=== PATIENT | female | born 1935 | race Caucasian/White ===

== ENCOUNTER → 2016-09-08 | Outpatient (CLI) | payer OTHER ==
[~2016-09-08] MED LIST: ATOR-22 PO; CRG40 PO; CYM60 PO; DIVA250T PO; DIVA500T5 PO; FERR325T51 PO; FRRS300 PO; LEVO25TA5 PO; LISI-461 PO; LORA-741 PO; LSN10 PO; LVQ750 PO; MAGN400T6 PO; OXYC-57 PO; PRAM1TAB PO; PRAM1TAB52 PO; QSTP PO; RBTUDL5 PO; SYN25 PO; TYL325X PO; VST25HP PO; ZOLP5TAB PO
== END | disposition home or self-care (01) ==
LOC: C.LABMFLN 07:35
PROVIDERS: ATTEND Family Medicine
DX: R30.0 Dysuria (principal)

== ENCOUNTER → 2016-09-20 | Outpatient (CLI) | payer OTHER ==
[~2016-09-20] MED LIST changes: +GADAVIST IV PRN
--- NOTE | 2016-09-20 11:17 | DIAGNOSTIC IMAGING REPORT ---
MRI OF THE BRAIN WITHOUT AND WITH IV CONTRAST CLINICAL HISTORY: DEMENTIA,GAIT APRAXIA,SANCHEZ mental status change COMPARISON STUDY: 12/01/2015 TECHNIQUE: Utilizing a 1.5 Gavi magnet and dedicated coil, multiplanar, multiecho imaging of the brain was performed pre and postcontrast administration. IV administration of 5.5 mL of Gadavist contrast was uneventful. FINDINGS: Findings of generalized cerebellar as well as cerebellar atrophy. Moderate chronic small vessel change of the periventricular deep white matter regions. Convexity atrophy unaltered from the prior study. No evidence for abnormal postcontrast enhancement. IMPRESSION: 1. Generalized cerebellar as well as cerebral atrophy. 2. Moderate chronic small vessel change. 3. No acute process. 4. No evidence for abnormal postcontrast enhancement. Electronically signed by: Andrew Ugarte M.D. 09/20/2016 11:16 AM Dictated Date/Time: 09/20/2016 11:14 AM
== END | disposition home or self-care (01) ==
PROVIDERS: ATTEND Psychiatry & Neurology Neurology
DX: F03.90 Unspecified dementia, unspecified severity, without behavioral disturbance, psychotic disturbance, mood disturbance, and anxiety (principal); R51 Headache; R48.2 Apraxia

== ENCOUNTER 2016-09-27 14:01 | Inpatient (IN) | payer OTHER ==
[~2016-09-27] VITALS: Ht 165.1 cm; Wt 61.2 kg
[~2016-09-27 14:01] MED LIST changes: -DIVA250T PO; -FRRS300 PO; -GADAVIST IV PRN; -LISI-461 PO; -LSN10 PO; -LVQ750 PO; -MAGN400T6 PO; -PRAM1TAB PO; -QSTP PO; -RBTUDL5 PO; -SYN25 PO; -TYL325X PO
[2016-09-27] MEDS ORDERED: SODIUM CHLORIDE 0.9% 1000ML 1,000 ML IV STA (14:29)
--- NOTE | 2016-09-27 14:32 | EMERGENCY ROOM VISIT NOTE ---
History Report prepared by Mandi: Bryan Concepcion Under the Supervision of: Dr. Clay Bañuelos M.D. First contact with patient: 14:21 Chief Complaint: DIARRHEA Stated Complaint: DIARRHEA Nursing Triage Summary: increased diarrhea. she is known to have c diff. she is supposed to have a decal transplant on tuesday in [facility]. weak over the past couple days. History of Present Illness The patient is an 81 year old female with a history of C. Diff. who presents to the Emergency Room with complaints of recurrent diarrhea for the past several months. The patient has had increased diarrhea recently, as per her . The patient has also been becoming increasingly weak. The patient is scheduled for a fecal transplant on 10/05/16 at [facility]. The patient was last on antibiotics two weeks ago, which her believes was Vancomycin. He also notes that the patient has a history of falling off of beds without rails. Source of History: spouse/significant other Onset: several months Position: other (GI) Quality: other (diarrhea) Timing: other (recurrent) Associated Symptoms: + weakness Review of Systems See HPI for pertinent positives & negatives. A total of 10 systems reviewed and were otherwise negative. Past Medical & Surgical Medical Problems: (1) Clostridium difficile diarrhea (2) Facial droop (3) HCAP (healthcare-associated pneumonia) (4) Hyperlipemia (5) Hypertension (6) Migraine (7) Sinusitis, acute (8) Stenosis of left internal carotid artery Surgical Problems: (1) Post-operative state Family History Hypertension Seizures Social History Smoking Status: Never Smoker Alcohol Use: none Drug Use: none Marital Status: Housing Status: lives with family Occupation Status: retired Current/Historical Medications Scheduled Atorvastatin (Lipitor), 20 MG PO HS Divalproex Sodium (Depakote Delay Rel), 500 MG PO QPM Duloxetine Hcl (Cymbalta *), 60 MG PO QPM Ferrous Sulfate (Ferrous Sulfate), 325 MG PO DAILY Levothyroxine Sodium (Levothyroxine Sodium), 1.5 TAB PO QAM Lisinopril (Lisinopril), 10 MG PO DAILY Magnesium Oxide (Mag-Ox), 400 MG PO BID Nadolol (Nadolol), 40 MG PO QAM Pramipexole Dihydrochloride (Mirapex), 1.25 MG PO HS Scheduled PRN Hydroxyzine HCl (Hydroxyzine Pamoate), 25 MG PO DAILY PRN for Anxiety Lorazepam (Ativan), 0.5 MG PO HS PRN for Sleep Oxycodone/Acetaminophen 5MG/325MG (Percocet 5MG/325MG), 1 TABLETS PO Q6H PRN for Pain Zolpidem Tartrate (Ambien), 5 MG PO HS PRN for Sleep Allergies Coded Allergies: Codeine (Verified Allergy, Mild, ?REACTION, 02/11/16) Aripiprazole (Unverified Allergy, Unknown, unknown, 02/11/16) Aspartame (Verified Adverse Reaction, Unknown, MIGRAINE, 02/11/16) Physical Exam Vital Signs Date Time Temp Pulse Resp B/P Pulse Ox O2 Delivery O2 Flow Rate FiO2 09/27/16 15:40 64 18 129/67 96 Room Air 09/27/16 14:54 64 09/27/16 14:08 75 18 133/78 95 Room Air Physical Exam GENERAL: Patient is pale in appearance. HEAD: Normocephalic atraumatic EYES: Ocular movements intact pupils equal and react to light OROPHARYNX mucous membranes are moist no exudates present no erythema or edema present NECK: Supple no nuchal rigidity CHEST: Good equal expansion LUNGS: Clear and equal to auscultation CARDIAC: Normal S1 and S2 ABDOMEN: Soft nontender no guarding BACK: No CVA tenderness EXTREMITIES: No pain upon palpation normal muscle strength in all groups no clubbing cyanosis or edema NEURO: Patient is following commands is answering questions appropriately. Alert and oriented x3 Cranial Nerves 2-12 grossly intact Medical Decision & Procedures ER Provider Diagnostic Interpretation: X-ray results as stated below per interpretation by me and the radiologist: ABDOMEN 2VIEW W/PA CHEST RTN CLINICAL HISTORY: Diffuse abdominal pain COMPARISON STUDY: Chest x-ray dated 02/09/2016 FINDINGS: Erect chest reveals no free intraperitoneal air. There are chronic calcifications within the right mid to lower lung zone. There is chronic left basilar pleural-parenchymal scarring. There is no lobar consolidation. Supine and decubitus views the abdomen reveal a relatively gasless abdomen. No transition zones are visualized. IMPRESSION: Relatively gasless abdomen. No conventional radiographic evidence of bowel obstruction. No evidence of free air. Electronically signed by: Shamar Arboleda M.D. 09/27/2016 3:57 PM Dictated Date/Time: 09/27/2016 3:56 PM Laboratory Results 09/27/16 14:45 Red Blood Count 4.40, Mean Corpuscular Volume 91.8, Mean Corpuscular Hemoglobin 30.0, Mean Corpuscular Hemoglobin Concent 32.7, Mean Platelet Volume 10.0, Neutrophils (%) (Auto) 72.4, Lymphocytes (%) (Auto) 14.1, Monocytes (%) (Auto) 10.2, Eosinophils (%) (Auto) 2.8, Basophils (%) (Auto) 0.2, Neutrophils # (Auto ) 8.71, Lymphocytes # (Auto) 1.70, Monocytes # (Auto) 1.23, Eosinophils # (Auto ) 0.34, Basophils # (Auto) 0.03 09/27/16 14:45 Test 09/27/16 14:45 White Blood Count 12.05 K/uL (4.8-10.8) Red Blood Count 4.40 M/uL (4.2-5.4) Hemoglobin 13.2 g/dL (12.0-16.0) Hematocrit 40.4 % (37-47) Mean Corpuscular Volume 91.8 fL (80-100) Mean Corpuscular Hemoglobin 30.0 pg (25-34) Mean Corpuscular Hemoglobin Concent 32.7 g/dl (32-36) Platelet Count 241 K/uL (130-400) Mean Platelet Volume 10.0 fL (7.4-10.4) Neutrophils (%) (Auto) 72.4 % Lymphocytes (%) (Auto) 14.1 % Monocytes (%) (Auto) 10.2 % Eosinophils (%) (Auto) 2.8 % Basophils (%) (Auto) 0.2 % Neutrophils # (Auto) 8.71 K/uL (1.4-6.5) Lymphocytes # (Auto) 1.70 K/uL (1.2-3.4) Monocytes # (Auto) 1.23 K/uL (0.11-0.59) Eosinophils # (Auto) 0.34 K/uL (0-0.5) Basophils # (Auto) 0.03 K/uL (0-0.2) RDW Standard Deviation 50.9 fL (36.4-46.3) RDW Coefficient of Variation 15.1 % (11.5-14.5) Immature Granulocyte % (Auto) 0.3 % Immature Granulocyte # (Auto) 0.04 K/uL (0.00-0.02) Prothrombin Time 10.6 SECONDS (9.0-12.0) Prothromb Time International Ratio 1.0 (0.9-1.1) Activated Partial Thromboplast Time 27.1 SECONDS (21.0-31.0) Partial Thromboplastin Ratio 1.0 Anion Gap 10.0 mmol/L (3-11) Est Creatinine Clear Calc Drug Dose 42.1 ml/min Estimated GFR () 67.6 Estimated GFR (Non- 58.3 BUN/Creatinine Ratio 19.1 (10-20) Calcium Level 9.2 mg/dl (8.5-10.1) Total Bilirubin 0.3 mg/dl (0.2-1) Direct Bilirubin < 0.1 mg/dl (0-0.2) Aspartate Amino Transf (AST/SGOT) 13 U/L (15-37) Alanine Aminotransferase (ALT/SGPT) 15 U/L (12-78) Alkaline Phosphatase 94 U/L (45-117) Total Protein 7.0 gm/dl (6.4-8.2) Albumin 2.7 gm/dl (3.4-5.0) Lipase 327 U/L (73-393) Thyroid Stimulating Hormone (TSH) 6.040 uIu/ml (0.300-4.500) Valproic Acid (Depakene) Level 27 mcg/ml (50-100) Labs reviewed by ED physician. Medications Administered Medications (Trade) Dose Ordered Sig/Fernando Route Start Time Stop Time Status Last Admin Dose Admin Sodium Chloride (Nss 1000ml) 1,000 ml @ 999 mls/hr Q1H1M STAT IV 09/27/16 14:29 09/27/16 15:29 DC 09/27/16 14:29 999 MLS/HR ED Course 1424: Past medical records reviewed. The patient was evaluated in room B9. A complete history and physical examination was performed. 1429: NSS 1000 ml @ 999 mls/hr. 1545: Checked on the patient. 1553: Discussed the case with Dr. Becker, [facility] Hospitalist. The patient will be evaluated. Medical Decision Differential diagnosis: Etiologies such as appendicitis, diverticulitis, PUD, biliary pathology, UTI, pancreatitis, obstruction, mesenteric ischemia, aortic pathology, infections, inflammatory bowel disease, renal colic, as well as others were entertained. This is an 81-year-old female who presents emergency department complaining of generalized weakness. The patient has been treated for outpatient for C. difficile however has failed. She is to get a fecal transplant. The patient reports she's been having approximate 5 stools per hour and feels so weak that she can no longer get out of bed. For this reason the patient was given IV given normal saline bolus. I discussed the case with the hospitalist who agreed to admit the patient. Both patient and were in agreement with the treatment plan. Consults Time Called: 1550 Consulting Physician: Dr. Becker, [facility] Returned Call: [phone]: Discussed the case with Dr. Becker, [facility]. The patient will be evaluated. Impression Primary Impression: C. difficile colitis Scribe Attestation The scribe's documentation has been prepared under my direction and personally reviewed by me in its entirety. I confirm that the note above accurately reflects all work, treatment, procedures, and medical decision making performed by me. Departure Information Dispostion Being Evaluated By Hospitalist Referrals Kim Sanabria M.D. (PCP) Patient Instructions My [facility]
[2016-09-27 15:10] LABS: BASO % 0.2 %; BASO ABS # 0.03 K/uL (0-0.2); COMPLETE YES; EOS % 2.8 %; HEMATOCRIT 40.4 % (37-47); IG% 0.3 %; LYMPH % 14.1 %; MEAN CELL VOLUME 91.8 fL (80-100); MEAN CORPUSCULAR HGB CONC 32.7 g/dl (32-36); MONO % 10.2 %; NEUT % 72.4 %; PLATELET COUNT 241 K/uL (130-400); WHITE BLOOD COUNT 12.05 K/uL (4.8-10.8)
[2016-09-27 15:20] LABS: ALT/SGPT 15 U/L (12-78); BLOOD UREA NITROGEN 17 mg/dl (7-18); BUN/CREATININE RATIO 19.1 (10-20); CALCIUM 9.2 mg/dl (8.5-10.1); CARBON DIOXIDE 25 mmol/L (21-32); CHLORIDE 105 mmol/L (98-107); CREATININE 0.91 mg/dl (0.60-1.20); GLUCOSE 96 mg/dl (70-99); POTASSIUM 4.4 mmol/L (3.5-5.1); SODIUM 140 mmol/L (136-145)
[2016-09-27 15:23] LABS: ALKALINE PHOSPHATASE 94 U/L (45-117); AST/SGOT 13 U/L (15-37)
--- NOTE | 2016-09-27 15:58 | DIAGNOSTIC IMAGING REPORT ---
ABDOMEN 2VIEW W/PA CHEST RTN CLINICAL HISTORY: Diffuse abdominal pain COMPARISON STUDY: Chest x-ray dated 02/09/2016 FINDINGS: Erect chest reveals no free intraperitoneal air. There are chronic calcifications within the right mid to lower lung zone. There is chronic left basilar pleural-parenchymal scarring. There is no lobar consolidation. Supine and decubitus views the abdomen reveal a relatively gasless abdomen. No transition zones are visualized. IMPRESSION: Relatively gasless abdomen. No conventional radiographic evidence of bowel obstruction. No evidence of free air. Electronically signed by: Shamar Arboleda M.D. 09/27/2016 3:57 PM Dictated Date/Time: 09/27/2016 3:56 PM
[2016-09-27] MEDS ORDERED: CRG40 PO (16:32)
[2016-09-27] MEDS ORDERED: MAGN400T6 PO (16:32)
[2016-09-27] MEDS ORDERED: LISI-461 PO (16:32)
[2016-09-27] MEDS ORDERED: FRRS300 PO (16:32)
[2016-09-27] MEDS ORDERED: hydrOXYzine HCL 25 MG TAB PO PRN (16:45)
[2016-09-27] MEDS ORDERED: LORAZEPAM 0.5 MG TAB PO PRN (16:45)
[2016-09-27] MEDS ORDERED: FIDAXOMICIN TAB 200 MG TAB PO SCH (16:45)
[2016-09-27] MEDS ORDERED: ZOLPIDEM TARTRATE 5 MG TAB PO PRN (16:45)
[2016-09-27] MEDS ORDERED: OXYCODONE/ACETAMINOPHEN 5-325 TAB PO PRN (16:45)
[2016-09-27] MEDS: SODIUM CHLORIDE 0.9% 1000ML 1,000 ML IV SCH (17:00)
[2016-09-27] MEDS ORDERED: ALUMINUM/MAGNESIUM/SIMETH (MAALOX MAX) 30 ML UDC PO PRN (17:00)
[2016-09-27] MEDS ORDERED: ONDANSETRON INJ 2 MG/ML 2 ML VIAL IV PRN (17:00)
[2016-09-27 17:57] LABS: PROTHROMBIN TIME (PATIENT) 10.6 SECONDS (9.0-12.0)
[2016-09-27 18:25] VITALS: BP 164/82; PULSE 67; TEMP 36.4; O2SAT 96; Ht 165.1 cm; Wt 61.2 kg
[2016-09-27] MEDS: VANCOMYCIN HCL 500 MG/10ML SOLN PO SCH ×2 (19:00→22:07)
[2016-09-27] MEDS: RASPBERRY SYRUP 5 ML UDP PO SCH ×2 (19:00→22:07)
[2016-09-27] MEDS: DULOXETINE HCL 60 MG CAP PO SCH (20:53)
[2016-09-27] MEDS: DIVALPROEX SODIUM 500 MG DELAY RELEASE TAB PO SCH (20:54)
[2016-09-27] MEDS: MAGNESIUM OXIDE 400 MG TAB PO SCH (20:54)
[2016-09-27] MEDS: PRAMIPEXOLE DIHYDROCHLORIDE 0.5 MG TAB PO SCH (20:54)
[2016-09-27] MEDS: ATORVASTATIN 20 MG TAB PO SCH (20:54)
[2016-09-27] MEDS: CHOLESTYRAMINE LIGHT 4 GM PKT PO SCH (20:55)
[2016-09-27] MEDS: HEPARIN SOD 5000 UNIT/0.5 ML CARP SQ SCH (21:06)
--- NOTE | 2016-09-27 21:37 | HISTORY & PHYSICAL EXAMINATION ---
DATE OF ADMISSION: 09/27/2016 CHIEF COMPLAINT: Diarrhea. HISTORY OF PRESENT ILLNESS: This is an 81-year-old female with complex medical history including C. diff, comes to Emergency Room complaining of recurrent diarrhea for the past several months. The patient has had increased diarrhea in the last few days as per . The patient has history of dementia and cannot provide much history, so main history was obtained from her who mentioned that last Tuesday, specifically she had more than 10 episodes of diarrhea and also she has been increasingly weak. She had been seen by Dr. Rashid from gastroenterology about 3 weeks ago and she has another appointment in 2 weeks to be considered for oral fecal transplant since the patient failed Flagyl, vancomycin and Dificid. The patient was last on antibiotics 2 weeks ago which was oral vancomycin. He also notes the patient has a history of falling off the bed without rails. REVIEW OF SYSTEMS: Negative except as above. Ten out of 14 systems were reviewed. PAST MEDICAL HISTORY: Significant for recurrent C. diff, facial droop, healthcare-associated pneumonia, dementia, hyperlipidemia, hypertension, migraine, acute sinusitis, stenosis of the left internal carotid artery, postoperative state, and seizure, last seizure was many years ago. FAMILY HISTORY: Hypertension, seizure. SOCIAL HISTORY: Does not smoke, does not drink. ALLERGIES: SHE HAS ALLERGIES TO ARIPIPRAZOLE, ASPARTAME AND CORDAN. CURRENT MEDICATIONS: Atorvastatin 20 mg p.o. daily, divalproex 500 mg p.o. daily, duloxetine 60 mg p.o. daily, ferrous sulfate 325 mg p.o. daily, levothyroxine 37.5 mcg p.o. daily, lisinopril 10 mg p.o. daily, magnesium oxide 400 mg p.o. b.i.d., nadolol 40 mg p.o. daily, pramipexole 1.25 mg p.o. daily, hydroxyzine 25 mg p.o. daily p.r.n. anxiety, lorazepam 0.5 mg p.o. p.r.n. sleep, Percocet 5/325 mg 1 tablet p.o. q. 6 hours p.r.n. pain and zolpidem 5 mg p.o. p.r.n. sleep. PHYSICAL EXAMINATION: VITAL SIGNS: Temperature not checked, pulse 64, respirations 18, blood pressure 129/67, pulse ox 96% on room air. GENERAL: The patient not in acute distress, pale. HEENT: Normocephalic, atraumatic. PERRLA, EOMI. Mouth moist, no oral lesions. NECK: No JVD. Trachea midline. Thyroid is not enlarged. LUNGS: Clear to auscultation bilateral. No wheezes, no rhonchi. HEART: S1, S2. RRR. ABDOMEN: Soft, nontender, nondistended. Bowel sounds present. BACK: No CVA tenderness. EXTREMITIES: No clubbing, cyanosis, edema. NEUROLOGICAL: The patient is alert and oriented x2. Cranial nerves II-XII are intact, appears to be having problems following commands. DIAGNOSTIC INTERPRETATION: Abdomen two views and PA chest, relatively gasless abdomen, nonconventional radiographical evidence of bowel obstruction, no evidence of free air. LABORATORY DATA: White count of 12.0, hemoglobin of 13.2, platelets 241. BMP is essentially normal. Lipase 227. TSH of 6.0. Valproic acid of 27 mcg which is a little decreased. ASSESSMENT AND PLAN: This is an 81-year-old female who comes with recurrent Clostridium diff colitis. 1. Persistent Clostridium difficile colitis with diarrhea. We will start the patient on oral vancomycin 500 mg q.i.d. and also add cholestyramine 4 grams b.i.d. as needed for diarrhea. We will also consult gastroenterology, Dr. Rashid, and we will hydrate the patient. 2. History of dementia noted with risk of fall. We will utilize fall precautions. The patient was evaluated by Dr. Castellanos, had a workup done including brain MRI on 09/20/2016 that showed generalized cerebellar as well as cerebral atrophy. 3. History of hypertension, hyperlipidemia, left internal carotid artery surgery. Continue on atorvastatin, lisinopril, nadolol. 4. History of hypothyroidism. Continue with levothyroxine 37.5 mcg daily. Check TSH. 5. History of seizures that she did not have for many years. We will continue current Depakote dose of 500 mg p.o. daily, although her Depakote level is low. We will not increase her Depakote dose because she did not have seizures for many years plus she was just evaluated by a neurologist recently. 6. Deep venous thrombosis and gastrointestinal prophylaxis. 7. The patient is a full code. Time spent on during this admission 50 minutes. MTDD
[2016-09-27 23:52] VITALS: BP 133/73; PULSE 65; TEMP 36.7; O2SAT 93
[2016-09-28] MEDS: SODIUM CHLORIDE 0.9% 1000ML 1,000 ML IV SCH ×2 (06:13→21:01)
[2016-09-28] MEDS: LEVOTHYROXINE 25 MCG TAB PO SCH (06:15)
[2016-09-28 07:58] VITALS: BP 149/73; PULSE 64
[2016-09-28] MEDS: RASPBERRY SYRUP 5 ML UDP PO SCH ×4 (08:10→21:02)
[2016-09-28] MEDS: VANCOMYCIN HCL 500 MG/10ML SOLN PO SCH ×4 (08:10→21:02)
[2016-09-28] MEDS: MAGNESIUM OXIDE 400 MG TAB PO SCH ×2 (08:10→21:06)
[2016-09-28] MEDS: LISINOPRIL 10 MG TAB PO SCH (08:11)
[2016-09-28] MEDS: NADOLOL 40 MG TAB PO SCH (08:11)
[2016-09-28] MEDS: FERROUS SULFATE 325 MG TAB PO SCH (08:11)
[2016-09-28 08:18] VITALS: BP 140/79; PULSE 65; TEMP 36.3; O2SAT 97
[2016-09-28 08:55] LABS: BASO % 0.3 %; BASO ABS # 0.03 K/uL (0-0.2); COMPLETE YES; EOS % 1.5 %; HEMATOCRIT 38.5 % (37-47); IG% 0.3 %; LYMPH % 10.3 %; LYMPH ABS # 1.04 K/uL (1.2-3.4); MEAN CELL VOLUME 91.4 fL (80-100); MEAN CORPUSCULAR HEMOGLOBIN 30.2 pg (25-34); MEAN PLATELET VOLUME 9.8 fL (7.4-10.4); MONO % 8.4 %; NEUT % 79.2 %; PLATELET COUNT 215 K/uL (130-400); RED BLOOD COUNT 4.21 M/uL (4.2-5.4); WHITE BLOOD COUNT 10.08 K/uL (4.8-10.8)
[2016-09-28 09:07] LABS: BUN/CREATININE RATIO 16.6 (10-20); CALCIUM 8.6 mg/dl (8.5-10.1); CREATININE 0.82 mg/dl (0.60-1.20); POTASSIUM 3.9 mmol/L (3.5-5.1)
[2016-09-28] MEDS: HEPARIN SOD 5000 UNIT/0.5 ML CARP SQ SCH ×2 (10:15→21:10)
[2016-09-28] MEDS: CHOLESTYRAMINE LIGHT 4 GM PKT PO SCH ×2 (11:04→22:53)
--- NOTE | 2016-09-28 13:47 | Progress Note ---
Subjective Date of Service: Sep 28, 2016. Subjective pt feels weak and tired some abdominal bloating, continued diarrhea. at bedside and updated Problem List Medical Problems: (1) Altered mental status Status: Acute (2) Altered mental status Status: Acute (3) C. difficile colitis Status: Acute (4) Dementia Status: Acute (5) Fracture of femoral neck, left Status: Acute (6) Pneumonia Status: Acute (7) Seizure Status: Acute (8) Sinusitis Status: Acute (9) Weakness Status: Acute Review of Systems Constitutional: No chills, No fever Respiratory: No cough, No shortness of breath Cardiac: No chest pain, No edema Abdomen: + diarrhea, + nausea, + pain, No constipation, No vomiting Musculoskeletal: No joint pain, No muscle pain Psychiatric: No anhedonism, No depression symptoms Objective Vital Signs Date Time Temp Pulse Resp B/P Pulse Ox O2 Delivery O2 Flow Rate FiO2 09/28/16 00:00 Room Air 09/27/16 23:52 36.7 65 16 133/73 93 Room Air 09/27/16 20:00 Room Air 09/27/16 18:25 36.4 67 18 164/82 96 Room Air 09/27/16 17:58 67 18 133/72 97 09/27/16 15:40 64 18 129/67 96 Room Air 09/27/16 14:54 64 09/27/16 14:08 75 18 133/78 95 Room Air Physical Exam General Appearance: + mild distress, + thin Neck: supple, no JVD Respiratory/Chest: chest non-tender, lungs clear, normal breath sounds Cardiovascular: regular rate, rhythm, no murmur Abdomen: soft, + abnormal bowel sounds, + guarding, + tenderness Extremities: no pedal edema, no calf tenderness 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iatric: alert, oriented x 3 Laboratory Results Last 24 Hours Test 09/27/16 14:45 White Blood Count 12.05 K/uL Red Blood Count 4.40 M/uL Hemoglobin 13.2 g/dL Hematocrit 40.4 % Mean Corpuscular Volume 91.8 fL Mean Corpuscular Hemoglobin 30.0 pg Mean Corpuscular Hemoglobin Concent 32.7 g/dl Platelet Count 241 K/uL Mean Platelet Volume 10.0 fL Neutrophils (%) (Auto) 72.4 % Lymphocytes (%) (Auto) 14.1 % Monocytes (%) (Auto) 10.2 % Eosinophils (%) (Auto) 2.8 % Basophils (%) (Auto) 0.2 % Neutrophils # (Auto) 8.71 K/uL Lymphocytes # (Auto) 1.70 K/uL Monocytes # (Auto) 1.23 K/uL Eosinophils # (Auto) 0.34 K/uL Basophils # (Auto) 0.03 K/uL RDW Standard Deviation 50.9 fL RDW Coefficient of Variation 15.1 % Immature Granulocyte % (Auto) 0.3 % Immature Granulocyte # (Auto) 0.04 K/uL Prothrombin Time 10.6 SECONDS Prothromb Time International Ratio 1.0 Activated Partial Thromboplast Time 27.1 SECONDS Partial Thromboplastin Ratio 1.0 Sodium Level 140 mmol/L Potassium Level 4.4 mmol/L Chloride Level 105 mmol/L Carbon Dioxide Level 25 mmol/L Anion Gap 10.0 mmol/L Blood Urea Nitrogen 17 mg/dl Creatinine 0.91 mg/dl Est Creatinine Clear Calc Drug Dose 42.1 ml/min Estimated GFR () 67.6 Estimated GFR (Non- 58.3 BUN/Creatinine Ratio 19.1 Random Glucose 96 mg/dl Calcium Level 9.2 mg/dl Total Bilirubin 0.3 mg/dl Direct Bilirubin < 0.1 mg/dl Aspartate Amino Transf (AST/SGOT) 13 U/L Alanine Aminotransferase (ALT/SGPT) 15 U/L Alkaline Phosphatase 94 U/L Total Protein 7.0 gm/dl Albumin 2.7 gm/dl Lipase 327 U/L Thyroid Stimulating Hormone (TSH) 6.040 uIu/ml Valproic Acid (Depakene) Level 27 mcg/ml Assessment and Plan 81-year-old female with recurrent Clostridium diff colitis. Clostridium difficile colitis with diarrhea. oral vancomycin 500 mg q.i.d. and add cholestyramine 4 grams b.i.d. consult gastroenterology, Dr. Rashid, who has followed pt in clinic and reportedly has discussion of fecal transplant History of dementia with risk of fall. fall precautions. Has seen Neurology, Dr. Castellanos, where work up showed generalized cerebellar and cerebral atrophy. Cardio/Cerebrovascular risk reduction, atorvastatin, lisinopril, nadolol. Hypothyroidism. TSH mildly elevated will check T4 seizure history with low depakote level but no clinical seizures, will continue dose as outpt listed
--- NOTE | 2016-09-28 14:10 | Gastrointestinal Consultation ---
Gastrointestinal Consultation Date of Consultation: Sep 28, 2016 Attending Physician: Dr. Becker Consulting Physician: Dr. Root Reason for Consultation: C-diff History of Present Illness Patient is a 81 year old female patient of Dr. Gonzalez with a hx of dementia, hyperlipidemia, migraines, osteoporosis, GERD, hypothyoidism, RLS and carotic stenosis. She also carries a hx of ? stroke vs. seiqzures after carotid artery surgery and underwent long rehab but is back in her home with her being her main care provider. She presented to the ED with known hx of C-diff. She has been seen in the GI clinic by Juan Rashid on 08/27/2016 and fecal transplant is being arranged for next week. Her tells us that she was initially dx'ed with C-diff in April 2016 and that this recurred after being tx for UTIS, most recently about a months ago. According to her she has had persistent diarrhea and all C-diff tests have been positive since April 2016. This has caused increasing weakness/fatigue and poor appetite. She has had ongoing abdominal discomfort but no severe abdominal pain. No blood in her stools. On arrival WBC was 12, abdominal x-ray normal. C-diff was positive. Pt was hemodynamically stable. Past Medical/Surgical History Medical Problems: (1) Altered mental status Status: Acute (2) Altered mental status Status: Acute (3) C. difficile colitis Status: Acute (4) Dementia Status: Acute (5) Fracture of femoral neck, left Status: Acute (6) Pneumonia Status: Acute (7) Seizure Status: Acute (8) Sinusitis Status: Acute (9) Weakness Status: Acute Past Medical History: 1. C-diff 2. Dementia 3. Stroke vs. Seizures 4. Carotic artery stenosis 5. GERD 6. Hypothyroidism 7. HTN 8. RLS Past Surgical History: 1. Hernia repair 2. Hernia repair 3. hysterectomy 4. Appendectomy 5. Temporal bx 6. Occipital nerve decompression 7. Brachial nerve neuroplasty Family History Hypertension Seizures Social History Smoking Status: Never Smoker Alcohol Use: none Drug Use: none Marital Status: Housing Status: lives with family Occupation Status: retired Allergies Coded Allergies: Codeine (Verified Allergy, Mild, ?REACTION, 02/11/16) Aripiprazole (Unverified Allergy, Unknown, unknown, 6/22/16) Aspartame (Verified Adverse Reaction, Unknown, MIGRAINE, 02/11/16) Current Medications Home Meds and Scripts Medications Dose Route/Sig Max Daily Dose Days Date Category Dose Instructions Mag-Ox (Magnesium Oxide) 400 Mg Tab 400 Mg PO BID 09/27/16 Reported Lisinopril 10 Mg Tab 10 Mg PO DAILY 09/27/16 Reported Ferrous Sulfate 325 Mg Tab 325 Mg PO DAILY 09/27/16 Reported Nadolol 40 Mg Tab 40 Mg PO QAM 09/27/16 Reported Depakote Delay Rel (Divalproex Sodium) 500 Mg Tab 500 Mg PO QPM 02/11/16 Reported Mirapex (Pramipexole Dihydrochloride) 0.25 Mg Tab 1.25 Mg PO HS 02/11/16 Reported Hydroxyzine Pamoate (Hydroxyzine HCl) 25 Mg Tab 25 Mg PO DAILY PRN 01/22/16 Reported Levothyroxine Sodium Unknown Strength Tab 1.5 Tab PO QAM 12/24/15 Reported Percocet 5MG/325MG (Oxycodone/Acetaminophen) Tab 1 Tablets PO Q6H PRN 11/29/15 Reported PAIN Lipitor (Atorvastatin Calcium) 20 Mg Tab 20 Mg PO HS 11/20/15 Reported Cymbalta * (Duloxetine HCl) 60 Mg Cap 60 Mg PO QPM 11/09/11 Reported Ambien (Zolpidem Tartrate) 5 Mg Tab 5 Mg PO HS PRN 11/09/11 Reported Ativan (Lorazepam) 0.5 Mg Tab 0.5 Mg PO HS PRN 11/09/11 Reported Review of Systems Constitutional: + problem reported (dementia), + weakness, No chills, No fever , No sweats, No weight loss Eyes: No eye pain, No redness ENT: No pain on swallowing, No sore throat, No trouble swallowing Respiratory: No cough, No dyspnea on exertion, No shortness of breath, No wheezing Cardiac: No chest pain, No edema, No palpitations Abdomen: + diarrhea, + pain (mild), + see HPI Neuro: No balance problems, No memory loss, No numbness/tingling, No vertigo, No weakness Psych: No anxiety, No depression symptoms, No insomnia Heme: No abnormal bleeding/bruising, No night sweats Endo: No excessive thirst, No excessive urination Skin: No itch, No jaundice, No new/changing skin lesions, No rash Physical Exam Date Time Temp Pulse Resp B/P Pulse Ox O2 Delivery O2 Flow Rate FiO2 09/28/16 08:18 36.3 65 17 140/79 97 Room Air 09/28/16 08:00 Room Air 09/28/16 07:58 64 149/73 09/28/16 00:00 Room Air 09/27/16 23:52 36.7 65 16 133/73 93 Room Air 09/27/16 20:00 Room Air 09/27/16 18:25 36.4 67 18 164/82 96 Room Air 09/27/16 17:58 67 18 133/72 97 09/27/16 15:40 64 18 129/67 96 Room Air 09/27/16 14:54 64 09/27/16 14:08 75 18 133/78 95 Room Air General Appearance: no apparent distress Eyes: normal inspection, EOMI Neck: supple, no adenopathy, thyroid normal Respiratory/Chest: chest non-tender, lungs clear, normal breath sounds, no accessory muscle use Cardiovascular: regular rate, rhythm, no JVD, no murmur Abdomen: normal bowel sounds, non tender, no organomegaly, + tenderness (mild firmness and mild distention on exam but no indication of tenderness) Extremities: normal inspection, no pedal edema, normal capillary refill 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: alert, normal mood/affect, oriented x 3 Skin: normal color, no jaundice, warm/dry, no rash Laboratory Results Last 24 Hours Test 09/27/16 14:45 09/28/16 08:33 White Blood Count 12.05 K/uL 10.08 K/uL Red Blood Count 4.40 M/uL 4.21 M/uL Hemoglobin 13.2 g/dL 12.7 g/dL Hematocrit 40.4 % 38.5 % Mean Corpuscular Volume 91.8 fL 91.4 fL Mean Corpuscular Hemoglobin 30.0 pg 30.2 pg Mean Corpuscular Hemoglobin Concent 32.7 g/dl 33.0 g/dl Platelet Count 241 K/uL 215 K/uL Mean Platelet Volume 10.0 fL 9.8 fL Neutrophils (%) (Auto) 72.4 % 79.2 % Lymphocytes (%) (Auto) 14.1 % 10.3 % Monocytes (%) (Auto) 10.2 % 8.4 % Eosinophils (%) (Auto) 2.8 % 1.5 % Basophils (%) (Auto) 0.2 % 0.3 % Neutrophils # (Auto) 8.71 K/uL 7.98 K/uL Lymphocytes # (Auto) 1.70 K/uL 1.04 K/uL Monocytes # (Auto) 1.23 K/uL 0.85 K/uL Eosinophils # (Auto) 0.34 K/uL 0.15 K/uL Basophils # (Auto) 0.03 K/uL 0.03 K/uL RDW Standard Deviation 50.9 fL 50.6 fL RDW Coefficient of Variation 15.1 % 15.0 % Immature Granulocyte % (Auto) 0.3 % 0.3 % Immature Granulocyte # (Auto) 0.04 K/uL 0.03 K/uL Prothrombin Time 10.6 SECONDS Prothromb Time International Ratio 1.0 Activated Partial Thromboplast Time 27.1 SECONDS Partial Thromboplastin Ratio 1.0 Sodium Level 140 mmol/L 141 mmol/L Potassium Level 4.4 mmol/L 3.9 mmol/L Chloride Level 105 mmol/L 107 mmol/L Carbon Dioxide Level 25 mmol/L 23 mmol/L Anion Gap 10.0 mmol/L 11.0 mmol/L Blood Urea Nitrogen 17 mg/dl 14 mg/dl Creatinine 0.91 mg/dl 0.82 mg/dl Est Creatinine Clear Calc Drug Dose 42.1 ml/min 46.8 ml/min Estimated GFR () 67.6 76.7 Estimated GFR (Non- 58.3 66.2 BUN/Creatinine Ratio 19.1 16.6 Random Glucose 96 mg/dl 102 mg/dl Calcium Level 9.2 mg/dl 8.6 mg/dl Total Bilirubin 0.3 mg/dl Direct Bilirubin < 0.1 mg/dl Aspartate Amino Transf (AST/SGOT) 13 U/L Alanine Aminotransferase (ALT/SGPT) 15 U/L Alkaline Phosphatase 94 U/L Total Protein 7.0 gm/dl Albumin 2.7 gm/dl Lipase 327 U/L Thyroid Stimulating Hormone (TSH) 6.040 uIu/ml Valproic Acid (Depakene) Level 27 mcg/ml Free Thyroxine 1.36 ng/dl Impression Patient is a 81 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 Plan 1. Vancomycin QID 2. Regular diet. 3. Will work with family members to coordinate stool donation and plan for fecal transplant at [facility] during the next week. Her submitted a sample that was C-diff positive. Will contact his PCP and ask to consider tx his C-diff. He is apparently a colonizer as he does not have symptoms. In light of this, her son will provide a sample and will be the donor. Attg addendum: I interviewed and examined pt, reviewed chart and labs. Pt admit with 4th episode of c diff over the past 3 mos. She was recently on Macrobid, and completed Vanco taper without clear improvement in early Aug. She was brought to hospital due to worsening diarrhea. On exam, she appears comfortable, and was eating dinner with good appetite; abd is soft and NT. Labs show WBC 12 and albumin 2.7. Recurrent C diff - Her diarrhea is likely related to C diff, although her apparent lack of improvement with Vanco may suggest other possibilities, suggest as microscopic colitis. She does not need high dose Vanco - please decrease dose to 125 QID. Ok to continue colestid, although there may not be clear benefit from this. Will arrange for fecal transplant, with son as potential donor, next week. If son is unable to serve as stool donor, or if pt is ow unable to qualify for FMT, then will consult ID for dificid approval.
[2016-09-28 16:10] VITALS: BP 150/78; PULSE 62; TEMP 36.3; O2SAT 98
[2016-09-28] MEDS: PRAMIPEXOLE DIHYDROCHLORIDE 0.5 MG TAB PO SCH (21:04)
[2016-09-28] MEDS: DULOXETINE HCL 60 MG CAP PO SCH (21:05)
[2016-09-28] MEDS: DIVALPROEX SODIUM 500 MG DELAY RELEASE TAB PO SCH (21:06)
[2016-09-28] MEDS: ATORVASTATIN 20 MG TAB PO SCH (21:07)
[2016-09-28 23:57] VITALS: BP 159/78; PULSE 57; TEMP 36.6
[2016-09-29] MEDS: LEVOTHYROXINE 25 MCG TAB PO SCH (06:33)
[2016-09-29 07:04] VITALS: BP 138/55; PULSE 65; TEMP 36.4; O2SAT 99
[2016-09-29] MEDS: SODIUM CHLORIDE 0.9% 1000ML 1,000 ML IV SCH ×2 (08:01→21:24)
[2016-09-29] MEDS: NADOLOL 40 MG TAB PO SCH (08:01)
[2016-09-29] MEDS: LISINOPRIL 10 MG TAB PO SCH (08:02)
[2016-09-29] MEDS: MAGNESIUM OXIDE 400 MG TAB PO SCH ×2 (08:02→20:23)
[2016-09-29] MEDS: VANCOMYCIN HCL 500 MG/10ML SOLN PO SCH (08:02)
[2016-09-29] MEDS: RASPBERRY SYRUP 5 ML UDP PO SCH ×4 (08:02→20:21)
[2016-09-29] MEDS: FERROUS SULFATE 325 MG TAB PO SCH (08:02)
[2016-09-29] MEDS: HEPARIN SOD 5000 UNIT/0.5 ML CARP SQ SCH ×2 (08:03→20:27)
[2016-09-29 08:34] LABS: BASO % 0.2 %; BASO ABS # 0.02 K/uL (0-0.2); COMPLETE YES; EOS % 2.2 %; HEMATOCRIT 35.7 % (37-47); IG% 0.4 %; LYMPH % 13.2 %; LYMPH ABS # 1.12 K/uL (1.2-3.4); MEAN CELL VOLUME 90.2 fL (80-100); MEAN CORPUSCULAR HEMOGLOBIN 30.1 pg (25-34); MEAN CORPUSCULAR HGB CONC 33.3 g/dl (32-36); MEAN PLATELET VOLUME 9.6 fL (7.4-10.4); MONO % 10.9 %; NEUT % 73.1 %; PLATELET COUNT 176 K/uL (130-400); RED BLOOD COUNT 3.96 M/uL (4.2-5.4); WHITE BLOOD COUNT 8.51 K/uL (4.8-10.8)
[2016-09-29] MEDS: VANCOMYCIN HCL 125 MG/2.5ML SOLN PO SCH ×4 (09:00→20:21)
[2016-09-29 09:11] LABS: BUN/CREATININE RATIO 9.7 (10-20); CALCIUM 8.4 mg/dl (8.5-10.1); CREATININE 0.77 mg/dl (0.60-1.20); POTASSIUM 3.8 mmol/L (3.5-5.1)
[2016-09-29] MEDS: CHOLESTYRAMINE LIGHT 4 GM PKT PO SCH ×2 (11:27→22:12)
[2016-09-29] MEDS ORDERED: VANCOMYCIN HCL 500 MG/10ML SOLN PO SCH (13:00)
[2016-09-29 15:51] VITALS: BP 136/77; PULSE 65; TEMP 36.4; O2SAT 96
[2016-09-29 15:53] VITALS: BP 97/58; PULSE 60; TEMP 36.4; O2SAT 93
[2016-09-29 16:00] VITALS: O2SAT 93
--- NOTE | 2016-09-29 17:55 | Progress Note ---
Subjective Date of Service: Sep 29, 2016. Subjective pt looks improved and is still having diarrhea, GI is considering stool transplant Problem List Medical Problems: (1) Altered mental status Status: Acute (2) Altered mental status Status: Acute (3) C. difficile colitis Status: Acute (4) Dementia Status: Acute (5) Fracture of femoral neck, left Status: Acute (6) Pneumonia Status: Acute (7) Seizure Status: Acute (8) Sinusitis Status: Acute (9) Weakness Status: Acute Review of Systems Constitutional: + fatigue, + weakness, No chills, No fever Respiratory: No cough, No shortness of breath, No wheezing Cardiac: No PND, No chest pain, No edema, No orthopnea Abdomen: + diarrhea, No nausea, No pain, No vomiting Female : No dysuria, No hematuria, No urinary frequency Psychiatric: No anhedonism, No depression symptoms Objective Vital Signs Date Time Temp Pulse Resp B/P Pulse Ox O2 Delivery O2 Flow Rate FiO2 09/29/16 16:00 93 Room Air 09/29/16 15:53 36.4 60 17 97/58 93 Room Air 09/29/16 15:51 36.4 65 16 136/77 96 Room Air 09/29/16 10:35 Room Air 09/29/16 07:04 36.4 65 16 138/55 99 Room Air 09/28/16 23:57 36.6 57 18 159/78 Room Air Physical Exam General Appearance: WD/WN, + mild distress Respiratory/Chest: chest non-tender, lungs clear, normal breath sounds Cardiovascular: regular rate, rhythm, no murmur Abdomen: normal bowel sounds, soft, + tenderness Extremities: no pedal edema, no calf tenderness 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iatric: alert, oriented x 3 Laboratory Results Last 24 Hours Test 09/29/16 07:52 White Blood Count 8.51 K/uL Red Blood Count 3.96 M/uL Hemoglobin 11.9 g/dL Hematocrit 35.7 % Mean Corpuscular Volume 90.2 fL Mean Corpuscular Hemoglobin 30.1 pg Mean Corpuscular Hemoglobin Concent 33.3 g/dl Platelet Count 176 K/uL Mean Platelet Volume 9.6 fL Neutrophils (%) (Auto) 73.1 % Lymphocytes (%) (Auto) 13.2 % Monocytes (%) (Auto) 10.9 % Eosinophils (%) (Auto) 2.2 % Basophils (%) (Auto) 0.2 % Neutrophils # (Auto) 6.22 K/uL Lymphocytes # (Auto) 1.12 K/uL Monocytes # (Auto) 0.93 K/uL Eosinophils # (Auto) 0.19 K/uL Basophils # (Auto) 0.02 K/uL RDW Standard Deviation 48.9 fL RDW Coefficient of Variation 14.8 % Immature Granulocyte % (Auto) 0.4 % Immature Granulocyte # (Auto) 0.03 K/uL Sodium Level 141 mmol/L Potassium Level 3.8 mmol/L Chloride Level 109 mmol/L Carbon Dioxide Level 22 mmol/L Anion Gap 10.0 mmol/L Blood Urea Nitrogen 8 mg/dl Creatinine 0.77 mg/dl Est Creatinine Clear Calc Drug Dose 49.8 ml/min Estimated GFR () 82.8 Estimated GFR (Non- 71.4 BUN/Creatinine Ratio 9.7 Random Glucose 95 mg/dl Calcium Level 8.4 mg/dl Chemistry Specimen Hemolysis Assessment and Plan 81-year-old female with recurrent Clostridium diff colitis. Clostridium difficile colitis with diarrhea. oral vancomycin 125 mg q.i.d. and add cholestyramine 4 grams b.i.d. consult gastroenterology, Dr. Rashid, who has followed pt in clinic and reportedly has discussion of fecal transplant, attempts to find a local donor and possible transfer to [place] for procedure History of dementia with risk of fall. fall precautions. Has seen Neurology, Dr. Castellanos, where work up showed generalized cerebellar and cerebral atrophy. Cardio/Cerebrovascular risk reduction, atorvastatin, lisinopril, nadolol. Hypothyroidism. TSH mildly elevated will check T4 seizure history with low depakote level but no clinical seizures, will continue dose as outpt listed
--- NOTE | 2016-09-29 17:58 | Gastroenterology Progress Note ---
Progress Note Date of Service: Sep 29, 2016 Subjective Pt evaluation today including: conversation w/ patient, physical exam, chart review, lab review, review of studies, review of inpatient medication list Ms. Gee was admitted with C-diff diarrhea. On Vanco po, improving, one BM today. Pt eating well. hesitant to take her home as he has difficulty caring for her. Review of Systems Constitutional: No fever Respiratory: No cough Cardiac: No chest pain Abdomen: + diarrhea, No nausea, No pain, No vomiting Female : No dysuria Psych: No depression symptoms Heme: No abnormal bleeding/bruising Endo: No fatigue Medications Current Inpatient Medications Medications (Trade) Dose Ordered Sig/Fernando Route Start Time Stop Time Status Last Admin Dose Admin Atorvastatin Calcium (Lipitor Tab) 20 mg HS PO 09/27/16 21:00 10/27/16 20:59 09/28/16 21:07 20 MG Divalproex Sodium (Depakote Delay Rel Tab) 500 mg QPM PO 09/27/16 21:00 10/27/16 20:59 09/28/16 21:06 500 MG Duloxetine HCl (Cymbalta Cap) 60 mg QPM PO 09/27/16 21:00 10/27/16 20:59 09/28/16 21:05 60 MG Ferrous Sulfate (Feosol Tab) 325 mg DAILY PO 09/28/16 09:00 10/28/16 08:59 09/29/16 08:02 325 MG Lisinopril (Zestril Tab) 10 mg DAILY PO 09/28/16 09:00 10/28/16 08:59 09/29/16 08:02 10 MG Lorazepam (Ativan Tab) 0.5 mg HS PRN PO 09/27/16 16:45 10/27/16 16:44 Magnesium Oxide (Mag-Ox Tab) 400 mg BID PO 09/27/16 21:00 10/27/16 20:59 09/29/16 08:02 400 MG Nadolol (Corgard Tab) 40 mg QAM PO 09/28/16 09:00 10/28/16 08:59 09/29/16 08:01 40 MG Oxycodone/ Acetaminophen (Percocet 5-325mg Tab) 1 tab Q6H PRN PO 09/27/16 16:45 10/11/16 16:44 Pramipexole Dihydrochloride (miraPEX TAB) 1.25 mg HS PO 09/27/16 21:00 10/27/16 20:59 09/28/16 21:04 1.25 MG Zolpidem Tartrate (Ambien Tab) 5 mg HS PRN PO 09/27/16 16:45 10/27/16 16:44 Hydroxyzine HCl (Vistaril Tab) 25 mg DAILY PRN PO 09/27/16 16:45 10/27/16 16:44 Levothyroxine Sodium (Synthroid Tab) 37.5 mcg DAILYBB PO 09/28/16 06:30 10/28/16 06:59 09/29/16 06:33 37.5 MCG Acetaminophen (Tylenol Tab) 650 mg Q4H PRN PO 09/27/16 17:00 10/27/16 16:59 Al Hydrox/Mg Hydrox/Simethicone (Maalox Max Susp) 15 ml Q4H PRN PO 09/27/16 17:00 10/27/16 16:59 Ondansetron HCl (Zofran Inj) 4 mg Q6H PRN IV 09/27/16 17:00 10/27/16 16:59 Heparin Sodium (Porcine) (Heparin Sq 5000 Unit/0.5ml) 5,000 unit Q12H SQ 09/27/16 21:00 10/27/16 20:59 09/29/16 08:03 5,000 UNIT Cholestyramine Resin 4 gm 4 gm BID@10,22 PO 09/27/16 22:00 10/27/16 21:59 09/29/16 11:27 4 GM Sodium Chloride (Nss 1000ml) 1,000 ml @ 75 mls/hr [id number] IV 09/27/16 17:00 10/27/16 16:59 09/29/16 08:01 75 MLS/HR Raspberry (Raspberry Syrup 5ml Cup) 5 ml QID PO 09/27/16 19:00 10/07/16 18:59 09/29/16 12:56 5 ML Vancomycin HCl (Vancomycin Oral Soln) 125 mg QID PO 09/29/16 09:00 10/13/16 08:59 09/29/16 12:56 125 MG Objective Vital Signs Date Time Temp Pulse Resp B/P Pulse Ox O2 Delivery O2 Flow Rate FiO2 09/29/16 16:00 93 Room Air 09/29/16 15:53 36.4 60 17 97/58 93 Room Air 09/29/16 15:51 36.4 65 16 136/77 96 Room Air 09/29/16 10:35 Room Air 09/29/16 07:04 36.4 65 16 138/55 99 Room Air 09/28/16 23:57 36.6 57 18 159/78 Room Air Physical Exam General Appearance: no apparent distress ENT: pharynx normal Neck: no JVD Respiratory/Chest: lungs clear Cardiovascular: no JVD, no murmur Abdomen: non tender, soft 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: alert, normal mood/affect Laboratory Results Last 24 Hours Test 09/29/16 07:52 White Blood Count 8.51 K/uL Red Blood Count 3.96 M/uL Hemoglobin 11.9 g/dL Hematocrit 35.7 % Mean Corpuscular Volume 90.2 fL Mean Corpuscular Hemoglobin 30.1 pg Mean Corpuscular Hemoglobin Concent 33.3 g/dl Platelet Count 176 K/uL Mean Platelet Volume 9.6 fL Neutrophils (%) (Auto) 73.1 % Lymphocytes (%) (Auto) 13.2 % Monocytes (%) (Auto) 10.9 % Eosinophils (%) (Auto) 2.2 % Basophils (%) (Auto) 0.2 % Neutrophils # (Auto) 6.22 K/uL Lymphocytes # (Auto) 1.12 K/uL Monocytes # (Auto) 0.93 K/uL Eosinophils # (Auto) 0.19 K/uL Basophils # (Auto) 0.02 K/uL RDW Standard Deviation 48.9 fL RDW Coefficient of Variation 14.8 % Immature Granulocyte % (Auto) 0.4 % Immature Granulocyte # (Auto) 0.03 K/uL Sodium Level 141 mmol/L Potassium Level 3.8 mmol/L Chloride Level 109 mmol/L Carbon Dioxide Level 22 mmol/L Anion Gap 10.0 mmol/L Blood Urea Nitrogen 8 mg/dl Creatinine 0.77 mg/dl Est Creatinine Clear Calc Drug Dose 49.8 ml/min Estimated GFR () 82.8 Estimated GFR (Non- 71.4 BUN/Creatinine Ratio 9.7 Random Glucose 95 mg/dl Calcium Level 8.4 mg/dl Chemistry Specimen Hemolysis Assessment and Plan 81 yr old female with C-diff diarrhea, improved on vanco and cholestyramine. Plan: Long discussion with , son regarding risks/benefits of fecal transplant. Family would like to go forward with fecal transplant and it is scheduled for Oct 05. Procedure discussed in detail. Son will provide stool. GI will watch peripherally. Attg addendum: I interviewed an examined pt, reviewed chart and labs. Pt with marked improvement on Vanco and colestid. SHe is ok for d/c, plan for feca ltransplant on 10/05 as scheduled.
[2016-09-29] MEDS: PRAMIPEXOLE DIHYDROCHLORIDE 0.5 MG TAB PO SCH (20:22)
[2016-09-29] MEDS: DIVALPROEX SODIUM 500 MG DELAY RELEASE TAB PO SCH (20:22)
[2016-09-29] MEDS: ATORVASTATIN 20 MG TAB PO SCH (20:22)
[2016-09-29] MEDS: DULOXETINE HCL 60 MG CAP PO SCH (20:23)
[2016-09-29 23:51] VITALS: BP 155/76; PULSE 73; TEMP 36.9; O2SAT 93
[2016-09-30] MEDS: LEVOTHYROXINE 25 MCG TAB PO SCH (05:32)
[2016-09-30 07:34] VITALS: BP 154/77; PULSE 63; TEMP 36.6; O2SAT 97
[2016-09-30] MEDS: RASPBERRY SYRUP 5 ML UDP PO SCH ×4 (08:01→21:20)
[2016-09-30] MEDS: FERROUS SULFATE 325 MG TAB PO SCH (08:01)
[2016-09-30] MEDS: NADOLOL 40 MG TAB PO SCH (08:01)
[2016-09-30] MEDS: MAGNESIUM OXIDE 400 MG TAB PO SCH ×2 (08:01→21:20)
[2016-09-30] MEDS: LISINOPRIL 10 MG TAB PO SCH (08:02)
[2016-09-30] MEDS: VANCOMYCIN HCL 125 MG/2.5ML SOLN PO SCH ×4 (08:02→21:21)
[2016-09-30] MEDS: HEPARIN SOD 5000 UNIT/0.5 ML CARP SQ SCH ×2 (08:03→21:19)
[2016-09-30 08:26] LABS: BASO % 0.3 %; BASO ABS # 0.02 K/uL (0-0.2); COMPLETE YES; EOS % 2.8 %; HEMATOCRIT 35.7 % (37-47); IG% 0.4 %; LYMPH % 17.4 %; LYMPH ABS # 1.19 K/uL (1.2-3.4); MEAN CELL VOLUME 89.9 fL (80-100); MEAN CORPUSCULAR HGB CONC 33.3 g/dl (32-36); MEAN PLATELET VOLUME 9.6 fL (7.4-10.4); MONO % 11.3 %; NEUT % 67.8 %; PLATELET COUNT 180 K/uL (130-400); RED BLOOD COUNT 3.97 M/uL (4.2-5.4); WHITE BLOOD COUNT 6.83 K/uL (4.8-10.8)
[2016-09-30 08:57] LABS: BUN/CREATININE RATIO 9.6 (10-20); CREATININE 0.7 mg/dl (0.60-1.20); POTASSIUM 3.4 mmol/L (3.5-5.1)
[2016-09-30] MEDS: SODIUM CHLORIDE 0.9% 1000ML 1,000 ML IV SCH (10:55)
[2016-09-30] MEDS: CHOLESTYRAMINE LIGHT 4 GM PKT PO SCH ×2 (10:55→21:21)
[2016-09-30 15:50] VITALS: BP 149/77; PULSE 65; TEMP 36.5; O2SAT 97
[2016-09-30 16:00] VITALS: O2SAT 97
--- NOTE | 2016-09-30 17:02 | Progress Note ---
Subjective Date of Service: Sep 30, 2016. Subjective pt has no complaints awating stool transplant Problem List Medical Problems: (1) Altered mental status Status: Acute (2) Altered mental status Status: Acute (3) C. difficile colitis Status: Acute (4) Dementia Status: Acute (5) Fracture of femoral neck, left Status: Acute (6) Pneumonia Status: Acute (7) Seizure Status: Acute (8) Sinusitis Status: Acute (9) Weakness Status: Acute Review of Systems Constitutional: + fatigue, + weakness, No chills, No fever Respiratory: No cough, No shortness of breath, No sputum, No wheezing Cardiac: No PND, No chest pain, No edema, No orthopnea Abdomen: + diarrhea, No constipation, No nausea, No pain, No vomiting Psychiatric: No anhedonism, No depression symptoms Objective Vital Signs Date Time Temp Pulse Resp B/P Pulse Ox O2 Delivery O2 Flow Rate FiO2 09/30/16 15:50 36.5 65 20 149/77 97 Room Air 09/30/16 12:30 Room Air 09/30/16 07:34 36.6 63 17 154/77 97 Room Air 09/30/16 00:00 Room Air 09/29/16 23:51 36.9 73 18 155/76 93 Room Air Physical Exam General Appearance: WD/WN, + mild distress Neck: supple, no JVD Respiratory/Chest: chest non-tender, lungs clear, normal breath sounds Cardiovascular: regular rate, rhythm, no murmur Abdomen: normal bowel sounds, soft, + guarding, + tenderness Extremities: no pedal edema, no calf tenderness Laboratory Results Last 24 Hours Test 09/30/16 07:49 White Blood Count 6.83 K/uL Red Blood Count 3.97 M/uL Hemoglobin 11.9 g/dL Hematocrit 35.7 % Mean Corpuscular Volume 89.9 fL Mean Corpuscular Hemoglobin 30.0 pg Mean Corpuscular Hemoglobin Concent 33.3 g/dl Platelet Count 180 K/uL Mean Platelet Volume 9.6 fL Neutrophils (%) (Auto) 67.8 % Lymphocytes (%) (Auto) 17.4 % Monocytes (%) (Auto) 11.3 % Eosinophils (%) (Auto) 2.8 % Basophils (%) (Auto) 0.3 % Neutrophils # (Auto) 4.63 K/uL Lymphocytes # (Auto) 1.19 K/uL Monocytes # (Auto) 0.77 K/uL Eosinophils # (Auto) 0.19 K/uL Basophils # (Auto) 0.02 K/uL RDW Standard Deviation 48.7 fL RDW Coefficient of Variation 14.7 % Immature Granulocyte % (Auto) 0.4 % Immature Granulocyte # (Auto) 0.03 K/uL Sodium Level 141 mmol/L Potassium Level 3.4 mmol/L Chloride Level 109 mmol/L Carbon Dioxide Level 22 mmol/L Anion Gap 10.0 mmol/L Blood Urea Nitrogen 7 mg/dl Creatinine 0.70 mg/dl Est Creatinine Clear Calc Drug Dose 54.8 ml/min Estimated GFR () 92.9 Estimated GFR (Non- 80.1 BUN/Creatinine Ratio 9.6 Random Glucose 84 mg/dl Calcium Level 8.0 mg/dl Assessment and Plan 81-year-old female with recurrent Clostridium diff colitis. continuing supportive care and replete electrolytes, until able to move to [place] for stool transplant Clostridium difficile colitis with diarrhea. oral vancomycin 125 mg q.i.d. and add cholestyramine 4 grams b.i.d. consult gastroenterology, Dr. Rashid, who has followed pt in clinic and reportedly has discussion of fecal transplant, [facility] is able to perform procedure tneatively scheduled for 10/05 History of dementia with risk of fall. fall precautions. Has seen Neurology, Dr. Castellanos, where work up showed generalized cerebellar and cerebral atrophy. Cardio/Cerebrovascular risk reduction, atorvastatin, lisinopril, nadolol. Hypothyroidism. TSH mildly elevated will check T4 seizure history with low depakote level but no clinical seizures, will continue dose as outpt listed
[2016-09-30] MEDS: POTASSIUM CHLORIDE INJ 40 MEQ in SODIUM CHLORIDE 0.9% 1000ML 1,000 ML IV SCH (18:50)
[2016-09-30] MEDS: ATORVASTATIN 20 MG TAB PO SCH (21:19)
[2016-09-30] MEDS: DIVALPROEX SODIUM 500 MG DELAY RELEASE TAB PO SCH (21:19)
[2016-09-30] MEDS: DULOXETINE HCL 60 MG CAP PO SCH (21:19)
[2016-09-30] MEDS: PRAMIPEXOLE DIHYDROCHLORIDE 0.5 MG TAB PO SCH (21:20)
[2016-09-30 23:14] VITALS: BP 171/71; PULSE 70; TEMP 36.3; O2SAT 94
[2016-10-01] MEDS: POTASSIUM CHLORIDE INJ 40 MEQ in SODIUM CHLORIDE 0.9% 1000ML 1,000 ML IV SCH ×2 (06:03→20:21)
[2016-10-01] MEDS: LEVOTHYROXINE 25 MCG TAB PO SCH (06:03)
[2016-10-01 07:02] VITALS: BP 179/83; PULSE 58; TEMP 36.4; O2SAT 96
[2016-10-01 08:50] LABS: HEMATOCRIT 37.6 % (37-47); MEAN CELL VOLUME 89.3 fL (80-100); MEAN CORPUSCULAR HEMOGLOBIN 29.5 pg (25-34); MEAN PLATELET VOLUME 9.4 fL (7.4-10.4); PLATELET COUNT 196 K/uL (130-400); RED BLOOD COUNT 4.21 M/uL (4.2-5.4); WHITE BLOOD COUNT 8.23 K/uL (4.8-10.8)
[2016-10-01] MEDS: FERROUS SULFATE 325 MG TAB PO SCH (08:51)
[2016-10-01] MEDS: LISINOPRIL 10 MG TAB PO SCH (08:51)
[2016-10-01] MEDS: MAGNESIUM OXIDE 400 MG TAB PO SCH ×2 (08:51→20:22)
[2016-10-01] MEDS: NADOLOL 40 MG TAB PO SCH (08:51)
[2016-10-01] MEDS: RASPBERRY SYRUP 5 ML UDP PO SCH ×4 (08:51→20:21)
[2016-10-01] MEDS: HEPARIN SOD 5000 UNIT/0.5 ML CARP SQ SCH ×2 (08:51→20:25)
[2016-10-01] MEDS: VANCOMYCIN HCL 125 MG/2.5ML SOLN PO SCH ×4 (08:52→20:22)
[2016-10-01 09:14] LABS: CALCIUM 8.3 mg/dl (8.5-10.1); CREATININE 0.76 mg/dl (0.60-1.20); POTASSIUM 3.9 mmol/L (3.5-5.1)
[2016-10-01 09:35] LABS: COMPLETE YES; EOSINOPHIL % 5.4 %; LYMPH ABS # 1.76 K/uL (1.2-3.4); LYMPHOCYTE % 21.4 %; NEUTROPHILS % 70.5 %
[2016-10-01] MEDS: CHOLESTYRAMINE LIGHT 4 GM PKT PO SCH ×2 (11:31→20:23)
[2016-10-01] MEDS: ACETAMINOPHEN 325 MG TAB PO PRN (11:32)
--- NOTE | 2016-10-01 12:43 | Progress Note ---
Subjective Date of Service: Oct 01, 2016. Subjective no new changes overnight, pt appears more alert and stronger every day Problem List Medical Problems: (1) Altered mental status Status: Acute (2) Altered mental status Status: Acute (3) C. difficile colitis Status: Acute (4) Dementia Status: Acute (5) Fracture of femoral neck, left Status: Acute (6) Pneumonia Status: Acute (7) Seizure Status: Acute (8) Sinusitis Status: Acute (9) Weakness Status: Acute Review of Systems Constitutional: No chills, No fever Respiratory: No cough, No shortness of breath Cardiac: No chest pain, No edema Abdomen: + diarrhea, + pain, No nausea, No vomiting Psychiatric: No anhedonism, No depression symptoms Objective Vital Signs Date Time Temp Pulse Resp B/P Pulse Ox O2 Delivery O2 Flow Rate FiO2 10/01/16 10:18 Room Air 10/01/16 07:02 36.4 58 16 179/83 96 Room Air 10/01/16 00:00 Room Air 09/30/16 23:14 36.3 70 20 171/71 94 Room Air 09/30/16 16:00 97 Room Air 09/30/16 15:50 36.5 65 20 149/77 97 Room Air Physical Exam General Appearance: WD/WN, no apparent distress Neck: supple, no JVD Respiratory/Chest: chest non-tender, lungs clear, normal breath sounds Cardiovascular: regular rate, rhythm, no murmur Abdomen: normal bowel sounds, non tender, + distended Extremities: no pedal edema, no calf tenderness Laboratory Results Last 24 Hours Test 10/01/16 08:20 White Blood Count 8.23 K/uL Red Blood Count 4.21 M/uL Hemoglobin 12.4 g/dL Hematocrit 37.6 % Mean Corpuscular Volume 89.3 fL Mean Corpuscular Hemoglobin 29.5 pg Mean Corpuscular Hemoglobin Concent 33.0 g/dl Platelet Count 196 K/uL Mean Platelet Volume 9.4 fL RDW Standard Deviation 47.5 fL RDW Coefficient of Variation 14.7 % Neutrophils % (Manual) 70.5 % Lymphocytes % (Manual) 21.4 % Monocytes % (Manual) 2.7 % Eosinophils % (Manual) 5.4 % Neutrophils # (Manual) 5.80 K/uL Total Absolute Neutrophils 5.80 K/uL Lymphocytes # (Manual) 1.76 K/uL Total Absolute Lymphocytes 1.76 K/uL Monocytes # (Manual) 0.22 K/uL Eosinophils # (Manual) 0.44 K/uL Sodium Level 141 mmol/L Potassium Level 3.9 mmol/L Chloride Level 110 mmol/L Carbon Dioxide Level 22 mmol/L Anion Gap 9.0 mmol/L Blood Urea Nitrogen 10 mg/dl Creatinine 0.76 mg/dl Est Creatinine Clear Calc Drug Dose 50.5 ml/min Estimated GFR () 84.1 Estimated GFR (Non- 72.5 BUN/Creatinine Ratio 13.0 Random Glucose 95 mg/dl Calcium Level 8.3 mg/dl Assessment and Plan 81-year-old female with recurrent Clostridium diff colitis. continuing supportive care and replete electrolytes, until able to move to [place] for stool transplant, currently housing pt, treating C Diff and following electrolytes, very little except to keep up with stool output with IVF Clostridium difficile colitis with diarrhea. oral vancomycin 125 mg q.i.d. and add cholestyramine 4 grams b.i.d. consult gastroenterology, Dr. Rashid, who has followed pt in clinic and reportedly has discussion of fecal transplant, [facility] is able to perform procedure tneatively scheduled for 10/05 History of dementia with risk of fall. fall precautions. Has seen Neurology, Dr. Castellanos, where work up showed generalized cerebellar and cerebral atrophy. Cardio/Cerebrovascular risk reduction, atorvastatin, lisinopril, nadolol. Hypothyroidism. TSH mildly elevated will check T4 seizure history with low depakote level but no clinical seizures, will continue dose as outpt listed
[2016-10-01 15:39] VITALS: BP 171/85; PULSE 63; TEMP 36.6; O2SAT 97
[2016-10-01] MEDS: ATORVASTATIN 20 MG TAB PO SCH (20:22)
[2016-10-01] MEDS: DULOXETINE HCL 60 MG CAP PO SCH (20:22)
[2016-10-01] MEDS: DIVALPROEX SODIUM 500 MG DELAY RELEASE TAB PO SCH (20:23)
[2016-10-01] MEDS: PRAMIPEXOLE DIHYDROCHLORIDE 0.5 MG TAB PO SCH (20:23)
[2016-10-01 23:31] VITALS: BP 159/86; PULSE 58; TEMP 36.6; O2SAT 97
[2016-10-02] MEDS: LEVOTHYROXINE 25 MCG TAB PO SCH (06:25)
[2016-10-02 07:16] VITALS: BP 181/79; PULSE 69; TEMP 36.8; O2SAT 94
[2016-10-02] MEDS: NADOLOL 40 MG TAB PO SCH (08:26)
[2016-10-02] MEDS: FERROUS SULFATE 325 MG TAB PO SCH (08:26)
[2016-10-02] MEDS: RASPBERRY SYRUP 5 ML UDP PO SCH ×4 (08:27→20:52)
[2016-10-02] MEDS: MAGNESIUM OXIDE 400 MG TAB PO SCH ×2 (08:27→20:53)
[2016-10-02] MEDS: VANCOMYCIN HCL 125 MG/2.5ML SOLN PO SCH ×4 (08:27→20:52)
[2016-10-02] MEDS: LISINOPRIL 10 MG TAB PO SCH (08:28)
[2016-10-02 09:00] VITALS: O2SAT 94
[2016-10-02] MEDS: POTASSIUM CHLORIDE INJ 40 MEQ in SODIUM CHLORIDE 0.9% 1000ML 1,000 ML IV SCH ×2 (09:10→22:40)
[2016-10-02] MEDS: CHOLESTYRAMINE LIGHT 4 GM PKT PO SCH ×2 (09:11→20:52)
[2016-10-02] MEDS: HEPARIN SOD 5000 UNIT/0.5 ML CARP SQ SCH ×2 (09:11→21:02)
[2016-10-02 09:26] LABS: CALCIUM 8.4 mg/dl (8.5-10.1); CREATININE 0.73 mg/dl (0.60-1.20); POTASSIUM 4.2 mmol/L (3.5-5.1)
--- NOTE | 2016-10-02 17:29 | Progress Note ---
Subjective Date of Service: Oct 02, 2016. Subjective things are about the same, pt feels much more improved and is looking forward to stool transplant Problem List Medical Problems: (1) Altered mental status Status: Acute (2) Altered mental status Status: Acute (3) C. difficile colitis Status: Acute (4) Dementia Status: Acute (5) Fracture of femoral neck, left Status: Acute (6) Pneumonia Status: Acute (7) Seizure Status: Acute (8) Sinusitis Status: Acute (9) Weakness Status: Acute Review of Systems Constitutional: + fatigue, + weakness, No chills, No fever Respiratory: No cough, No shortness of breath, No wheezing Abdomen: + diarrhea, No nausea, No pain, No vomiting Female : No dysuria, No hematuria, No incontinence Psychiatric: No anhedonism, No depression symptoms Objective Vital Signs Date Time Temp Pulse Resp B/P Pulse Ox O2 Delivery O2 Flow Rate FiO2 10/02/16 15:30 Room Air 10/02/16 09:00 94 Room Air 10/02/16 07:16 36.8 69 16 181/79 94 Room Air 10/02/16 00:00 Room Air 10/01/16 23:31 36.6 58 16 159/86 97 Room Air Physical Exam General Appearance: WD/WN, + mild distress Neck: supple, no JVD Respiratory/Chest: chest non-tender, lungs clear, normal breath sounds Cardiovascular: regular rate, rhythm, no murmur Abdomen: normal bowel sounds, non tender, soft Extremities: no pedal edema, no calf tenderness 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iatric: alert, oriented x 3 Skin: normal color, warm/dry Laboratory Results Last 24 Hours Test 10/02/16 08:40 Sodium Level 140 mmol/L Potassium Level 4.2 mmol/L Chloride Level 106 mmol/L Carbon Dioxide Level 27 mmol/L Anion Gap 7.0 mmol/L Blood Urea Nitrogen 8 mg/dl Creatinine 0.73 mg/dl Est Creatinine Clear Calc Drug Dose 52.5 ml/min Estimated GFR () 88.3 Estimated GFR (Non- 76.2 BUN/Creatinine Ratio 11.0 Random Glucose 88 mg/dl Calcium Level 8.4 mg/dl Assessment and Plan 81-year-old female with recurrent Clostridium diff colitis. continuing supportive care and replete electrolytes, until able to move to [place] for stool transplant, currently housing pt, treating C Diff and following electrolytes, very little except to keep up with stool output with IVF Clostridium difficile colitis with diarrhea. oral vancomycin 125 mg q.i.d. and add cholestyramine 4 grams b.i.d. consult gastroenterology, Dr. Rashid, who has followed pt in clinic and reportedly has discussion of fecal transplant, [facility] is able to perform procedure tneatively scheduled for 10/05 History of dementia with risk of fall. fall precautions. Has seen Neurology, Dr. Castellanos, where work up showed generalized cerebellar and cerebral atrophy. Cardio/Cerebrovascular risk reduction, atorvastatin, lisinopril, nadolol. Hypothyroidism. TSH mildly elevated will check T4 seizure history with low depakote level but no clinical seizures, will continue dose as outpt listed
[2016-10-02] MEDS: ATORVASTATIN 20 MG TAB PO SCH (20:50)
[2016-10-02] MEDS: DULOXETINE HCL 60 MG CAP PO SCH (20:51)
[2016-10-02] MEDS: PRAMIPEXOLE DIHYDROCHLORIDE 0.5 MG TAB PO SCH (20:51)
[2016-10-02] MEDS: DIVALPROEX SODIUM 500 MG DELAY RELEASE TAB PO SCH (20:53)
[2016-10-02] MEDS: ACETAMINOPHEN 325 MG TAB PO PRN (22:58)
[2016-10-02 23:01] VITALS: BP 144/74; PULSE 67; TEMP 36.6; O2SAT 93
[2016-10-03] MEDS: LEVOTHYROXINE 25 MCG TAB PO SCH (05:57)
[2016-10-03] MEDS: NADOLOL 40 MG TAB PO SCH (07:59)
[2016-10-03 08:00] VITALS: O2SAT 94
[2016-10-03] MEDS: FERROUS SULFATE 325 MG TAB PO SCH (08:00)
[2016-10-03] MEDS: RASPBERRY SYRUP 5 ML UDP PO SCH ×4 (08:00→20:08)
[2016-10-03] MEDS: MAGNESIUM OXIDE 400 MG TAB PO SCH ×2 (08:00→20:10)
[2016-10-03] MEDS: VANCOMYCIN HCL 125 MG/2.5ML SOLN PO SCH ×4 (08:01→20:08)
[2016-10-03] MEDS: LISINOPRIL 10 MG TAB PO SCH (08:01)
[2016-10-03 08:24] VITALS: BP 182/85; PULSE 69; TEMP 36.3; O2SAT 98
[2016-10-03 08:47] LABS: BUN/CREATININE RATIO 13.1 (10-20); CREATININE 0.75 mg/dl (0.60-1.20); POTASSIUM 4.6 mmol/L (3.5-5.1)
[2016-10-03] MEDS: HEPARIN SOD 5000 UNIT/0.5 ML CARP SQ SCH ×2 (10:21→20:09)
[2016-10-03] MEDS: CHOLESTYRAMINE LIGHT 4 GM PKT PO SCH ×2 (10:22→22:08)
[2016-10-03] MEDS: POTASSIUM CHLORIDE INJ 40 MEQ in SODIUM CHLORIDE 0.9% 1000ML 1,000 ML IV SCH (12:06)
[2016-10-03 15:26] VITALS: BP 172/77; PULSE 63; TEMP 36.3; O2SAT 95
[2016-10-03] MEDS: PRAMIPEXOLE DIHYDROCHLORIDE 0.5 MG TAB PO SCH (20:08)
[2016-10-03] MEDS: ATORVASTATIN 20 MG TAB PO SCH (20:09)
[2016-10-03] MEDS: DULOXETINE HCL 60 MG CAP PO SCH (20:10)
[2016-10-03] MEDS: DIVALPROEX SODIUM 500 MG DELAY RELEASE TAB PO SCH (20:10)
[2016-10-03 22:46] VITALS: BP 180/81; PULSE 66; TEMP 36.5; O2SAT 95
[2016-10-04] MEDS: POTASSIUM CHLORIDE INJ 40 MEQ in SODIUM CHLORIDE 0.9% 1000ML 1,000 ML IV SCH ×2 (02:40→15:41)
[2016-10-04] MEDS: LEVOTHYROXINE 25 MCG TAB PO SCH (05:42)
[2016-10-04] MEDS: FERROUS SULFATE 325 MG TAB PO SCH (07:48)
[2016-10-04] MEDS: MAGNESIUM OXIDE 400 MG TAB PO SCH ×2 (07:49→20:42)
[2016-10-04] MEDS: NADOLOL 40 MG TAB PO SCH (07:51)
[2016-10-04] MEDS: VANCOMYCIN HCL 125 MG/2.5ML SOLN PO SCH (07:52)
[2016-10-04] MEDS: RASPBERRY SYRUP 5 ML UDP PO SCH (07:52)
[2016-10-04] MEDS: LISINOPRIL 10 MG TAB PO SCH ×2 (07:53→21:57)
[2016-10-04 07:54] VITALS: BP 178/74; PULSE 66; TEMP 36.6; O2SAT 96
[2016-10-04] MEDS: HEPARIN SOD 5000 UNIT/0.5 ML CARP SQ SCH ×2 (08:02→20:41)
[2016-10-04 11:39] VITALS: O2SAT 96
[2016-10-04] MEDS ORDERED: LAVAGE SOLUTION 4000ML PO SCH (15:30)
[2016-10-04] MEDS: PRAMIPEXOLE DIHYDROCHLORIDE 0.5 MG TAB PO SCH (20:42)
[2016-10-04] MEDS: DIVALPROEX SODIUM 500 MG DELAY RELEASE TAB PO SCH (20:42)
[2016-10-04] MEDS: ATORVASTATIN 20 MG TAB PO SCH (20:42)
[2016-10-04] MEDS: DULOXETINE HCL 60 MG CAP PO SCH (20:42)
--- NOTE | 2016-10-04 21:07 | Hospitalist Progress Note ---
Hospitalist Progress Note Date of Service Oct 04, 2016. Subjective Pt evaluation today including: conversation w/ patient, physical exam, chart review, lab review, review of inpatient medication list Pt has no complaints but has dementia. DOing bowel prep for fecal transplant tomorrow Additional Comments: unobtainable due to dementia Objective Vital Signs Date Time Temp Pulse Resp B/P Pulse Ox O2 Delivery O2 Flow Rate FiO2 10/04/16 16:00 Room Air 10/04/16 11:39 96 Room Air 10/04/16 08:00 Room Air 10/04/16 07:54 36.6 66 20 178/74 96 Room Air 10/04/16 00:00 Room Air 10/03/16 22:46 36.5 66 18 180/81 95 Room Air Physical Exam General Appearance: WD/WN, no apparent distress Eyes: normal inspection, sclerae normal Respiratory/Chest: lungs clear, normal breath sounds, no respiratory distress, no accessory muscle use Cardiovascular: regular rate, rhythm, no edema, no gallop, no murmur Abdomen: normal bowel sounds, non tender, soft, no organomegaly Extremities: normal inspection, no pedal edema, no calf tenderness 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iatric: alert Skin: normal color, warm/dry Assessment and Plan 81-year-old female with recurrent refractory Clostridium diff colitis. continuing supportive care and replete electrolytes, until able to move to [place] for stool transplant on 10/05, currently housing pt, treating C Diff Pt is in holding pattern, no beds at snf to transfer until this week and stool transplant arranged at [facility], plan to discharge on 10/05 go to [place] for stool transplant and then directly to [facility] Clostridium difficile colitis with diarrhea. oral vancomycin 125 mg q.i.d. and now discontinued by GI presumably, add cholestyramine 4 grams b.i.d. consult gastroenterology, Dr. Rashid, who has followed pt in clinic and reportedly has discussion of fecal transplant History of dementia with risk of fall. fall precautions. Has seen Neurology, Dr. Castellanos, where work up showed generalized cerebellar and cerebral atrophy. Cardio/Cerebrovascular risk reduction, atorvastatin, lisinopril, nadolol. Hypothyroidism. TSH mildly elevated at 6 with FT4 normal at 1.36, no changes needed in med seizure history with low depakote level but no clinical seizures, will continue dose as outpt listed Proph- heparin SQ Dispo- FULL CODE To [facility] tomorrow for fecal tx and then SNF at [place]
[2016-10-05 00:18] VITALS: BP 178/84; PULSE 63; TEMP 36.4; O2SAT 95
[2016-10-05 04:00] VITALS: BP 166/81
[2016-10-05] MEDS: POTASSIUM CHLORIDE INJ 40 MEQ in SODIUM CHLORIDE 0.9% 1000ML 1,000 ML IV SCH (04:23)
[2016-10-05] MEDS: LEVOTHYROXINE 25 MCG TAB PO SCH (05:53)
[2016-10-05] MEDS ORDERED: LAVAGE SOLUTION 4000ML PO SCH (06:00)
[2016-10-05 06:43] LABS: BASO % 0.4 %; BASO ABS # 0.04 K/uL (0-0.2); COMPLETE YES; EOS % 3.8 %; HEMATOCRIT 40.5 % (37-47); LYMPH % 17.1 %; LYMPH ABS # 1.79 K/uL (1.2-3.4); MEAN CELL VOLUME 91.2 fL (80-100); MEAN CORPUSCULAR HEMOGLOBIN 30.9 pg (25-34); MEAN CORPUSCULAR HGB CONC 33.8 g/dl (32-36); MONO % 9.9 %; NEUT % 63.8 %; PLATELET COUNT 241 K/uL (130-400); RED BLOOD COUNT 4.44 M/uL (4.2-5.4); WHITE BLOOD COUNT 10.49 K/uL (4.8-10.8)
[2016-10-05 07:18] LABS: BUN/CREATININE RATIO 8.5 (10-20); CALCIUM 9.3 mg/dl (8.5-10.1); CREATININE 0.66 mg/dl (0.60-1.20); MAGNESIUM 2.3 mg/dl (1.8-2.4); POTASSIUM 4.6 mmol/L (3.5-5.1)
[2016-10-05 07:37] VITALS: BP 179/82; PULSE 60; TEMP 36.5; O2SAT 95
[2016-10-05] MEDS: NADOLOL 40 MG TAB PO SCH (08:01)
[2016-10-05] MEDS: FERROUS SULFATE 325 MG TAB PO SCH (08:01)
[2016-10-05] MEDS: MAGNESIUM OXIDE 400 MG TAB PO SCH (08:01)
[2016-10-05] MEDS: LISINOPRIL 10 MG TAB PO SCH (08:02)
[2016-10-05] MEDS: HEPARIN SOD 5000 UNIT/0.5 ML CARP SQ SCH (08:03)
[2016-10-05] MEDS ORDERED: QSTP PO (10:30)
[2016-10-05] MEDS ORDERED: SYN25 PO (10:30)
[2016-10-05] MEDS ORDERED: TYL325X PO (10:30)
[2016-10-05] MEDS ORDERED: LSN10 PO (10:30)
[2016-10-05 10:37] VITALS: BP 144/82; PULSE 62
--- NOTE | 2016-10-05 10:58 | Discharge Instructions ---
Discharge Instructions Admission Reason for Admission: Clostridium Difficile Diarrhea Discharge Discharge Diagnosis / Problem: Clostridium difficile diarrhea Discharge Goals Goal(s): Improve disease control, Therapeutic intervention Activity Recommendations Activity Level: Assistance Required Therapies: Physical Therapy, Occupational Therapy Shower/Bathe: no limitations . Additional Information Patient informed of condition: Yes Advance Directives: Yes DNR: No Level of Care: Skilled Communicable Disease: Yes (C. diff) Prognosis: Stable Oxygen at (LPM): N/A Hall[place] Catheter: No Instructions / Follow-Up Instructions / Follow-Up This is an 81-year-old female with complex medical history including C. diff, comes to Emergency Room complaining of recurrent diarrhea for the past several months. The patient has had increased diarrhea in the last few days as per . The patient has history of dementia and cannot provide much history, so main history was obtained from her who mentioned that last Tuesday, specifically she had more than 10 episodes of diarrhea and also she has been increasingly weak. She had been seen by Dr. Rashid from gastroenterology about 3 weeks ago and she has another appointment in 2 weeks to be considered for oral fecal transplant since the patient failed Flagyl, vancomycin and Dificid. The patient was last on antibiotics 2 weeks ago which was oral vancomycin. He also notes the patient has a history of falling off the bed without rails. She was admitted for recurrent refractory Clostridium diff colitis and initially placed back on po Vanco but then decision was made to perform stool transplant on 10/05/16 at [facility]. She was kept as an inpatient watching her fluid status and given IV hydration during bowel prep and then transferred to [place] for the transplant. She will go to SNF after that. Stool culture was negative for infection other than C. diff. History of dementia with risk of fall. Fall precautions. Has seen Neurology routinely for her dementia and seizure disorder, Dr. Castellanos, where work up showed generalized cerebellar and cerebral atrophy. Seizure history with low depakote level here at 27 but no clinical seizures, will continue dose as outpt listed. Cardio/Cerebrovascular risk reduction, atorvastatin, lisinopril, nadolol. I increased her lisinopril dose to 10mg bid while here for elevated BPs. Hypothyroidism. TSH mildly elevated at 6 with FT4 normal at 1.36, no changes needed in med Proph- heparin SQ Dispo- FULL CODE To [facility] today for fecal tx and then SNF at [place] [facility] Diet Patient's current hospital diet: Clear Liquid Diet Discharge Diet Recommended Diet: Regular Diet Procedures Procedures Performed: Chest/Abdomen xray Pending Studies Studies pending at discharge: no Physician Orders On Transfer Special Precautions: Fall precautions Seizure precautions Dressing Changes: None IV Therapy: None Vital Signs: Routine Weigh: Routine Additional Orders: F/U with GI as per their direction after fecal transplant. F/U with PCP within 2 weeks of discharge from SNF. POLST Discussion: Not Applicable Medical Emergencies . Who to Call and When: Medical Emergencies: If at any time you feel your situation is an emergency, please call 911 immediately. . Non-Emergent Contact Non-Emergency issues call your: Primary Care Provider Call Non-Emergent contact if: you have a fever, your pain is not controlled, your pain is worsening, your pain is unusual for you, your pain is concerning you, you have any medication questions . . "Provider Documentation" section prepared by Ashley Oates. Core Measure Problem Core Measures: None
[2016-10-05 11:09] VITALS: BP 144/82; PULSE 62; TEMP 36.5; O2SAT 95
--- NOTE | 2016-10-05 23:04 | Discharge Summary ---
Discharge Summary Admission Date: Sep 27, 2016 at 16:51 Discharge Date: Oct 05, 2016 Discharge Disposition: [facility] facility Principal Diagnosis: Clostridium difficile diarrhea Problems/Secondary Diagnoses: Dementia Refractory Clostridium difficile colitis Seizure disorder HTN Dyslipidemia Hypothyroidism Immunizations: Have You Had Influenza Vaccine: Yes Influenza Vaccine Date: May 22, 2012 History of Tetanus Vaccine?: Yes Tetanus Immunization Date: Aug 31, 2004 History of Pneumococcal: Yes Pneumococcal Date: May 22, 2012 History of Hepatitis B Vaccine: No Procedures: ABDOMEN 2VIEW W/PA CHEST RTN CLINICAL HISTORY: Diffuse abdominal pain COMPARISON STUDY: Chest x-ray dated 02/09/2016 FINDINGS: Erect chest reveals no free intraperitoneal air. There are chronic calcifications within the right mid to lower lung zone. There is chronic left basilar pleural-parenchymal scarring. There is no lobar consolidation. Supine and decubitus views the abdomen reveal a relatively gasless abdomen. No transition zones are visualized. IMPRESSION: Relatively gasless abdomen. No conventional radiographic evidence of bowel obstruction. No evidence of free air. Consultations: Gastroenterology Medication Reconciliation New Medications: Acetaminophen (Tylenol) 325 Mg Tab 650 MG PO Q4H PRN for Pain or Fever for 30 Days, #240 TAB Cholestyramine (Cholestyramine Light) 4 Gm Pack 4 GM PO BID@10,22 for 30 Days Levothyroxine Sodium (Synthroid) 25 Mcg Tab 37.5 MCG PO DAILYBB for 30 Days, TAB Lisinopril (Zestril) 10 Mg Tab 10 MG PO BID for 30 Days, #60 TAB Continued Medications: Atorvastatin (Lipitor) 20 Mg Tab 20 MG PO HS, TAB Divalproex Sodium (Depakote Delay Rel) 500 Mg Tab 500 MG PO QPM, TAB Duloxetine Hcl (Cymbalta *) 60 Mg Cap 60 MG PO QPM, 0 Refills Ferrous Sulfate (Ferrous Sulfate) 325 Mg Tab 325 MG PO DAILY Hydroxyzine HCl (Hydroxyzine Pamoate) 25 Mg Tab 25 MG PO DAILY PRN for Anxiety Lorazepam (Ativan) 0.5 Mg Tab 0.5 MG PO HS PRN for Sleep, 0 Refills Magnesium Oxide (Mag-Ox) 400 Mg Tab 400 MG PO BID, TAB Nadolol (Nadolol) 40 Mg Tab 40 MG PO QAM Pramipexole Dihydrochloride (Mirapex) 0.25 Mg Tab 1.25 MG PO HS, #30 TAB 5 Refills Zolpidem Tartrate (Ambien) 5 Mg Tab 5 MG PO HS PRN for Sleep Discontinued Medications: Levothyroxine Sodium (Levothyroxine Sodium) Unknown Strength Tab 1.5 TAB PO QAM, TAB 3 Refills Lisinopril (Lisinopril) 10 Mg Tab 10 MG PO DAILY Oxycodone/Acetaminophen 5MG/325MG (Percocet 5MG/325MG) Tab 1 TABLETS PO Q6H PRN for Pain, TAB PAIN Referrals At Discharge Follow up Referrals: [employer] Referral - Within 2 Weeks with Maddie Rashid, Physician Referral - Within 2 Weeks with Kim Sanabria M.D. Discharge Exam Physical Exam: General Appearance: WD/WN, no apparent distress Eyes: normal inspection, sclerae normal Respiratory/Chest: lungs clear, normal breath sounds, no respiratory distress, no accessory muscle use Cardiovascular: regular rate, rhythm, no edema, no gallop, no murmur Abdomen: normal bowel sounds, non tender, soft, no organomegaly Extremities: normal inspection, no pedal edema, no calf tenderness 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iatric: alert Skin: normal color, warm/dry Review of Systems: Constitutional: No fever Respiratory: No shortness of breath Cardiovascular: No chest pain Abdomen: No pain Hospital Course This is an 81-year-old female with complex medical history including C. diff, comes to Emergency Room complaining of recurrent diarrhea for the past several months. The patient has had increased diarrhea in the last few days as per . The patient has history of dementia and cannot provide much history, so main history was obtained from her who mentioned that last Tuesday, specifically she had more than 10 episodes of diarrhea and also she has been increasingly weak. She had been seen by Dr. Rashid from gastroenterology about 3 weeks ago and she has another appointment in 2 weeks to be considered for oral fecal transplant since the patient failed Flagyl, vancomycin and Dificid. The patient was last on antibiotics 2 weeks ago which was oral vancomycin. He also notes the patient has a history of falling off the bed without rails. She was admitted for recurrent refractory Clostridium diff colitis and initially placed back on po Vanco but then decision was made to perform stool transplant on 10/05/16 at [facility]. She was kept as an inpatient watching her fluid status and given IV hydration during bowel prep and then transferred to [place] for the transplant. She will go to SNF after that. Stool culture was negative for infection other than C. diff. History of dementia with risk of fall. Fall precautions. Has seen Neurology routinely for her dementia and seizure disorder, Dr. Castellanos, where work up showed generalized cerebellar and cerebral atrophy. Seizure history with low depakote level here at 27 but no clinical seizures, will continue dose as outpt listed. Cardio/Cerebrovascular risk reduction, atorvastatin, lisinopril, nadolol. I increased her lisinopril dose to 10mg bid while here for elevated BPs. Hypothyroidism. TSH mildly elevated at 6 with FT4 normal at 1.36, no changes needed in med Proph- heparin SQ Dispo- FULL CODE To [facility] today for fecal tx and then SNF at [place] Total Time Spent: Greater than 30 minutes This includes examination of the patient, discharge planning, medication reconciliation, and communication with other providers. Discharge Instructions Please refer to the electronic Patient Visit Report (Discharge Instructions) for additional information. Follow-Up PCP within 1 week GI today Additional Copies To Kim Sanabria M.D.
[2017-03-03] MEDS ORDERED: LVQ750 PO (08:39)
== END 2016-10-05 12:02 | DRG 373 ==
LOC: ENRESERVTM → ENRESERVDT → C.EDB 14:06 → UNDOADMIN 16:51 → C.MS2W 16:51
PROVIDERS: ADMIT Hospitalist; ATTEND Family Medicine
DX: A04.7 Enterocolitis due to Clostridium difficile (principal); I10 Essential (primary) hypertension; E78.5 Hyperlipidemia, unspecified; F03.90 Unspecified dementia, unspecified severity, without behavioral disturbance, psychotic disturbance, mood disturbance, and anxiety; E03.9 Hypothyroidism, unspecified; G40.909 Epilepsy, unspecified, not intractable, without status epilepticus; M81.0 Age-related osteoporosis without current pathological fracture; Z86.73 Personal history of transient ischemic attack (TIA), and cerebral infarction without residual deficits; K21.9 Gastro-esophageal reflux disease without esophagitis; Z86.79 Personal history of other diseases of the circulatory system; G25.81 Restless legs syndrome; R29.810 Facial weakness; G43.909 Migraine, unspecified, not intractable, without status migrainosus; Z79.899 Other long term (current) drug therapy; Z79.891 Long term (current) use of opiate analgesic

== ENCOUNTER → 2017-02-18 | Outpatient (CLI) | payer OTHER ==
[~2017-02-18] MED LIST changes: +DIVA250T PO; -FERR325T51 PO; +FRRS300 PO; -LEVO25TA5 PO; +LSN10 PO; +LVQ750 PO; +MAGN400T6 PO; -OXYC-57 PO; +PRAM1TAB PO; +QSTP PO; +RBTUDL5 PO; +SYN25 PO; +TYL325X PO
[2017-02-18 18:18] LABS: BASO % 0.4 %; BASO ABS # 0.03 K/uL (0-0.2); COMPLETE YES; EOS % 2.3 %; HEMATOCRIT 38.3 % (37-47); IG% 0.4 %; LYMPH % 20.9 %; LYMPH ABS # 1.47 K/uL (1.2-3.4); MEAN CORPUSCULAR HGB CONC 31.6 g/dl (32-36); MEAN PLATELET VOLUME 9.8 fL (7.4-10.4); MONO % 13.8 %; NEUT % 62.2 %; PLATELET COUNT 248 K/uL (130-400); RED BLOOD COUNT 4.03 M/uL (4.2-5.4); WHITE BLOOD COUNT 7.04 K/uL (4.8-10.8)
[2017-02-18 18:28] LABS: ALT/SGPT 18 U/L (12-78); BLOOD UREA NITROGEN 17 mg/dl (7-18); BUN/CREATININE RATIO 20.4 (10-20); CALCIUM 9.5 mg/dl (8.5-10.1); CARBON DIOXIDE 28 mmol/L (21-32); CHLORIDE 105 mmol/L (98-107); CREATININE 0.84 mg/dl (0.60-1.20); GLUCOSE 78 mg/dl (70-99); POTASSIUM 4.8 mmol/L (3.5-5.1); SODIUM 139 mmol/L (136-145)
[2017-02-18 18:31] LABS: ALB/GLOB RATIO 0.8 (0.9-2); ALKALINE PHOSPHATASE 120 U/L (45-117); AST/SGOT 14 U/L (15-37)
== END | disposition home or self-care (01) ==
LOC: C.LABMFLN 16:06
PROVIDERS: ATTEND Family Medicine
DX: I10 Essential (primary) hypertension (principal); G40.909 Epilepsy, unspecified, not intractable, without status epilepticus

== ENCOUNTER 2017-02-22 16:37 | Inpatient (IN) | payer OTHER ==
[~2017-02-22] VITALS: Ht 165.1 cm; Wt 69.0 kg
[~2017-02-22 16:37] MED LIST changes: -DIVA250T PO; -LVQ750 PO; -PRAM1TAB PO; -RBTUDL5 PO
[2017-02-22] MEDS ORDERED: SODIUM CHLORIDE 0.9% 1000ML 1,000 ML IV STA (16:43)
[2017-02-22] MEDS ORDERED: QSTP PO (16:54)
[2017-02-22] MEDS ORDERED: RBTUDL5 PO (16:54)
[2017-02-22] MEDS ORDERED: DIVA250T PO (16:54)
[2017-02-22] MEDS ORDERED: PRAM1TAB PO (16:54)
[2017-02-22 17:21] LABS: BASO % 0.3 %; BASO ABS # 0.04 K/uL (0-0.2); COMPLETE YES; EOS % 1.6 %; HEMATOCRIT 38.1 % (37-47); IG% 0.3 %; LYMPH % 10.4 %; LYMPH ABS # 1.49 K/uL (1.2-3.4); MEAN CORPUSCULAR HEMOGLOBIN 30.9 pg (25-34); MEAN CORPUSCULAR HGB CONC 33.6 g/dl (32-36); MEAN PLATELET VOLUME 9.2 fL (7.4-10.4); MONO % 8.1 %; NEUT % 79.3 %; PLATELET COUNT 284 K/uL (130-400); RED BLOOD COUNT 4.14 M/uL (4.2-5.4); WHITE BLOOD COUNT 14.33 K/uL (4.8-10.8)
[2017-02-22 17:30] LABS: PROTHROMBIN TIME (PATIENT) 10.8 SECONDS (9.0-12.0)
--- NOTE | 2017-02-22 17:40 | DIAGNOSTIC IMAGING REPORT ---
SINGLE VIEW CHEST CLINICAL HISTORY: Change in mental status. Generalized weakness. FINDINGS: An AP, portable, upright chest radiograph is compared to study dated 09/27/2016 and correlated with chest CT dated 01/22/2016. The examination is degraded by portable technique and patient rotation. The heart is enlarged and there is atherosclerotic calcification of the thoracic aorta. There is pulmonary vascular congestion. Chronic interstitial thickening is unchanged. Small pleural effusions are suspected, left larger than right. There are left basilar airspace opacities. Calcific granulomas are again seen in the right lung. Apical scarring is observed. No pneumothorax is seen. The skeletal structures are osteopenic. The bony thorax is grossly intact. IMPRESSION: 1. Cardiomegaly with evidence of congestive failure. 2. Trace pleural effusions. 3. Airspace opacities are noted at the left lung base. This could represent atelectasis, developing pneumonia, and/or aspiration pneumonitis. Clinical correlation will be required. Electronically signed by: Yonathan Clancy M.D. 02/22/2017 5:39 PM Dictated Date/Time: 02/22/2017 5:37 PM
[2017-02-22 17:44] LABS: ALT/SGPT 78 U/L (12-78); AST/SGOT 99 U/L (15-37); BLOOD UREA NITROGEN 17 mg/dl (7-18); CALCIUM 9.1 mg/dl (8.5-10.1); CARBON DIOXIDE 27 mmol/L (21-32); CHLORIDE 106 mmol/L (98-107); GLUCOSE 121 mg/dl (70-99); MAGNESIUM 2.2 mg/dl (1.8-2.4); POTASSIUM 4.3 mmol/L (3.5-5.1); SODIUM 139 mmol/L (136-145)
[2017-02-22 17:49] LABS: URINE APPEARANCE CLEAR (CLEAR); URINE BILIRUBIN NEG (NEG); URINE COLOR YELLOW; URINE EPITHELIAL CELL AUTO 0-5 /lpf (0-5); URINE NITRITE NEG (NEG); URINE PH 5.5 (4.5-7.5); URINE SPECIFIC GRAVITY 1.022 (1.000-1.030); UROBILINOGEN NEG (NEG); ZZURINE CULT IF INDIC CATH YES
[2017-02-22 17:50] LABS: MANUAL MICROSCOPIC REQUIRED? NO; REVIEW REQ? NO
[2017-02-22 17:53] LABS: ALKALINE PHOSPHATASE 147 U/L (45-117)
--- NOTE | 2017-02-22 17:58 | DIAGNOSTIC IMAGING REPORT ---
CT SCAN OF THE BRAIN WITHOUT IV CONTRAST CLINICAL HISTORY: Headache. COMPARISON STUDY: CT of the brain dated 02/11/2016. MRI of the brain dated 09/20/2016. TECHNIQUE: Unenhanced axial CT scan of the brain is performed from the vertex to the skull base. CT DOSE: 614.27 mGy.cm FINDINGS: Brain parenchyma: There are age-related involutional changes noting moderate patchy subcortical and periventricular microangiopathic change. There is no hemorrhage, mass effect, or evidence of acute territorial ischemia by CT criteria. Allen-white matter is preserved. No extra-axial fluid collection is seen. Ventricles, sulci, cisterns: Prominent secondary to involutional change. Intracranial vasculature: There is atherosclerotic calcification of the cavernous carotid arteries. Calvarium: Unremarkable. Sinuses and mastoids: There is near complete opacification of the left maxillary antrum, similar to previous. Thickening and sclerosis of the sinus wall indicates chronicity. The remaining visualized paranasal sinuses are clear. The mastoid air cells are well pneumatized. Orbits: The bony orbits are grossly intact. There are bilateral ocular lens implants. IMPRESSION: 1. There is no hemorrhage, mass effect, or evidence of acute territorial ischemia by CT criteria. 2. Chronic left maxillary sinus disease is similar to previous. Electronically signed by: Yonathan Clancy M.D. 02/22/2017 5:56 PM Dictated Date/Time: 02/22/2017 5:53 PM
[2017-02-22] MEDS ORDERED: LEVAQUIN 750MG / 150ML D5W IV STA (19:44)
--- NOTE | 2017-02-22 19:55 | EMERGENCY ROOM VISIT NOTE ---
History Report prepared by Mandi: Maxim Rojo Under the Supervision of: Dr. Clay Moreno D.O. First contact with patient: 16:39 Chief Complaint: ILLNESS Stated Complaint: GENERAL ILLNESS History of Present Illness The patient is a 81 year old female who presents to the Emergency Room with complaints of a constant left sided headache starting yesterday. She rates her discomfort as a 5/10 in severity. Per EMS, the patient had a migraine yesterday and has not been feeling well.The patient is accompanied by her who states that she had a surgery a year ago for her heart and when she was discharged home, she was not herself. He states that shortly after the surgery, she experienced a seizure, which resulted in weakness in the right side of her body. Her states that she went to rehab following her carotid artery surgery and recovered from her surgery and rehabilitation. He states that she just returned from rehabilitation 10 days ago. He states that she started to experience a migraine last night, but states that she typically has been experiencing intermittent headaches for 40 years. Her reports that she was given Percocet and 2 Tylenol to relieve her symptoms. The patient's reports that this morning, she was not able to eat breakfast until noon, but was able to take her medication. He reports that her medication she takes is Depakote, which she takes 500 mg of. The states that she used to take 500 mg, but was cut back to 250 mg in the past. He reports that she started to experience headaches more frequently after they reduced her dose, so they upped her dose back to 500 mg. The patient's states that she was not talking this morning and was experiencing diaphoresis. He reports that she went to go to the bathroom around 1330 today, but felt too weak and wanted to go back to bed. He states that the patient was given 2 Ambien around noon today. He reports that he checked her blood pressure today and states that it was low. The admits that the patient has a history of a bladder infection and had a catheter placed 2 weeks ago with her Urologist at [facility] in [place]. He states that she is going to get the catheter removed in four days. Per EMS, they state the patient has a history of a CVA, left sided facial droop , and a stroke. They also report that she has been on 2 L of oxygen and was given Zofran and Morphine on her way to the ED. The patient denies any fever, chest pain, abdominal pain, right sided headache. Her denies that she normally has weakness in her arms or legs. Source of History: patient, spouse/significant other, EMS Onset: yesterday Position: head Symptom Intensity: 5/10 Quality: ache Timing: constant Modifying Factors (Relieving): tylenol, other (ambien) Associated Symptoms: + diaphoresis, + fatigue, + weakness, No fevers, No chest pain, No abdominal pain Review of Systems See HPI for pertinent positives & negatives. A total of 10 systems reviewed and were otherwise negative. Past Medical & Surgical Medical Problems: (1) Clostridium difficile diarrhea (2) Facial droop (3) HCAP (healthcare-associated pneumonia) (4) Headache (5) Hyperlipemia (6) Hypertension (7) Migraine (8) Sinusitis, acute (9) Stenosis of left internal carotid artery Surgical Problems: (1) Post-operative state Family History Hypertension Seizures Social History Smoking Status: Never Smoker Alcohol Use: none Drug Use: none Marital Status: Housing Status: lives with family Occupation Status: retired Current/Historical Medications Scheduled Atorvastatin (Lipitor), 20 MG PO HS Cholestyramine (Cholestyramine Light), 4 GM PO BID Divalproex Sodium (Depakote Delay Rel), 500 MG PO QPM Divalproex Sodium (Depakote Er), 1 TAB PO QAM Ferrous Sulfate (Ferrous Sulfate), 325 MG PO DAILY Levothyroxine Sodium (Synthroid), 37.5 MCG PO DAILYBB Lisinopril (Zestril), 10 MG PO BID Magnesium Oxide (Mag-Ox), 400 MG PO BID Nadolol (Nadolol), 40 MG PO QAM Pramipexole Dihydrochloride (Mirapex), 0.25 MG PO HS Pramipexole Dihydrochloride (Mirapex), 1 MG PO HS Scheduled PRN Guaifenesin (Robitussin), 10 ML PO QID PRN for Cough Allergies Coded Allergies: Codeine (Verified Allergy, Mild, ?REACTION, 02/11/16) Aripiprazole (Unverified Allergy, Unknown, unknown, 02/11/16) Aspartame (Verified Adverse Reaction, Unknown, MIGRAINE, 02/11/16) Physical Exam Vital Signs Date Time Temp Pulse Resp B/P (MAP) Pulse Ox O2 Delivery O2 Flow Rate FiO2 02/22/17 20:00 59 20 155/74 98 Nasal Cannula 4.0 02/22/17 19:00 58 20 144/72 Nasal Cannula 4.0 02/22/17 18:03 35.4 64 16 161/87 96 Nasal Cannula 4.0 02/22/17 17:30 57 16 160/76 96 Nasal Cannula 4.0 02/22/17 16:58 36.0 61 16 171/88 98 Nasal Cannula 4.0 02/22/17 16:50 61 Physical Exam CONSTITUTIONAL/VITAL SIGNS: Reviewed / noted above. GENERAL: Non-toxic in appearance. INTEGUMENTARY: Warm, dry, and [place]. HEAD: Normocephalic. EYES: without scleral icterus or trauma. ENT/OROPHARYNX: clear and moist. LYMPHADENOPATHY/NECK: Is supple without lymphadenopathy or meningismus. RESPIRATORY: Lungs clear and equal. CARDIOVASCULAR: Regular rate and rhythm. GI/ABDOMEN: Soft and nontender. No organomegaly or pulsatile mass. No rebound or guarding. Normal bowel sounds. EXTREMITIES: Warm and well perfused. BACK: No CVA tenderness. NEUROLOGICAL: Drowsy (received morphine via EMS). Has generalized weakness. Difficulty responding to questions due to drowsiness. Positive Babinski in her right foot. PSYCHIATRIC: normal affect. MUSCULOSKELETAL: Normally developed with good muscle tone. Medical Decision & Procedures ER Provider Diagnostic Interpretation: Radiology results as stated below per my review and radiologist interpretation: SINGLE VIEW CHEST CLINICAL HISTORY: Change in mental status. Generalized weakness. FINDINGS: An AP, portable, upright chest radiograph is compared to study dated 09/27/2016 and correlated with chest CT dated 01/22/2016. The examination is degraded by portable technique and patient rotation. The heart is enlarged and there is atherosclerotic calcification of the thoracic aorta. There is pulmonary vascular congestion. Chronic interstitial thickening is unchanged. Small pleural effusions are suspected, left larger than right. There are left basilar airspace opacities. Calcific granulomas are again seen in the right lung. Apical scarring is observed. No pneumothorax is seen. The skeletal structures are osteopenic. The bony thorax is grossly intact. IMPRESSION: 1. Cardiomegaly with evidence of congestive failure. 2. Trace pleural effusions. 3. Airspace opacities are noted at the left lung base. This could represent atelectasis, developing pneumonia, and/or aspiration pneumonitis. Clinical correlation will be required. Electronically signed by: Yonathan Clancy M.D. 02/22/2017 5:39 PM Dictated Date/Time: 02/22/2017 5:[address] SCAN OF THE BRAIN WITHOUT IV CONTRAST CLINICAL HISTORY: Headache. COMPARISON STUDY: CT of the brain dated 02/11/2016. MRI of the brain dated 09/20/2016. TECHNIQUE: Unenhanced axial CT scan of the brain is performed from the vertex to the skull base. CT DOSE: 614.27 mGy.cm FINDINGS: Brain parenchyma: There are age-related involutional changes noting moderate patchy subcortical and periventricular microangiopathic change. There is no hemorrhage, mass effect, or evidence of acute territorial ischemia by CT criteria. Allen-white matter is preserved. No extra-axial fluid collection is seen. Ventricles, sulci, cisterns: Prominent secondary to involutional change. Intracranial vasculature: There is atherosclerotic calcification of the cavernous carotid arteries. Calvarium: Unremarkable. Sinuses and mastoids: There is near complete opacification of the left maxillary antrum, similar to previous. Thickening and sclerosis of the sinus wall indicates chronicity. The remaining visualized paranasal sinuses are clear. The mastoid air cells are well pneumatized. Orbits: The bony orbits are grossly intact. There are bilateral ocular lens implants. IMPRESSION: 1. There is no hemorrhage, mass effect, or evidence of acute territorial ischemia by CT criteria. 2. Chronic left maxillary sinus disease is similar to previous. Electronically signed by: Yonathan Clancy M.D. 02/22/2017 5:56 PM Dictated Date/Time: 02/22/2017 5:53 PM Laboratory Results 02/22/17 17:10 Red Blood Count 4.14, Mean Corpuscular Volume 92.0, Mean Corpuscular Hemoglobin 30.9, Mean Corpuscular Hemoglobin Concent 33.6, Mean Platelet Volume 9.2, Neutrophils (%) (Auto) 79.3, Lymphocytes (%) (Auto) 10.4, Monocytes (%) (Auto) 8.1, Eosinophils (%) (Auto) 1.6, Basophils (%) (Auto) 0.3, Neutrophils # (Auto) 11.37, Lymphocytes # (Auto) 1.49, Monocytes # (Auto) 1.16, Eosinophils # (Auto) 0.23, Basophils # (Auto) 0.04 02/22/17 17:10 Test 02/22/17 17:10 02/22/17 17:15 White Blood Count 14.33 K/uL (4.8-10.8) Red Blood Count 4.14 M/uL (4.2-5.4) Hemoglobin 12.8 g/dL (12.0-16.0) Hematocrit 38.1 % (37-47) Mean Corpuscular Volume 92.0 fL (80-100) Mean Corpuscular Hemoglobin 30.9 pg (25-34) Mean Corpuscular Hemoglobin Concent 33.6 g/dl (32-36) Platelet Count 284 K/uL (130-400) Mean Platelet Volume 9.2 fL (7.4-10.4) Neutrophils (%) (Auto) 79.3 % Lymphocytes (%) (Auto) 10.4 % Monocytes (%) (Auto) 8.1 % Eosinophils (%) (Auto) 1.6 % Basophils (%) (Auto) 0.3 % Neutrophils # (Auto) 11.37 K/uL (1.4-6.5) Lymphocytes # (Auto) 1.49 K/uL (1.2-3.4) Monocytes # (Auto) 1.16 K/uL (0.11-0.59) Eosinophils # (Auto) 0.23 K/uL (0-0.5) Basophils # (Auto) 0.04 K/uL (0-0.2) RDW Standard Deviation 49.8 fL (36.4-46.3) RDW Coefficient of Variation 14.8 % (11.5-14.5) Immature Granulocyte % (Auto) 0.3 % Immature Granulocyte # (Auto) 0.04 K/uL (0.00-0.02) Prothrombin Time 10.8 SECONDS (9.0-12.0) Prothromb Time International Ratio 1.0 (0.9-1.1) Activated Partial Thromboplast Time 27.1 SECONDS (21.0-31.0) Partial Thromboplastin Ratio 1.0 Anion Gap 6.0 mmol/L (3-11) Est Creatinine Clear Calc Drug Dose 54.8 ml/min Estimated GFR () 92.9 Estimated GFR (Non- 80.1 BUN/Creatinine Ratio 24.0 (10-20) Calcium Level 9.1 mg/dl (8.5-10.1) Magnesium Level 2.2 mg/dl (1.8-2.4) Total Bilirubin 0.5 mg/dl (0.2-1) Direct Bilirubin 0.2 mg/dl (0-0.2) Aspartate Amino Transf (AST/SGOT) 99 U/L (15-37) Alanine Aminotransferase (ALT/SGPT) 78 U/L (12-78) Alkaline Phosphatase 147 U/L (45-117) Total Creatine Kinase 37 U/L (26-192) Creatine Kinase MB < 0.5 ng/ml (0.5-3.6) Creatine Kinase MB Ratio (0-3.0) Troponin I < 0.015 ng/ml (0-0.045) Total Protein 7.4 gm/dl (6.4-8.2) Albumin 3.2 gm/dl (3.4-5.0) Lipase 198 U/L (73-393) Thyroid Stimulating Hormone (TSH) 3.140 uIu/ml (0.300-4.500) Valproic Acid (Depakene) Level 46 mcg/ml (50-100) Urine Color YELLOW Urine Appearance CLEAR (CLEAR) Urine pH 5.5 (4.5-7.5) Urine Specific [place] 1.022 (1.000-1.030) Urine Protein TRACE (NEG) Urine Glucose (UA) NEG (NEG) Urine Ketones TRACE (NEG) Urine Occult Blood TRACE (NEG) Urine Nitrite NEG (NEG) Urine Bilirubin NEG (NEG) Urine Urobilinogen NEG (NEG) Urine Leukocyte Esterase MODERATE (NEG) Urine WBC (Auto) >30 /hpf (0-5) Urine RBC (Auto) 0-4 /hpf (0-4) Urine Hyaline Casts (Auto) 1-5 /lpf (0-5) Urine Epithelial Cells (Auto) 0-5 /lpf (0-5) Urine Bacteria (Auto) NEG (NEG) Laboratory results as stated above per my review. Medications Administered Medications (Trade) Dose Ordered Sig/Fernando Route Start Time Stop Time Status Last Admin Dose Admin Sodium Chloride 1,000 ml @ 250 mls/hr Q4H STAT IV 02/22/17 16:43 02/22/17 20:42 02/22/17 16:43 250 MLS/HR Levofloxacin (Levaquin / D5W) 750 mg NOW STAT IV 02/22/17 19:44 02/22/17 19:45 DC 02/22/17 19:44 750 MG ECG Indication: weakness Rate (beats per minute): 60 Rhythm: normal sinus Findings: no acute ischemic change, no ectopy ED Course 1642: Sodium Chloride 1000 ml @ 250 mls/hr IV. 1652: Previous medical records were reviewed. The patient was evaluated in room B07. A complete history and physical examination was performed. 1939: I reevaluated the patient and she is resting comfortably. I updated the patient and the patient's family on the results. The patient's family states that they want to have her admitted. I will speak with , [facility] Hospitalist for admission. 1943: Levofloxacin 750 mg IV. 1948: I discussed the patient's case with Dr. Ibarra, [facility] Hospitalist. He understands the patient's conditions and agrees to accept the patient. The patient will be further evaluated. Medical Decision Differential includes acute coronary syndrome, myocardial infarction, CVA, TIA, anemia, infection, pneumonia, UTI, pyelonephritis, poor nutrition, dehydration, electrolyte disturbance,hypoglycemia. Medication Reconciliation: I attest that I have personally reviewed the patient' s current medication list. Blood pressure Screening: Patient was found to have an elevated blood pressure and was referred to their primary doctor for recheck and further treatment. The patient presents with generalized weakness and generalized not feeling well. She, according to family, was complaining of a left-sided migraine last night. She does have a history of the same. She took a couple of Ambien and a couple of Percocet yesterday and just Tylenol today. Today the noticed the patient was diaphoretic around 2 PM. He states that a neighbor checked her blood pressure was low. When EMS arrived, her blood pressure seemed to be better. The patient does have an indwelling Hallman catheter. The patient is unable to provide any history. She received morphine by EMS in route. She is very drowsy at this time. Her arms are weak. 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 She does have an upgoing toe on the right foot. Her exam is otherwise unremarkable. The patient's white blood cell count was 14.3. EKG shows a normal sinus rhythm. A CT scan of the brain did not show any acute process. A chest x-ray reveals findings suggestive of a left lower lobe pneumonia. The family reports that she has been coughing a lot over the past week. Complete metabolic panel was unremarkable. Urine reveals leukocyte esterase but no bacteria. She does have an indwelling Hallman catheter. Valproate level was slightly low. The patient was given IV Levaquin. She was given IV fluids. She'll be seen by the hospitalist for further inpatient evaluation. Consults Time Called: 1948 Consulting Physician: Dr. Ibarra Returned Call: 1948 I discussed the patient's case with Dr. Ibarra, [facility] Hospitalist. He understands the patient's conditions and agrees to accept the patient. The patient will be further evaluated. Impression Primary Impression: Pneumonia involving left lung Additional Impressions: Weakness Alteration consciousness Scribe Attestation The scribe's documentation has been prepared under my direction and personally reviewed by me in its entirety. I confirm that the note above accurately reflects all work, treatment, procedures, and medical decision making performed by me. Departure Information Dispostion Being Evaluated By Hospitalist Referrals Kim Sanabria M.D. (PCP) Patient Instructions My [facility] Problem Qualifiers
[2017-02-22] MEDS ORDERED: POLYETHYLENE (MIRALAX) 17 GM PACK PO PRN (20:15)
[2017-02-22] MEDS ORDERED: ALUMINUM/MAGNESIUM/SIMETH (MAALOX MAX) 30 ML UDC PO PRN (20:15)
[2017-02-22] MEDS ORDERED: MAGNESIUM HYDROXIDE SUSP 30 ML UDC PO PRN (20:15)
[2017-02-22] MEDS ORDERED: HEPARIN SOD 5000 UNIT/0.5 ML CARP SQ SCH (20:15)
[2017-02-22] MEDS ORDERED: LEVOFLOXACIN / D5W 500 MG in PREMIXED IN D5W 100 ML IV SCH (20:15)
[2017-02-22] MEDS ORDERED: LEVOFLOXACIN / D5W 750 MG in PREMIXED IN D5W 150 ML IV SCH (20:30)
[2017-02-22] MEDS ORDERED: IV FLUIDS COMPLETED PRN (20:30)
[2017-02-22] MEDS ORDERED: LEVOFLOXACIN CONSULT ACTIVE PRN (20:45)
[2017-02-22 20:52] VITALS: BP 155/74; PULSE 59; TEMP 35.4; O2SAT 97; Ht 165.1 cm; Wt 69.0 kg
--- NOTE | 2017-02-22 21:04 | History and Physical ---
History & Physical Date & Time of Service: Feb 22, 2017 at 20:33 Chief Complaint: General Illness Primary Care Physician: Kim Sanabria M.D. History of Present Illness Source: spouse 81 y/o F Hx dementia, seizure disorder, CVA w/R weakness, progressive ambulatory dysfunction. Pt resides with her and has been in and out of rehab for almost a year. She has had several recent complaints including a headache for 5 days, weakness and a cough. This AM she became diaphoretic and confused above baselline. Her spoke with her MD and was instructed to attend the hospital. Due to her dementia she is unable to contribute to the HPI /ROS. She is however, awake, alert and cooperative with the exam. Recently she had a Hallman catheter placed for urinary retention and recurrent UTIs. 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 6) HCAP 2016 7) Advanced dementia 8) Hypothyroidism 9) Seizure disorder Family History Hypertension Seizures Could not obtain Social History Smoking Status: Never Smoker Drug Use: none Marital Status: Housing status: lives with family Occupational Status: retired Immunizations History of Influenza Vaccine: Yes Influenza Vaccine Date: May 22, 2012 History of Tetanus Vaccine?: Yes Tetanus Immunization Date: Aug 31, 2004 History of Pneumococcal: Yes Pneumococcal Date: May 22, 2012 History of Hepatitis B Vaccine: No Multi-Drug Resistant Organisms History of MDRO: No Allergies Coded Allergies: Codeine (Verified Allergy, Mild, ?REACTION, 02/11/16) Aripiprazole (Unverified Allergy, Unknown, unknown, 02/11/16) Aspartame (Verified Adverse Reaction, Unknown, MIGRAINE, 02/11/16) Home Medications Scheduled Atorvastatin (Lipitor), 20 MG PO HS Cholestyramine (Cholestyramine Light), 4 GM PO BID Divalproex Sodium (Depakote Delay Rel), 500 MG PO QPM Divalproex Sodium (Depakote Er), 1 TAB PO QAM Ferrous Sulfate (Ferrous Sulfate), 325 MG PO DAILY Levothyroxine Sodium (Synthroid), 37.5 MCG PO DAILYBB Lisinopril (Zestril), 10 MG PO BID Magnesium Oxide (Mag-Ox), 400 MG PO BID Nadolol (Nadolol), 40 MG PO QAM Pramipexole Dihydrochloride (Mirapex), 0.25 MG PO HS Pramipexole Dihydrochloride (Mirapex), 1 MG PO HS Scheduled PRN Guaifenesin (Robitussin), 10 ML PO QID PRN for Cough Review of Systems Cannot obtain from pt - had c/o SANCHEZ, cough, diaphoresis Physical Exam Vital Signs Date Time Temp Pulse Resp B/P (MAP) Pulse Ox O2 Delivery O2 Flow Rate FiO2 02/22/17 20:00 59 20 155/74 98 Nasal Cannula 4.0 02/22/17 19:00 58 20 144/72 Nasal Cannula 4.0 02/22/17 18:03 35.4 64 16 161/87 96 Nasal Cannula 4.0 02/22/17 17:30 57 16 160/76 96 Nasal Cannula 4.0 02/22/17 16:58 36.0 61 16 171/88 98 Nasal Cannula 4.0 02/22/17 16:50 61 General Appearance: + pertinent finding (Elderly female - awake - disoriented at baseline - no ditress) Head: normocephalic, atraumatic, + pertinent finding (Chronic R facial droop) Eyes: normal inspection, EOMI ENT: normal ENT inspection, pharynx normal Neck: supple, no JVD Respiratory/Chest: chest non-tender, lungs clear, normal breath sounds Cardiovascular: regular rate, rhythm, no edema, no gallop Abdomen/GI: normal bowel sounds, non tender, soft Back: normal inspection, no CVA tenderness, no muscle spasm, normal range of motion Extremities/Musculoskelatal: normal inspection, no calf tenderness, normal capillary refill 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: 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3 % Lymphocytes (%) (Auto) 10.4 % Monocytes (%) (Auto) 8.1 % Eosinophils (%) (Auto) 1.6 % Basophils (%) (Auto) 0.3 % Neutrophils # (Auto) 11.37 1.4-6.5 K/uL Lymphocytes # (Auto) 1.49 1.2-3.4 K/uL Monocytes # (Auto) 1.16 0.11-0.59 K/uL Eosinophils # (Auto) 0.23 0-0.5 K/uL Basophils # (Auto) 0.04 0-0.2 K/uL RDW Standard Deviation 49.8 36.4-46.3 fL RDW Coefficient of Variation 14.8 11.5-14.5 % Immature Granulocyte % (Auto) 0.3 % Immature Granulocyte # (Auto) 0.04 0.00-0.02 K/uL Prothrombin Time 10.8 9.0-12.0 SECONDS Prothromb Time International Ratio 1.0 0.9-1.1 Activated Partial Thromboplast Time 27.1 21.0-31.0 SECONDS Partial Thromboplastin Ratio 1.0 Sodium Level 139 136-145 mmol/L Potassium Level 4.3 3.5-5.1 mmol/L Chloride Level 106 98-107 mmol/L Carbon Dioxide Level 27 21-32 mmol/L Anion Gap 6.0 3-11 mmol/L Blood Urea Nitrogen 17 7-18 mg/dl Creatinine 0.70 0.60-1.20 mg/dl Est Creatinine Clear Calc Drug Dose 54.8 ml/min Estimated GFR () 92.9 Estimated GFR (Non- 80.1 BUN/Creatinine Ratio 24.0 10-20 Random Glucose 121 70-99 mg/dl Calcium Level 9.1 8.5-10.1 mg/dl Magnesium Level 2.2 1.8-2.4 mg/dl Total Bilirubin 0.5 0.2-1 mg/dl Direct Bilirubin 0.2 0-0.2 mg/dl Aspartate Amino Transf (AST/SGOT) 99 15-37 U/L Alanine Aminotransferase (ALT/SGPT) 78 12-78 U/L Alkaline Phosphatase 147 45-117 U/L Total Creatine Kinase 37 26-192 U/L Creatine Kinase MB < 0.5 0.5-3.6 ng/ml Creatine Kinase MB Ratio 0-3.0 Troponin I < 0.015 0-0.045 ng/ml Total Protein 7.4 6.4-8.2 gm/dl Albumin 3.2 3.4-5.0 gm/dl Lipase 198 73-393 U/L Thyroid Stimulating Hormone (TSH) 3.140 0.300-4.500 uIu/ml Valproic Acid (Depakene) Level 46 50-100 mcg/ml Urine Color YELLOW Urine Appearance CLEAR CLEAR Urine pH 5.5 4.5-7.5 Urine Specific [place] 1.022 1.000-1.030 Urine Protein TRACE NEG Urine Glucose (UA) NEG NEG Urine Ketones TRACE NEG Urine Occult Blood TRACE NEG Urine Nitrite NEG NEG Urine Bilirubin NEG NEG Urine Urobilinogen NEG NEG Urine Leukocyte Esterase MODERATE NEG Urine WBC (Auto) >30 0-5 /hpf Urine RBC (Auto) 0-4 0-4 /hpf Urine Hyaline Casts (Auto) 1-5 0-5 /lpf Urine Epithelial Cells (Auto) 0-5 0-5 /lpf Urine Bacteria (Auto) NEG NEG Microbiology Results 02/22/17 Urine Culture, Received Pending Diagnostic Radiology CXR: questionable LLL infiltrate Impression Assessment and Plan 81 y/o F Hx dementia, seizure disorder, CVA w/R weakness, progressive ambulatory dysfunction. Pt resides with her and has been in and out of rehab for almost a year. She has had several recent complaints including a headache for 5 days, weakness and a cough. This AM she became diaphoretic and confused above baselline. Her spoke with her MD and was instructed to attend the hospital. Due to her dementia she is unable to contribute to the HPI /ROS. She is however, awake, alert and cooperative with the exam. Recently she had a Hallman catheter placed for urinary retention and recurrent UTIs. Initial labs reveal Leukocytosis, her UA is borderline and a CXR may represent a LLL pnm vs atelectasis. 1) Confusion, diaphoresis, leukocytosis - had also had a cough and recent recurrent UTIs. She is afebrile on arrival and mentation meay be at baseline. The pt will be placed on Levaquin and hydrated overnight. As she has been in and out of rehab for the better part of one year, it may be prudent to explore long-term placement. Per her she no longer ambulates and mat then be difficult to care for at home. 2) Seizure disorder - Cont Depakote 3) Migraine headache - chronic - had taken tylenol and one Percocet - was also given Morphine by EMS which may have initially worsened her confusion. We will give her a dose of Toradol and PRN Tramadol. 4) HTN, HPL - cont Nadolol, Lisinopril, Statin 5) Hypothyroidism - cont Synthroid 6) Urinary retention - borderline UA - receiving Levaquin - cultures sent - Hallman placed in outpt setting - can f/u with her urologist. Full code - Heparin prophylaxis Total time for this admit including review of labs, meds, imaging, extensive records - discussion with pts and ER attending - 38 min Level of Care Med/Surg Resuscitation Status FULL RESUSCITATION VTE Prophylaxis VTE Risk Assessment Done? Y/N: Yes Risk Level: Moderate Given or contraindicated: Unfractionated heparin SQ
[2017-02-22 21:15] VITALS: BP 154/76; PULSE 60; TEMP 35.7; O2SAT 97
[2017-02-22] MEDS ORDERED: SODIUM CHLORIDE 0.9% 1000ML 1,000 ML IV SCH (22:00)
[2017-02-22] MEDS: HEPARIN SOD 5000 UNIT/0.5 ML CARP SQ SCH (22:38)
[2017-02-22] MEDS: ACETAMINOPHEN 325 MG TAB PO PRN (22:39)
[2017-02-22 23:58] VITALS: BP 148/73; PULSE 62; TEMP 36.5; O2SAT 97
[2017-02-23] VITALS: O2SAT 97
[2017-02-23] MEDS ORDERED: PROMETHAZINE HCL INJ 12.5 MG in SODIUM CHLORIDE 0.9% 50ML 50 ML IV STA (02:57)
[2017-02-23] MEDS: HEPARIN SOD 5000 UNIT/0.5 ML CARP SQ SCH ×4 (05:04→21:59)
[2017-02-23 07:18] VITALS: BP 118/68; PULSE 64; TEMP 36.5; O2SAT 94
[2017-02-23] MEDS ORDERED: NURSING VERBAL MED ORDER ONE ×2 (07:45→10:15)
[2017-02-23] MEDS: LEVOTHYROXINE 75 MCG TAB PO SCH (07:59)
[2017-02-23 08:00] VITALS: O2SAT 94
[2017-02-23] MEDS ORDERED: LEVOFLOXACIN 750MG / D5W IV SCH (08:00)
[2017-02-23] MEDS: ACETAMINOPHEN 325 MG TAB PO PRN (09:49)
--- NOTE | 2017-02-23 10:02 | Hospitalist Progress Note ---
Hospitalist Progress Note Date of Service Feb 23, 2017. (Salma Bose PA-C) Subjective Pt evaluation today including: conversation w/ patient, conversation w/ family , physical exam, chart review, lab review, review of studies Pain: none PO Intake: poor Voiding: kline catheter in place The patient was seen and examined this morning. Pt does not speak at all during my exam, but nods yes and no to my questions. Her is present at bedside and provides the entire history as she is unable to tell me, she normally does speak. He is concerned that she is nauseous, and she got pain medication for a headache/migraine. This is the first headache she's had in approximately 1 month. Pertinent hx: Pt has a hx of migraines and seizure hx in Mar 2016 for which she was placed on depakote, her dosage has been adjusted to trial lower dosages but pt had recurrent migraines with Depakote 250 mg PO QPM, so it was increased back up to 500 mg QPM. Pt was seen by urology at [facility], and had an indwelling kline cath placed ~ 2 weeks ago. reports its supposed to be removed on 03/08/18, but is unsure is it was being interchanged or removed for good. She was given the option for intermittent straight cath but opted for kline. Constitutional: No fever, No chills, No sweats Eyes: No diplopia ENT: No nasal symptoms, No trouble swallowing Respiratory: + cough, No sputum, No shortness of breath, No dyspnea on exertion Cardiovascular: No chest pain, No palpitations Abdomen: + pain (RUQ), + nausea, + constipation (last BM was 2 days ago), No vomiting, No diarrhea Musculoskeletal: No joint pain, No muscle pain, No swelling Neurologic: + weakness, + problem reported (inability to speak) Endo: + fatigue Skin: No rash, No itch (Salma Bose, DIANA) Objective Vital Signs Date Time Temp Pulse Resp B/P (MAP) Pulse Ox O2 Delivery O2 Flow Rate FiO2 02/23/17 07:18 36.5 64 16 118/68 (85) 94 Nasal Cannula 2.0 02/23/17 00:00 97 Nasal Cannula 2.0 02/22/17 23:58 36.5 62 16 148/73 (98) 97 2.0 02/22/17 21:15 35.7 60 16 154/76 (102) 97 Nasal Cannula 2.0 02/22/17 20:56 59 20 149/69 97 Nasal Cannula 4.0 02/22/17 20:52 35.4 59 20 155/74 97 Nasal Cannula 4.0 02/22/17 20:00 59 20 155/74 98 Nasal Cannula 4.0 02/22/17 19:00 58 20 144/72 Nasal Cannula 4.0 02/22/17 18:03 35.4 64 16 161/87 96 Nasal Cannula 4.0 02/22/17 17:30 57 16 160/76 96 Nasal Cannula 4.0 02/22/17 16:58 36.0 61 16 171/88 98 Nasal Cannula 4.0 02/22/17 16:50 61 (Salma Bose PA-C) Physical Exam General Appearance: WD/WN, no apparent distress, + pertinent finding (appears ill, fatigued) Eyes: PERRL, EOMI ENT: hearing grossly normal, pharynx normal Respiratory/Chest: chest non-tender, no respiratory distress, no accessory muscle use, + pertinent finding (On 2 L via NC, + diminished breath sounds at bilateral bases, + faint crackles in the LLL, + cough, nonproductive, no wheezing or rales.) Cardiovascular: no JVD, no murmur, + tachycardia Abdomen: soft, + pertinent finding (+ hypoactive bowel sounds, + typany on percussion in the RUQ, + tenderness in the RUQ, no tenderness otherwise, no organomegaly.) Extremities: non-tender, no pedal edema, no calf tenderness 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iatric: alert, + pertinent finding (Orientation not assess due to inability to speak. Unable to say her 's name when asked, but seems to answer my questions appropriately with shaking her head yes and no, follows commands,points to stomach to identify painful region) Skin: normal color, warm/dry (Salma Bose PA-C) Laboratory Results Last 24 Hours Test 02/22/17 17:10 02/22/17 17:15 02/23/17 04:44 White Blood Count 14.33 K/uL Red Blood Count 4.14 M/uL Hemoglobin 12.8 g/dL Hematocrit 38.1 % Mean Corpuscular Volume 92.0 fL Mean Corpuscular Hemoglobin 30.9 pg Mean Corpuscular Hemoglobin Concent 33.6 g/dl Platelet Count 284 K/uL Mean Platelet Volume 9.2 fL Neutrophils (%) (Auto) 79.3 % Lymphocytes (%) (Auto) 10.4 % Monocytes (%) (Auto) 8.1 % Eosinophils (%) (Auto) 1.6 % Basophils (%) (Auto) 0.3 % Neutrophils # (Auto) 11.37 K/uL Lymphocytes # (Auto) 1.49 K/uL Monocytes # (Auto) 1.16 K/uL Eosinophils # (Auto) 0.23 K/uL Basophils # (Auto) 0.04 K/uL RDW Standard Deviation 49.8 fL RDW Coefficient of Variation 14.8 % Immature Granulocyte % (Auto) 0.3 % Immature Granulocyte # (Auto) 0.04 K/uL Prothrombin Time 10.8 SECONDS Prothromb Time International Ratio 1.0 Activated Partial Thromboplast Time 27.1 SECONDS Partial Thromboplastin Ratio 1.0 Sodium Level 139 mmol/L Potassium Level 4.3 mmol/L Chloride Level 106 mmol/L Carbon Dioxide Level 27 mmol/L Anion Gap 6.0 mmol/L Blood Urea Nitrogen 17 mg/dl Creatinine 0.70 mg/dl Est Creatinine Clear Calc Drug Dose 54.8 ml/min Estimated GFR () 92.9 Estimated GFR (Non- 80.1 BUN/Creatinine Ratio 24.0 Random Glucose 121 mg/dl Calcium Level 9.1 mg/dl Magnesium Level 2.2 mg/dl Total Bilirubin 0.5 mg/dl Direct Bilirubin 0.2 mg/dl Aspartate Amino Transf (AST/SGOT) 99 U/L Alanine Aminotransferase (ALT/SGPT) 78 U/L Alkaline Phosphatase 147 U/L Total Creatine Kinase 37 U/L Creatine Kinase MB < 0.5 ng/ml Creatine Kinase MB Ratio Troponin I < 0.015 ng/ml Total Protein 7.4 gm/dl Albumin 3.2 gm/dl Lipase 198 U/L Thyroid Stimulating Hormone (TSH) 3.140 uIu/ml Valproic Acid (Depakene) Level 46 mcg/ml Urine Color YELLOW Urine Appearance CLEAR Urine pH 5.5 Urine Specific Spencer 1.022 Urine Protein TRACE Urine Glucose (UA) NEG Urine Ketones TRACE Urine Occult Blood TRACE Urine Nitrite NEG Urine Bilirubin NEG Urine Urobilinogen NEG Urine Leukocyte Esterase MODERATE Urine WBC (Auto) >30 /hpf Urine RBC (Auto) 0-4 /hpf Urine Hyaline Casts (Auto) 1-5 /lpf Urine Epithelial Cells (Auto) 0-5 /lpf Urine Bacteria (Auto) NEG (Salma Bose, DIANA) Assessment and Plan This is a 81 yo F with PMHx of HTN, HLD, hx CVA with residual R sided weakness, left Carotid stenosis, CEA 2015, 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 Confusion, diaphoresis, leukocytosis - had also had a cough and recent recurrent UTIs. - Suspected UTI - pt had indwelling kline cath placed 2 weeks ago by Darnell Moreira, and was planned to have it removed on 03/08/17 - planned temporary catheter per allscripts. - Pt has seen outpatient GI for gallstones recently, [facility] - she was followed by Dr. Hamilton for gallbladder wall thickening, gallstones and possible cholecystitis seen on U/S on 12/16 but was treated conservatively at that time as she seemed to be tolerating the pain well. - Will order a repeat RUQ u/s to assess gallbladder. - Gen surgery consult placed for possible acute cholecystitis with bump in LFTs. - Started on levaquin and switch to zosyn: and WBC dropped from 14 to 6K. - IVFs were turned off last night, will restart maintenance fluids. - On repeat examination the pt had eaten 75% of lunch-- had made NPO due to nausea and elevated lfts. Seizure disorder - Cont Depakote 500 mg QPM Migraine headache - chronic - had taken tylenol and one Percocet - was also given Morphine by EMS which may have initially worsened her confusion. Cecy reports depakote helps to control migrains. - We will give her a dose of Toradol and PRN Tramadol. HTN - cont Nadolol, lisinopril HTN - Statin Hypothyroidism - cont Synthroid DVT ppx: teds, scds, heparin CODE STATUS: FULL CODE Disposition: From home, Gen surg to eval, pt will likely need rehab vs ad terminal makeup operator placement. (Salma Bose PA-C) Reviewed: Pt Seen/Exam by Me (Ashley Oates MD) History Physician Silo Man Supervision Note: I interviewed and examined the patient. Discussed with SONA Bose and agree with findings and plan as documented in the note. Any exceptions or clarifications are listed here: Pt here with acute metabolic encephalopathy, initially thought to be from UTI or possible PNA, now with RUQ abd pain and elevated LFTs--> with probable acute calculous cholecystitis. Pt and deny any heart problems ever, no CP with exertion or rest. ECG normal. Had ECHO in 2007 which showed MR and diastolic CHF -Gen SUrgery to see in AM and possible sandip tomorrow -changed to Zosyn for cholecystitis which will also treat for PNA, add Vanc given recent NH exposure -continue IVFs, NPO after midnight, clears for dinner if tolerated -with pleural effusion and possible left lower lobe PNA?---> check ECHO to assess LV function -follow LFTs in AM -SCDs for proph Documented By: Ashley Oates (Ashley Oates MD)
[2017-02-23 10:08] LABS: MEAN CELL VOLUME 93.7 fL (80-100); MEAN CORPUSCULAR HEMOGLOBIN 29.5 pg (25-34); MEAN CORPUSCULAR HGB CONC 31.5 g/dl (32-36); MEAN PLATELET VOLUME 8.8 fL (7.4-10.4); PLATELET COUNT 185 K/uL (130-400); RED BLOOD COUNT 3.63 M/uL (4.2-5.4); WHITE BLOOD COUNT 6.22 K/uL (4.8-10.8)
[2017-02-23] MEDS ORDERED: ONDANSETRON INJ 2 MG/ML 2 ML VIAL ONE (10:08)
[2017-02-23 10:44] LABS: BUN/CREATININE RATIO 19.3 (10-20); CALCIUM 8.5 mg/dl (8.5-10.1); CREATININE 0.83 mg/dl (0.60-1.20); MAGNESIUM 1.9 mg/dl (1.8-2.4); POTASSIUM 4.2 mmol/L (3.5-5.1)
[2017-02-23 10:49] LABS: ALB/GLOB RATIO 0.7 (0.9-2)
[2017-02-23] MEDS ORDERED: PIPERACILL/TAZOBAC CONSULT ACTIVE PRN (12:45)
[2017-02-23] MEDS: PIPERACILL/TAZOBAC IV 3.375 GM in DEXTROSE 5% 100ML 100 ML IV SCH ×2 (13:44→22:00)
[2017-02-23] MEDS ORDERED: GUAIFENESIN SUGAR FREE 200 MG/10 ML UDC PO PRN (13:45)
--- NOTE | 2017-02-23 14:19 | Progress Note ---
Progress Note Date of Service Feb 23, 2017. Progress Note Dr. Munoz and I saw patient, obtained history and did physical examination. Patient saw Dr. Hamilton as an outpatient at the end of November for work-up of intermittent abdominal pain. US at that time showed gallstones and gallbladder wall thickening, possible cholecystitis. Patient was in rehab and did not want surgery at the time. Now patient and would prefer Dr. Hamilton to evaluate patient if need surgery. I called Dr. Hamilton and let him know about patient. He will see her tomorrow morning Keep patient NPO NPO completely after midnight Continue IV Zosyn Repeat am labs including cbc, cmp, and direct bilirubin await US results
[2017-02-23 14:46] VITALS: BP 126/61; PULSE 72; TEMP 36.5; O2SAT 95
[2017-02-23 16:00] VITALS: O2SAT 95
--- NOTE | 2017-02-23 16:49 | DIAGNOSTIC IMAGING REPORT ---
ULTRASOUND RIGHT UPPER QUADRANT ABDOMEN CLINICAL HISTORY: Right upper quadrant abdominal pain. COMPARISON STUDY: Abdominal CT dated 05/28/2013. TECHNIQUE: Real-time, grayscale, and color flow sonography of the right upper quadrant of the abdomen was performed. Images are reviewed in the transverse and longitudinal planes. FINDINGS: Liver: The liver is normal in size and echotexture. There is no intrahepatic biliary ductal dilatation. The main portal vein is patent. Gallbladder: The gallbladder is filled with shadowing calcified gallstones. The gallbladder wall appears mildly thickened measuring up to 4 mm. No pericholecystic fluid is seen. A sonographic Wagoner's sign is reportedly present. The common bile duct measures up to 0.5 cm in diameter. Pancreas: Visualized portions of the pancreatic head and body are normal in appearance. The splenic vein is patent. Right kidney: Survey images of the right kidney demonstrate cortical atrophy. There is no hydronephrosis. Ascites: None. IMPRESSION: Cholelithiasis. The gallbladder wall appears mildly thickened and a sonographic Wagoner's sign is reportedly present. Acute cholecystitis is not excluded. Surgical consultation is advised. If the clinical picture is equivocal a nuclear hepatobiliary scan could be considered for further assessment. Electronically signed by: Yonathan Clancy M.D. 02/23/2017 4:48 PM Dictated Date/Time: 02/23/2017 4:35 PM
[2017-02-23] MEDS ORDERED: VANCOMYCIN CONSULT ACTIVE PRN (18:00)
[2017-02-23] MEDS ORDERED: VANCOMYCIN INJ 1,650 MG in SODIUM CHLORIDE 0.9% 500ML 500 ML IV SCH (18:30)
--- NOTE | 2017-02-23 20:40 | Pharmacy Progress Note ---
Pharmacy Abx Initial Consult Date of Service Feb 23, 2017. Pharmacy Dosing Scope Date of Consult: 02/23/17 Consultation requested by: Dr. Oates and Dr. Alexis Pharmacy is consulted to initiate Vancomycin and Zosyn IV dosing therapies for acute cholecystitis and pneumonia, order appropriate labs and adjust drug dose/ frequency. Subjective The patient is a 81 year old female admitted on Feb 23, 2017 at 17:08. Objective Height (Feet): 5 Height (Inches): 5.00 Weight (Kilograms): 65.900 Vital Signs (Past 12Hrs) Vital Signs Past 12 Hours Date Time Temp Pulse Resp B/P (MAP) Pulse Ox O2 Delivery O2 Flow Rate FiO2 02/23/17 14:46 36.5 72 16 126/61 (82) 95 Room Air Lab Results (24Hrs) Laboratory Tests (24 Hours) Test 02/23/17 09:55 White Blood Count 6.22 K/uL (4.8-10.8) Micro Results Date/Time Source Procedure Growth Status 02/22/17 17:15 Urine,Catheterized Urine Culture - Preliminary Streptococcus Species Resulted Risk Factors for Resistance * recurrent UTIs * chronic indwelling catheter Assessment & Plan Assessment 81 year old female with chronic indwelling catheters and recurrent UTIs. Plan Pharmacy has been consulted for treatment of acute cholecystitis and pneumonia Vancomycin IV * Loading dose: 1650 mg (25 mg/kg) * Maintenance dose: 1250 mg IV (19 mg/kg) every 24 hours * Estimated P'kinetic levels: ke= 0.0427/hr, t1/2= 16 hrs * Goal trough level for pneumonia : 15 to 20 mcg/mL * Trough level ordered for 02/26/17 ~30 minutes before the 1800 dose when steady state levels will be achieved. Piperacillin/tazobactam * 3.375 g IV extended infusion every 8 hours for CrCl greater than 20 mL/min. Pharmacy will continue to follow and will adjust dose/frequency as necessary. Thank you.
[2017-02-23] MEDS: ATORVASTATIN 20 MG TAB PO SCH (21:08)
[2017-02-23] MEDS: DIVALPROEX SODIUM 500 MG DELAY RELEASE TAB PO SCH (21:08)
[2017-02-23] MEDS: MAGNESIUM OXIDE 400 MG TAB PO SCH (21:08)
[2017-02-23] MEDS: PRAMIPEXOLE DIHYDROCHLORIDE 0.5 MG TAB PO SCH (21:08)
[2017-02-23] MEDS: CHOLESTYRAMINE LIGHT 4 GM PKT PO SCH (21:59)
[2017-02-23 23:43] VITALS: BP 158/75; PULSE 119; TEMP 36.8; O2SAT 92
[2017-02-23] MEDS ORDERED: SODIUM CHLORIDE 0.45% 1000ML 1,000 ML IV SCH (23:55)
[2017-02-24] VITALS (7 sets, daily range): BP systolic 124–158; BP diastolic 70–81; PULSE 61–74; TEMP 36.3–37; O2SAT 92–97
[2017-02-24] MEDS: HEPARIN SOD 5000 UNIT/0.5 ML CARP SQ SCH ×3 (05:09→22:00)
[2017-02-24] MEDS: LEVOTHYROXINE 75 MCG TAB PO SCH (05:10)
[2017-02-24] MEDS: PIPERACILL/TAZOBAC IV 3.375 GM in DEXTROSE 5% 100ML 100 ML IV SCH ×3 (05:58→22:54)
[2017-02-24] MEDS ORDERED: LEVOTHYROXINE 25 MCG TAB PO SCH (06:30)
[2017-02-24 06:52] LABS: MEAN CELL VOLUME 92.7 fL (80-100); MEAN CORPUSCULAR HEMOGLOBIN 29.3 pg (25-34); MEAN CORPUSCULAR HGB CONC 31.6 g/dl (32-36); MEAN PLATELET VOLUME 9.2 fL (7.4-10.4); PLATELET COUNT 193 K/uL (130-400); RED BLOOD COUNT 3.99 M/uL (4.2-5.4); WHITE BLOOD COUNT 8.75 K/uL (4.8-10.8)
[2017-02-24] MEDS: ONDANSETRON INJ 2 MG/ML 2 ML VIAL IV PRN (07:05)
[2017-02-24 07:23] LABS: BUN/CREATININE RATIO 15.5 (10-20); CALCIUM 8.9 mg/dl (8.5-10.1); CREATININE 0.84 mg/dl (0.60-1.20); POTASSIUM 3.7 mmol/L (3.5-5.1)
--- NOTE | 2017-02-24 08:02 | Hospitalist Progress Note ---
Hospitalist Progress Note Date of Service Feb 24, 2017. (Salma Bose PA-C) Subjective Pt evaluation today including: conversation w/ patient, conversation w/ family , physical exam, chart review, lab review, review of studies, conversation w/ benefits consultant Pain: RUQ pain PO Intake: NPO Voiding: no voiding problems The patient was seen and examined this morning. Pt is present at bedside. Pt is sleeping upon entry but easily awakened. She reports RUQ pain which is aching, it is the same as yesterday. She was nauseous this morning and vomited clear liquid. She denies fever, chills, sweats. She is NPO for possible surgical procedure for gallstones found on imaging yesterday. Pt is anticipating HIDA scan today. Additional Comments: ROS: 6 point ROS reviewed and otherwise negative as listed in HPI. (Salma Bose PA-C) Objective Vital Signs Date Time Temp Pulse Resp B/P (MAP) Pulse Ox O2 Delivery O2 Flow Rate FiO2 02/23/17 23:59 Nasal Cannula 2.0 02/23/17 23:43 36.8 119 18 158/75 (102) 92 Nasal Cannula 2.0 02/23/17 16:00 95 Nasal Cannula 2.0 02/23/17 14:46 36.5 72 16 126/61 (82) 95 Room Air 02/23/17 08:00 94 Nasal Cannula 2.0 (Salma Bose PA-C) Physical Exam Notes: General Appearance: WD/WN, no apparent distress, + pertinent finding (appears ill, sleeping on entry) Eyes: PERRL, EOMI ENT: hearing grossly normal, pharynx normal Respiratory/Chest: chest non-tender, no respiratory distress, no accessory muscle use, + pertinent finding (On 2 L via NC, + diminished breath sounds at bilateral bases, + faint crackles in the LLL, + cough, nonproductive, no wheezing or rales.) Cardiovascular: no JVD, no murmur, + tachycardia Abdomen: soft, + pertinent finding (+ hypoactive bowel sounds, + tympany on percussion in the RUQ, + tenderness in the RUQ + Murpheys sign, no tenderness otherwise, no organomegaly.) Extremities: non-tender, no pedal edema, no calf tenderness 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iatric: speech is clear today, AAO x 3 Skin: normal color, warm/dry, no jaundice (Salma Bose PA-C) Laboratory Results Last 24 Hours Test 02/23/17 09:55 02/24/17 06:23 White Blood Count 6.22 K/uL 8.75 K/uL Red Blood Count 3.63 M/uL 3.99 M/uL Hemoglobin 10.7 g/dL 11.7 g/dL Hematocrit 34.0 % 37.0 % Mean Corpuscular Volume 93.7 fL 92.7 fL Mean Corpuscular Hemoglobin 29.5 pg 29.3 pg Mean Corpuscular Hemoglobin Concent 31.5 g/dl 31.6 g/dl RDW Standard Deviation 51.2 fL 51.0 fL RDW Coefficient of Variation 15.0 % 15.1 % Platelet Count 185 K/uL 193 K/uL Mean Platelet Volume 8.8 fL 9.2 fL Sodium Level 140 mmol/L 140 mmol/L Potassium Level 4.2 mmol/L 3.7 mmol/L Chloride Level 107 mmol/L 106 mmol/L Carbon Dioxide Level 27 mmol/L 26 mmol/L Anion Gap 6.0 mmol/L 8.0 mmol/L Blood Urea Nitrogen 16 mg/dl 13 mg/dl Creatinine 0.83 mg/dl 0.84 mg/dl Est Creatinine Clear Calc Drug Dose 46.2 ml/min 45.7 ml/min Estimated GFR () 75.6 74.5 Estimated GFR (Non- 65.2 64.3 BUN/Creatinine Ratio 19.3 15.5 Random Glucose 77 mg/dl 114 mg/dl Calcium Level 8.5 mg/dl 8.9 mg/dl Magnesium Level 1.9 mg/dl Total Bilirubin 0.3 mg/dl 0.5 mg/dl Aspartate Amino Transf (AST/SGOT) 224 U/L 215 U/L Alanine Aminotransferase (ALT/SGPT) 302 U/L 338 U/L Alkaline Phosphatase 175 U/L 221 U/L Total Protein 6.1 gm/dl 6.5 gm/dl Albumin 2.6 gm/dl 2.7 gm/dl Globulin 3.5 gm/dl Albumin/Globulin Ratio 0.7 Direct Bilirubin 0.2 mg/dl (Salma Bose PA-C) Assessment and Plan This is a 81 yo F with PMHx of HTN, HLD, hx CVA with residual R sided weakness, left Carotid stenosis, CEA 2015, 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 Confusion, diaphoresis, leukocytosis - had also had a cough and recent recurrent UTIs. - Suspected UTI - pt had indwelling kline cath placed 2 weeks ago by Darnell Moreira, and was planned to have it removed on 03/08/17 - planned temporary catheter per allscripts. + cholelithiasis, possible acute gallstone cholecystitis - Dr. Hamilton on board- appreciate recs, planned HIDA scan today. - As outpt followed by Dr. Hamilton for gallbladder wall thickening, gallstones and possible cholecystitis seen on U/S on 12/16 but was treated conservatively at that time as she seemed to be tolerating the pain well. - Repeat RUQ IMPRESSION: Cholelithiasis. The gallbladder wall appears mildly thickened and a sonographic Wagoner's sign is reportedly present. Acute cholecystitis is not excluded. -LTS still trending upward - Started on levaquin and switch to zosyn and vanc, wbc are stable - continue maintenance fluids while NPO Seizure disorder - Cont Depakote 500 mg QPM Migraine headache - chronic - had taken tylenol and one Percocet - was also given Morphine by EMS which may have initially worsened her confusion. reports depakote helps to control migraines. - Toradol and PRN Tramadol. HTN - cont Nadolol 40 mg Qam - with pleural effusion and possible left lower lobe PNA?---> check ECHO to assess LV function HTN - Cont atorvastatin 20 mg daily Hypothyroidism - cont Synthroid 37.5 mcg daily DVT ppx: teds, scds, heparin CODE STATUS: FULL CODE Disposition: From home, pt will likely need rehab vs custodial placement. (Salma Bose PA-C) Reviewed: Pt Seen/Exam by Me (Ashley Oates MD) History Physician Mastic Floor Layer Supervision Note: I interviewed and examined the patient. Discussed with SONA Bose and agree with findings and plan as documented in the note. Any exceptions or clarifications are listed here: Pt here with acute metabolic encephalopathy, initially thought to be from UTI or possible PNA, now with RUQ abd pain and elevated LFTs--> with confirmed acute calculous cholecystitis on HIDA scan today. Pt and deny any heart problems ever, no CP with exertion or rest. ECG normal. Had ECHO in 2007 which showed MR and diastolic CHF. Still awaiting ECHO to get done. Today continues with RUQ pain and not feeling well, afebrile. -Gen SUrgery planning for sandip tomorrow -NPO after midnight except should take her nadolol in the AM -continue Zosyn for cholecystitis which will also treat for suspected PNA, add Vanc given recent NH exposure -continue IVFs, NPO after midnight -with pleural effusion and possible left lower lobe PNA?---> check ECHO to assess LV function -follow LFTs -SCDs for proph Documented By: Ashley Oates (Ashley Oates MD)
[2017-02-24] MEDS: CHOLESTYRAMINE LIGHT 4 GM PKT PO SCH ×2 (09:58→22:00)
[2017-02-24] MEDS: NADOLOL 40 MG TAB PO SCH (09:58)
[2017-02-24] MEDS: FERROUS SULFATE 325 MG TAB PO SCH (09:58)
[2017-02-24] MEDS: MAGNESIUM OXIDE 400 MG TAB PO SCH ×2 (09:58→20:44)
--- NOTE | 2017-02-24 10:36 | Clinical Documentation Query ---
JORDANA Navas : CLINICAL DOCUMENTATION QUERY As appropriate, consider clarification as suggested below as the presence of a catheter associated UTI represents a complication of care and, if POA, must be assigned as principal diagnosis and therefore DRG assignment. In your clinical opinion is this patient being managed for: ( x ) Probable acute calculous cholecystitis; catheter associated UTI ruled out ( ) Other explanation of clinical findings (Please Explain) ( ) Unable to determine (Please Define) ( ) Need to Discuss ( ) Not Agree The medical record reflects the following clinical findings, treatment, and risk factors. Clinical Indicators: As above Treatment: General surgical consultation Risk Factors: Known gallstones and gallbladder wall thickening. Please clarify and document your clinical opinion in the progress notes and discharge summary. Terms such as "probable", "suspected", "likely", "questionable", "possible", or "still to be ruled out" are acceptable. IF IN AGREEMENT, YOU MUST DOCUMENT ABOVE DIAGNOSTIC STATEMENT IN DAILY PROGRESS NOTES AND DISCHARGE SUMMARY. This document is not part of the patient's record. Thank You, Christo Dykes, RN [phone]
--- NOTE | 2017-02-24 12:10 | Surgery Consultation ---
Consultation Date of Consultation: Feb 24, 2017. Attending Physician: Ashley Oates MD History of Present Illness 81 y/o pt that I had seen previously as an out-pt for gallstones and occ symptoms. she was brought to ER by her for generalized malaise and confusion. he states that periodically she does still get some upper abdominal pain/nausea. he also states that she has had a cough for about 1 week. she has some moderate dementia making history/symptom expression difficult at times. she currently is denying abdominal pain but does have some nausea. Past Medical/Surgical History Medical Problems: (1) Alteration consciousness Status: Acute (2) Altered mental status Status: Acute (3) Altered mental status Status: Acute (4) C. difficile colitis Status: Acute (5) Dementia Status: Acute (6) Fracture of femoral neck, left Status: Acute (7) Pneumonia Status: Acute (8) Pneumonia involving left lung Status: Acute (9) Seizure Status: Acute (10) Sinusitis Status: Acute (11) Weakness Status: Acute (12) Weakness Status: Acute Family History Hypertension Seizures Social History Smoking Status: Never Smoker Drug Use: none Marital Status: Housing Status: lives with family Occupation Status: retired Allergies Coded Allergies: Codeine (Verified Allergy, Mild, ?REACTION, 02/11/16) Aripiprazole (Unverified Allergy, Unknown, unknown, 02/11/16) Aspartame (Verified Adverse Reaction, Unknown, MIGRAINE, 02/11/16) Home Medications Scheduled Atorvastatin (Lipitor), 20 MG PO HS Cholestyramine (Cholestyramine Light), 4 GM PO BID Divalproex Sodium (Depakote Delay Rel), 500 MG PO QPM Ferrous Sulfate (Ferrous Sulfate), 325 MG PO DAILY Levothyroxine Sodium (Synthroid), 37.5 MCG PO DAILYBB Lisinopril (Zestril), 10 MG PO BID Magnesium Oxide (Mag-Ox), 400 MG PO BID Nadolol (Nadolol), 40 MG PO QAM Pramipexole Dihydrochloride (Mirapex), 0.25 MG PO HS Pramipexole Dihydrochloride (Mirapex), 1 MG PO HS Scheduled PRN Guaifenesin (Robitussin), 10 ML PO QID PRN for Cough Current Inpatient Medications Current Inpatient Medications Medications (Trade) Dose Ordered Sig/Fernando Route Start Time Stop Time Status Last Admin Dose Admin Acetaminophen (Tylenol Tab) 650 mg Q4H PRN PO 02/22/17 20:15 03/24/17 20:14 02/23/17 09:49 650 MG Al Hydrox/Mg Hydrox/Simethicone (Maalox Max Susp) 15 ml Q4H PRN PO 02/22/17 20:15 03/24/17 20:14 Magnesium Hydroxide (Milk Of Magnesia Susp) 30 ml Q6H PRN PO 02/22/17 20:15 03/24/17 20:14 Polyethylene (Miralax Powder Packet) 17 gm DAILY PRN PO 02/22/17 20:15 03/24/17 20:14 Miscellaneous (Iv Fluids Completed) 1 ea PRN PRN N/A 02/22/17 20:30 02/22/18 20:29 Heparin Sodium (Porcine) (Heparin Sq 5000 Unit/0.5ml) 5,000 unit Q8 SQ 02/22/17 22:00 03/24/17 21:59 02/23/17 21:59 5,000 UNIT Levothyroxine Sodium (Synthroid Tab) 37.5 mcg DAILYBB PO 02/23/17 08:00 03/25/17 07:59 02/23/17 07:59 37.5 MCG Ondansetron HCl (Zofran Inj) 4 mg Q6H PRN IV 02/23/17 10:15 03/25/17 10:14 02/24/17 07:05 4 MG Piperacillin Sod/ Tazobactam Sod 3.375 gm/Dextrose 115 ml @ 28.75 mls/ hr Q8H IV 02/23/17 14:00 03/05/17 13:59 02/24/17 05:58 28.75 MLS/HR Piperacillin Sod/ Tazobactam Sod (Consult) 1 ea UD PRN N/A 02/23/17 12:45 03/25/17 12:44 Atorvastatin Calcium (Lipitor Tab) 20 mg HS PO 02/23/17 21:00 03/25/17 20:59 02/23/17 21:08 20 MG Cholestyramine Resin (Questran Powder Light) 4 gm BID@1000,2200 PO 02/23/17 22:00 03/25/17 21:59 Divalproex Sodium (Depakote Delay Rel Tab) 500 mg QPM PO 02/23/17 21:00 03/25/17 20:59 02/23/17 21:08 500 MG Ferrous Sulfate (Feosol Tab) 325 mg DAILY PO 02/24/17 09:00 03/26/17 08:59 Guaifenesin (Robitussin Sugar Free Syrup) 200 mg QID PRN PO 02/23/17 13:45 03/25/17 13:44 Magnesium Oxide (Mag-Ox Tab) 400 mg BID PO 02/23/17 21:00 03/25/17 20:59 02/23/17 21:08 400 MG Nadolol (Corgard Tab) 40 mg QAM PO 02/24/17 09:00 03/26/17 08:59 02/24/17 09:58 40 MG Pramipexole Dihydrochloride (miraPEX TAB) 1 mg HS PO 02/23/17 21:00 03/25/17 20:59 02/23/17 21:08 1 MG Sodium Chloride 1,000 ml @ 80 mls/hr [id number] IV 02/23/17 23:55 02/24/17 12:24 02/23/17 23:38 80 MLS/HR Vancomycin HCl (Consult) 1 ea UD PRN N/A 02/23/17 18:00 03/25/17 17:59 Vancomycin HCl 1250 mg/Sodium Chloride 275 ml @ 125 mls/hr Q24H IV 02/24/17 18:00 03/02/17 17:59 Review of Systems Constitutional: + chills, + sweats, + fatigue Abdomen: + pain, + nausea Neurologic: + memory loss, + weakness Psychiatric: + problem reported (dementia) Physical Exam Date Time Temp Pulse Resp B/P (MAP) Pulse Ox O2 Delivery O2 Flow Rate FiO2 02/24/17 10:00 73 143/76 (98) Free Flow/Blowby 02/24/17 07:58 36.3 74 16 153/80 (104) 92 2.0 02/23/17 23:59 Nasal Cannula 2.0 02/23/17 23:43 36.8 119 18 158/75 (102) 92 Nasal Cannula 2.0 02/23/17 16:00 95 Nasal Cannula 2.0 02/23/17 14:46 36.5 72 16 126/61 (82) 95 Room Air General Appearance: + mild distress Head: normocephalic, atraumatic Eyes: EOMI Neck: supple, no JVD Respiratory/Chest: no respiratory distress, no accessory muscle use Abdomen/GI: soft, + pertinent finding (mild upper abdominal ttp. no peritoneal signs. ) Extremities/Musculoskelatal: no pedal edema, non-tender 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: + depressed affect Skin: warm/dry, no rash Laboratory Results Last 24 Hours Test 02/24/17 06:23 White Blood Count 8.75 K/uL Red Blood Count 3.99 M/uL Hemoglobin 11.7 g/dL Hematocrit 37.0 % Mean Corpuscular Volume 92.7 fL Mean Corpuscular Hemoglobin 29.3 pg Mean Corpuscular Hemoglobin Concent 31.6 g/dl RDW Standard Deviation 51.0 fL RDW Coefficient of Variation 15.1 % Platelet Count 193 K/uL Mean Platelet Volume 9.2 fL Sodium Level 140 mmol/L Potassium Level 3.7 mmol/L Chloride Level 106 mmol/L Carbon Dioxide Level 26 mmol/L Anion Gap 8.0 mmol/L Blood Urea Nitrogen 13 mg/dl Creatinine 0.84 mg/dl Est Creatinine Clear Calc Drug Dose 45.7 ml/min Estimated GFR () 74.5 Estimated GFR (Non- 64.3 BUN/Creatinine Ratio 15.5 Random Glucose 114 mg/dl Calcium Level 8.9 mg/dl Total Bilirubin 0.5 mg/dl Direct Bilirubin 0.2 mg/dl Aspartate Amino Transf (AST/SGOT) 215 U/L Alanine Aminotransferase (ALT/SGPT) 338 U/L Alkaline Phosphatase 221 U/L Total Protein 6.5 gm/dl Albumin 2.7 gm/dl Assessment & Plan us shows gallstones and some wall thickening but this is the same as it was in November.. I am not convinced all of this is stemming from her gallbladder wbc was 16,000 at admission but she is also currently being tx for pneumonia and does have a new cough. wbc has improved on antibiotics pt is a very poor surgical candidate LFT's slightly elevated but bilirubin normal will obtain a HIDA scan to further eval for acute cholecystitis. I really think surgery for her should be last resort. if HIDA + the options would be lap sandip vs perc sandip tube will continue to follow. d/w ADELINE Franco.
[2017-02-24] MEDS ORDERED: MoRPHine SULFATE 2 MG/ML CARP ONE (15:28)
--- NOTE | 2017-02-24 16:46 | DIAGNOSTIC IMAGING REPORT ---
NUCLEAR MEDICINE HEPATOBILIARY SCAN CLINICAL HISTORY: Abnormal ultrasound. COMPARISON: Right upper quadrant ultrasound February and CT of the abdomen and pelvis May 28, 2013. TECHNIQUE: 5.5 mCi of technetium 99m Choletec IV was injected at 2:20 PM on February 24, 2017. Immediately following injection, imaging of the abdomen was carried out for 60 minutes in the anterior projection. Gallbladder activity was not identified at 60 minutes and therefore 2 mg of morphine was administered IV. FINDINGS: Hepatic uptake of radiotracer is prompt and homogeneous. Activity is first identified within the small bowel and the common bile duct at 10 minutes. There is increased activity within the right hepatic lobe, within the gallbladder fossa. No gallbladder activity was identified following morphine administration. IMPRESSION: 1. No gallbladder activity identified despite morphine administration. The findings suggest acute cholecystitis. 2. Mild increased radiotracer uptake within the gallbladder fossa of the liver which can be seen in the setting of acute cholecystitis. Electronically signed by: Casper Hammer M.D. 02/24/2017 4:44 PM Dictated Date/Time: 02/24/2017 4:32 PM
[2017-02-24] MEDS: VANCOMYCIN INJ 1,250 MG in SODIUM CHLORIDE 0.9% 250ML 250 ML IV SCH (17:38)
[2017-02-24] MEDS: DIVALPROEX SODIUM 500 MG DELAY RELEASE TAB PO SCH (20:44)
[2017-02-24] MEDS: ATORVASTATIN 20 MG TAB PO SCH (20:44)
[2017-02-24] MEDS: PRAMIPEXOLE DIHYDROCHLORIDE 0.5 MG TAB PO SCH (20:45)
[2017-02-25] VITALS (7 sets, daily range): BP systolic 129–179; BP diastolic 50–81; PULSE 53–70; TEMP 36.4–36.8; O2SAT 94–96
[2017-02-25] MEDS: HEPARIN SOD 5000 UNIT/0.5 ML CARP SQ SCH ×3 (06:00→22:25)
[2017-02-25] MEDS: PIPERACILL/TAZOBAC IV 3.375 GM in DEXTROSE 5% 100ML 100 ML IV SCH ×3 (06:11→22:23)
[2017-02-25] MEDS: LEVOTHYROXINE 75 MCG TAB PO SCH (06:12)
[2017-02-25] MEDS: NADOLOL 40 MG TAB PO SCH (07:20)
[2017-02-25 08:15] LABS: CREATININE 0.79 mg/dl (0.60-1.20)
[2017-02-25] MEDS: MAGNESIUM OXIDE 400 MG TAB PO SCH ×2 (08:46→21:00)
[2017-02-25] MEDS: FERROUS SULFATE 325 MG TAB PO SCH (08:47)
[2017-02-25] MEDS: CHOLESTYRAMINE LIGHT 4 GM PKT PO SCH ×2 (09:25→22:00)
[2017-02-25] MEDS ORDERED: BUPIVACAINE/EPINEPHRINE 0.5% MPF 1:200,000 10 ML VIAL ONE ×2 (10:00→10:01)
--- NOTE | 2017-02-25 10:54 | Hospitalist Progress Note ---
Hospitalist Progress Note Date of Service Feb 25, 2017. (Salma Bose PA-C) Subjective Pt evaluation today including: conversation w/ patient, physical exam, chart review, lab review, review of studies Pain: RUQ abd pain PO Intake: NPO Voiding: kline catheter in place The patient was seen and examined this morning. Pt reports not feeling well, she didn't sleep overnight due pain. She reports still feeling slightly nauseous , and hasn't eaten anything in anticipation of cholecystectomy today. I spoke with her outside the room, he is sitting with their vp genetic. All their questions and concerns were addressed. Constitutional: + fatigue, No fever, No chills, No sweats Eyes: No diplopia ENT: No nasal symptoms, No trouble swallowing Respiratory: + cough, No sputum, No wheezing, No shortness of breath Cardiovascular: No chest pain, No palpitations Abdomen: + see HPI Female : + problem reported (kline catheter in place, draining clear yellow urine) Endo: + fatigue Skin: No rash, No itch (Salma Bose PA-C) Objective Vital Signs Date Time Temp Pulse Resp B/P (MAP) Pulse Ox O2 Delivery O2 Flow Rate FiO2 02/25/17 07:02 36.8 70 16 171/50 (90) 94 Nasal Cannula 2.0 02/25/17 00:00 Nasal Cannula 2.0 02/24/17 23:04 37.0 73 16 148/74 (98) 92 Room Air 02/24/17 20:00 Nasal Cannula 2.0 02/24/17 19:29 36.3 64 18 124/70 (88) 97 Nasal Cannula 2.0 02/24/17 16:31 36.4 61 18 158/81 (106) 92 Nasal Cannula 2.0 02/24/17 16:00 95 Nasal Cannula 2.0 (Salma Bose PA-C) Physical Exam Notes: General Appearance: WD/WN, no apparent distress, + pertinent finding + appears ill, weak Eyes: PERRL, EOMI ENT: hearing grossly normal, pharynx normal Respiratory/Chest: chest non-tender, no respiratory distress, no accessory muscle use, + pertinent finding (On 2 L via NC, + diminished breath sounds at bilateral bases, + faint crackles bibasilarly,+ cough, nonproductive, no wheezing or rales.) Cardiovascular: no JVD, no murmur, regular rate and rhythm Abdomen: soft, + pertinent finding (+ hypoactive bowel sounds, + tympany on percussion in the RUQ, + tenderness in the RUQ + Anton sign, no tenderness otherwise, no organomegaly.) Extremities: non-tender, no pedal edema, no calf tenderness 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iatric: speech is clear, AAO x 3, follows commands Skin: normal color, warm/dry, no jaundice (Salma Bose, DIANA) Laboratory Results Last 24 Hours Test 02/25/17 07:29 Creatinine 0.79 mg/dl Est Creatinine Clear Calc Drug Dose 48.6 ml/min Estimated GFR () 80.2 Estimated GFR (Non- 69.2 Total Bilirubin 0.8 mg/dl Direct Bilirubin 0.2 mg/dl Aspartate Amino Transf (AST/SGOT) 104 U/L Alanine Aminotransferase (ALT/SGPT) 247 U/L Alkaline Phosphatase 194 U/L Total Protein 6.3 gm/dl Albumin 2.4 gm/dl (Salma Bose, DIANA) Assessment and Plan This is a 81 yo F with PMHx of HTN, HLD, hx CVA with residual R sided weakness, left Carotid stenosis, CEA 2015, 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 Confusion, diaphoresis, leukocytosis - had also had a cough and recent recurrent UTIs. - Suspected UTI - pt had indwelling kline cath placed 2 weeks ago by Darnell Moreira, and was planned to have it removed on 03/08/17 - planned temporary catheter per allscripts. + cholelithiasis, possible acute gallstone cholecystitis - Dr. Hamilton on board- appreciate recs, LONI completed on 02/24 which was + acute cholecystis. - Planned OR today - As outpt followed by Dr. Hamilton for gallbladder wall thickening, gallstones and possible cholecystitis seen on U/S on 12/16 but was treated conservatively at that time as she seemed to be tolerating the pain well. - Repeat RUQ IMPRESSION: Cholelithiasis. The gallbladder wall appears mildly thickened and a sonographic Wagoner's sign is reportedly present. Acute cholecystitis is not excluded. - LTS elevated, trending - Started on levaquin and switch to zosyn and vanc, wbc are stable - continue maintenance fluids while NPO - PT/OT evals - planned discharge for [place] Seizure disorder - Cont Depakote 500 mg QPM Migraine headache - chronic - Avoid narcotics if able due to age and added lethargy- Toradol and PRN Tramadol. - reports depakote helps to control migraines. HTN - cont Nadolol 40 mg Qam - with pleural effusion and possible left lower lobe PNA?---> check ECHO to assess LV function - completed this morning, will await final read HTN - Cont atorvastatin 20 mg daily Hypothyroidism - cont Synthroid 37.5 mcg daily DVT ppx: teds, scds, held heparin for surgical procedure this morning. CODE STATUS: FULL CODE Disposition: From home, planned cholecystectomy today, pt will likely need rehab vs assistant terminal manager placement. [place] - discussed with case sealer that they'd be able to transport over the weekend if pt is ready (Salma Bose PA-C) Reviewed: Pt Seen/Exam by Me (Ashley Oates MD) History Physician Probe Operator Supervision Note: I interviewed and examined the patient. Discussed with SONA Bose and agree with findings and plan as documented in the note. Any exceptions or clarifications are listed here: Pt drowsy this AM, awaiting cholecystectomy. Had ECHO and awaiting read. No new concerns. Slept well overnight. LFTs trending downward today. Afebrile. Pt here with acute metabolic encephalopathy, initially thought to be from UTI or possible PNA, now with RUQ abd pain and elevated LFTs--> with confirmed acute calculous cholecystitis on HIDA scan. Pt and deny any heart problems ever, no CP with exertion or rest. ECG normal. Had ECHO in 2007 which showed MR and diastolic CHF. -Gen Surgery planning for sandip today, then post-op management as per Surgery -continue Zosyn for cholecystitis which will also treat for suspected PNA, add Vanc given recent NH exposure -continue IVFs -with pleural effusion and possible left lower lobe PNA?---> check ECHO to assess LV function--> awaiting official read this AM prior to surgery but clinically seems stable for surgery -follow LFTs -SCDs for proph, eventually add on heparin SQ when ok with Surgery Documented By: Ashley Oates (Ashley Oates MD)
[2017-02-25] MEDS ORDERED: FENTANYL CITRATE INJ 50 MCG/1 ML 2 ML VIAL ONE ×2 (11:31→13:27)
--- NOTE | 2017-02-25 12:15 | History & Physical Bridge Note ---
H&P Re-Evaluation Bridge Note: I have examined the patient, reviewed the History & Physical and in the interval since the performance of the History & Physical I have noted the following changes of clinical significance: No changes noted I have discussed results of her HIDA scan with them. we have discussed options including perc sandip tube, simple IV antibiotics, and lap sandip. we discussed the increased risk for her b/c of her medical issues. we discussed bleeding/infection/blood clots, heart attacks, injury to bowel or bile ducts, stroke, etc...they clearly wanted to proceed with lap sandip. we are currently having trouble finding him to sign consent. I feel the condition is relatively urgent. having discussed this with him 3 times previously, I am comfortable proceeding with lap sandip.
[2017-02-25] MEDS ORDERED: FENTANYL CITRATE INJ 50 MCG/1 ML 2 ML VIAL IV PRN (13:15)
[2017-02-25] MEDS ORDERED: EpHEDrine SULFATE INJ 50 MG/ML AMP IV PRN (13:15)
[2017-02-25] MEDS ORDERED: ONDANSETRON INJ 2 MG/ML 2 ML VIAL IV PRN (13:15)
[2017-02-25] MEDS ORDERED: ATROPINE SULFATE 0.1 MG/ML 5ML SYR IV PRN (13:15)
[2017-02-25] MEDS ORDERED: DEXAMETHASONE SOD INJ 4 MG/ML VIAL ONE (13:26)
[2017-02-25] MEDS ORDERED: PROPOFOL IV EMULSION 10 MG/ML 20 ML VIAL IV ONE (13:26)
[2017-02-25] MEDS ORDERED: ROCURONIUM BROMIDE 10 MG/ML 5 ML VIAL ONE (13:26)
[2017-02-25] MEDS ORDERED: ONDANSETRON INJ 2 MG/ML 2 ML VIAL ONE (13:26)
[2017-02-25] MEDS ORDERED: LIDOCAINE HCL 2% 2 ML VIAL (20MG/ML) ONE (13:26)
[2017-02-25] MEDS ORDERED: GLYCOPYRROLATE INJ 0.2 MG/ML VIAL ONE ×2 (13:26→13:35)
[2017-02-25] MEDS ORDERED: NEOSTIGMINE METHYLSULFATE 5 MG/5 ML SYR ONE (13:26)
--- NOTE | 2017-02-25 13:47 | ECHOCARDIOGRAM REPORT ---
*NOTICE TO RECEIVING DEMOCRAT AGENCY This information is strictly Confidential and protected under [place] law. [place] law prohibits you from making any further disclosure of this information unless further disclosure is expressly permitted by the written consent of the person to whom it pertains or is authorized by law. A general authorization for the release of medical or other information is not sufficient for this purpose. Hospital accepts no responsibility if the information is made available to any other person, INCLUDING THE PATIENT. Interpretation Summary * Name: PAOLO ORTIZ Study Date: 02/25/2017 10:16 AM BP: 171/50 mmHg * Patient Location: [facility]\S\N276\S\1 HR: 57 * : 1935 (M/d/yyyy) Gender: Female Height: 65 in * Age: 81 yrs Ethnicity: [place] Weight: 145 lb * Ordering Physician: Ashley Oates * Referring Physician: Self, Referred * Performed By: Ayana Bowman RCS * * Reason For Study: PRE-OP / CHF * BSA: 1.7 m2 * Normal biventricular systolic function. * Mild concentric left ventricular hypertrophy. * Left ventricular diastolic dysfunction. * Moderate left atrial dilatation. * Mild mitral and moderate tricuspid regurgitation. * Mild - moderate pulmonic regurgitation. * Moderate pulmonary hypertension. Procedure Details * A complete two-dimensional transthoracic echocardiogram was performed (2D, M-mode, Doppler and color flow Doppler). Left Ventricle * The left ventricle is normal in size. * There is mild concentric left ventricular hypertrophy. * Left ventricular systolic function is normal. * Ejection Fraction = 65-70%. * Diastolic dysfunction, Grade II (pseudonormalization pattern). * The left ventricular wall motion is normal. Right Ventricle * The right ventricle is normal in size and function. Atria * The left atrium is moderately dilated. * Right atrial size is normal. * No ASD detected; PFO is not assessed. Mitral Valve * There is mild mitral annular calcification. * There is no mitral valve stenosis. * There is mild mitral regurgitation. Tricuspid Valve * The tricuspid valve is not well visualized, but is grossly normal. * There is no tricuspid stenosis. * There is moderate tricuspid regurgitation. * Right ventricular systolic pressure is elevated at 50-60mmHg. Aortic Valve * The aortic valve is trileaflet. * The aortic valve opens well. * Aortic stenosis is absent. * No aortic regurgitation is present. Pulmonic Valve * The pulmonary valve is inadequately visualized, but the Doppler data is adequate for interpretation. * There is no pulmonic valvular stenosis. * Mild to moderate pulmonic valvular regurgitation. Great Vessels * The aortic root is normal size. Pericardium/Pleural * There is no pericardial effusion. Great Vessels * Normal inferior vena cava diameter and respiratory variation suggests normal central venous pressure. MMode 2D Measurements and Calculations IVSd 1.2 cm IVSs 1.7 cm LVIDd 4.2 cm LVIDs 2.2 cm LVPWd 1.2 cm LVPWs 1.4 cm IVS/LVPW 0.99 FS 46.8 % EDV(Teich) 76.7 ml ESV(Teich) 16.5 ml EF(Teich) 78.5 % EDV(cubed) 71.9 ml ESV(cubed) 10.9 ml EF(cubed) 84.9 % % IVS thick 48.2 % % LVPW thick 18.2 % LV mass(C)d 171.1 grams LV mass(C)dI 99.1 grams/m\S\2 LV mass(C)s 119.2 grams LV mass(C)sI 69.1 grams/m\S\2 SV(Teich) 60.3 ml SI(Teich) 34.9 ml/m\S\2 SV(cubed) 61.0 ml SI(cubed) 35.4 ml/m\S\2 Ao root diam 3.0 cm Ao root area 6.9 cm\S\2 ACS 1.8 cm LA dimension 4.7 cm LA/Ao 1.6 LVOT diam 2.0 cm LVOT area 3.0 cm\S\2 LVAd ap4 24.4 cm\S\2 LVLd ap4 7.3 cm EDV(MOD-sp4) 67.9 ml EDV(sp4-el) 69.6 ml LVAs ap4 16.6 cm\S\2 LVLs ap4 7.0 cm ESV(MOD-sp4) 34.7 ml ESV(sp4-el) 33.6 ml EF(MOD-sp4) 48.8 % EF(sp4-el) 51.7 % LVAd ap2 21.8 cm\S\2 LVLd ap2 6.9 cm EDV(MOD-sp2) 56.3 ml EDV(sp2-el) 58.4 ml LVAs ap2 14.6 cm\S\2 LVLs ap2 6.4 cm ESV(MOD-sp2) 28.9 ml ESV(sp2-el) 28.3 ml EF(MOD-sp2) 48.7 % EF(sp2-el) 51.5 % LVLd %diff -5.36 % EDV(MOD-bp) 63.8 ml LVLs %diff -8.54 % ESV(MOD-bp) 33.0 ml EF(MOD-bp) 48.3 % SV(MOD-sp4) 33.2 ml SI(MOD-sp4) 19.2 ml/m\S\2 SV(MOD-sp2) 27.4 ml SI(MOD-sp2) 15.9 ml/m\S\2 SV(MOD-bp) 30.8 ml SI(MOD-bp) 17.9 ml/m\S\2 SV(sp4-el) 36.0 ml SI(sp4-el) 20.9 ml/m\S\2 SV(sp2-el) 30.1 ml SI(sp2-el) 17.4 ml/m\S\2 Doppler Measurements and Calculations MV E max tashia 104.1 cm/sec MV A max tashia 29.7 cm/sec MV E/A 3.5 MV P1/2t max tashia 130.7 cm/sec MV P1/2t 55.6 msec MVA(P1/2t) 4.0 cm\S\2 MV dec slope 688.3 cm/sec\S\2 MV dec time 0.21 sec Ao V2 max 115.1 cm/sec Ao max PG 5.3 mmHg Ao max PG (full) 2.6 mmHg SHEILA(V,A) 2.2 cm\S\2 SHEILA(V,D) 2.2 cm\S\2 LV V1 max PG 2.7 mmHg LV V1 max 82.5 cm/sec MR max tashia 523.9 cm/sec MR max PG 109.8 mmHg PA V2 max 83.6 cm/sec PA max PG 2.8 mmHg PI max tashia 244.8 cm/sec PI max PG 24.0 mmHg PI dec slope 191.1 cm/sec\S\2 PI P1/2t 375.2 msec TR max tashia 344.5 cm/sec
--- NOTE | 2017-02-25 14:00 | [facility] Operative Report ---
Operative Report Operative Date Feb 25, 2017. Pre-Operative Diagnosis Acute Cholelithiasis, Cholecystitis Post-Operative Diagnosis Same as preoperative Procedure(s) Performed Laparoscopic Cholecystectomy Surgeon Order Picker Surgeon(s) Madhuri Fraser PA-C Estimated Blood Loss 15ML Findings acutely inflammed gallbladder. Specimens A. Gallbladder Anesthesia get Complication(s) None Disposition Recovery Room / PACU Description of Procedure After informed consent was obtained the patient was taken to the operating suite and placed into a supine position. After successful intubation the abdomen was sterilely prepped and draped in usual fashion. A periumbilical incision was made with an 11 blade scalpel. The soft tissues was taken down using electrocautery. Anterior rectus fascia was opened using electrocautery and 2 #0 Vicryl stay sutures were placed. Peritoneum was elevated with hemostats and incised under direct vision using Metzenbaum scissors. A finger sweep was performed. A 12 mm Werner trocar was placed in the abdomen was insufflated to 18 mmHg. The laparoscope was inserted in the abdomen was examined in 360. There were a few lower abdominal adhesions. The gallbladder was also obviously acutely inflamed. No other gross abnormalities were identified. We placed a subxiphoid 5 mm port and 2 right abdominal 5 mm ports under direct vision. The patient was placed in a reverse Trendelenburg position and slightly airplaned to the left. The gallbladder was actually attached to the duodenum from inflammation. We were able to grasp the gallbladder and elevated superiorly. I used gentle traction to tease the duodenum off of the gallbladder itself. Once we did this I was then able to elevate the gallbladder more superiorly and more laterally. I then used a [place] dissector to take down adhesions around the neck of the gallbladder. I was able skeletonize the cystic duct. It was relatively short and because of the thickness a clip steam setter was not going to be long enough. I could clearly see the common bile duct junction with it and felt to be safe to staple it off. I exchanged the 5 mm trocar for a 12 mm trocar and then used a 45 mm Guzman MINH to staple off the cystic duct. I was unable to skeletonized the cystic artery. I clipped it twice proximally once distally and transected. I then removed the gallbladder from the gallbladder fossa with electrocautery. It was removed intact and placed into an Endo Catch bag. I thoroughly irrigated the right upper quadrant control any small bleeders on the gallbladder fossa with electrocautery. Because of the ooziness I did place some Surgicel in the gallbladder fossa to help with some post operative hemostasis. By the end of the procedure there was adequate hemostasis and no evidence of any bile leaks. We did look around the abdomen and saw no other abnormality. The trochars were all removed and the gallbladder was removed from the camera port site. The abdomen was desufflated. We closed the fascia of the umbilical port with 0 Vicryl in a [id number] fashion. All wounds were irrigated and closed with 4-0 Monocryl. Marcaine was injected around for postoperative analgesia and skin glue used as a dressing. The patient was awaken extubated and transferred recovery in stable condition I attest to the content of the Intraoperative Record and any orders documented therein. Any exceptions are noted below.
--- NOTE | 2017-02-25 14:03 | Discharge Instructions ---
Discharge Instructions Date of Service Feb 25, 2017. Admission Reason for Admission: Headache,Weakness Discharge Discharge Diagnosis / Problem: acute cholecystitis Discharge Goals Goal(s): Decrease discomfort, Prevent Disease Progression Activity Recommendations Activity Limitations: resume your previous activity Shower/Bathe: no limitations . Instructions / Follow-Up Instructions / Follow-Up please call [phone] for a follow up appointment with Dr. Hamilton within 1- 2 weeks. call same number if you have any problems or questions. Current Hospital Diet Patient's current hospital diet: Clear Liquid Diet Discharge Diet Recommended Diet: Regular Diet Procedures Procedures Performed: Laparoscopic Cholecystectomy Pending Studies Studies pending at discharge: yes List of pending studies: pathology report Medical Emergencies . Who to Call and When: Medical Emergencies: If at any time you feel your situation is an emergency, please call 911 immediately. . Non-Emergent Contact Non-Emergency issues call your: Primary Care Provider, Surgeon Call Non-Emergent contact if: temperature is above 101, your pain is not controlled, wound has increased drainage, wound has increased pain . "Provider Documentation" section prepared by Liborio Hamilton. . VTE Core Measure Inpt VTE Proph given/why not?: Unfractionated heparin SQ, SCD's
[2017-02-25] MEDS ORDERED: HydrALAZINE HCL 20 MG/ML VIAL IV. ONE (14:21)
[2017-02-25] MEDS ORDERED: HydrALAZINE HCL 20 MG/ML VIAL IV. PRN ×2 (14:30→18:15)
[2017-02-25] MEDS ORDERED: HydrALAZINE HCL 20 MG/ML VIAL ONE (14:30)
[2017-02-25] MEDS ORDERED: MoRPHine SULFATE 2 MG/ML CARP IV PRN (14:30)
[2017-02-25] MEDS ORDERED: LABETALOL HCL IV 5 MG/ML 20ML IV PRN (15:00)
[2017-02-25] MEDS ORDERED: ACETAMINOPHEN 1000 MG/100 ML IV IV ONE (15:17)
[2017-02-25] MEDS: ACETAMINOPHEN IV 650 MG in EMPTY BAG 0 ML IV PRN (15:21)
[2017-02-25] MEDS: LACTATED RINGER'S 1000ML 1,000 ML IV SCH (15:27)
--- NOTE | 2017-02-25 15:44 | Anesthesiology Progress Note ---
Anesthesia Post Op Note Date & Time Feb 25, 2017 at 15:44 Vital Signs Pain Intensity: 4.0 Vital Signs Past 12 Hours Date Time Temp Pulse Resp B/P (MAP) Pulse Ox O2 Delivery O2 Flow Rate FiO2 02/25/17 15:10 49 24 162/65 95 Nasal Cannula 4 02/25/17 15:00 50 26 170/62 93 Nasal Cannula 4 02/25/17 14:50 36.3 48 18 171/72 95 Nasal Cannula 4 02/25/17 14:40 48 16 177/77 95 Nasal Cannula 4 02/25/17 14:30 50 16 199/76 97 Nasal Cannula 4 02/25/17 14:20 54 18 178/92 95 Mask 10 02/25/17 14:10 61 16 200/86 96 Mask 10 02/25/17 14:02 36.4 67 18 202/92 98 Mask 10 02/25/17 11:35 Room Air 02/25/17 10:49 59 129/77 (94) 02/25/17 08:00 Nasal Cannula 2.0 02/25/17 07:02 36.8 70 16 171/50 (90) 94 Nasal Cannula 2.0 Notes Mental Status: alert / awake / arousable, participated in evaluation Pt Amnestic to Procedure: Yes Nausea / Vomiting: adequately controlled Pain: adequately controlled Airway Patency, RR, SpO2: stable & adequate BP & HR: stable & adequate Hydration State: stable & adequate Anesthetic Complications: no major complications apparent
[2017-02-25] MEDS ORDERED: HydrALAZINE HCL 20 MG/ML VIAL IV. STA (17:59)
[2017-02-25] MEDS ORDERED: NURSING VERBAL MED ORDER ONE (18:00)
[2017-02-25] MEDS: VANCOMYCIN INJ 1,250 MG in SODIUM CHLORIDE 0.9% 250ML 250 ML IV SCH (19:59)
[2017-02-25] MEDS: PRAMIPEXOLE DIHYDROCHLORIDE 0.5 MG TAB PO SCH (21:00)
[2017-02-25] MEDS: LISINOPRIL 10 MG TAB PO SCH (21:00)
[2017-02-25] MEDS: ATORVASTATIN 20 MG TAB PO SCH (21:00)
[2017-02-25] MEDS: PRAMIPEXOLE DIHYDROCHLORIDE 0.25MG TAB PO SCH (21:00)
[2017-02-25] MEDS: DIVALPROEX SODIUM 500 MG DELAY RELEASE TAB PO SCH (21:00)
[2017-02-26] VITALS (8 sets, daily range): BP systolic 123–151; BP diastolic 63–77; PULSE 59–78; TEMP 35.8–36.8; O2SAT 84–95
[2017-02-26] MEDS: ACETAMINOPHEN 325 MG TAB PO PRN ×3 (01:17→18:31)
[2017-02-26] MEDS: DIVALPROEX SODIUM 500 MG DELAY RELEASE TAB PO SCH ×2 (01:37→20:37)
[2017-02-26] MEDS: LACTATED RINGER'S 1000ML 1,000 ML IV SCH ×2 (02:58→15:21)
[2017-02-26] MEDS: LEVOTHYROXINE 75 MCG TAB PO SCH (05:44)
[2017-02-26] MEDS: HEPARIN SOD 5000 UNIT/0.5 ML CARP SQ SCH ×3 (05:45→21:37)
[2017-02-26] MEDS: PIPERACILL/TAZOBAC IV 3.375 GM in DEXTROSE 5% 100ML 100 ML IV SCH ×3 (05:46→21:30)
[2017-02-26 07:22] LABS: CREATININE 0.72 mg/dl (0.60-1.20)
[2017-02-26] MEDS: FERROUS SULFATE 325 MG TAB PO SCH (08:47)
[2017-02-26] MEDS: NADOLOL 40 MG TAB PO SCH (08:48)
[2017-02-26] MEDS: LISINOPRIL 10 MG TAB PO SCH ×2 (08:49→20:37)
[2017-02-26] MEDS: MAGNESIUM OXIDE 400 MG TAB PO SCH ×2 (08:50→20:37)
[2017-02-26] MEDS: CHOLESTYRAMINE LIGHT 4 GM PKT PO SCH ×2 (10:31→21:24)
--- NOTE | 2017-02-26 17:13 | Surgery Progress Note ---
Surgery Progress Note Date of Service Feb 26, 2017. Subjective Post OP Day: 1 s/p lap sandip Hamilton Objective Vital Signs: Date Time Temp Pulse Resp B/P (MAP) Pulse Ox O2 Delivery O2 Flow Rate FiO2 02/26/17 15:20 Nasal Cannula 2.0 02/26/17 14:50 35.8 65 16 123/65 (84) 91 Nasal Cannula 2.0 02/26/17 13:38 36.4 68 16 143/77 (99) 94 Nasal Cannula 2.0 02/26/17 10:01 69 151/77 (101) 94 Nasal Cannula 2.0 02/26/17 07:46 Room Air 02/26/17 07:08 36.6 64 18 151/63 (92) 93 Nasal Cannula 2.0 02/26/17 03:04 36.7 59 18 147/69 (95) 95 Nasal Cannula 2.0 02/26/17 01:00 Nasal Cannula 2.0 02/25/17 22:51 36.5 60 18 171/74 (106) 96 Nasal Cannula 2.0 02/25/17 19:41 36.4 58 18 156/79 (104) 96 Nasal Cannula 4.0 02/25/17 18:17 36.4 57 16 179/81 (113) 96 Nasal Cannula 4.0 02/25/17 17:22 53 18 179/78 (111) 96 Nasal Cannula 4.0 General Appearance: WD/WN, no apparent distress Abdomen: soft Incision(s): clean, dry Laboratory Results: Results Past 24 Hours Test 02/26/17 06:11 Range/Units Creatinine 0.72 0.60-1.20 mg/dl Est Creatinine Clear Calc Drug Dose 53.3 ml/min Estimated GFR () 89.8 Estimated GFR (Non- 77.4 Assessment & Plan doing well no complaints awaiting transfer will recheck lft advance diet and activity as tolerated
[2017-02-26] MEDS ORDERED: VANCOMYCIN TROUGH SCH (17:30)
[2017-02-26] MEDS: VANCOMYCIN INJ 1,250 MG in SODIUM CHLORIDE 0.9% 250ML 250 ML IV SCH (18:57)
[2017-02-26] MEDS: PRAMIPEXOLE DIHYDROCHLORIDE 0.25MG TAB PO SCH (20:36)
[2017-02-26] MEDS: ATORVASTATIN 20 MG TAB PO SCH (20:37)
[2017-02-26] MEDS: PRAMIPEXOLE DIHYDROCHLORIDE 0.5 MG TAB PO SCH (20:37)
[2017-02-27] VITALS (21 sets, daily range): BP systolic 108–169; BP diastolic 58–80; PULSE 64–77; TEMP 36.2–36.8; O2SAT 3–98
--- NOTE | 2017-02-27 | Progress Note ---
Subjective Date of Service: Feb 26, 2017. Subjective Pt evaluation today including: conversation w/ patient, physical exam, chart review, lab review, review of studies, review of inpatient medication list Pain: no pain reported by patient Voiding: kline catheter in place The patient was seen and examined by me this morning. Pt reports feeling little better than yesterday, she didn't sleep overnight due to having pain. Problem List Medical Problems: (1) Alteration consciousness Status: Acute (2) Altered mental status Status: Acute (3) Altered mental status Status: Acute (4) C. difficile colitis Status: Acute (5) Dementia Status: Acute (6) Fracture of femoral neck, left Status: Acute (7) Pneumonia Status: Acute (8) Pneumonia involving left lung Status: Acute (9) Seizure Status: Acute (10) Sinusitis Status: Acute (11) Weakness Status: Acute (12) Weakness Status: Acute Review of Systems Constitutional: + fatigue, No fever, No chills, No sweats Eyes: No diplopia ENT: No nasal symptoms, No trouble swallowing Respiratory: + cough, No sputum, No wheezing, No shortness of breath Cardiovascular: No chest pain, No palpitations Abdomen: + see HPI Female : + problem reported (kline catheter in place, draining clear yellow urine) Endo: + fatigue Skin: No rash, No itch Objective Vital Signs Date Time Temp Pulse Resp B/P (MAP) Pulse Ox O2 Delivery O2 Flow Rate FiO2 02/26/17 15:20 Nasal Cannula 2.0 02/26/17 14:50 35.8 65 16 123/65 (84) 91 Nasal Cannula 2.0 02/26/17 13:38 36.4 68 16 143/77 (99) 94 Nasal Cannula 2.0 02/26/17 10:01 69 151/77 (101) 94 Nasal Cannula 2.0 02/26/17 07:46 Room Air 02/26/17 07:08 36.6 64 18 151/63 (92) 93 Nasal Cannula 2.0 02/26/17 03:04 36.7 59 18 147/69 (95) 95 Nasal Cannula 2.0 02/26/17 01:00 Nasal Cannula 2.0 Physical Exam Comments: General Appearance: WD/WN, no apparent distress, + pertinent finding + appears ill, weak Eyes: PERRL, EOMI ENT: hearing grossly normal, pharynx normal Respiratory/Chest: chest non-tender, no respiratory distress, no accessory muscle use, + pertinent finding + diminished breath sounds at bilateral bases, + faint crackles bibasilarly,+ cough, nonproductive, no wheezing or rales.) Cardiovascular: no JVD, no murmur, regular rate and rhythm Abdomen: soft, + pertinent finding (+ hypoactive bowel sounds, + tympany on percussion in the RUQ, + tenderness in the RUQ + [place] sign, no tenderness otherwise, no organomegaly.) Extremities: non-tender, no pedal edema, no calf tenderness 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iatric: speech is clear, AAO x 3, follows commands Skin: normal color, warm/dry, no jaundice Laboratory Results Last 24 Hours Test 02/26/17 06:11 02/26/17 17:45 Creatinine 0.72 mg/dl Est Creatinine Clear Calc Drug Dose 53.3 ml/min Estimated GFR () 89.8 Estimated GFR (Non- 77.4 Total Bilirubin 0.6 mg/dl Direct Bilirubin 0.2 mg/dl Aspartate Amino Transf (AST/SGOT) 43 U/L Alanine Aminotransferase (ALT/SGPT) 145 U/L Alkaline Phosphatase 159 U/L Total Protein 6.4 gm/dl Albumin 2.3 gm/dl Vancomycin Level Trough 10.7 mcg/ml Assessment and Plan This is a 81 yo F with PMHx of HTN, HLD, hx CVA with residual R sided weakness, left Carotid stenosis, CEA 2015, 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 Confusion, diaphoresis, leukocytosis - had also had a cough and recent recurrent UTIs. - Suspected UTI - pt had indwelling kline cath placed 2 weeks ago by Darnell Boyce, and was planned to have it removed on 03/08/17 - planned temporary catheter per allscripts. + cholelithiasis, possible acute gallstone cholecystitis - Dr. Hamilton on board- appreciate recLONI mobley completed on 02/24 which was + acute cholecystis. - S/p Day 1 cholecystectomy - Started on levaquin and switch to zosyn and vanc, wbc are stable - continue maintenance fluids while NPO - PT/OT evals - planned discharge for [place] Seizure disorder - Cont Depakote 500 mg QPM Migraine headache - chronic - Avoid narcotics if able due to age and added lethargy- Toradol and PRN Tramadol. - reports Depakote helps to control migraines. HTN - cont Nadolol 40 mg Qam - with pleural effusion and possible left lower lobe PNA?---> check ECHO to assess LV function - completed this morning, will await final read HTN - Cont atorvastatin 20 mg daily Hypothyroidism - cont Synthroid 37.5 mcg daily DVT ppx: teds, scds, held heparin for surgical procedure this morning. CODE STATUS: FULL CODE Continued [facility] stay due to: home environment unsafe for pt Discharge planning: alf facility
[2017-02-27] MEDS: LACTATED RINGER'S 1000ML 1,000 ML IV SCH (03:21)
[2017-02-27] MEDS: PIPERACILL/TAZOBAC IV 3.375 GM in DEXTROSE 5% 100ML 100 ML IV SCH ×3 (05:32→22:30)
[2017-02-27] MEDS: HEPARIN SOD 5000 UNIT/0.5 ML CARP SQ SCH ×3 (05:33→21:03)
[2017-02-27] MEDS: LEVOTHYROXINE 75 MCG TAB PO SCH (05:34)
--- NOTE | 2017-02-27 06:04 | Progress Note ---
Progress Note Date of Service Feb 27, 2017. Progress Note NIGHT FLOAT [employer] NOTE Called to see pt due to shortness of breath Reviewed chart, pt is day 2 s/p lap sandip, Full code Hx of dementia and high risk of aspiration O/E VS PER EMR Pt alert, makes eye contact, speaks few words Gen: Awake, alert, follows commands CVS: Tachycardic Resp: On Oxymask 4L, Hoarse rhonchi diffusely with expiratory wheeze in lower half of lung loza Abd: Mild tenderness to palpation Ext: No edema A - Post op shortness of breath - differential includes: Aspiration, Pulmonary edema, PE, Pneumonitis, Atelectasis P- Transfer pt to telemetry CXR stat Duoneb tx stat Will start pt on BiPAP and see how she responds Resident Tracking Resident Involvement: Admittance Attendant Coverage Note Care Provided: Adult Hospital Medicine
[2017-02-27] MEDS: ALBUT/IPRATROP 3MG/0.5MG NEB 3 ML VIAL INH SCH ×6 (06:14→23:32)
[2017-02-27] MEDS ORDERED: NURSING VERBAL MED ORDER ONE ×2 (06:15→16:15)
--- NOTE | 2017-02-27 07:37 | DIAGNOSTIC IMAGING REPORT ---
SINGLE VIEW CHEST CLINICAL HISTORY: Dyspnea. FINDINGS: An AP, portable, upright chest radiograph is compared to study dated 02/22/2017 and correlated with chest CT dated 01/22/2016. The examination is significantly degraded by portable technique and patient rotation. The heart is enlarged and there is atherosclerotic calcification of the thoracic aorta. There is pulmonary vascular congestion with interstitial edema. Layering pleural effusions are identified with bibasilar consolidation. Calcific granulomas are again noted in the right lung. Apical scarring is observed. No pneumothorax is seen. The skeletal structures are osteopenic. The bony thorax is grossly intact. Cholecystectomy clips are seen in the right upper quadrant. IMPRESSION: 1. Cardiomegaly with evidence of congestive failure and interstitial edema. This has worsened from 02/22/2017. 2. Layering pleural effusions with bibasilar consolidation. This likely represents atelectasis. Correlate clinically for evidence of superimposed pneumonia. Electronically signed by: Yonathan Clancy M.D. 02/27/2017 7:36 AM Dictated Date/Time: 02/27/2017 7:34 AM
[2017-02-27] MEDS ORDERED: FUROSEMIDE 40 MG/4 ML VIAL ONE (07:43)
--- NOTE | 2017-02-27 07:52 | Surgery Progress Note ---
Surgery Progress Note Date of Service Feb 27, 2017. Subjective Post OP Day: 2 s/p lap sandip SOB with inc respiratory rate being transferred to monitor bed by med service Objective Vital Signs: Date Time Temp Pulse Resp B/P (MAP) Pulse Ox O2 Delivery O2 Flow Rate FiO2 02/27/17 07:39 36.3 73 33 169/80 (109) 95 BiPAP 02/27/17 07:13 30 02/27/17 07:01 76 30 166/79 (108) 96 02/27/17 06:23 36.8 77 30 93 4.0 02/27/17 06:15 77 93 30 02/27/17 06:14 77 30 93 BiPAP/CPAP 30 02/27/17 05:40 Oxymask 02/27/17 05:40 30 91 Oxymask 4.0 02/27/17 03:54 91 Venturi Mask 4.0 02/27/17 03:40 81 Nasal Cannula 4.0 02/26/17 23:35 91 Nasal Cannula 4.0 02/26/17 23:30 Nasal Cannula 4.0 02/26/17 23:29 88 Nasal Cannula 3.0 02/26/17 23:25 36.8 78 18 151/71 (97) 84 Nasal Cannula 2.0 02/26/17 15:20 Nasal Cannula 2.0 02/26/17 14:50 35.8 65 16 123/65 (84) 91 Nasal Cannula 2.0 02/26/17 13:38 36.4 68 16 143/77 (99) 94 Nasal Cannula 2.0 02/26/17 10:01 69 151/77 (101) 94 Nasal Cannula 2.0 Abdomen: soft Incision(s): clean, dry Laboratory Results: Results Past 24 Hours Test 02/26/17 17:45 Range/Units Total Bilirubin 0.6 0.2-1 mg/dl Direct Bilirubin 0.2 0-0.2 mg/dl Aspartate Amino Transf (AST/SGOT) 43 15-37 U/L Alanine Aminotransferase (ALT/SGPT) 145 12-78 U/L Alkaline Phosphatase 159 45-117 U/L Total Protein 6.4 6.4-8.2 gm/dl Albumin 2.3 3.4-5.0 gm/dl Vancomycin Level Trough 10.7 SEE COMMENT mcg/ml Assessment & Plan 02/27/17 no surgical issues lft noted may need to repeat future 02/26/17 advance diet and activity as tolerated advance diet and activity as tolerated
[2017-02-27] MEDS ORDERED: FUROSEMIDE INJ 40 MG in SYRINGE 0 ML IV SCH (08:00)
[2017-02-27] MEDS: FERROUS SULFATE 325 MG TAB PO SCH (08:04)
[2017-02-27] MEDS: NADOLOL 40 MG TAB PO SCH (08:04)
[2017-02-27] MEDS: MAGNESIUM OXIDE 400 MG TAB PO SCH ×2 (08:05→20:59)
[2017-02-27] MEDS: LISINOPRIL 10 MG TAB PO SCH ×2 (08:05→21:00)
[2017-02-27 08:18] LABS: BASO % 0.2 %; BASO ABS # 0.02 K/uL (0-0.2); EOS % 0.5 %; HEMATOCRIT 35.5 % (37-47); IG% 0.3 %; LYMPH % 9.3 %; LYMPH ABS # 1.23 K/uL (1.2-3.4); MEAN CELL VOLUME 92.4 fL (80-100); MEAN CORPUSCULAR HEMOGLOBIN 31.3 pg (25-34); MEAN PLATELET VOLUME 9.3 fL (7.4-10.4); MONO % 10.4 %; NEUT % 79.3 %; PLATELET COUNT 244 K/uL (130-400); RED BLOOD COUNT 3.84 M/uL (4.2-5.4); WHITE BLOOD COUNT 13.18 K/uL (4.8-10.8)
[2017-02-27 08:19] LABS: COMPLETE YES; MEAN CORPUSCULAR HGB CONC 33.8 g/dl (32-36)
[2017-02-27 08:22] LABS: ARTERIAL BLD GAS O2 SATURATION 94.5 % (90-95); ARTERIAL BLOOD GAS BASE EXCESS 3.6 mEq/L (-9-1.8); ARTERIAL BLOOD GAS HCO3 27 mmol/L (19-24); ARTERIAL BLOOD GAS PO2 69 mm/Hg (80-95)
[2017-02-27 08:24] LABS: ALLEN TEST POS (POS)
[2017-02-27 08:25] LABS: O2 ADMINISTRATION 30%
[2017-02-27 09:08] LABS: ALB/GLOB RATIO 0.5 (0.9-2); CALCIUM 8.9 mg/dl (8.5-10.1); CREATININE 0.74 mg/dl (0.60-1.20); POTASSIUM 3.1 mmol/L (3.5-5.1)
--- NOTE | 2017-02-27 09:16 | Progress Note ---
Subjective Date of Service: Feb 27, 2017. Subjective Pt evaluation today including: conversation w/ patient, conversation w/ family , physical exam, chart review, lab review, review of studies Pain: no pain repotred because pt received morphine 5min before my encounter PO Intake: fair, currently none by mouth because of BIPAP Voiding: kline catheter in place Called to see pt due to shortness of breath. Reviewed chart, pt is day 2 s/p lap sandip, Pt is Full code. Hx of dementia and high risk of aspiration. Pt is awake and alert, open and closes her eyes on command, however she was able to speak couple of word. Pt was tachypneic, elevated systolic bp, but denies Cp, palpitation. Pt was wearing bipap on settings 12/5 fio2 30%.Pt next to kin was called, in presence of nursing staff and left message, however resident did talk to her overnight and he showed up 3o min later. Problem List Medical Problems: (1) Alteration consciousness Status: Acute (2) Altered mental status Status: Acute (3) Altered mental status Status: Acute (4) C. difficile colitis Status: Acute (5) Dementia Status: Acute (6) Fracture of femoral neck, left Status: Acute (7) Pneumonia Status: Acute (8) Pneumonia involving left lung Status: Acute (9) Seizure Status: Acute (10) Sinusitis Status: Acute (11) Weakness Status: Acute (12) Weakness Status: Acute Review of Systems Constitutional: No fever (36.3) Respiratory: + shortness of breath, + dyspnea at rest, No cough, No sputum, No hemoptysis Cardiac: + edema, No chest pain, No palpitations Abdomen: No pain, No nausea, No vomiting, No diarrhea Female : No urinary frequency Medications Medications (Trade) Dose Ordered Sig/Fernando Route Start Time Stop Time Status Last Admin Dose Admin Albuterol/ Ipratropium (Duoneb) 3 ml Q4R INH 02/27/17 06:00 03/29/17 05:59 02/27/17 07:50 3 ML Furosemide (Lasix Inj) 40 mg STK-MED ONCE .ROUTE 02/27/17 07:43 02/27/17 07:44 DC 02/27/17 08:04 40 MG Objective Vital Signs Date Time Temp Pulse Resp B/P (MAP) Pulse Ox O2 Delivery O2 Flow Rate FiO2 02/27/17 07:50 74 28 94 BiPAP/CPAP 30 02/27/17 07:39 36.3 73 33 169/80 (109) 95 BiPAP 02/27/17 07:13 30 02/27/17 07:01 76 30 166/79 (108) 96 02/27/17 06:23 36.8 77 30 93 4.0 02/27/17 06:15 77 93 30 02/27/17 06:14 77 30 93 BiPAP/CPAP 30 02/27/17 05:40 Oxymask 02/27/17 05:40 30 91 Oxymask 4.0 02/27/17 03:54 91 Venturi Mask 4.0 02/27/17 03:40 81 Nasal Cannula 4.0 02/26/17 23:35 91 Nasal Cannula 4.0 02/26/17 23:30 Nasal Cannula 4.0 02/26/17 23:29 88 Nasal Cannula 3.0 02/26/17 23:25 36.8 78 18 151/71 (97) 84 Nasal Cannula 2.0 02/26/17 15:20 Nasal Cannula 2.0 02/26/17 14:50 35.8 65 16 123/65 (84) 91 Nasal Cannula 2.0 02/26/17 13:38 36.4 68 16 143/77 (99) 94 Nasal Cannula 2.0 02/26/17 10:01 69 151/77 (101) 94 Nasal Cannula 2.0 Physical Exam General Appearance: + moderate distress Eyes: EOMI, sclerae normal ENT: + pertinent finding (impaired hearing uses aid) Respiratory/Chest: + respiratory distress, + decreased breath sounds, + pertinent finding (coarse breathsounds bilateral) Cardiovascular: regular rate, rhythm, no murmur, + pertinent finding (1 edema of bilateral LE) Abdomen: normal bowel sounds, soft Extremities: normal range of motion, no calf tenderness, + pedal edema 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iatric: [employer] II-XII nml as tested, no motor/sensory deficits, alert Skin: normal color, no rash Lymphatic: no adenopathy Laboratory Results Last 24 Hours Test 02/26/17 17:45 02/27/17 08:07 Total Bilirubin 0.6 mg/dl Direct Bilirubin 0.2 mg/dl Aspartate Amino Transf (AST/SGOT) 43 U/L Alanine Aminotransferase (ALT/SGPT) 145 U/L Alkaline Phosphatase 159 U/L Total Protein 6.4 gm/dl Albumin 2.3 gm/dl Vancomycin Level Trough 10.7 mcg/ml White Blood Count 13.18 K/uL Red Blood Count 3.84 M/uL Hemoglobin 12.0 g/dL Hematocrit 35.5 % Mean Corpuscular Volume 92.4 fL Mean Corpuscular Hemoglobin 31.3 pg Mean Corpuscular Hemoglobin Concent 33.8 g/dl Platelet Count 244 K/uL Mean Platelet Volume 9.3 fL Neutrophils (%) (Auto) 79.3 % Lymphocytes (%) (Auto) 9.3 % Monocytes (%) (Auto) 10.4 % Eosinophils (%) (Auto) 0.5 % Basophils (%) (Auto) 0.2 % Neutrophils # (Auto) 10.46 K/uL Lymphocytes # (Auto) 1.23 K/uL Monocytes # (Auto) 1.37 K/uL Eosinophils # (Auto) 0.06 K/uL Basophils # (Auto) 0.02 K/uL RDW Standard Deviation 52.6 fL RDW Coefficient of Variation 15.5 % Immature Granulocyte % (Auto) 0.3 % Immature Granulocyte # (Auto) 0.04 K/uL Arterial Blood pH 7.50 Arterial Blood Partial Pressure CO2 35 mmHg Arterial Blood Partial Pressure O2 69 mm/Hg Arterial Blood HCO3 27 mmol/L Arterial Blood Oxygen Saturation 94.5 % Arterial Blood Base Excess 3.6 mEq/L Arterial Blood Gas Delivery 30% Thomas Test POS Assessment and Plan Post op shortness of breath with elevated BP in a 81 yo female with PMHx as described below day 2 pot lap cholecystitis could be secondary to Aspiration, Pulmonary edema, PE, Pneumonitis, Atelectasis -- Pt was transferred to [facility]. -- Pt chest x-ray findings as below. 1. Cardiomegaly with evidence of congestive failure and interstitial edema. This has worsened from 02/22/2017. 2. Layering pleural effusions with bibasilar consolidation. This likely represents atelectasis. Correlate clinically for evidence of superimposed pneumonia. -- Most likely fluid overload vs interstitial edema. -- We give stat lasiz 40mg Iv one time, along with hydralazine 10mg. CBC with Diff, CMP, lactic acid , and ABG. -- Cont Bipap 12/5 fio2 30% -- With in 5-10 min pt put out 200ml. -- Pt breathing improved to RR 18-22, and BP 140/82 with heart rate of 85. -- Gentle diuresis for now. -- If RR worsen again we will do Ct scan to rule out PE. 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 Confusion, diaphoresis, leukocytosis - had also had a cough and recent recurrent UTIs. - Suspected UTI - pt had indwelling kline cath placed 2 weeks ago by Darnell Boyce, and was planned to have it removed on 03/08/17 - planned temporary catheter per allscripts. + cholelithiasis, possible acute gallstone cholecystitis - Dr. Hamilton on board- appreciate recs, HIDA completed on 02/24 which was + acute cholecystis. - S/p Day 1 cholecystectomy - Started on levaquin and switch to zosyn and vanc, wbc are stable - continue maintenance fluids while NPO - PT/OT evals - planned discharge for [place] Seizure disorder - Cont Depakote 500 mg QPM Migraine headache - chronic - Avoid narcotics if able due to age and added lethargy- Toradol and PRN Tramadol. - reports Depakote helps to control migraines. HTN - cont Nadolol 40 mg Qam - with pleural effusion and possible left lower lobe PNA?---> check ECHO to assess LV function - completed this morning, will await final read HTN - Cont atorvastatin 20 mg daily Hypothyroidism - cont Synthroid 37.5 mcg daily DVT ppx: teds, scds, held heparin for surgical procedure this morning. CODE STATUS: FULL CODE Continued [facility] stay due to: multiple IV medications needed, home environment unsafe for pt Discharge planning: senior care facility
[2017-02-27] MEDS: CHOLESTYRAMINE LIGHT 4 GM PKT PO SCH ×2 (10:00→22:30)
[2017-02-27] MEDS: VANCOMYCIN INJ 1,250 MG in SODIUM CHLORIDE 0.9% 250ML 250 ML IV SCH (10:47)
--- NOTE | 2017-02-27 13:03 | Pharmacy Progress Note ---
Pharmacy Abx Dose Progress Nt Date of Service Feb 27, 2017. Pharmacy Dosing Scope The patient is currently receiving the following antimicrobial agents per Pharmacy consult: Vancomycin 1250 mg IV every 24 hours Zosyn 3.375gm (ext-infusion) IV Q 8 hours Objective Height (Feet): 5 Height (Inches): 5.00 Weight (Kilograms): 65.900 Vital Signs (Past 12Hrs) Vital Signs Past 12 Hours Date Time Temp Pulse Resp B/P (MAP) Pulse Ox O2 Delivery O2 Flow Rate FiO2 02/27/17 11:30 36.6 74 24 108/58 (75) 3 97.0 02/27/17 11:11 72 24 98 Mask 3.0 02/27/17 08:00 95 BiPAP 30 02/27/17 07:50 74 28 94 BiPAP/CPAP 30 02/27/17 07:39 36.3 73 33 169/80 (109) 95 BiPAP 02/27/17 07:13 30 02/27/17 07:01 76 30 166/79 (108) 96 02/27/17 06:23 36.8 77 30 93 4.0 02/27/17 06:15 77 93 30 02/27/17 06:14 77 30 93 BiPAP/CPAP 30 02/27/17 05:40 Oxymask 02/27/17 05:40 30 91 Oxymask 4.0 02/27/17 03:54 91 Venturi Mask 4.0 02/27/17 03:40 81 Nasal Cannula 4.0 Lab Results (24Hrs) Laboratory Tests (24 Hours) Test 02/27/17 08:07 Lactic Acid Level 0.8 mmol/L (0.4-2.0) White Blood Count 13.18 K/uL (4.8-10.8) H Red Blood Count 3.84 M/uL (4.2-5.4) L Hemoglobin 12.0 g/dL (12.0-16.0) Hematocrit 35.5 % (37-47) L Mean Corpuscular Volume 92.4 fL (80-100) Mean Corpuscular Hemoglobin 31.3 pg (25-34) Mean Corpuscular Hemoglobin Concent 33.8 g/dl (32-36) Platelet Count 244 K/uL (130-400) Mean Platelet Volume 9.3 fL (7.4-10.4) Neutrophils (%) (Auto) 79.3 % Lymphocytes (%) (Auto) 9.3 % Monocytes (%) (Auto) 10.4 % Eosinophils (%) (Auto) 0.5 % Basophils (%) (Auto) 0.2 % Neutrophils # (Auto) 10.46 K/uL (1.4-6.5) H Lymphocytes # (Auto) 1.23 K/uL (1.2-3.4) Monocytes # (Auto) 1.37 K/uL (0.11-0.59) H Eosinophils # (Auto) 0.06 K/uL (0-0.5) Basophils # (Auto) 0.02 K/uL (0-0.2) Micro Results Date/Time Source Procedure Growth Status 02/22/17 17:15 Urine,Catheterized Urine Culture - Final Enterococcus Faecalis Complete Risk Factors for Resistance * Current hospitalization > 5 days Assessment & Plan Assessment * 81 year old female receiving VANCOMCYIN IV and ZOSYN IV for treatment of acute cholecystitis (s/p lap sandip on 02/25), enterococcus faecalis UTI and possible aspiration pneumonia * Today is day # 5 of broad-spectrum antimicrobial therapy * Patient did develop increased SOB overnight requiring BiPAP and x-angelo to tele. Her CXR showed worsened interstitial edema and pleural effusions. She was given Lasix IV with improvement. * Patient's WBC did increase on latest CBC. Patient remains hypothermic. Discussed opportunities to deescalate abx therapy with provider today, such as change Zosyn to Unasyn to cover aspiration pnx as well as UTI. We had not obtained a MRSA nasal swab in this patient to help guide d/c of vancomycin. Plan is to continue with current therapy. Plan Vancomycin IV * Trough level of 10.7 mcg/mL is subtherapeutic * Change to 1250 mg IV every 16 hours * Goal trough level for pulmonary infxn : 15 to 20 mcg/mL * Trough level ordered for: 03/01/17 Piperacillin/tazobactam * Continue 3.375 g IV extended infusion every 8 hours for CrCl greater than 20 mL/min Pharmacy will continue to follow and will adjust dose/frequency as necessary. Thank you.
[2017-02-27 15:04] LABS: BUN/CREATININE RATIO 16.6 (10-20); CALCIUM 8.7 mg/dl (8.5-10.1); CREATININE 0.91 mg/dl (0.60-1.20); POTASSIUM 3.1 mmol/L (3.5-5.1)
[2017-02-27] MEDS ORDERED: POTASSIUM CHLORIDE 20 MEQ TABCR PO ONE (17:30)
[2017-02-27] MEDS: ACETAMINOPHEN 325 MG TAB PO PRN (20:58)
[2017-02-27] MEDS: DIVALPROEX SODIUM 500 MG DELAY RELEASE TAB PO SCH (20:58)
[2017-02-27] MEDS: PRAMIPEXOLE DIHYDROCHLORIDE 0.25MG TAB PO SCH (20:59)
[2017-02-27] MEDS: PRAMIPEXOLE DIHYDROCHLORIDE 0.5 MG TAB PO SCH (20:59)
[2017-02-27] MEDS: ATORVASTATIN 20 MG TAB PO SCH (21:26)
[2017-02-28] VITALS (12 sets, daily range): BP systolic 129–173; BP diastolic 73–83; PULSE 64–77; TEMP 36.5–37; O2SAT 93–98
[2017-02-28] MEDS: VANCOMYCIN INJ 1,250 MG in SODIUM CHLORIDE 0.9% 250ML 250 ML IV SCH (02:35)
[2017-02-28] MEDS: ALBUT/IPRATROP 3MG/0.5MG NEB 3 ML VIAL INH SCH ×6 (04:04→23:13)
[2017-02-28] MEDS: PIPERACILL/TAZOBAC IV 3.375 GM in DEXTROSE 5% 100ML 100 ML IV SCH ×2 (05:34→15:16)
[2017-02-28] MEDS: LEVOTHYROXINE 75 MCG TAB PO SCH (05:34)
[2017-02-28] MEDS: HEPARIN SOD 5000 UNIT/0.5 ML CARP SQ SCH ×3 (05:36→21:57)
[2017-02-28 06:41] LABS: CALCIUM 8.9 mg/dl (8.5-10.1); CREATININE 1.1 mg/dl (0.60-1.20); POTASSIUM 3.1 mmol/L (3.5-5.1)
--- NOTE | 2017-02-28 07:35 | DIAGNOSTIC IMAGING REPORT ---
CHEST ONE VIEW PORTABLE CLINICAL HISTORY: Fluid overload. COMPARISON STUDY: Chest radiograph February 27, 2017. FINDINGS: There is no pneumothorax. Bilateral pleural effusions persist. There are persistent perihilar and bibasilar opacities with interstitial thickening. IMPRESSION: No significant change in moderate pulmonary edema, bilateral pleural effusions and associated bibasilar opacities. Electronically signed by: Casper Hammer M.D. 02/28/2017 7:34 AM Dictated Date/Time: 02/28/2017 7:33 AM
[2017-02-28] MEDS: FERROUS SULFATE 325 MG TAB PO SCH (08:03)
[2017-02-28] MEDS: LISINOPRIL 10 MG TAB PO SCH ×2 (08:04→20:55)
[2017-02-28] MEDS: MAGNESIUM OXIDE 400 MG TAB PO SCH ×2 (08:04→20:58)
[2017-02-28] MEDS: NADOLOL 40 MG TAB PO SCH (08:04)
[2017-02-28] MEDS: ACETAMINOPHEN 325 MG TAB PO PRN ×2 (08:05→19:01)
--- NOTE | 2017-02-28 08:14 | Anesthesiology Progress Note ---
Anesthesia Post Op Note Date & Time Feb 28, 2017 at 08:13 Vital Signs Vital Signs Past 12 Hours Date Time Temp Pulse Resp B/P (MAP) Pulse Ox O2 Delivery O2 Flow Rate FiO2 02/28/17 07:24 36.7 68 17 173/83 (113) 98 Nasal Cannula 2.0 02/28/17 07:11 64 16 98 Nasal Cannula 2.0 02/28/17 04:04 65 16 98 Nasal Cannula 3.0 02/28/17 04:00 Nasal Cannula 3.0 02/28/17 03:48 36.7 74 17 151/82 (105) 95 Nasal Cannula 2.0 02/27/17 23:59 98 Nasal Cannula 3.0 02/27/17 23:32 71 18 98 Nasal Cannula 3.0 02/27/17 23:10 36.7 75 22 152/72 (98) 91 Nasal Cannula 2.0 Notes Mental Status: alert / awake / arousable, participated in evaluation Pt Amnestic to Procedure: Yes Nausea / Vomiting: adequately controlled Pain: adequately controlled Airway Patency, RR, SpO2: stable & adequate BP & HR: stable & adequate Hydration State: stable & adequate Anesthetic Complications: no major complications apparent
[2017-02-28] MEDS ORDERED: FUROSEMIDE 20 MG TAB PO SCH (09:00)
[2017-02-28] MEDS ORDERED: POTASSIUM CHLORIDE 20 MEQ TABCR PO SCH (09:00)
--- NOTE | 2017-02-28 09:04 | Surgery Progress Note ---
Surgery Progress Note Date of Service Feb 28, 2017. Subjective pt looks good today. tolerating diet. denies abdominal pain. Objective Vital Signs: Date Time Temp Pulse Resp B/P (MAP) Pulse Ox O2 Delivery O2 Flow Rate FiO2 02/28/17 08:00 Nasal Cannula 2.0 02/28/17 07:24 36.7 68 17 173/83 (113) 98 Nasal Cannula 2.0 02/28/17 07:11 64 16 98 Nasal Cannula 2.0 02/28/17 04:04 65 16 98 Nasal Cannula 3.0 02/28/17 04:00 Nasal Cannula 3.0 02/28/17 03:48 36.7 74 17 151/82 (105) 95 Nasal Cannula 2.0 02/27/17 23:59 98 Nasal Cannula 3.0 02/27/17 23:32 71 18 98 Nasal Cannula 3.0 02/27/17 23:10 36.7 75 22 152/72 (98) 91 Nasal Cannula 2.0 02/27/17 20:00 Nasal Cannula 3.0 02/27/17 19:44 36.5 71 18 147/77 (100) 96 Nasal Cannula 2.0 02/27/17 19:30 64 14 98 Nasal Cannula 3.0 02/27/17 16:00 95 Nasal Cannula 3.0 02/27/17 15:10 72 18 136/70 (92) 96 Nasal Cannula 3.0 02/27/17 15:08 36.2 70 16 136/70 (92) 97 Nasal Cannula 3.0 02/27/17 12:00 96 Nasal Cannula 3.0 02/27/17 11:30 36.6 74 24 108/58 (75) 3 97.0 02/27/17 11:11 72 24 98 Mask 3.0 General Appearance: no apparent distress Abdomen: non tender, non distended, soft Incision(s): clean, dry, intact, no erythema Laboratory Results: Results Past 24 Hours Test 02/27/17 14:03 02/28/17 05:43 Range/Units Sodium Level 138 139 136-145 mmol/L Potassium Level 3.1 3.1 3.5-5.1 mmol/L Chloride Level 99 102 98-107 mmol/L Carbon Dioxide Level 30 30 21-32 mmol/L Anion Gap 9.0 7.0 3-11 mmol/L Blood Urea Nitrogen 15 19 7-18 mg/dl Creatinine 0.91 1.10 0.60-1.20 mg/dl Est Creatinine Clear Calc Drug Dose 42.1 37.8 ml/min Estimated GFR () 67.6 53.8 Estimated GFR (Non- 58.3 46.4 BUN/Creatinine Ratio 16.6 17.0 10-20 Random Glucose 119 93 70-99 mg/dl Calcium Level 8.7 8.9 8.5-10.1 mg/dl Assessment & Plan 02/28/17 doing ok from surgery standpoint. ok for d/c from hospital when ok with primary service.
[2017-02-28] MEDS: CHOLESTYRAMINE LIGHT 4 GM PKT PO SCH ×2 (10:58→21:58)
[2017-02-28] MEDS: POTASSIUM CHLORIDE 20 MEQ TABCR PO SCH ×2 (14:10→20:57)
--- NOTE | 2017-02-28 15:40 | Progress Note ---
Subjective Date of Service: Feb 28, 2017. Subjective Pt evaluation today including: conversation w/ patient, physical exam, lab review, conversation w/ engineering consultant, review of inpatient medication list Pain: mild abdominal pain PO Intake: tolerating diet Voiding: kline catheter in place patient breathing a lot better today after diuresis with Lasix yesterday reviewed I/O's, diuresed 2500 yesterday and 1500 today abdominal pain controlled, eating well, + flatus and BM no need to tele, no arrhythmias cleared for d/c from surgery standpoint Problem List Medical Problems: (1) Alteration consciousness Status: Acute (2) Altered mental status Status: Acute (3) Altered mental status Status: Acute (4) C. difficile colitis Status: Acute (5) Dementia Status: Acute (6) Fracture of femoral neck, left Status: Acute (7) Pneumonia Status: Acute (8) Pneumonia involving left lung Status: Acute (9) Seizure Status: Acute (10) Sinusitis Status: Acute (11) Weakness Status: Acute (12) Weakness Status: Acute Review of Systems Constitutional: + weakness, + fatigue Respiratory: + dyspnea on exertion Abdomen: + pain (mild) All Other Systems: Reviewed and Negative Medications Current Inpatient Medications Medications (Trade) Dose Ordered Sig/Fernando Route Start Time Stop Time Status Last Admin Dose Admin Acetaminophen (Tylenol Tab) 650 mg Q4H PRN PO 02/22/17 20:15 03/24/17 20:14 02/28/17 08:05 650 MG Al Hydrox/Mg Hydrox/Simethicone (Maalox Max Susp) 15 ml Q4H PRN PO 02/22/17 20:15 03/24/17 20:14 Magnesium Hydroxide (Milk Of Magnesia Susp) 30 ml Q6H PRN PO 02/22/17 20:15 03/24/17 20:14 02/26/17 14:41 30 ML Polyethylene (Miralax Powder Packet) 17 gm DAILY PRN PO 02/22/17 20:15 03/24/17 20:14 Miscellaneous (Iv Fluids Completed) 1 ea PRN PRN N/A 02/22/17 20:30 02/22/18 20:29 Heparin Sodium (Porcine) (Heparin Sq 5000 Unit/0.5ml) 5,000 unit Q8 SQ 02/22/17 22:00 03/24/17 21:59 02/28/17 05:36 5,000 UNIT Levothyroxine Sodium (Synthroid Tab) 37.5 mcg DAILYBB PO 02/23/17 08:00 03/25/17 07:59 02/28/17 05:34 37.5 MCG Ondansetron HCl (Zofran Inj) 4 mg Q6H PRN IV 02/23/17 10:15 03/25/17 10:14 02/24/17 07:05 4 MG Piperacillin Sod/ Tazobactam Sod 3.375 gm/Dextrose 115 ml @ 28.75 mls/ hr Q8H IV 02/23/17 14:00 03/05/17 13:59 02/28/17 05:34 28.75 MLS/HR Piperacillin Sod/ Tazobactam Sod (Consult) 1 ea UD PRN N/A 02/23/17 12:45 03/25/17 12:44 Atorvastatin Calcium (Lipitor Tab) 20 mg HS PO 02/23/17 21:00 03/25/17 20:59 02/27/17 21:26 20 MG Cholestyramine Resin (Questran Powder Light) 4 gm BID@1000,2200 PO 02/23/17 22:00 03/25/17 21:59 02/28/17 10:58 4 GM Divalproex Sodium (Depakote Delay Rel Tab) 500 mg QPM PO 02/23/17 21:00 03/25/17 20:59 02/27/17 20:58 500 MG Ferrous Sulfate (Feosol Tab) 325 mg DAILY PO 02/24/17 09:00 03/26/17 08:59 02/28/17 08:03 325 MG Guaifenesin (Robitussin Sugar Free Syrup) 200 mg QID PRN PO 02/23/17 13:45 03/25/17 13:44 Magnesium Oxide (Mag-Ox Tab) 400 mg BID PO 02/23/17 21:00 03/25/17 20:59 02/28/17 08:04 400 MG Nadolol (Corgard Tab) 40 mg QAM PO 02/24/17 09:00 03/26/17 08:59 02/28/17 08:04 40 MG Pramipexole Dihydrochloride (miraPEX TAB) 1 mg HS PO 02/23/17 21:00 03/25/17 20:59 02/27/17 20:59 1 MG Vancomycin HCl (Consult) 1 ea UD PRN N/A 02/23/17 18:00 03/25/17 17:59 Lisinopril (Zestril Tab) 10 mg BID PO 02/25/17 21:00 03/27/17 20:59 02/28/17 08:04 10 MG Pramipexole Dihydrochloride (miraPEX TAB) 0.25 mg HS PO 02/25/17 21:00 03/27/17 20:59 02/27/17 20:59 0.25 MG Acetaminophen 650 mg/Empty Bag 65 ml @ 260 mls/hr Q6H PRN IV 02/25/17 14:15 03/27/17 14:14 02/25/17 15:21 260 MLS/HR Morphine Sulfate (MoRPHine SULFATE INJ) 2 mg Q2H PRN IV 02/25/17 14:30 03/11/17 14:29 02/27/17 07:10 2 MG Hydralazine HCl (HydrALAZINE INJ) 10 mg Q6H PRN IV. 02/25/17 18:15 03/27/17 18:14 02/27/17 08:04 10 MG Albuterol/ Ipratropium (Duoneb) 3 ml Q4R INH 02/27/17 06:00 03/29/17 05:59 02/28/17 11:09 3 ML Vancomycin HCl 1250 mg/Sodium Chloride 275 ml @ 125 mls/hr Q16H IV 02/27/17 10:00 03/02/17 17:59 Future Hold 02/28/17 02:35 125 MLS/HR Furosemide (Lasix Tab) 20 mg QAM PO 02/28/17 09:00 03/01/17 08:59 02/28/17 08:05 20 MG Potassium Chloride (Klor-Con Tab) 20 meq TID PO 02/28/17 14:00 03/30/17 08:59 02/28/17 14:10 20 MEQ Objective Vital Signs Date Time Temp Pulse Resp B/P (MAP) Pulse Ox O2 Delivery O2 Flow Rate FiO2 02/28/17 12:30 Room Air 02/28/17 12:30 37.0 70 14 129/80 (96) 96 Nasal Cannula 2.0 02/28/17 12:17 36.5 66 16 93 2.0 02/28/17 12:00 Nasal Cannula 2.0 02/28/17 11:38 36.5 66 16 146/80 (102) 93 Nasal Cannula 1.0 02/28/17 11:10 64 16 94 Nasal Cannula 1.0 02/28/17 08:00 Nasal Cannula 2.0 02/28/17 07:24 36.7 68 17 173/83 (113) 98 Nasal Cannula 2.0 02/28/17 07:11 64 16 98 Nasal Cannula 2.0 02/28/17 04:04 65 16 98 Nasal Cannula 3.0 02/28/17 04:00 Nasal Cannula 3.0 02/28/17 03:48 36.7 74 17 151/82 (105) 95 Nasal Cannula 2.0 02/27/17 23:59 98 Nasal Cannula 3.0 02/27/17 23:32 71 18 98 Nasal Cannula 3.0 02/27/17 23:10 36.7 75 22 152/72 (98) 91 Nasal Cannula 2.0 02/27/17 20:00 Nasal Cannula 3.0 02/27/17 19:44 36.5 71 18 147/77 (100) 96 Nasal Cannula 2.0 02/27/17 19:30 64 14 98 Nasal Cannula 3.0 02/27/17 16:00 95 Nasal Cannula 3.0 Physical Exam General Appearance: WD/WN, no apparent distress Neck: supple, no adenopathy, no JVD, trachea midline Respiratory/Chest: chest non-tender, lungs clear, normal breath sounds, no respiratory distress, no accessory muscle use Cardiovascular: regular rate, rhythm, no edema, no gallop Abdomen: normal bowel sounds, soft, no organomegaly, + tenderness (mild, incisional sites) Extremities: normal range of motion, non-tender, normal inspection, no pedal edema, no calf tenderness, pelvis stable 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iatric: senior 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-XII nml as tested, alert, normal mood/affect, oriented x 3, + motor weakness Skin: normal color, warm/dry, no rash Laboratory Results Last 24 Hours Test 02/28/17 05:43 Sodium Level 139 mmol/L Potassium Level 3.1 mmol/L Chloride Level 102 mmol/L Carbon Dioxide Level 30 mmol/L Anion Gap 7.0 mmol/L Blood Urea Nitrogen 19 mg/dl Creatinine 1.10 mg/dl Est Creatinine Clear Calc Drug Dose 37.8 ml/min Estimated GFR () 53.8 Estimated GFR (Non- 46.4 BUN/Creatinine Ratio 17.0 Random Glucose 93 mg/dl Calcium Level 8.9 mg/dl Assessment and Plan Acute hypoxic respiratory failure: resolving well with diuresis, 4000cc out thus far, negative for the admission now down to 2-3L at rest, no accessory muscle use, no distress will continue to use Lasix hypoxia due to acute diastolic heart failure, volume overload can transfer to medical today Acute on chronic diastolic HF: resolving quickly with Lasix IV net negative I/O for admission, negative 4000cc in the past 24 hours continue Lasix 20mg daily Acute cholecystitis: s/p lap cholecystectomy, tolerated well, diet advanced, + flatus and moving bowels cleared for d/c by surgery UTI with indwelling kline catheter: culture grew Enterococcus sensitive to Levaquin, will d/c Vanco and Zosyn, start Levaquin 750mg PO q2d starting tomorrow plan to d/c on Levaquin for 14 day total course of antibiotics kline catheter to be removed 03/08 in [place], that's where it was placed Seizure disorder - Cont Depakote 500 mg QPM Migraine headache - chronic - Avoid narcotics if able due to age and added lethargy- Toradol and PRN Tramadol. - reports Depakote helps to control migraines. HTN - cont Nadolol 40 mg Qam - with pleural effusion and possible left lower lobe PNA?---> check ECHO: normal EF, diastolic dysfunction Dyslipidemia - Cont atorvastatin 20 mg daily Hypothyroidism - cont Synthroid 37.5 mcg daily DVT ppx: teds, scds CODE STATUS: FULL CODE Continued [facility] stay due to: multiple IV medications needed, home environment unsafe for pt Discharge planning: retirement facility
[2017-02-28] MEDS: LEVOFLOXACIN 750 MG TAB PO SCH (16:40)
[2017-02-28] MEDS: PRAMIPEXOLE DIHYDROCHLORIDE 0.5 MG TAB PO SCH (20:52)
[2017-02-28] MEDS: PRAMIPEXOLE DIHYDROCHLORIDE 0.25MG TAB PO SCH (20:52)
[2017-02-28] MEDS: ATORVASTATIN 20 MG TAB PO SCH (20:53)
[2017-02-28] MEDS: DIVALPROEX SODIUM 500 MG DELAY RELEASE TAB PO SCH (20:58)
[2017-02-28] MEDS: ONDANSETRON INJ 2 MG/ML 2 ML VIAL IV PRN (21:02)
[2017-03-01] VITALS (12 sets, daily range): BP systolic 138–178; BP diastolic 73–98; PULSE 63–72; TEMP 36.7–36.8; O2SAT 92–98
[2017-03-01] MEDS: ALBUT/IPRATROP 3MG/0.5MG NEB 3 ML VIAL INH SCH ×6 (01:48→23:04)
[2017-03-01] MEDS: HEPARIN SOD 5000 UNIT/0.5 ML CARP SQ SCH ×3 (06:09→21:51)
[2017-03-01] MEDS: LEVOTHYROXINE 75 MCG TAB PO SCH (06:10)
--- NOTE | 2017-03-01 08:13 | DIAGNOSTIC IMAGING REPORT ---
CHEST ONE VIEW PORTABLE CLINICAL HISTORY: Hypoxia dyspnea COMPARISON STUDY: 02/28/2017 FINDINGS: Components of congestive heart failure similar compared to the prior study. Bilateral pleural effusions are unchanged. Heart remains moderately enlarged. IMPRESSION: 1. No change compared to the prior study. 2. Findings of congestive failure/pulmonary edema and bilateral pleural effusions. Electronically signed by: Andrew Ugarte M.D. 03/01/2017 8:12 AM Dictated Date/Time: 03/01/2017 8:11 AM
--- NOTE | 2017-03-01 08:37 | Surgery Progress Note ---
Surgery Progress Note Date of Service Mar 01, 2017. Subjective pt seen with Dr. Ed Dial at bedside. eating well per nursing. main issue is respiratory. Objective Vital Signs: Date Time Temp Pulse Resp B/P (MAP) Pulse Ox O2 Delivery O2 Flow Rate FiO2 03/01/17 08:06 36.8 70 32 160/84 (109) 96 Nasal Cannula 2.0 03/01/17 07:44 92 Nasal Cannula 3.0 03/01/17 07:39 36.8 72 16 178/98 (124) 96 Nasal Cannula 2.0 165/77 (106) 02/28/17 23:30 Nasal Cannula 2.0 02/28/17 23:14 36.9 71 16 153/73 (99) 95 Room Air 02/28/17 20:55 77 162/82 (108) 02/28/17 16:12 36.9 73 16 153/75 (101) 95 Nasal Cannula 1.0 02/28/17 15:40 69 16 94 Nasal Cannula 1.0 02/28/17 15:15 Room Air 02/28/17 12:30 Room Air 02/28/17 12:30 37.0 70 14 129/80 (96) 96 Nasal Cannula 2.0 02/28/17 12:17 36.5 66 16 93 2.0 02/28/17 12:00 Nasal Cannula 2.0 02/28/17 11:38 36.5 66 16 146/80 (102) 93 Nasal Cannula 1.0 02/28/17 11:10 64 16 94 Nasal Cannula 1.0 Abdomen: non distended, soft Incision(s): clean, dry, intact Assessment & Plan 03/01/17 no surgical/abdominal issues agree with obtaining swallow study. will follow along from periphery. 02/28/17 doing ok from surgery standpoint. ok for d/c from hospital when ok with primary service. 02/28/17 doing ok from surgery standpoint. ok for d/c from hospital when ok with primary service.
[2017-03-01] MEDS: FERROUS SULFATE 325 MG TAB PO SCH (09:23)
[2017-03-01] MEDS: MAGNESIUM OXIDE 400 MG TAB PO SCH ×2 (09:23→21:44)
[2017-03-01] MEDS: LISINOPRIL 10 MG TAB PO SCH ×2 (09:24→21:44)
[2017-03-01] MEDS: POTASSIUM CHLORIDE 20 MEQ TABCR PO SCH ×3 (09:25→21:43)
[2017-03-01] MEDS: NADOLOL 40 MG TAB PO SCH (09:25)
[2017-03-01] MEDS ORDERED: VANCOMYCIN TROUGH ONE (09:30)
[2017-03-01] MEDS: CHOLESTYRAMINE LIGHT 4 GM PKT PO SCH ×3 (10:00→21:42)
[2017-03-01] MEDS ORDERED: FUROSEMIDE INJ 20 MG in SYRINGE 0 ML IV ONE (11:00)
--- NOTE | 2017-03-01 13:06 | DIAGNOSTIC IMAGING REPORT ---
VIDEO SWALLOW HISTORY: Aspiration r/o aspiration TECHNIQUE: Video fluoroscopic evaluation of swallowing was performed in the AP and lateral projections by the speech pathology staff. The patient is fed nectar-thick and thin liquid barium, a barium coated wafer, and barium pudding. FLUOROSCOPY TIME: 3 minutes 20 seconds. COMPARISON STUDY: None. FINDINGS: Trace amount of penetration with thin liquids. No evidence for guanako aspiration. IMPRESSION: 1. Trace penetration. No evidence for aspiration 2. Please see the speech pathologist report for detailed findings and recommendations. Electronically signed by: Andrew Ugarte M.D. 03/01/2017 1:04 PM Dictated Date/Time: 03/01/2017 1:03 PM
[2017-03-01] MEDS ORDERED: NURSING VERBAL MED ORDER ONE (14:30)
--- NOTE | 2017-03-01 14:38 | Progress Note ---
Subjective Date of Service: Mar 01, 2017. Subjective Pt evaluation today including: conversation w/ patient, conversation w/ family ( at the bedside), physical exam, lab review, review of studies, conversation w/ devops consultant, review of inpatient medication list Pain: mild epigastric pain PO Intake: adequate Voiding: kline catheter in place called to the bedside this AM around 745, patient desaturated, required 6L, coughed while drinking some water was more tachypnic for approximately 30 minutes, eventually saturations returned to 90's on 2L CXR showed persistent pulmonary edema, on exam her breath sounds were diminished asked for swallow evaluation, no aspiration seen on barium swallow, await final speech pathology recommendations patient lethargic today d/w at the bedside, he confirmed that typically she is more conversive planning on going to [place] once medically stable Problem List Medical Problems: (1) Alteration consciousness Status: Acute (2) Altered mental status Status: Acute (3) Altered mental status Status: Acute (4) C. difficile colitis Status: Acute (5) Dementia Status: Acute (6) Fracture of femoral neck, left Status: Acute (7) Pneumonia Status: Acute (8) Pneumonia involving left lung Status: Acute (9) Seizure Status: Acute (10) Sinusitis Status: Acute (11) Weakness Status: Acute (12) Weakness Status: Acute Review of Systems Constitutional: + weakness, + fatigue Respiratory: + shortness of breath Abdomen: + pain Neurologic: + memory loss, + weakness Psychiatric: + depression symptoms All Other Systems: Reviewed and Negative Medications Current Inpatient Medications Medications (Trade) Dose Ordered Sig/Fernando Route Start Time Stop Time Status Last Admin Dose Admin Acetaminophen (Tylenol Tab) 650 mg Q4H PRN PO 02/22/17 20:15 03/24/17 20:14 02/28/17 19:01 650 MG Al Hydrox/Mg Hydrox/Simethicone (Maalox Max Susp) 15 ml Q4H PRN PO 02/22/17 20:15 03/24/17 20:14 Magnesium Hydroxide (Milk Of Magnesia Susp) 30 ml Q6H PRN PO 02/22/17 20:15 03/24/17 20:14 02/26/17 14:41 30 ML Polyethylene (Miralax Powder Packet) 17 gm DAILY PRN PO 02/22/17 20:15 03/24/17 20:14 Miscellaneous (Iv Fluids Completed) 1 ea PRN PRN N/A 02/22/17 20:30 02/22/18 20:29 Heparin Sodium (Porcine) (Heparin Sq 5000 Unit/0.5ml) 5,000 unit Q8 SQ 02/22/17 22:00 03/24/17 21:59 03/01/17 06:09 5,000 UNIT Levothyroxine Sodium (Synthroid Tab) 37.5 mcg DAILYBB PO 02/23/17 08:00 03/25/17 07:59 03/01/17 06:10 37.5 MCG Ondansetron HCl (Zofran Inj) 4 mg Q6H PRN IV 02/23/17 10:15 03/25/17 10:14 02/28/17 21:02 4 MG Atorvastatin Calcium (Lipitor Tab) 20 mg HS PO 02/23/17 21:00 03/25/17 20:59 02/28/17 20:53 20 MG Cholestyramine Resin (Questran Powder Light) 4 gm BID@1000,2200 PO 02/23/17 22:00 03/25/17 21:59 02/28/17 21:58 4 GM Divalproex Sodium (Depakote Delay Rel Tab) 500 mg QPM PO 02/23/17 21:00 03/25/17 20:59 02/28/17 20:58 500 MG Ferrous Sulfate (Feosol Tab) 325 mg DAILY PO 02/24/17 09:00 03/26/17 08:59 03/01/17 09:23 325 MG Guaifenesin (Robitussin Sugar Free Syrup) 200 mg QID PRN PO 02/23/17 13:45 03/25/17 13:44 Magnesium Oxide (Mag-Ox Tab) 400 mg BID PO 02/23/17 21:00 03/25/17 20:59 03/01/17 09:23 400 MG Nadolol (Corgard Tab) 40 mg QAM PO 02/24/17 09:00 03/26/17 08:59 03/01/17 09:25 40 MG Pramipexole Dihydrochloride (miraPEX TAB) 1 mg HS PO 02/23/17 21:00 03/25/17 20:59 02/28/17 20:52 1 MG Lisinopril (Zestril Tab) 10 mg BID PO 02/25/17 21:00 03/27/17 20:59 03/01/17 09:24 10 MG Pramipexole Dihydrochloride (miraPEX TAB) 0.25 mg HS PO 02/25/17 21:00 03/27/17 20:59 02/28/17 20:52 0.25 MG Acetaminophen 650 mg/Empty Bag 65 ml @ 260 mls/hr Q6H PRN IV 02/25/17 14:15 03/27/17 14:14 02/25/17 15:21 260 MLS/HR Morphine Sulfate (MoRPHine SULFATE INJ) 2 mg Q2H PRN IV 02/25/17 14:30 03/11/17 14:29 02/27/17 07:10 2 MG Hydralazine HCl (HydrALAZINE INJ) 10 mg Q6H PRN IV. 02/25/17 18:15 03/27/17 18:14 02/27/17 08:04 10 MG Albuterol/ Ipratropium (Duoneb) 3 ml Q4R INH 02/27/17 06:00 03/29/17 05:59 03/01/17 08:00 3 ML Potassium Chloride (Klor-Con Tab) 20 meq TID PO 02/28/17 14:00 03/30/17 08:59 03/01/17 09:25 20 MEQ Levofloxacin (Levaquin Tab) 750 mg Q2D@11 PO 02/28/17 16:00 03/10/17 15:59 02/28/17 16:40 750 MG Objective Vital Signs Date Time Temp Pulse Resp B/P (MAP) Pulse Ox O2 Delivery O2 Flow Rate FiO2 03/01/17 11:36 69 16 98 Nasal Cannula 2.0 03/01/17 11:26 22 03/01/17 11:12 68 168/83 (111) 03/01/17 09:24 71 172/73 (106) 03/01/17 08:41 96 Nasal Cannula 2.0 03/01/17 08:06 36.8 70 32 160/84 (109) 96 Nasal Cannula 2.0 03/01/17 07:44 92 Nasal Cannula 3.0 03/01/17 07:39 36.8 72 16 178/98 (124) 96 Nasal Cannula 2.0 165/77 (106) 03/01/17 07:15 96 Nasal Cannula 2.0 02/28/17 23:30 Nasal Cannula 2.0 02/28/17 23:14 36.9 71 16 153/73 (99) 95 Room Air 02/28/17 20:55 77 162/82 (108) 02/28/17 16:12 36.9 73 16 153/75 (101) 95 Nasal Cannula 1.0 02/28/17 15:40 69 16 94 Nasal Cannula 1.0 02/28/17 15:15 Room Air Physical Exam General Appearance: WD/WN, no apparent distress Neck: supple, no adenopathy, no JVD, trachea midline Respiratory/Chest: chest non-tender, no respiratory distress, no accessory muscle use, + decreased breath sounds, + crackles (bases) Cardiovascular: regular rate, rhythm, no edema, no gallop, no JVD, no murmur Abdomen: normal bowel sounds, soft, no organomegaly, + tenderness (RUQ, minimal ) Extremities: normal range of motion, non-tender, normal inspection, no calf tenderness, + pedal edema (trace) 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iatric: assistant professor sculpture II-XII nml as tested, oriented x 3, + motor weakness, + depressed affect Skin: normal color, warm/dry, no rash Laboratory Results CHEST ONE VIEW PORTABLE CLINICAL HISTORY: Hypoxia dyspnea COMPARISON STUDY: 02/28/2017 FINDINGS: Components of congestive heart failure similar compared to the prior study. Bilateral pleural effusions are unchanged. Heart remains moderately enlarged. IMPRESSION: 1. No change compared to the prior study. 2. Findings of congestive failure/pulmonary edema and bilateral pleural effusions. VIDEO SWALLOW HISTORY: Aspiration r/o aspiration TECHNIQUE: Video fluoroscopic evaluation of swallowing was performed in the AP and lateral projections by the speech pathology staff. The patient is fed nectar-thick and thin liquid barium, a barium coated wafer, and barium pudding. FLUOROSCOPY TIME: 3 minutes 20 seconds. COMPARISON STUDY: None. FINDINGS: Trace amount of penetration with thin liquids. No evidence for guanako aspiration. IMPRESSION: 1. Trace penetration. No evidence for aspiration 2. Please see the speech pathologist report for detailed findings and recommendations. Assessment and Plan Acute hypoxic respiratory failure: resolving well with diuresis, 5000cc out over past two days, continues to respond will give 20mg IV Lasix again today down to 2-3L at rest, no accessory muscle use, no distress brief desaturation today, resolved quickly, occurred after choking Acute on chronic diastolic HF: continues to resolve but needs further Lasix net negative I/O for admission, negative 5000cc in the past 48 hours continue Lasix 20mg IV daily Acute cholecystitis: s/p lap cholecystectomy, tolerated well, diet advanced, + flatus and moving bowels cleared for d/c by surgery Delirium with lethargy: multifactorial with infection, kline, recovering from surgery, pain, baseline dementia supportive care, avoid sedation UTI with indwelling kline catheter: culture grew Enterococcus sensitive to Levaquin, will d/c Vanco and Zosyn, start Levaquin 750mg PO q2d starting tomorrow plan to d/c on Levaquin for 14 day total course of antibiotics kline catheter to be removed 03/08 in [place], that's where it was placed Seizure disorder - Cont Depakote 500 mg QPM Migraine headache - chronic - Avoid narcotics if able due to age and added lethargy- Toradol and PRN Tramadol. - reports Depakote helps to control migraines. HTN - cont Nadolol 40 mg Qam - with pleural effusion and possible left lower lobe PNA?---> check ECHO: normal EF, diastolic dysfunction Dyslipidemia - Cont atorvastatin 20 mg daily Hypothyroidism - cont Synthroid 37.5 mcg daily DVT ppx: teds, scds CODE STATUS: FULL CODE Continued [facility] stay due to: multiple IV medications needed, home environment unsafe for pt Discharge planning: jail facility
[2017-03-01] MEDS ORDERED: FUROSEMIDE INJ 20 MG in SYRINGE 0 ML IV SCH (15:00)
[2017-03-01] MEDS: ATORVASTATIN 20 MG TAB PO SCH (21:43)
[2017-03-01] MEDS: DIVALPROEX SODIUM 500 MG DELAY RELEASE TAB PO SCH (21:43)
[2017-03-01] MEDS: PRAMIPEXOLE DIHYDROCHLORIDE 0.25MG TAB PO SCH (21:44)
[2017-03-01] MEDS: PRAMIPEXOLE DIHYDROCHLORIDE 0.5 MG TAB PO SCH (21:45)
[2017-03-02] VITALS (10 sets, daily range): BP systolic 118–163; BP diastolic 67–79; PULSE 65–69; TEMP 36.3–36.7; O2SAT 91–99
[2017-03-02] MEDS: ALBUT/IPRATROP 3MG/0.5MG NEB 3 ML VIAL INH SCH ×6 (03:12→23:02)
[2017-03-02] MEDS: HEPARIN SOD 5000 UNIT/0.5 ML CARP SQ SCH ×3 (05:31→21:44)
[2017-03-02] MEDS: LEVOTHYROXINE 75 MCG TAB PO SCH (05:32)
[2017-03-02 06:45] LABS: BASO % 0.2 %; BASO ABS # 0.02 K/uL (0-0.2); COMPLETE YES; EOS % 2.7 %; HEMATOCRIT 34.8 % (37-47); IG% 0.6 %; LYMPH % 15.4 %; LYMPH ABS # 1.52 K/uL (1.2-3.4); MEAN CELL VOLUME 93.5 fL (80-100); MEAN CORPUSCULAR HEMOGLOBIN 29.6 pg (25-34); MEAN CORPUSCULAR HGB CONC 31.6 g/dl (32-36); MONO % 12.2 %; NEUT % 68.9 %; PLATELET COUNT 233 K/uL (130-400); RED BLOOD COUNT 3.72 M/uL (4.2-5.4); WHITE BLOOD COUNT 9.86 K/uL (4.8-10.8)
[2017-03-02 07:26] LABS: BUN/CREATININE RATIO 18.3 (10-20); CALCIUM 9.4 mg/dl (8.5-10.1); CREATININE 1.1 mg/dl (0.60-1.20); MAGNESIUM 2.2 mg/dl (1.8-2.4)
[2017-03-02] MEDS: FERROUS SULFATE 325 MG TAB PO SCH (09:05)
[2017-03-02] MEDS: NADOLOL 40 MG TAB PO SCH (09:07)
[2017-03-02] MEDS: POTASSIUM CHLORIDE 20 MEQ TABCR PO SCH (09:07)
[2017-03-02] MEDS: LISINOPRIL 10 MG TAB PO SCH ×2 (09:07→21:43)
[2017-03-02] MEDS: MAGNESIUM OXIDE 400 MG TAB PO SCH ×2 (09:07→21:42)
[2017-03-02] MEDS: CHOLESTYRAMINE LIGHT 4 GM PKT PO SCH ×2 (09:11→21:42)
[2017-03-02] MEDS: LEVOFLOXACIN 750 MG TAB PO SCH ×2 (11:00→11:04)
--- NOTE | 2017-03-02 13:56 | Progress Note ---
Subjective Date of Service: Mar 02, 2017. Subjective Pt evaluation today including: conversation w/ patient, conversation w/ family ( and daughter), physical exam, lab review, review of inpatient medication list Pain: mild abdominal pain PO Intake: adequate Voiding: kline catheter in place patient did very well with breakfast, ate everything, took her medications later in the morning she could not take her antibiotic less lethargic overall able to titrate of oxygen this AM labs reviewed, K at 4.0, will stop supplementation negative net output for admission, no further Lasix needed at this point d/w family and CM, plan for [facility] tomorrow Problem List Medical Problems: (1) Alteration consciousness Status: Acute (2) Altered mental status Status: Acute (3) Altered mental status Status: Acute (4) C. difficile colitis Status: Acute (5) Dementia Status: Acute (6) Fracture of femoral neck, left Status: Acute (7) Pneumonia Status: Acute (8) Pneumonia involving left lung Status: Acute (9) Seizure Status: Acute (10) Sinusitis Status: Acute (11) Weakness Status: Acute (12) Weakness Status: Acute Review of Systems Constitutional: + weakness, + fatigue Abdomen: + pain (RUQ, mild) Neurologic: + memory loss, + weakness, + balance problems Psychiatric: + depression symptoms All Other Systems: Reviewed and Negative Medications Current Inpatient Medications Medications (Trade) Dose Ordered Sig/Fernando Route Start Time Stop Time Status Last Admin Dose Admin Acetaminophen (Tylenol Tab) 650 mg Q4H PRN PO 02/22/17 20:15 03/24/17 20:14 02/28/17 19:01 650 MG Al Hydrox/Mg Hydrox/Simethicone (Maalox Max Susp) 15 ml Q4H PRN PO 02/22/17 20:15 03/24/17 20:14 Magnesium Hydroxide (Milk Of Magnesia Susp) 30 ml Q6H PRN PO 02/22/17 20:15 03/24/17 20:14 02/26/17 14:41 30 ML Polyethylene (Miralax Powder Packet) 17 gm DAILY PRN PO 02/22/17 20:15 03/24/17 20:14 Miscellaneous (Iv Fluids Completed) 1 ea PRN PRN N/A 02/22/17 20:30 02/22/18 20:29 Heparin Sodium (Porcine) (Heparin Sq 5000 Unit/0.5ml) 5,000 unit Q8 SQ 02/22/17 22:00 03/24/17 21:59 03/02/17 05:31 5,000 UNIT Levothyroxine Sodium (Synthroid Tab) 37.5 mcg DAILYBB PO 02/23/17 08:00 03/25/17 07:59 03/02/17 05:32 37.5 MCG Ondansetron HCl (Zofran Inj) 4 mg Q6H PRN IV 02/23/17 10:15 03/25/17 10:14 02/28/17 21:02 4 MG Atorvastatin Calcium (Lipitor Tab) 20 mg HS PO 02/23/17 21:00 03/25/17 20:59 03/01/17 21:43 20 MG Cholestyramine Resin (Questran Powder Light) 4 gm BID@1000,2200 PO 02/23/17 22:00 03/25/17 21:59 03/02/17 09:11 4 GM Divalproex Sodium (Depakote Delay Rel Tab) 500 mg QPM PO 02/23/17 21:00 03/25/17 20:59 03/01/17 21:43 500 MG Ferrous Sulfate (Feosol Tab) 325 mg DAILY PO 02/24/17 09:00 03/26/17 08:59 03/02/17 09:05 325 MG Guaifenesin (Robitussin Sugar Free Syrup) 200 mg QID PRN PO 02/23/17 13:45 03/25/17 13:44 Magnesium Oxide (Mag-Ox Tab) 400 mg BID PO 02/23/17 21:00 03/25/17 20:59 03/02/17 09:07 400 MG Nadolol (Corgard Tab) 40 mg QAM PO 02/24/17 09:00 03/26/17 08:59 03/02/17 09:07 40 MG Pramipexole Dihydrochloride (miraPEX TAB) 1 mg HS PO 02/23/17 21:00 03/25/17 20:59 03/01/17 21:45 1 MG Lisinopril (Zestril Tab) 10 mg BID PO 02/25/17 21:00 03/27/17 20:59 03/02/17 09:07 10 MG Pramipexole Dihydrochloride (miraPEX TAB) 0.25 mg HS PO 02/25/17 21:00 03/27/17 20:59 03/01/17 21:44 0.25 MG Acetaminophen 650 mg/Empty Bag 65 ml @ 260 mls/hr Q6H PRN IV 02/25/17 14:15 03/27/17 14:14 02/25/17 15:21 260 MLS/HR Morphine Sulfate (MoRPHine SULFATE INJ) 2 mg Q2H PRN IV 02/25/17 14:30 03/11/17 14:29 02/27/17 07:10 2 MG Hydralazine HCl (HydrALAZINE INJ) 10 mg Q6H PRN IV. 02/25/17 18:15 03/27/17 18:14 02/27/17 08:04 10 MG Albuterol/ Ipratropium (Duoneb) 3 ml Q4R INH 02/27/17 06:00 03/29/17 05:59 03/02/17 07:04 3 ML Potassium Chloride (Klor-Con Tab) 20 meq TID PO 02/28/17 14:00 03/30/17 08:59 03/02/17 09:07 20 MEQ Levofloxacin (Levaquin Tab) 750 mg Q2D@11 PO 02/28/17 16:00 03/10/17 15:59 02/28/17 16:40 750 MG Objective Vital Signs Date Time Temp Pulse Resp B/P (MAP) Pulse Ox O2 Delivery O2 Flow Rate FiO2 03/02/17 08:48 99 Nasal Cannula 2.0 03/02/17 07:54 36.3 68 24 118/74 (89) 99 Nasal Cannula 2.0 03/02/17 07:10 Room Air 03/02/17 07:04 69 16 97 Nasal Cannula 2.0 03/02/17 06:45 36.7 69 17 163/76 (105) 96 Nasal Cannula 2.0 03/02/17 03:13 67 16 93 Nasal Cannula 2.0 03/01/17 23:05 66 16 97 Nasal Cannula 2.0 03/01/17 22:47 36.8 64 18 138/78 (98) 96 Nasal Cannula 2.0 03/01/17 19:40 Nasal Cannula 2.0 03/01/17 19:17 63 16 95 Nasal Cannula 2.0 03/01/17 15:30 Nasal Cannula 2.0 03/01/17 14:48 36.7 63 20 173/86 (098) 94 Nasal Cannula 2.0 Physical Exam General Appearance: WD/WN, no apparent distress ENT: normal ENT inspection, hearing grossly normal, pharynx normal Neck: supple, no adenopathy, no JVD, trachea midline Respiratory/Chest: chest non-tender, lungs clear, normal breath sounds, no respiratory distress, no accessory muscle use Cardiovascular: regular rate, rhythm, no edema, no gallop, no JVD, no murmur Abdomen: normal bowel sounds, non tender, soft, no organomegaly Extremities: normal range of motion, non-tender, normal inspection, no pedal edema, no calf tenderness, pelvis stable 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iatric: flower buncher or picker II-XII nml as tested, + motor weakness, + depressed affect, + disoriented Skin: normal color, warm/dry, no rash Laboratory Results Last 24 Hours Test 03/02/17 06:11 White Blood Count 9.86 K/uL Red Blood Count 3.72 M/uL Hemoglobin 11.0 g/dL Hematocrit 34.8 % Mean Corpuscular Volume 93.5 fL Mean Corpuscular Hemoglobin 29.6 pg Mean Corpuscular Hemoglobin Concent 31.6 g/dl Platelet Count 233 K/uL Mean Platelet Volume 9.0 fL Neutrophils (%) (Auto) 68.9 % Lymphocytes (%) (Auto) 15.4 % Monocytes (%) (Auto) 12.2 % Eosinophils (%) (Auto) 2.7 % Basophils (%) (Auto) 0.2 % Neutrophils # (Auto) 6.79 K/uL Lymphocytes # (Auto) 1.52 K/uL Monocytes # (Auto) 1.20 K/uL Eosinophils # (Auto) 0.27 K/uL Basophils # (Auto) 0.02 K/uL RDW Standard Deviation 52.0 fL RDW Coefficient of Variation 15.1 % Immature Granulocyte % (Auto) 0.6 % Immature Granulocyte # (Auto) 0.06 K/uL Sodium Level 139 mmol/L Potassium Level 4.0 mmol/L Chloride Level 101 mmol/L Carbon Dioxide Level 30 mmol/L Anion Gap 8.0 mmol/L Blood Urea Nitrogen 20 mg/dl Creatinine 1.10 mg/dl Est Creatinine Clear Calc Drug Dose 37.8 ml/min Estimated GFR () 53.8 Estimated GFR (Non- 46.4 BUN/Creatinine Ratio 18.3 Random Glucose 94 mg/dl Calcium Level 9.4 mg/dl Magnesium Level 2.2 mg/dl Assessment and Plan Acute hypoxic respiratory failure: resolved today, breathing room air, over 6000cc out over past three days no further lasix needed Acute on chronic diastolic HF: resolved today, no further lasix needed echo - normal EF, diastolic dysfunction Acute cholecystitis: s/p lap cholecystectomy, tolerated well, diet advanced, + flatus and moving bowels cleared for d/c by surgery Delirium with lethargy: multifactorial with infection, kline, recovering from surgery, pain, baseline dementia supportive care, avoid sedation, she waxes and wanes and will do fine at rehab UTI with indwelling kline catheter: culture grew Enterococcus sensitive to Levaquin, will d/c Vanco and Zosyn, start Levaquin 750mg PO q2d starting today plan to d/c on Levaquin for 14 day total course of antibiotics kline catheter to be removed 03/08 in [place], that's where it was placed Seizure disorder - Cont Depakote 500 mg QPM Migraine headache - chronic - Avoid narcotics if able due to age and added lethargy- Toradol and PRN Tramadol. - reports Depakote helps to control migraines. HTN - cont Nadolol 40 mg Qam Dyslipidemia - Cont atorvastatin 20 mg daily Hypothyroidism - cont Synthroid 37.5 mcg daily DVT ppx: teds, scds CODE STATUS: FULL CODE plan to d/c to [facility] for rehab tomorrow Continued [facility] stay due to: multiple IV medications needed, home environment unsafe for pt Discharge planning: intermediate facility
[2017-03-02] MEDS: ACETAMINOPHEN IV 650 MG in EMPTY BAG 0 ML IV PRN (14:30)
[2017-03-02] MEDS: PRAMIPEXOLE DIHYDROCHLORIDE 0.5 MG TAB PO SCH (21:42)
[2017-03-02] MEDS: ATORVASTATIN 20 MG TAB PO SCH (21:42)
[2017-03-02] MEDS: PRAMIPEXOLE DIHYDROCHLORIDE 0.25MG TAB PO SCH (21:42)
[2017-03-02] MEDS: DIVALPROEX SODIUM 500 MG DELAY RELEASE TAB PO SCH (21:43)
[2017-03-03] MEDS: LEVOTHYROXINE 75 MCG TAB PO SCH (05:56)
[2017-03-03] MEDS: HEPARIN SOD 5000 UNIT/0.5 ML CARP SQ SCH (05:58)
[2017-03-03 07:31] VITALS: PULSE 64; O2SAT 95
[2017-03-03] MEDS: ALBUT/IPRATROP 3MG/0.5MG NEB 3 ML VIAL INH SCH (07:31)
[2017-03-03 07:57] VITALS: BP 120/78; PULSE 62; TEMP 36.5; O2SAT 97
[2017-03-03 08:27] VITALS: BP 165/76; PULSE 69
[2017-03-03] MEDS: LISINOPRIL 10 MG TAB PO SCH (08:31)
[2017-03-03] MEDS: MAGNESIUM OXIDE 400 MG TAB PO SCH (08:31)
[2017-03-03] MEDS: NADOLOL 40 MG TAB PO SCH (08:32)
[2017-03-03] MEDS: FERROUS SULFATE 325 MG TAB PO SCH (08:32)
[2017-03-03] MEDS ORDERED: LVQ750 PO (08:39)
--- NOTE | 2017-03-03 08:55 | Discharge Instructions ---
Discharge Instructions Date of Service Mar 03, 2017. Admission Reason for Admission: Acute cholecystitis Discharge Discharge Diagnosis / Problem: Acute cholecystitis, s/p lap sandip, UTI, acute diastolic HF Discharge Goals Goal(s): Decrease discomfort, Improve function, Improve disease control Activity Recommendations Activity Level: Assistance Required Therapies: Physical Therapy, Occupational Therapy Lifting Limitations: none Exercise/Sports Limitations: as tolerated Shower/Bathe: no limitations . Additional Information Patient informed of condition: Yes Advance Directives: Yes DNR: No Level of Care: Acute Rehab Communicable Disease: No Prognosis: Stable Oxygen at (LPM): none Kline Catheter: Yes Instructions / Follow-Up Instructions / Follow-Up Medications: - LEVAQUIN: every other day for 4 more doses for treatment of UTI Acute cholecystitis: lap sandip, tolerated well, eating well, moving bowels follow up with Dr. Hamilton, office number on his instructions, to see in 1- 2 weeks UTI with catheter: kline placed at [facility], to follow up with [facility] urology on 03/08 for possible kline removal urine culture grew out Enterococcus, gao sensitive, treating with Levaquin, 4 more doses, takes every other day Acute respiratory failure secondary to volume overload, acute diastolic HF: clinically resolved, titrated off oxygen for over 24 hours, breathing comfortably volume overload occurred due to large amount of IV fluids given initially in plans for surgery Dementia: baseline moderate disease, minimal activity at home FOLLOW UP - physician at [place] this week - Dr. Hamilton in 1-2 weeks - [facility]rology in [place] on 03/08 for possible kline catheter removal Current Hospital Diet Patient's current hospital diet: Regular Diet Discharge Diet Recommended Diet: Regular Diet Procedures Procedures Performed: Laparoscopic Cholecystectomy Pending Studies Studies pending at discharge: no Physician Orders On Transfer POLST Discussion: Not Applicable Medical Emergencies . Who to Call and When: Medical Emergencies: If at any time you feel your situation is an emergency, please call 911 immediately. . Non-Emergent Contact Non-Emergency issues call your: Primary Care Provider, Surgeon (Dr. Hamilton) Call Non-Emergent contact if: you have a fever, your pain is worsening, wound has increased drainage, wound has increased redness, wound has increased pain, you have any medication questions . . "Provider Documentation" section prepared by Ed Dial. . Core Measure Problem Core Measures: None [place] Drug Monitoring Program Search Results: no issues identified
[2017-03-03] MEDS: CHOLESTYRAMINE LIGHT 4 GM PKT PO SCH (09:59)
--- NOTE | 2017-03-03 10:14 | Discharge Summary ---
Discharge Summary Date of Service Mar 03, 2017. Discharge Summary Admission Date: Feb 23, 2017 at 17:08 Discharge Date: Mar 03, 2017 Discharge Disposition: shelter facility Principal Diagnosis: Acute cholecystitis Problems/Secondary Diagnoses: UTI Kline catheter Acute hypoxic respiratory failure Acute diastolic heart failure Dementia Immunizations: Have You Had Influenza Vaccine: Yes Influenza Vaccine Date: May 22, 2012 History of Tetanus Vaccine?: Yes Tetanus Immunization Date: Aug 31, 2004 History of Pneumococcal: Yes Pneumococcal Date: May 22, 2012 History of Hepatitis B Vaccine: No Procedures: Lap cholecystectomy Consultations: General surgery Urology Medication Reconciliation New Medications: Levofloxacin (Levofloxacin) 750 Mg Tab 750 MG PO Q2D@11, #4 TAB 0 Refills Continued Medications: Atorvastatin (Lipitor) 20 Mg Tab 20 MG PO HS, TAB Cholestyramine (Cholestyramine Light) 4 Gm Pack 4 GM PO BID Divalproex Sodium (Depakote Delay Rel) 500 Mg Tab 500 MG PO QPM, TAB Ferrous Sulfate (Ferrous Sulfate) 325 Mg Tab 325 MG PO DAILY Guaifenesin (Robitussin) 100 Mg/5 Ml Kristin 10 ML PO QID PRN for Cough Levothyroxine Sodium (Synthroid) 25 Mcg Tab 37.5 MCG PO DAILYBB for 30 Days, TAB Lisinopril (Zestril) 10 Mg Tab 10 MG PO BID for 30 Days, #60 TAB Magnesium Oxide (Mag-Ox) 400 Mg Tab 400 MG PO BID, TAB Nadolol (Nadolol) 40 Mg Tab 40 MG PO QAM Pramipexole Dihydrochloride (Mirapex) 0.25 Mg Tab 0.25 MG PO HS, #30 TAB 5 Refills give along with 1mg tAb to equal 1.25mg bedtime dose Pramipexole Dihydrochloride (Mirapex) 1 Mg Tab 1 MG PO HS Discharge Exam Patient much more alert today, eating well, taking medications. RN noted a rash on inner thighs and left buttocks this AM, when I evaluated it it was significantly better, perhaps a reaction to barrier cream because that was held this AM. Review of Systems: Constitutional: + weakness, + fatigue, No fever, No chills, No sweats, No weight loss, No problem reported Eyes: No worsening of vision, No eye pain, No redness, No discharge, No diplopia, No problem reported ENT: No hearing loss, No unusual epistaxis, No nasal symptoms, No sore throat, No tinnitus, No dental problems, No trouble swallowing, No problem reported Respiratory: No cough, No sputum, No wheezing, No shortness of breath, No dyspnea on exertion, No dyspnea at rest, No hemoptysis, No problem reported Cardiovascular: No chest pain, No orthopnea, No PND, No edema, No claudication, No palpitations, No problem reported Abdomen: No pain, No nausea, No vomiting, No diarrhea, No constipation, No GI bleeding, No problem reported Musculoskeletal: No joint pain, No muscle pain, No swelling, No calf pain, No problem reported Genitourinary - Female: + problem reported (kline) Neurologic: + memory loss, + weakness, + balance problems, No paralysis, No numbness/tingling, No vertigo Psychiatric: No depression symptoms, No anhedonism, No anxiety, No insomnia , No substance abuse, No problem reported Endocrine: No fatigue, No excessive thirst, No excessive urination, No problem reported Hematologic / Lymphatic: No abnormal bleeding/bruising, No clotting problems , No swollen lymph nodes, No night sweats, No problem reported Integumentary: + rash (inner thighs), No itch, No new/changing skin lesions , No color change, No bleeding, No problem reported Physical Exam: General Appearance: WD/WN, no apparent distress Eyes: normal inspection, EOMI, sclerae normal ENT: normal ENT inspection, hearing grossly normal, pharynx normal Neck: supple, no adenopathy, no JVD, trachea midline Respiratory/Chest: chest non-tender, lungs clear, normal breath sounds, no respiratory distress, no accessory muscle use Cardiovascular: regular rate, rhythm, no edema, no gallop, no JVD, no murmur , normal peripheral pulses Abdomen / GI: normal bowel sounds, non tender, soft, no organomegaly Extremities: normal inspection, no calf tenderness, normal capillary refill , no pedal edema, normal range of motion, pelvis stable 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iatric: motion picture narrator II-XII nml as tested, alert, normal reflexes, + motor weakness, + depressed affect, + disoriented Skin: normal color, warm/dry, + rash (inner thigh and left buttocks, likely a reaction to cream) Hospital Course Acute hypoxic respiratory failure: resolved for 48 hours, breathing room air, over 6000cc out over past four days no further lasix needed Acute on chronic diastolic HF: resolved, no further lasix needed echo - normal EF, diastolic dysfunction Acute cholecystitis: s/p lap cholecystectomy, tolerated well, diet advanced, + flatus and moving bowels cleared for d/c by surgery will follow up with Dr. Hamilton in 1-2 weeks Delirium with lethargy: multifactorial with infection, kline, recovering from surgery, pain, baseline dementia supportive care, avoid sedation, she waxes and wanes and will do fine at rehab UTI with indwelling kline catheter: culture grew Enterococcus sensitive to Levaquin, will d/c Vanco and Zosyn, start Levaquin 750mg PO q2d , needs 4 more doses plan to d/c on Levaquin for 14 day total course of antibiotics, complete on kline catheter to be removed 03/08 in [place], that's where it was placed Seizure disorder - Cont Depakote 500 mg QPM Migraine headache - chronic - Avoid narcotics if able due to age and added lethargy- Toradol and PRN Tramadol. - reports Depakote helps to control migraines. HTN - cont Nadolol 40 mg Qam Dyslipidemia - Cont atorvastatin 20 mg daily Hypothyroidism - cont Synthroid 37.5 mcg daily DVT ppx: teds, scds CODE STATUS: FULL CODE plan to d/c to [facility] for rehab Total Time Spent: Greater than 30 minutes This includes examination of the patient, discharge planning, medication reconciliation, and communication with other providers. Discharge Instructions Please refer to the electronic Patient Visit Report (Discharge Instructions) for additional information. Follow-Up Dr. Hamilton in 1-2 weeks [facility] urology in [place] on 03/08 physician at [facility] within one week Additional Copies To Liborio Hamilton D.O.; Kim Sanabria M.D.
[2017-03-03 10:44] VITALS: BP 165/76; PULSE 69; TEMP 36.5; O2SAT 97
[2017-03-03 11:06] VITALS: O2SAT 97
--- NOTE | 2017-03-09 07:45 | EDITING REQUIRED CODING QUERY ---
CODING QUERY To promote full compliance with coding requirements relating to patient care, provider participation is requested in all cases of personal lines sales rep uncertainty. Please assist us with the question(s) below: Coding Question(s): Dr. Dial, Please clarify if the patient's UTI was: ( x ) a complication of the Hallman catheter ( ) not a complication of the Hallman catheter Also, was the UTI ( x ) POA ( ) Not POA Physician's Response(s): Thank you for your time, ARNAV Kraus, SECTION LEADER
== END 2017-03-03 10:45 | DRG 417 ==
LOC: EDBD 16:37 → C.EDB 16:38 → C.MED 20:11 → ENRESERV 20:39 → OBSVTOIN 02-23 17:08 → ENRESERV 02-25 15:44 → C.MSN 02-25 16:27 → ENRESERV 02-27 06:12 → C.2T 02-27 06:56 → ENRESERV 02-28 10:51 → C.MSN 02-28 12:55
PROVIDERS: ADMIT Internal Medicine; ATTEND Internal Medicine
PROC: 0FT44ZZ Resection of Gallbladder, Percutaneous Endoscopic Approach (ICD-10-PCS; principal; 2017-02-25 12:00)
DX: K80.00 Calculus of gallbladder with acute cholecystitis without obstruction (principal); J96.01 Acute respiratory failure with hypoxia; I50.33 Acute on chronic diastolic (congestive) heart failure; G93.41 Metabolic encephalopathy; F05 Delirium due to known physiological condition; I69.353 Hemiplegia and hemiparesis following cerebral infarction affecting right non-dominant side; T83.518A Infection and inflammatory reaction due to other urinary catheter, initial encounter; N39.0 Urinary tract infection, site not specified; Y73.2 Prosthetic and other implants, materials and accessory gastroenterology and urology devices associated with adverse incidents; B95.2 Enterococcus as the cause of diseases classified elsewhere; K82.8 Other specified diseases of gallbladder; F03.90 Unspecified dementia, unspecified severity, without behavioral disturbance, psychotic disturbance, mood disturbance, and anxiety; R53.83 Other fatigue; R26.2 Difficulty in walking, not elsewhere classified; R33.9 Retention of urine, unspecified; I11.0 Hypertensive heart disease with heart failure; E78.5 Hyperlipidemia, unspecified; E03.9 Hypothyroidism, unspecified; G40.909 Epilepsy, unspecified, not intractable, without status epilepticus; G43.909 Migraine, unspecified, not intractable, without status migrainosus; I69.392 Facial weakness following cerebral infarction; Z99.81 Dependence on supplemental oxygen; Z79.899 Other long term (current) drug therapy

== ENCOUNTER 2017-07-27 15:12 | Emergency (ER) | payer OTHER ==
[~2017-07-27] VITALS: Ht 167.6 cm; Wt 57.0 kg
[~2017-07-27 15:12] MED LIST changes: -CYM60 PO; -LORA-741 PO; +LVQ750 PO; +PRAM1TAB PO; +RBTUDL5 PO; -TYL325X PO; -VST25HP PO; -ZOLP5TAB PO
[2017-07-27 15:18] VITALS: TEMP 36.5; Ht 167.6 cm; Wt 57.0 kg
[2017-07-27] MEDS ORDERED: MoRPHine SULFATE 2 MG/ML CARP IV STA (15:41)
[2017-07-27] MEDS ORDERED: ONDANSETRON INJ 2 MG/ML 2 ML VIAL IV STA (15:41)
--- NOTE | 2017-07-27 15:43 | EMERGENCY ROOM VISIT NOTE ---
History Report prepared by Mandi: Arabella Javier Under the Supervision of: Dr. Christo Dennis M.D. First contact with patient: 15:19 Chief Complaint: HEADACHE Stated Complaint: MIGRAINE History of Present Illness The patient is an 82 year old female who presents to the Emergency Room with complaints of constant headaches for the last 30 years [employer]. She notes having chronic migraines her whole life. She rates her pain a 10/10 in severity. Per , she has also been complaining of right ear pain. Per , the patient has been taking 50 mg of Topamax BID, though has been on Percocet prior to the Topamax. He admitted to giving her two Percocet: one last night and again seven hours ago. He notes that the Percocet has provided some relief. The patient regularly sees her neurologist, Dr. Castellanos. Per , the patient has been in and out of rehab for recovery for a stroke s/p left carotid artery surgery. Per , she has a history of hysterectomy, a hip fracture and has been hospitalized for seizures in the past. Per , the patient has a history of recent bladder infection. She denies any recent falls, chest pain, fevers, chills, seizures, numbness, weakness, diarrhea, shortness of breath, or weight loss. She needs assistance walking. Source of History: patient, spouse/significant other Onset: 30 years GLU[employer] Position: head Symptom Intensity: 10/10 Quality: other (headache) Modifying Factors (Relieving): other (Percocet) Associated Symptoms: + headache, No fevers, No chills, No chest pain, No SOB , No diarrhea, No weakness, No numbness Note: She notes right ear pain. She denies any recent falls, seizures, or weight loss. Review of Systems See HPI for pertinent positives & negatives. A total of 10 systems reviewed and were otherwise negative. Past Medical & Surgical Medical Problems: (1) Acute cholecystitis due to biliary calculus (2) Clostridium difficile diarrhea (3) Facial droop (4) HCAP (healthcare-associated pneumonia) (5) Headache (6) Hyperlipemia (7) Hypertension (8) Migraine (9) Sinusitis, acute (10) Stenosis of left internal carotid artery Surgical Problems: (1) Post-operative state Old medical records were reviewed. Nurse's notes were reviewed and I agree with. Family History Hypertension Seizures Social History Smoking Status: Never Smoker Alcohol Use: none Drug Use: none Marital Status: Housing Status: lives with family Occupation Status: retired Current/Historical Medications Scheduled Atorvastatin (Lipitor), 20 MG PO DAILY Donepezil Hydrochloride (Aricept), 5 MG PO DAILY Ferrous Sulfate (Ferrous Sulfate), 325 MG PO DAILY Fluticasone Propionate (Nasal) (Flonase Allergy Relief), 2 SPRAYS MERCEDES DAILY Levothyroxine Sodium (Synthroid), 37.5 MCG PO DAILYBB Lisinopril (Zestril), 10 MG PO BID Loratadine (Claritin), 10 MG PO DAILY Magnesium Oxide (Mag-Ox), 400 MG PO BIDM Nadolol (Nadolol), 40 MG PO QAM Pramipexole Dihydrochloride (Mirapex), 0.75 MG PO HS Topiramate (Topamax), 50 MG PO BID Zolpidem Tartrate (Ambien), 5 MG PO HS Scheduled PRN Acetaminophen (Tylenol), 325 MG PO Q4 PRN for Pain or Fever Bisacodyl (Dulcolax), 1 SUPP [place] UD PRN for Constipation Magnesium Hydroxide (Milk of Magnesia), 30 ML PO DAILY PRN for Constipation Ondansetron Hcl (Zofran), 4 MG PO Q6 PRN for Nausea or Vomiting Oxycodone Immediate Rel Tab (Roxicodone Ir), 1-2 TAB PO Q4H PRN for Severe Pain Sodium Phosphates (Fleet Enema Six Pack), 1 DOSE [place] UD PRN for Constipation Allergies Coded Allergies: Codeine (Verified Allergy, Mild, ?REACTION, 07/27/17) Aripiprazole (Unverified Allergy, Unknown, unknown, 07/27/17) Aspartame (Verified Adverse Reaction, Unknown, MIGRAINE, 07/27/17) Physical Exam Vital Signs Date Time Temp Pulse Resp B/P (MAP) Pulse Ox O2 Delivery O2 Flow Rate FiO2 07/27/17 19:40 72 14 141/68 97 07/27/17 18:00 73 18 131/63 95 Room Air 07/27/17 16:49 64 07/27/17 16:37 63 18 150/83 95 Room Air 07/27/17 15:18 36.5 61 18 152/90 100 Room Air Physical Exam General: Chronically-ill appearing older female in no acute distress. Answers questions appropriately: baseline dementia. HEENT: Normal cephalic atraumatic. Pupils are equal round and reactive to light. Extraocular movements are intact. Oropharynx is pink with moist mucous membranes. No swelling of the mouth lips or tongue. Right TM is normal- appearing with a small amount of cerumen in the canal. Neck: Supple with a midline trachea. No meningeal signs or stiffness, no JVD or bruits. No Stridor. Chest: Clear to auscultation bilaterally. No wheezes or rhonchi. No increased work of breathing. Heart: regular rate and rhythm. Abdomen: Soft nontender, nondistended without rebound guarding or rigidity. Extremities: No cyanosis clubbing or edema. No calf tenderness or assymetry Spine/Back. Non tender to palpation. No CVA tenderness Skin: Good turgor without rashes. Neurologic exam: Cranial nerves two through 12 are intact. Motor and sensation are intact and symmetrical throughout. Medical Decision & Procedures ER Provider Diagnostic Interpretation: Radiology results as stated below per my review and radiologist interpretation: HEAD WITHOUT CONTRAST (CT) CT DOSE: 691.05 mGy.cm HISTORY: Mental status change headache TECHNIQUE: Multiaxial CT images of the head were performed without the use of intravenous contrast. A dose lowering technique was utilized adhering to the principles of ALARA. Comparison: 02/22/2017 Findings: Moderate mucosal thickening of the left frontal and ethmoid sinuses. Near-complete opacification of the left maxillary and right central sphenoid air cells. Mastoid air cells are clear. Density characteristics of the cerebellar as well as cerebral hemispheres indicate a component of age-related atrophy. No acute intracranial abnormality is present. The calvarium and skull base are intact. The ventricles and sulci are within normal limits. There is no mass, hematoma, midline shift, or acute infarct. Impression: 1. No acute intracranial abnormality. 2. Chronic sinus change as described at least mildly progressive from the prior study. The above report was generated using voice recognition software. It may contain grammatical, syntax or spelling errors. Electronically signed by: Andrew Ugarte M.D. 07/27/2017 4:35 PM Dictated Date/Time: 07/27/2017 4:34 PM Laboratory Results 07/27/17 15:55 Red Blood Count 3.90, Mean Corpuscular Volume 94.6, Mean Corpuscular Hemoglobin 30.5, Mean Corpuscular Hemoglobin Concent 32.2, Mean Platelet Volume 10.3, Neutrophils (%) (Auto) 62.7, Lymphocytes (%) (Auto) 22.4, Monocytes (%) (Auto) 8.3, Eosinophils (%) (Auto) 5.7, Basophils (%) (Auto) 0.6, Neutrophils # (Auto) 3.99, Lymphocytes # (Auto) 1.43, Monocytes # (Auto) 0.53, Eosinophils # (Auto) 0.36, Basophils # (Auto) 0.04 07/27/17 15:55 Test 07/27/17 15:55 White Blood Count 6.37 K/uL (4.8-10.8) Red Blood Count 3.90 M/uL (4.2-5.4) Hemoglobin 11.9 g/dL (12.0-16.0) Hematocrit 36.9 % (37-47) Mean Corpuscular Volume 94.6 fL (80-100) Mean Corpuscular Hemoglobin 30.5 pg (25-34) Mean Corpuscular Hemoglobin Concent 32.2 g/dl (32-36) Platelet Count 206 K/uL (130-400) Mean Platelet Volume 10.3 fL (7.4-10.4) Neutrophils (%) (Auto) 62.7 % Lymphocytes (%) (Auto) 22.4 % Monocytes (%) (Auto) 8.3 % Eosinophils (%) (Auto) 5.7 % Basophils (%) (Auto) 0.6 % Neutrophils # (Auto) 3.99 K/uL (1.4-6.5) Lymphocytes # (Auto) 1.43 K/uL (1.2-3.4) Monocytes # (Auto) 0.53 K/uL (0.11-0.59) Eosinophils # (Auto) 0.36 K/uL (0-0.5) Basophils # (Auto) 0.04 K/uL (0-0.2) RDW Standard Deviation 53.5 fL (36.4-46.3) RDW Coefficient of Variation 15.5 % (11.5-14.5) Immature Granulocyte % (Auto) 0.3 % Immature Granulocyte # (Auto) 0.02 K/uL (0.00-0.02) Anion Gap 7.0 mmol/L (3-11) Est Creatinine Clear Calc Drug Dose 43.3 ml/min Estimated GFR () 70.9 Estimated GFR (Non- 61.2 BUN/Creatinine Ratio 25.8 (10-20) Calcium Level 9.6 mg/dl (8.5-10.1) Total Bilirubin 0.5 mg/dl (0.2-1) Direct Bilirubin mg/dl (0-0.2) Aspartate Amino Transf (AST/SGOT) 599 U/L (15-37) Alanine Aminotransferase (ALT/SGPT) 676 U/L (12-78) Alkaline Phosphatase 300 U/L (45-117) Total Protein 7.8 gm/dl (6.4-8.2) Albumin 3.2 gm/dl (3.4-5.0) Lipase 238 U/L (73-393) Chemistry Specimen Hemolysis Valproic Acid (Depakene) Level 10 mcg/ml (50-100) Laboratory studies as stated above per my review. Medications Administered Medications (Trade) Dose Ordered Sig/Fernando Route Start Time Stop Time Status Last Admin Dose Admin Ondansetron HCl (Zofran Inj) 4 mg NOW STAT IV 07/27/17 15:41 07/27/17 15:42 DC 07/27/17 15:58 4 MG Morphine Sulfate (MoRPHine SULFATE INJ) 2 mg NOW STAT IV 07/27/17 15:41 07/27/17 15:42 DC 07/27/17 15:58 2 MG Morphine Sulfate (MoRPHine SULFATE INJ) 4 mg NOW STAT IV 07/27/17 17:37 07/27/17 17:38 DC 07/27/17 17:52 4 MG Oxycodone HCl (Roxicodone Immediate Rel 5MG Home Pack) 1 homepack UD ONCE PO 07/27/17 18:30 07/27/17 18:31 DC 07/27/17 18:30 1 HOMEPACK Morphine Sulfate (MoRPHine SULFATE INJ) 4 mg NOW STAT IV 07/27/17 19:25 07/27/17 19:32 DC 07/27/17 19:25 4 MG ECG Indication: other (headache) Rate (beats per minute): 61 Rhythm: normal sinus Findings: no acute ischemic change, no ectopy Change: no significant change (02/22/2017) ED Course 1519: Past medical records reviewed. The patient was evaluated in room C1B, and a complete history and physical examination were performed. 1541: Ordered Morphine Sulfate 2 mg IV; Zofran 4 mg IV 1624: I spoke with Dr. Castellanos, neurologist. We discussed the patients case. He agrees with the workup and increasing her Topamax to 75 mg daily. 173: I reassessed the patient at this time. She is still in pain, though is and resting comfortably. 173: Ordered Morphine Sulfate 4 mg IV 182 I reassessed the patient at this time. She is feeling better and resting comfortably. I discussed the results and treatment plan with the patient. I answered all pertaining questions that she had. She expressed understanding and verbalized agreement. The patient will be discharged home. 183: Ordered Oxycodone HCl 1 homepack PO Medical Decision Differentials include, but are not limited to: migraine, intracranial process, infection, trauma, electrolyte metabolic abnormality, and toxicological process. This patient comes in as described above. She's been having chronic headaches for over 30 years. They've tried to change her medications recently Topamax and she's had very bad headaches. She's had no known falls. She is in rehabilitation right now and she does have ambulatory and motor issues since having a stroke about a year ago. She has no new neurologic deficits. She's had no fever or chills or other recent illness. She's had no chest pain. IV access was established and she was given morphine 2 mg IV and Zofran 4 mg IV. I did order a CAT scan of her head and blood work. I called and talked to Dr. Castellanos, her neurologist. The has been giving her Percocet off and on the last couple days and says that that actually helps. That has been what she' s been on the past as well. CAT scan of her head was unremarkable. She has no acute electrode or metabolic abdomen was of tees are moderately elevated looking back through the chart they tend to run a little high but they're little higher she's no pain on my exam. She's not exceeded the over-the- counter acetaminophen dosing regimen. While she was here, she did receive IV morphine several times. She appears in no distress however says she continues have pain . I did discuss case Dr. Castellanos and he recommends we increase her Topamax 75 mg twice a day. They may also started her back on the Depakote as an outpatient. In the short-term, I will have her use OxyIR. She' s had Percocet and this is helped her in the past this is not a good long-term solution however I gave her a home pack as well as a small prescription. I told her to be careful getting up and down and to get out of bed with assistance only. Additionally, I wouldn't not use Tylenol for the short-term as her LFTs are mildly elevated. She should return to the ER if: increasing pain, numbness or weakness, worsening of symptoms, any new problems or concerns. Medication Reconcilliation Current Medication List: was personally reviewed by me Blood Pressure Screening Patient's blood pressure: Elevated blood pressure Blood pressure disposition: Elevated BP felt to be situational Consults Time Called: 1620 Consulting Physician: Dr. Castellanos, neurologist Returned Call: [address] Castellanos, neurologist. We discussed the patients case. He agrees with the workup and increasing her Topamax to 75 mg daily. Impression Primary Impression: Headache Scribe Attestation The scribe's documentation has been prepared under my direction and personally reviewed by me in its entirety. I confirm that the note above accurately reflects all work, treatment, procedures, and medical decision making performed by me. Departure Information Dispostion Home / Self-Care Prescriptions Oxycodone Immediate Rel Tab (ROXICODONE IR) 5 Mg Tab 1-2 TAB PO Q4H Y for Severe Pain, #24 TAB Prov: Christo Dennis M.D. 07/27/17 Referrals Kim Sanabria M.D. (PCP) Forms HOME CARE DOCUMENTATION FORM, IMPORTANT VISIT INFORMATION Patient Instructions My [facility] Additional Instructions Increase your topamax to 75 mg twice a day Return if: worsening of symptoms, increasing pain, fever or chills, any new problems or concerns Stop the Tylenol For pain may use OxyIR 5 mg, one or 2 pills every 4-6 hours as needed OxyIR may make you drowsy and do not take before drinking, driving, working OxyIR is Percocet without the Tylenol
[2017-07-27 16:07] LABS: BASO % 0.6 %; BASO ABS # 0.04 K/uL (0-0.2); COMPLETE YES; EOS % 5.7 %; HEMATOCRIT 36.9 % (37-47); IG% 0.3 %; LYMPH % 22.4 %; LYMPH ABS # 1.43 K/uL (1.2-3.4); MEAN CELL VOLUME 94.6 fL (80-100); MEAN CORPUSCULAR HEMOGLOBIN 30.5 pg (25-34); MEAN CORPUSCULAR HGB CONC 32.2 g/dl (32-36); MEAN PLATELET VOLUME 10.3 fL (7.4-10.4); MONO % 8.3 %; NEUT % 62.7 %; PLATELET COUNT 206 K/uL (130-400); WHITE BLOOD COUNT 6.37 K/uL (4.8-10.8)
[2017-07-27 16:35] LABS: BLOOD UREA NITROGEN 22 mg/dl (7-18); CREATININE 0.87 mg/dl (0.60-1.20); GLUCOSE 89 mg/dl (70-99)
[2017-07-27 16:36] LABS: ALKALINE PHOSPHATASE 300 U/L (45-117); ALT/SGPT 676 U/L (12-78); AST/SGOT 599 U/L (15-37); BUN/CREATININE RATIO 25.8 (10-20); CALCIUM 9.6 mg/dl (8.5-10.1); CARBON DIOXIDE 25 mmol/L (21-32); CHLORIDE 105 mmol/L (98-107); POTASSIUM 4.6 mmol/L (3.5-5.1); SODIUM 136 mmol/L (136-145)
--- NOTE | 2017-07-27 16:36 | DIAGNOSTIC IMAGING REPORT ---
HEAD WITHOUT CONTRAST (CT) CT DOSE: 691.05 mGy.cm HISTORY: Mental status change headache TECHNIQUE: Multiaxial CT images of the head were performed without the use of intravenous contrast. A dose lowering technique was utilized adhering to the principles of ALARA. Comparison: 02/22/2017 Findings: Moderate mucosal thickening of the left frontal and ethmoid sinuses. Near-complete opacification of the left maxillary and right central sphenoid air cells. Mastoid air cells are clear. Density characteristics of the cerebellar as well as cerebral hemispheres indicate a component of age-related atrophy. No acute intracranial abnormality is present. The calvarium and skull base are intact. The ventricles and sulci are within normal limits. There is no mass, hematoma, midline shift, or acute infarct. Impression: 1. No acute intracranial abnormality. 2. Chronic sinus change as described at least mildly progressive from the prior study. The above report was generated using voice recognition software. It may contain grammatical, syntax or spelling errors. Electronically signed by: Andrew Ugarte M.D. 07/27/2017 4:35 PM Dictated Date/Time: 07/27/2017 4:34 PM
[2017-07-27] MEDS ORDERED: MoRPHine SULFATE 4 MG/ML 1 ML CARP\\VIAL IV STA ×2 (17:37→19:25)
[2017-07-27] MEDS ORDERED: PRAM0.75 PO (18:04)
[2017-07-27] MEDS ORDERED: MOMLX PO (18:04)
[2017-07-27] MEDS ORDERED: BISA10SU3 PR (18:04)
[2017-07-27] MEDS ORDERED: FLUT0.15 NAE (18:04)
[2017-07-27] MEDS ORDERED: TOPI50TA16 PO (18:04)
[2017-07-27] MEDS ORDERED: CLR10 PO (18:04)
[2017-07-27] MEDS ORDERED: DONE5TAB14 PO (18:04)
[2017-07-27] MEDS ORDERED: SODI1ENE PR (18:04)
[2017-07-27] MEDS ORDERED: ZOLP5TAB PO (18:04)
[2017-07-27] MEDS ORDERED: ACET-1311 PO (18:04)
[2017-07-27] MEDS ORDERED: ONDA4TAB46 PO (18:04)
[2017-07-27] MEDS ORDERED: OXYC1TAB3 PO (18:27)
[2017-07-27] MEDS ORDERED: OXYCODONE IR HOME PACK PO ONE (18:30)
[2017-07-27 19:40] VITALS: BP 141/68; PULSE 72; O2SAT 97
== END 2017-07-27 19:41 | disposition home or self-care (01) ==
LOC: EDBD 15:12 → C.EDC 15:13
DX: R51 Headache (principal); E78.5 Hyperlipidemia, unspecified; I10 Essential (primary) hypertension; Z86.19 Personal history of other infectious and parasitic diseases; Z79.899 Other long term (current) drug therapy; Z88.5 Allergy status to narcotic agent; Z88.8 Allergy status to other drugs, medicaments and biological substances; Z82.49 Family history of ischemic heart disease and other diseases of the circulatory system; Z82.0 Family history of epilepsy and other diseases of the nervous system

== ENCOUNTER 2018-03-23 12:37 | Observation (INO) | payer OTHER ==
[~2018-03-23] VITALS: Ht 152.4 cm; Wt 65.0 kg
[~2018-03-23 12:37] MED LIST changes: +ACET-1311 PO; +BISA10SU3 PR; +CLR10 PO; -DIVA500T5 PO; +DONE5TAB14 PO; +FLUT0.15 NAE; -LVQ750 PO; +MOMLX PO; +ONDA4TAB46 PO; +PRAM0.75 PO; -PRAM1TAB PO; -PRAM1TAB52 PO; -QSTP PO; -RBTUDL5 PO; +SODI1ENE PR; +TOPI50TA16 PO; +ZOLP5TAB PO
[2018-03-23 13:28] LABS: BASO % 0.4 %; BASO ABS # 0.03 K/uL (0-0.2); EOS % 3.8 %; EOS ABS # 0.28 K/uL (0-0.5); HEMATOCRIT 36.9 % (37-47); HEMOGLOBIN 11.8 g/dL (12.0-16.0); IG# 0.03 K/uL (0.00-0.02); LYMPH % 24.5 %; LYMPH ABS # 1.82 K/uL (1.2-3.4); MEAN CELL VOLUME 95.3 fL (80-100); MEAN CORPUSCULAR HEMOGLOBIN 30.5 pg (25-34); MEAN PLATELET VOLUME 9.7 fL (7.4-10.4); MONO % 9.3 %; MONO ABS # 0.69 K/uL (0.11-0.59); NEUT % 61.6 %; NEUT ABS # 4.59 K/uL (1.4-6.5); PLATELET COUNT 257 K/uL (130-400); RED CELL DISTRIBUTION WIDTH CV 14.7 % (11.5-14.5); RED CELL DISTRIBUTION WIDTH SD 50.9 fL (36.4-46.3); WHITE BLOOD COUNT 7.44 K/uL (4.8-10.8)
[2018-03-23 13:38] LABS: PTT PATIENT 27.9 SECONDS (21.0-31.0)
[2018-03-23 13:48] LABS: ALBUMIN 3.3 gm/dl (3.4-5.0); CALCIUM 8.3 mg/dl (8.5-10.1); CREATININE 1.69 mg/dl (0.60-1.20); POTASSIUM 5.3 mmol/L (3.5-5.1); TOTAL PROTEIN 7.9 gm/dl (6.4-8.2)
[2018-03-23] MEDS ORDERED: SODIUM CHLORIDE 0.9% 1000ML 1,000 ML IV STA (13:50)
--- NOTE | 2018-03-23 13:59 | EMERGENCY ROOM VISIT NOTE ---
History Report prepared by Mandi: Maki Bhatti Under the Supervision of: Dr. Jim Stone D.O. First contact with patient: 13:46 Chief Complaint: ILLNESS Stated Complaint: ABD.PAIN History of Present Illness The patient is a 82 year old female who presents to the Emergency Room with complaints of right upper quadrant abdominal pain beginning 2 days ago. The patient had an episode of emesis while she was at rehab 2 days ago. She started having trouble breathing today. Reportedly she had hypoxia at the personal alf however no hypoxia was documented in our facility. The patient denies having any chest pain or trouble breathing at this time. She does complain of right upper quadrant abdominal pain. She denies having any current nausea or vomiting. She denies having any lower extremity swelling or pain. Her accompanies her. He states that she was very weak this morning and appeared to be listless. She does complain of generalized weakness but yet does not complain of unilateral weakness. She was not seen by her primary care physician for these complaints. Source of History: patient Onset: 2 days ago Position: abdomen (RUQ) Associated Symptoms: + SOB (has resolved), + vomiting (once, 2 days ago), + weakness, No chest pain, No nausea Note: Denies: lower extremity swelling or pain Review of Systems See HPI for pertinent positives & negatives. A total of 10 systems reviewed and were otherwise negative. Past Medical & Surgical Medical Problems: (1) Abdominal pain (2) Acute cholecystitis due to biliary calculus (3) Clostridium difficile diarrhea (4) Facial droop (5) HCAP (healthcare-associated pneumonia) (6) Headache (7) Hyperlipemia (8) Hypertension (9) Migraine (10) Sinusitis, acute (11) Stenosis of left internal carotid artery (12) Vomiting Surgical Problems: (1) Post-operative state Family History Hypertension Seizures Social History Smoking Status: Never Smoker Alcohol Use: none Drug Use: none Marital Status: Housing Status: lives with family Occupation Status: retired Current/Historical Medications Scheduled Atorvastatin (Lipitor), 20 MG PO DAILY Citalopram Hydrobromide (Celexa), 1 TAB PO DAILY Levothyroxine Sodium (Synthroid), 37.5 MCG PO DAILYBB Lisinopril (Zestril), 10 MG PO BID Loratadine (Claritin), 10 MG PO DAILY Magnesium Oxide (Mag-Ox), 400 MG PO BIDM Mirtazapine (Remeron), 1 TAB PO HS Nadolol (Nadolol), 40 MG PO QAM Oxycodone HCl (Oxycodone HCl), 5 MG PO DAILY@0500 Oxycodone HCl (Oxycodone HCl), 5 MG PO DAILY@0500 Pramipexole Dihydrochloride (Mirapex), 1 MG PO HS Riboflavin (Riboflavin), 400 MG PEG DAILY Topiramate (Topamax), 1 TAB PO BID Zolpidem Tartrate (Ambien), 5 MG PO HS Scheduled PRN Acetaminophen (Tylenol), 325 MG PO Q4 PRN for Pain or Fever Bisacodyl (Dulcolax), 1 SUPP AR UD PRN for Constipation Fluticasone Propionate (Nasal) (Flonase Allergy Relief), 2 SPRAYS MERCEDES DAILY PRN for allergies Magnesium Hydroxide (Milk of Magnesia), 30 ML PO DAILY PRN for Constipation Ondansetron Hcl (Zofran), 4 MG PO Q6 PRN for Nausea or Vomiting Oxycodone HCl (Oxycodone HCl), 5 MG PO Q4H PRN for Pain Oxycodone Hcl (Oxycodone Hcl), 1 CAP PO Q4H PRN for Pain Pramipexole Dihydrochloride (Mirapex), 0.25 MG PO DAILY PRN for RLS and/or insomnia Sennosides-Docusate Sodium (Senexon-S), 1 TAB PO DAILY PRN for Constipation Sodium Phosphates (Fleet Enema Six Pack), 1 DOSE AR UD PRN for Constipation Allergies Coded Allergies: Codeine (Verified Allergy, Mild, ?REACTION, 03/23/18) Aripiprazole (Unverified Allergy, Unknown, unknown, 03/23/18) Aspartame (Verified Adverse Reaction, Unknown, MIGRAINE, 03/23/18) Physical Exam Vital Signs Date Time Temp Pulse Resp B/P (MAP) Pulse Ox O2 Delivery O2 Flow Rate FiO2 03/23/18 16:54 65 20 135/94 99 Room Air 03/23/18 15:13 62 20 138/65 97 Room Air 03/23/18 13:20 62 17 131/60 97 Room Air 03/23/18 12:51 66 03/23/18 12:46 36.6 74 16 147/79 97 Room Air Physical Exam GENERAL: Patient is awake alert in no acute distress patient is resting comfortably and showing no signs of anxiety EYES: The conjunctivae are clear. The pupils are round and reactive. EARS, NOSE, MOUTH AND THROAT: The nose is without any evidence of any deformity. Mucous membranes are moist tongue is midline NECK: The neck is nontender and supple. RESPIRATORY: There is no tachypnea or conversational dyspnea. Lung sounds were diminished in the right lung field. There were no rales rhonchi or wheezing. CARDIOVASCULAR: Regular rate and rhythm noted there no murmurs rubs or gallops normal S1 normal S2 GASTROINTESTINAL: The abdomen is soft and nondistended. There is right upper quadrant tenderness to palpation but no guarding or rigidity. MUSCULOSKELETAL/EXTREMITIES: There is no evidence of gross deformity full range of motion is noted in the hips and shoulders SKIN: There is no obvious evidence of any rash. There are no petechiae, pallor or cyanosis noted. NEUROLOGIC: Patient is awake alert and oriented x3 strength is symmetric but diminished. There is no facial droop. There is no drift in the upper extremities. Medical Decision & Procedures ER Provider Diagnostic Interpretation: Radiology results as stated below per my review and radiologist interpretation: ABDOMINAL ULTRASOUND, RIGHT UPPER QUADRANT HISTORY: Status post cholecystectomy. Right upper quadrant pain.. COMPARISON: Abdominal ultrasound 02/23/2017. FINDINGS: Pancreas: The pancreatic tail is obscured by overlying bowel gas. The remaining portions of the pancreas are within normal limits. Liver: Mild to moderate intra hepatic bile duct dilatation. Gallbladder: The gallbladder is surgically absent. CBD: The common bile duct measures up to 1 cm. Right kidney: No hydronephrosis. Moderate cortical renal thinning. IMPRESSION: 1. Cholecystectomy. 2. Mild to moderate intra and extra hepatic bile duct dilatation. This is nonspecific but could be due to the postcholecystectomy state. Recommend correlation with LFTs to exclude an obstructive process. Electronically signed by: Jose Bennett M.D. 03/23/2018 3:06 PM Dictated Date/Time: 03/23/2018 3:03 PM CHEST ONE VIEW PORTABLE, KUB HISTORY: 82 years-old Female RUQ pain, s/p choloe acute right upper quadrant abdominal pain with recent cholecystectomy COMPARISON: Right upper quadrant abdominal ultrasound of same day, chest radiograph 03/01/2017 TECHNIQUE: Portable AP view of the chest with KUB radiograph FINDINGS: CHEST: Cardiac silhouette is enlarged. Calcification of the aorta. Chronic appearing interstitial coarsening. Calcified granulomata about the right midlung. Subsegmental bibasilar opacities. Medial right lung apex is secured by the patient's chin. No pneumothorax, pleural effusion or overt pulmonary edema. Degenerative changes of the shoulders and spine. KUB: Moderate formed stool throughout the colon. Surgical clips of the abdominal right upper quadrant suggest prior cholecystectomy. No gross pneumoperitoneum or pneumatosis. Bowel gas pattern is nonobstructive. No definite urolith. Demineralized appearance of the bones. Degenerative changes of the lumbar spine and right hip. Left hip total joint arthroplasty. Calcified granulomata about the gluteal tissues bilaterally. IMPRESSION: 1. Nonobstructive bowel gas pattern. 2. Suggested constipation. 3. Subsegmental bibasilar opacities suggest atelectasis with pneumonitis thought to be less likely. 4. Cardiomegaly. The above report was generated using voice recognition software. It may contain grammatical, syntax or spelling errors. Electronically signed by: Jonathan Randle M.D. 03/23/2018 3:21 PM Dictated Date/Time: 03/23/2018 3:17 PM Laboratory Results Test 03/23/18 12:50 Immature Granulocyte % (Auto) 0.4 % White Blood Count 7.44 K/uL (4.8-10.8) Red Blood Count 3.87 M/uL (4.2-5.4) Hemoglobin 11.8 g/dL (12.0-16.0) Hematocrit 36.9 % (37-47) Mean Corpuscular Volume 95.3 fL (80-100) Mean Corpuscular Hemoglobin 30.5 pg (25-34) Mean Corpuscular Hemoglobin Concent 32.0 g/dl (32-36) Platelet Count 257 K/uL (130-400) Mean Platelet Volume 9.7 fL (7.4-10.4) Neutrophils (%) (Auto) 61.6 % Lymphocytes (%) (Auto) 24.5 % Monocytes (%) (Auto) 9.3 % Eosinophils (%) (Auto) 3.8 % Basophils (%) (Auto) 0.4 % Neutrophils # (Auto) 4.59 K/uL (1.4-6.5) Lymphocytes # (Auto) 1.82 K/uL (1.2-3.4) Monocytes # (Auto) 0.69 K/uL (0.11-0.59) Eosinophils # (Auto) 0.28 K/uL (0-0.5) Basophils # (Auto) 0.03 K/uL (0-0.2) Immature Granulocyte # (Auto) 0.03 K/uL (0.00-0.02) Prothrombin Time 10.0 SECONDS (9.0-12.0) Prothromb Time International Ratio 1.0 (0.9-1.1) Activated Partial Thromboplast Time 27.9 SECONDS (21.0-31.0) Partial Thromboplastin Ratio 1.1 Troponin I < 0.015 ng/ml (0-0.045) Globulin 4.6 gm/dl (2.5-4.0) Albumin/Globulin Ratio 0.7 (0.9-2) Laboratory results per my review. Medications Administered Medications (Trade) Dose Ordered Sig/Fernando Route Start Time Stop Time Status Last Admin Dose Admin Sodium Chloride 1,000 ml @ 200 mls/hr Q5H STAT IV 03/23/18 13:50 03/23/18 18:49 DC 03/23/18 15:17 200 MLS/HR Acetaminophen (Tylenol Tab) 650 mg Q4H PRN PO 03/23/18 17:00 03/24/18 16:38 DC 03/24/18 06:17 650 MG ECG Per My Interpretation Indication: abdominal pain Rate (beats per minute): 63 Rhythm: normal sinus Findings: no acute ischemic change, no ectopy Comparison ECG Date: 07/27/17 Change: no significant change ED Course 1349: The patient was evaluated in room A11B. A complete history and physical examination were performed. 1350: Ordered NSS 1,000 ml @ 200 mls/hr IV 1550: I discussed the patient's case with JOCELYN Vasquez, GI. She recommends admittance and ordering MRCP. 1554: I discussed the patient's case with Dr. Oates, [facility] hospitalist. The patient will be evaluated for further management. Medical Decision Prior records/ancillary studies reviewed and summarized above. Nursing notes reviewed. Additional history obtained from the patient's significant other. Differential diagnosis: Etiologies such as metabolic, infection, hypo/hyperglycemia, electrolyte abnormalities, cardiac sources, intracerebral event, toxicologic, neurologic, as well as others were entertained. The patient is an 82-year-old female who presented to the emergency department for evaluation of nausea vomiting. She was found to have elevated liver function studies. I am unsure the cause of this elevation. The patient was treated with IV fluids in the emergency department. I discussed her case with the GI group that it seen her in the past when she had C. difficile. They did recommend further inpatient studies and an MRCP. I discussed this case with the on-call [facility] hospitalist group. They have agreed to evaluate patient in the emergency department for further management and disposition. Medication Reconcilliation Current Medication List: was personally reviewed by me Blood Pressure Screening Patient's blood pressure: Normal blood pressure Blood pressure disposition: Did not require urgent referral Consults Time Called: 1532 Consulting Physician: JOCELYN Vasquez GI Returned Call: 1550 I discussed the patient's case with JOCELYN Vasquez GI. She recommends admittance and ordering MRCP. Additional Consults: Time Called: 1550 Consulted Physician: Dr. Oates, [facility] hospitalist Returned Call: 1554 Additional Comments: I discussed the patient's case with Dr. Oates, [facility] hospitalist. The patient will be evaluated for further management. Impression Primary Impression: RUQ pain Additional Impressions: Abnormal LFTs Nausea & vomiting Scribe Attestation The scribe's documentation has been prepared under my direction and personally reviewed by me in its entirety. I confirm that the note above accurately reflects all work, treatment, procedures, and medical decision making performed by me. Departure Information Dispostion Being Evaluated By Hospitalist Prescriptions Oxycodone HCl (Oxycodone HCl) 5 Mg Tab 5 MG PO DAILY@0500 for 30 Days, #30 TABS Prov: Ariadna Belcher PA-C 03/24/18 Oxycodone Hcl (OXYCODONE HCL) 5 Mg Cap 1 CAP PO Q4H Y for Pain for 30 Days, #120 CAP Prov: Ariadna Belcher PA-C 03/24/18 Referrals Kim Sanabria M.D. (PCP) Patient Instructions My [facility] Problem Qualifiers Additional Impressions: Nausea & vomiting Vomiting type: unspecified Vomiting Intractability: non-intractable Qualified Codes: R11.2 - Nausea with vomiting, unspecified
--- NOTE | 2018-03-23 15:07 | DIAGNOSTIC IMAGING REPORT ---
ABDOMINAL ULTRASOUND, RIGHT UPPER QUADRANT HISTORY: Status post cholecystectomy. Right upper quadrant pain.. COMPARISON: Abdominal ultrasound 02/23/2017. FINDINGS: Pancreas: The pancreatic tail is obscured by overlying bowel gas. The remaining portions of the pancreas are within normal limits. Liver: Mild to moderate intra hepatic bile duct dilatation. Gallbladder: The gallbladder is surgically absent. CBD: The common bile duct measures up to 1 cm. Right kidney: No hydronephrosis. Moderate cortical renal thinning. IMPRESSION: 1. Cholecystectomy. 2. Mild to moderate intra and extra hepatic bile duct dilatation. This is nonspecific but could be due to the postcholecystectomy state. Recommend correlation with LFTs to exclude an obstructive process. Electronically signed by: Jose Bennett M.D. 03/23/2018 3:06 PM Dictated Date/Time: 03/23/2018 3:03 PM
--- NOTE | 2018-03-23 15:22 | DIAGNOSTIC IMAGING REPORT ---
CHEST ONE VIEW PORTABLE, KUB HISTORY: 82 years-old Female RUQ pain, s/p choloe acute right upper quadrant abdominal pain with recent cholecystectomy COMPARISON: Right upper quadrant abdominal ultrasound of same day, chest radiograph 03/01/2017 TECHNIQUE: Portable AP view of the chest with KUB radiograph FINDINGS: CHEST: Cardiac silhouette is enlarged. Calcification of the aorta. Chronic appearing interstitial coarsening. Calcified granulomata about the right midlung. Subsegmental bibasilar opacities. Medial right lung apex is secured by the patient's chin. No pneumothorax, pleural effusion or overt pulmonary edema. Degenerative changes of the shoulders and spine. KUB: Moderate formed stool throughout the colon. Surgical clips of the abdominal right upper quadrant suggest prior cholecystectomy. No gross pneumoperitoneum or pneumatosis. Bowel gas pattern is nonobstructive. No definite urolith. Demineralized appearance of the bones. Degenerative changes of the lumbar spine and right hip. Left hip total joint arthroplasty. Calcified granulomata about the gluteal tissues bilaterally. IMPRESSION: 1. Nonobstructive bowel gas pattern. 2. Suggested constipation. 3. Subsegmental bibasilar opacities suggest atelectasis with pneumonitis thought to be less likely. 4. Cardiomegaly. The above report was generated using voice recognition software. It may contain grammatical, syntax or spelling errors. Electronically signed by: Jonathan Randle M.D. 03/23/2018 3:21 PM Dictated Date/Time: 03/23/2018 3:17 PM
[2018-03-23] MEDS ORDERED: ALUMINUM/MAGNESIUM/SIMETH (MAALOX MAX) 30 ML UDC PO PRN (17:00)
[2018-03-23] MEDS ORDERED: MAGNESIUM HYDROXIDE SUSP 30 ML UDC PO PRN (17:00)
[2018-03-23] MEDS ORDERED: POLYETHYLENE (MIRALAX) 17 GM PACK PO PRN (17:00)
[2018-03-23] MEDS ORDERED: ONDANSETRON INJ 2 MG/ML 2 ML VIAL IV PRN (17:00)
[2018-03-23] MEDS ORDERED: ACETAMINOPHEN 325 MG TAB PO PRN (17:00)
--- NOTE | 2018-03-23 17:29 | History and Physical ---
History & Physical Date & Time of Service: Mar 23, 2018 at 17:09 Chief Complaint: Abd.pain Primary Care Physician: Kim Sanabria M.D. History of Present Illness Source: patient, spouse, clinic records, hospital records, [facility] ( [facility] jail records) This is an 82 y/o female with a history of HTN, HLD, hypothyroidism, dementia, migraines, RLS, and anxiety who presented to the ED on 03/23 with right upper quadrant pain. The patient states she developed right upper quadrant pain, nausea and vomiting two nights ago. She vomited several times that night and has not vomited since, but has remained intermittently nauseous. She states the pain is aching and waxes and wanes in intensity, from a 5 to a 10 out of 10. She currently complains of a 5/10 pain. Per her , the patient today developed hypoxia and hypotension, prompting her to be brought to the ED with concern of possible aspiration pneumonia. The patient complains of generalized weakness and fatigue. The patient denies fevers, chills, sweats, chest pain, palpitations, claudication, cough, wheezing, shortness of breath, dysuria, hematuria, urinary retention, paralysis, focal motor weakness, numbness and tingling. Past Medical/Surgical History Medical Problems: (1) Abdominal pain (2) Acute cholecystitis due to biliary calculus (3) Alteration consciousness (4) Altered mental status (5) Altered mental status (6) Bronchitis (7) C. difficile colitis (8) Clostridium difficile diarrhea (9) Dementia (10) Facial droop (11) Fracture of femoral neck, left (12) HCAP (healthcare-associated pneumonia) (13) Headache (14) Hyperlipemia (15) Hypertension (16) Migraine (17) Pneumonia (18) Pneumonia involving left lung (19) Seizure (20) Sinusitis (21) Sinusitis, acute (22) Stenosis of left internal carotid artery (23) Vomiting (24) Weakness (25) Weakness Surgical Problems: (1) Post-operative state Family History Heart disease Hypertension Seizures Social History Smoking Status: Never Smoker Smokeless Tobacco Use: No Alcohol Use: none Drug Use: none Marital Status: Housing status: other (personal jail) Occupational Status: retired Immunizations History of Influenza Vaccine: Yes Influenza Vaccine Date: May 22, 2012 History of Tetanus Vaccine?: Yes Tetanus Immunization Date: Aug 31, 2004 History of Pneumococcal: Yes Pneumococcal Date: May 22, 2012 History of Hepatitis B Vaccine: No Allergies Coded Allergies: Codeine (Verified Allergy, Mild, ?REACTION, 03/23/18) Aripiprazole (Unverified Allergy, Unknown, unknown, 03/23/18) Aspartame (Verified Adverse Reaction, Unknown, MIGRAINE, 03/23/18) Home Medications Scheduled Atorvastatin (Lipitor), 20 MG PO DAILY Citalopram Hydrobromide (Celexa), 1 TAB PO DAILY Levothyroxine Sodium (Synthroid), 37.5 MCG PO DAILYBB Lisinopril (Zestril), 10 MG PO BID Loratadine (Claritin), 10 MG PO DAILY Magnesium Oxide (Mag-Ox), 400 MG PO BIDM Mirtazapine (Remeron), 1 TAB PO HS Nadolol (Nadolol), 40 MG PO QAM Oxycodone HCl (Oxycodone HCl), 5 MG PO DAILY@0500 Oxycodone HCl (Oxycodone HCl), 5 MG PO DAILY@0500 Pramipexole Dihydrochloride (Mirapex), 1 MG PO HS Riboflavin (Riboflavin), 400 MG PEG DAILY Topiramate (Topamax), 1 TAB PO BID Zolpidem Tartrate (Ambien), 5 MG PO HS Scheduled PRN Acetaminophen (Tylenol), 325 MG PO Q4 PRN for Pain or Fever Bisacodyl (Dulcolax), 1 SUPP IL UD PRN for Constipation Fluticasone Propionate (Nasal) (Flonase Allergy Relief), 2 SPRAYS MERCEDES DAILY PRN for allergies Magnesium Hydroxide (Milk of Magnesia), 30 ML PO DAILY PRN for Constipation Ondansetron Hcl (Zofran), 4 MG PO Q6 PRN for Nausea or Vomiting Oxycodone HCl (Oxycodone HCl), 5 MG PO Q4H PRN for Pain Oxycodone Hcl (Oxycodone Hcl), 1 CAP PO Q4H PRN for Pain Pramipexole Dihydrochloride (Mirapex), 0.25 MG PO DAILY PRN for RLS and/or insomnia Sennosides-Docusate Sodium (Senexon-S), 1 TAB PO DAILY PRN for Constipation Sodium Phosphates (Fleet Enema Six Pack), 1 DOSE IL UD PRN for Constipation Review of Systems Constitutional: +Weakness, fatigue. No fever, No chills, No sweats Eyes: No worsening of vision, No eye pain, No diplopia ENT: No hearing loss, No nasal symptoms, No trouble swallowing Respiratory: No cough, No wheezing, No shortness of breath Cardiovascular: No chest pain, No claudication, No palpitations Abdomen: +RUQ pain, nausea, vomiting. Musculoskeletal: No joint pain, No muscle pain, No swelling Genitourinary - Female: +urinary incontinence, chronic. No dysuria, No urinary retention, No hematuria Neurologic: No paralysis, No weakness, No numbness/tingling Integumentary: No rash, No itch, No color change Physical Exam Vital Signs Date Time Temp Pulse Resp B/P (MAP) Pulse Ox O2 Delivery O2 Flow Rate FiO2 03/23/18 16:54 65 20 135/94 99 Room Air 03/23/18 15:13 62 20 138/65 97 Room Air 03/23/18 13:20 62 17 131/60 97 Room Air 03/23/18 12:51 66 03/23/18 12:46 36.6 74 16 147/79 97 Room Air General appearance: Well-developed, well-nourished, no apparent distress Head: Normocephalic, atraumatic Eyes: Normal inspection, PERRL, EOMI ENT: Normal ENT inspection, hearing grossly normal, pharynx normal Neck: Supple, no JVD, trachea midline Respiratory/Chest: +Crackles in bases. Normal breath sounds, no respiratory distress Cardiovascular: +Systolic murmur. Regular rate & rhythm, no gallop Abdomen/GI: +RUQ TTP. Normal bowel sounds, soft Extremities/Musculoskeletal: Normal inspection, no calf tenderness, no pedal edema Neurological/Psych: +Disoriented to time. Alert, normal mood/affect, oriented x 2 Skin: Normal color, warm/dry, no rash Diagnostics Laboratory Results Results Past 24 Hours Test 03/23/18 12:50 Range/Units White Blood Count 7.44 4.8-10.8 K/uL Red Blood Count 3.87 4.2-5.4 M/uL Hemoglobin 11.8 12.0-16.0 g/dL Hematocrit 36.9 37-47 % Mean Corpuscular Volume 95.3 80-100 fL Mean Corpuscular Hemoglobin 30.5 25-34 pg Mean Corpuscular Hemoglobin Concent 32.0 32-36 g/dl Platelet Count 257 130-400 K/uL Mean Platelet Volume 9.7 7.4-10.4 fL Neutrophils (%) (Auto) 61.6 % Lymphocytes (%) (Auto) 24.5 % Monocytes (%) (Auto) 9.3 % Eosinophils (%) (Auto) 3.8 % Basophils (%) (Auto) 0.4 % Neutrophils # (Auto) 4.59 1.4-6.5 K/uL Lymphocytes # (Auto) 1.82 1.2-3.4 K/uL Monocytes # (Auto) 0.69 0.11-0.59 K/uL Eosinophils # (Auto) 0.28 0-0.5 K/uL Basophils # (Auto) 0.03 0-0.2 K/uL RDW Standard Deviation 50.9 36.4-46.3 fL RDW Coefficient of Variation 14.7 11.5-14.5 % Immature Granulocyte % (Auto) 0.4 % Immature Granulocyte # (Auto) 0.03 0.00-0.02 K/uL Prothrombin Time 10.0 9.0-12.0 SECONDS Prothromb Time International Ratio 1.0 0.9-1.1 Activated Partial Thromboplast Time 27.9 21.0-31.0 SECONDS Partial Thromboplastin Ratio 1.1 Sodium Level 134 136-145 mmol/L Potassium Level 5.3 3.5-5.1 mmol/L Chloride Level 104 98-107 mmol/L Carbon Dioxide Level 25 21-32 mmol/L Anion Gap 5.0 3-11 mmol/L Blood Urea Nitrogen 40 7-18 mg/dl Creatinine 1.69 0.60-1.20 mg/dl Est Creatinine Clear Calc Drug Dose 20.8 ml/min Estimated GFR () 31.8 Estimated GFR (Non- 27.4 BUN/Creatinine Ratio 23.4 10-20 Random Glucose 89 70-99 mg/dl Calcium Level 8.3 8.5-10.1 mg/dl Total Bilirubin 0.3 0.2-1 mg/dl Aspartate Amino Transf (AST/SGOT) 572 15-37 U/L Alanine Aminotransferase (ALT/SGPT) 399 12-78 U/L Alkaline Phosphatase 307 45-117 U/L Troponin I < 0.015 0-0.045 ng/ml Total Protein 7.9 6.4-8.2 gm/dl Albumin 3.3 3.4-5.0 gm/dl Globulin 4.6 2.5-4.0 gm/dl Albumin/Globulin Ratio 0.7 0.9-2 Diagnostic Radiology Reviewed the following studies and agree with interpretation as follows: ABDOMINAL ULTRASOUND, RIGHT UPPER QUADRANT HISTORY: Status post cholecystectomy. Right upper quadrant pain.. COMPARISON: Abdominal ultrasound 02/23/2017. FINDINGS: Pancreas: The pancreatic tail is obscured by overlying bowel gas. The remaining portions of the pancreas are within normal limits. Liver: Mild to moderate intra hepatic bile duct dilatation. Gallbladder: The gallbladder is surgically absent. CBD: The common bile duct measures up to 1 cm. Right kidney: No hydronephrosis. Moderate cortical renal thinning. IMPRESSION: 1. Cholecystectomy. 2. Mild to moderate intra and extra hepatic bile duct dilatation. This is nonspecific but could be due to the postcholecystectomy state. Recommend correlation with LFTs to exclude an obstructive process. CHEST ONE VIEW PORTABLE, KUB HISTORY: 82 years-old Female RUQ pain, s/p choloe acute right upper quadrant abdominal pain with recent cholecystectomy COMPARISON: Right upper quadrant abdominal ultrasound of same day, chest radiograph 03/01/2017 TECHNIQUE: Portable AP view of the chest with KUB radiograph FINDINGS: CHEST: Cardiac silhouette is enlarged. Calcification of the aorta. Chronic appearing interstitial coarsening. Calcified granulomata about the right midlung. Subsegmental bibasilar opacities. Medial right lung apex is secured by the patient's chin. No pneumothorax, pleural effusion or overt pulmonary edema. Degenerative changes of the shoulders and spine. KUB: Moderate formed stool throughout the colon. Surgical clips of the abdominal right upper quadrant suggest prior cholecystectomy. No gross pneumoperitoneum or pneumatosis. Bowel gas pattern is nonobstructive. No definite urolith. Demineralized appearance of the bones. Degenerative changes of the lumbar spine and right hip. Left hip total joint arthroplasty. Calcified granulomata about the gluteal tissues bilaterally. IMPRESSION: 1. Nonobstructive bowel gas pattern. 2. Suggested constipation. 3. Subsegmental bibasilar opacities suggest atelectasis with pneumonitis thought to be less likely. 4. Cardiomegaly. Impression Assessment and Plan 82 y/o female with a history of HTN, HLD, hypothyroidism, dementia, migraines, RLS, and anxiety who presented to the ED on 03/23 with right upper quadrant pain. Pt febrile, VSS on arrival. RUQ ultrasound shows prior cholecystectomy and mild to moderate hepatic bile duct dilation. CXR and KUB negative for obstruction but constipation suggested, and subsegmental bibasilar opacities suggestive of atelectasis seen. Creatinine elevated above baseline at 1.69. LFTs elevated, but this is chronic. 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 Discussed with mid level PA and agree with findings and plan as documented in the note. Any exceptions or clarifications are listed here: None, agreed current management, for details please referral to PA's note . discussed pt and about conditions and care plan, answered questions Resuscitation Status VTE Prophylaxis Will order VTE Prophylaxis: Yes
[2018-03-23] MEDS ORDERED: TOPI100T34 PO (18:22)
[2018-03-23] MEDS ORDERED: CITA20TA9 PO (18:22)
[2018-03-23] MEDS ORDERED: MIRT30TA PO (18:22)
[2018-03-23] MEDS ORDERED: IV FLUIDS COMPLETED PRN (18:45)
[2018-03-23 19:15] VITALS: Ht 152.4 cm; Wt 65.0 kg
[2018-03-23 19:49] VITALS: BP 90/68; PULSE 63; TEMP 36.9; O2SAT 95
[2018-03-23] MEDS: SODIUM CHLORIDE 0.9% 1000ML 1,000 ML IV SCH (20:01)
[2018-03-23 20:07] VITALS: BP 145/79; PULSE 63
[2018-03-23] MEDS ORDERED: MIRTAZAPINE TAB 15 MG TAB PO SCH (21:00)
[2018-03-23] MEDS ORDERED: PRAMIPEXOLE DIHYDROCHLORIDE 0.25MG TAB PO SCH (21:00)
--- NOTE | 2018-03-23 21:31 | DIAGNOSTIC IMAGING REPORT ---
MRCP CLINICAL HISTORY: Right upper quadrant abdominal pain. Abnormal liver function studies. COMPARISON STUDY: Abdominal CT dated 05/28/2013. Abdominal ultrasound and KUB dated 03/23/2018. Abdominal ultrasound dated 02/23/2017. TECHNIQUE: Abdominal MRCP is performed utilizing various T2-weighted sequences in the axial and coronal planes. IV contrast was not administered for this examination. The examination is compromised by motion artifact. FINDINGS: The gallbladder is surgically absent. There is mild intrahepatic biliary ductal dilatation. The common bile duct measures up to 10 mm diameter. There are no filling defects identified to indicate choledocholithiasis. The pancreatic duct is normal in appearance. The hepatic parenchyma is normal as visualized. The spleen, adrenal glands, and pancreas are grossly unremarkable. The kidneys demonstrate cortical atrophy and are without hydronephrosis. There is no abdominal ascites. No lymphadenopathy is seen in the upper abdomen. There is no evidence of bowel obstruction. Atherosclerotic plaque is noted in the abdominal aorta. The heart is enlarged. There is no large pleural effusion. The imaged bony structures appear intact. IMPRESSION: 1. Motion compromised examination. 2. The gallbladder is surgically absent. 3. There is no evidence of choledocholithiasis. 4. Intra and extrahepatic biliary ductal dilatation is nonspecific and likely related to previous cholecystectomy. Dictated: 03/23/2018 9:11 PM Transcribed: 03/23/2018 9:31 PM Anne Electronically signed by: Yonathan Clancy M.D. 03/23/2018 9:37 PM Dictated Date/Time: 03/23/2018 9:11 PM
[2018-03-23] MEDS: TOPIRAMATE 100 MG TAB PO SCH (21:39)
[2018-03-23] MEDS: LISINOPRIL 10 MG TAB PO SCH (21:39)
[2018-03-23] MEDS: HEPARIN SOD 5000 UNIT/0.5 ML CARP SQ SCH (21:43)
[2018-03-23 22:45] VITALS: BP 113/58; PULSE 63; TEMP 36.6; O2SAT 95
[2018-03-24] MEDS: SODIUM CHLORIDE 0.9% 1000ML 1,000 ML IV SCH ×2 (05:58→14:05)
[2018-03-24] MEDS ORDERED: LEVOTHYROXINE 25 MCG TAB PO SCH (06:00)
[2018-03-24] MEDS ORDERED: MAGNESIUM OXIDE 400 MG TAB PO SCH (08:00)
[2018-03-24 08:50] VITALS: BP 155/78; PULSE 64; TEMP 36.5; O2SAT 97
[2018-03-24] MEDS ORDERED: DONEPEZIL HCL 5 MG TAB PO SCH (09:00)
[2018-03-24] MEDS ORDERED: POLYETHYLENE (MIRALAX) 17 GM PACK PO SCH (09:00)
[2018-03-24] MEDS ORDERED: FLUTICASONE PROPIONATE NA SPR 16 GM BTL NAE SCH (09:00)
[2018-03-24] MEDS ORDERED: CITALOPRAM 20 MG TAB PO SCH (09:00)
[2018-03-24] MEDS ORDERED: LORATADINE 10 MG TAB PO SCH (09:00)
[2018-03-24] MEDS ORDERED: ATORVASTATIN 20 MG TAB PO SCH (09:00)
[2018-03-24] MEDS ORDERED: FERROUS SULFATE 325 MG TAB PO SCH (09:00)
[2018-03-24] MEDS ORDERED: NADOLOL 40 MG TAB PO SCH (09:00)
[2018-03-24] MEDS: LISINOPRIL 10 MG TAB PO SCH (09:22)
[2018-03-24] MEDS: TOPIRAMATE 100 MG TAB PO SCH (09:22)
[2018-03-24] MEDS: HEPARIN SOD 5000 UNIT/0.5 ML CARP SQ SCH (09:28)
[2018-03-24 09:56] LABS: HEMATOCRIT 36.7 % (37-47); HEMOGLOBIN 11.8 g/dL (12.0-16.0); MEAN CELL VOLUME 94.3 fL (80-100); MEAN CORPUSCULAR HEMOGLOBIN 30.3 pg (25-34); MEAN CORPUSCULAR HGB CONC 32.2 g/dl (32-36); MEAN PLATELET VOLUME 9.6 fL (7.4-10.4); PLATELET COUNT 221 K/uL (130-400); RED CELL DISTRIBUTION WIDTH CV 14.1 % (11.5-14.5); RED CELL DISTRIBUTION WIDTH SD 48.7 fL (36.4-46.3); WHITE BLOOD COUNT 5.82 K/uL (4.8-10.8)
[2018-03-24 10:17] VITALS: O2SAT 97
[2018-03-24 10:18] LABS: CALCIUM 8.4 mg/dl (8.5-10.1); CREATININE 1.16 mg/dl (0.60-1.20); POTASSIUM 4.6 mmol/L (3.5-5.1); TOTAL PROTEIN 7.4 gm/dl (6.4-8.2)
--- NOTE | 2018-03-24 12:24 | Gastrointestinal Consultation ---
Gastrointestinal Consultation Date of Consultation: Mar 24, 2018 Attending Physician: Dr. Farah Consulting Physician: Dr. Silva Reason for Consultation: RUQ Abdominal pain History of Present Illness Patient is a 82 year old female pt of Dr. Sanabria with a hx of dementia, hyperlipidemia, migraines, osteoporosis, GERD, hypothyroidism, RLS and carotic stenosis. 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 I spoke with the pt and her . They tell me that, today, she feels constipated and that she continues with RUQ to right mid abdomen pain. She has not had fever or jaundice. At the time of my interview, she was seated on a chair at the bedside. Her main concern was constipation. On arrival, transaminases were elevated: AST: 599 on arrival -> 223 today; ALT 194->120; Alk Phos 206-> 105. Bilirubin has remained normal. Interestingly, her LFTs were similarly elevated in 2017. On RUQ US on arrival with a 1cm CBD post cholecystectomy. MRCP was normal. Choledocholithiasis is not seen on either study. Imaging was suggestive of constipation. Past Medical/Surgical History Medical Problems: (1) Abnormal LFTs Status: Acute (2) Alteration consciousness Status: Acute (3) Altered mental status Status: Acute (4) Altered mental status Status: Acute (5) C. difficile colitis Status: Acute (6) Dementia Status: Acute (7) Fracture of femoral neck, left Status: Acute (8) Nausea & vomiting Status: Acute (9) Pneumonia Status: Acute (10) Pneumonia involving left lung Status: Acute (11) RUQ pain Status: Acute (12) Seizure Status: Acute (13) Sinusitis Status: Acute (14) Weakness Status: Acute Past Medical History: 1. C-diff 2. Dementia 3. Stroke vs. Seizures 4. Carotic artery stenosis 5. GERD 6. Hypothyroidism 7. HTN 8. RLS Past Surgical History: 1. Hernia repair 2. Hernia repair 3. Hysterectomy 4. Appendectomy 5. Temporal bx 6. Occipital nerve decompression 7. Brachial nerve neuroplasty Family History Heart disease Hypertension Seizures Social History Smoking Status: Never Smoker Alcohol Use: none Drug Use: none Marital Status: Housing Status: lives with family Occupation Status: retired Allergies Coded Allergies: Codeine (Verified Allergy, Mild, ?REACTION, 03/23/18) Aripiprazole (Unverified Allergy, Unknown, unknown, 03/23/18) Aspartame (Verified Adverse Reaction, Unknown, MIGRAINE, 03/23/18) Current Medications Home Meds and Scripts Medications Dose Route/Sig Max Daily Dose Days Date Category Dose Instructions Remeron (Mirtazapine) 30 Mg Tab 1 Tab PO HS 30 03/23/18 Reported Celexa (Citalopram Hydrobromide) 20 Mg Tab 1 Tab PO DAILY 30 03/23/18 Reported Topamax (Topiramate) 100 Mg Tab 1 Tab PO BID 30 03/23/18 Reported Tylenol (Acetaminophen) 325 Mg Tab 325 Mg PO Q4 PRN 07/27/17 Reported Ambien (Zolpidem Tartrate) 5 Mg Tab 5 Mg PO HS 07/27/17 Reported WITHIN 1 HOUR OF BEDTIME AND ONLY GIVEN IF PT HAS WITNESSED INSOMNIA Zofran (Ondansetron HCl) 4 Mg Tab 4 Mg PO Q6 PRN 07/27/17 Reported Milk of Magnesia (Magnesium Hydroxide) 30 Ml Susp 30 Ml PO DAILY PRN 07/27/17 Reported Fleet Enema Six Pack (Sodium Phosphates) 1 Kelley Kelley 1 Dose GA UD PRN 07/27/17 Reported Dulcolax (Bisacodyl) 10 Mg Sup 1 Supp GA UD PRN 07/27/17 Reported Mirapex (Pramipexole Dihydrochloride) 0.75 Mg Tab 0.75 Mg PO HS 07/27/17 Reported Claritin (Loratadine) 10 Mg Tab 10 Mg PO DAILY 07/27/17 Reported Flonase Allergy Relief (Fluticasone Propionate (Nasal)) 50 Mcg/Act Spr 2 Sprays MERCEDES DAILY 07/27/17 Reported Aricept (Donepezil Hydrochloride) 5 Mg Tab 5 Mg PO DAILY 07/27/17 Reported Synthroid (Levothyroxine Sodium) 25 Mcg Tab 37.5 Mcg PO DAILYBB 30 10/05/16 Rx Zestril (Lisinopril) 10 Mg Tab 10 Mg PO BID 30 10/05/16 Rx Mag-Ox (Magnesium Oxide) 400 Mg Tab 400 Mg PO BIDM 09/27/16 Reported Ferrous Sulfate 325 Mg Tab 325 Mg PO DAILY 09/27/16 Reported Nadolol 40 Mg Tab 40 Mg PO QAM 09/27/16 Reported Lipitor (Atorvastatin Calcium) 20 Mg Tab 20 Mg PO DAILY 11/20/15 Reported Review of Systems Constitutional: No fever, No chills, No sweats, No weight loss, No weakness Eyes: No eye pain, No redness ENT: No sore throat, No trouble swallowing, No pain on swallowing Respiratory: No cough, No wheezing, No shortness of breath, No dyspnea on exertion Cardiac: No chest pain, No edema, No palpitations Abdomen: + see HPI Neuro: No memory loss, No weakness, No numbness/tingling, No vertigo, No balance problems Psych: No depression symptoms, No anxiety, No insomnia Heme: No abnormal bleeding/bruising, No night sweats Endo: No excessive thirst, No excessive urination Skin: No rash, No itch, No new/changing skin lesions, No jaundice Physical Exam Date Time Temp Pulse Resp B/P (MAP) Pulse Ox O2 Delivery O2 Flow Rate FiO2 03/24/18 10:17 97 Room Air 03/24/18 08:50 36.5 64 18 155/78 (103) 97 Room Air 03/23/18 23:50 Room Air 03/23/18 22:45 36.6 63 16 113/58 (76) 95 Room Air 03/23/18 20:07 63 145/79 (101) 03/23/18 19:49 36.9 63 16 90/68 (75) 95 Room Air 03/23/18 19:15 Room Air 03/23/18 18:40 36.8 68 18 146/69 98 03/23/18 16:54 65 20 135/94 99 Room Air 03/23/18 15:13 62 20 138/65 97 Room Air 03/23/18 13:20 62 17 131/60 97 Room Air 03/23/18 12:51 66 03/23/18 12:46 36.6 74 16 147/79 97 Room Air General Appearance: no apparent distress, + thin Eyes: normal inspection, EOMI Neck: supple, no adenopathy, thyroid normal, no JVD Respiratory/Chest: chest non-tender, lungs clear, normal breath sounds, no accessory muscle use Cardiovascular: regular rate, rhythm, no JVD, no murmur Abdomen: normal bowel sounds, soft, no organomegaly, + tenderness (RUQ and right mid abdomen tenderness w/o rebound or guarding) Extremities: normal inspection, no pedal edema, normal capillary refill 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: alert, normal mood/affect, oriented x 3 Skin: normal color, no jaundice, warm/dry, no rash Laboratory Results Last 24 Hours Test 03/23/18 12:50 03/24/18 09:43 White Blood Count 7.44 K/uL 5.82 K/uL Red Blood Count 3.87 M/uL 3.89 M/uL Hemoglobin 11.8 g/dL 11.8 g/dL Hematocrit 36.9 % 36.7 % Mean Corpuscular Volume 95.3 fL 94.3 fL Mean Corpuscular Hemoglobin 30.5 pg 30.3 pg Mean Corpuscular Hemoglobin Concent 32.0 g/dl 32.2 g/dl Platelet Count 257 K/uL 221 K/uL Mean Platelet Volume 9.7 fL 9.6 fL Neutrophils (%) (Auto) 61.6 % Lymphocytes (%) (Auto) 24.5 % Monocytes (%) (Auto) 9.3 % Eosinophils (%) (Auto) 3.8 % Basophils (%) (Auto) 0.4 % Neutrophils # (Auto) 4.59 K/uL Lymphocytes # (Auto) 1.82 K/uL Monocytes # (Auto) 0.69 K/uL Eosinophils # (Auto) 0.28 K/uL Basophils # (Auto) 0.03 K/uL RDW Standard Deviation 50.9 fL 48.7 fL RDW Coefficient of Variation 14.7 % 14.1 % Immature Granulocyte % (Auto) 0.4 % Immature Granulocyte # (Auto) 0.03 K/uL Prothrombin Time 10.0 SECONDS Prothromb Time International Ratio 1.0 Activated Partial Thromboplast Time 27.9 SECONDS Partial Thromboplastin Ratio 1.1 Sodium Level 134 mmol/L 138 mmol/L Potassium Level 5.3 mmol/L 4.6 mmol/L Chloride Level 104 mmol/L 111 mmol/L Carbon Dioxide Level 25 mmol/L 19 mmol/L Anion Gap 5.0 mmol/L 8.0 mmol/L Blood Urea Nitrogen 40 mg/dl 28 mg/dl Creatinine 1.69 mg/dl 1.16 mg/dl Est Creatinine Clear Calc Drug Dose 20.8 ml/min 30.4 ml/min Estimated GFR () 31.8 50.1 Estimated GFR (Non- 27.4 43.2 BUN/Creatinine Ratio 23.4 24.2 Random Glucose 89 mg/dl 111 mg/dl Calcium Level 8.3 mg/dl 8.4 mg/dl Total Bilirubin 0.3 mg/dl 0.4 mg/dl Aspartate Amino Transf (AST/SGOT) 572 U/L 223 U/L Alanine Aminotransferase (ALT/SGPT) 399 U/L 275 U/L Alkaline Phosphatase 307 U/L 257 U/L Troponin I < 0.015 ng/ml Total Protein 7.9 gm/dl 7.4 gm/dl Albumin 3.3 gm/dl 3.0 gm/dl Globulin 4.6 gm/dl Albumin/Globulin Ratio 0.7 Magnesium Level 2.3 mg/dl Direct Bilirubin 0.1 mg/dl Impression Patient is a 82 year old female with: 1. Elevated LFTs. - This does not appear to be caused by an obstructive process. A 1cm bile duct , in a person of this age who is status cholecystectomy is only borderline, - - not significantly dilated. - This could possibly be related to use of atorvastatin, pramipexole (Mirapex) or topiramate as both are noted to cause transaminase elevation but w/o significant liver injury. 2. Abdominal pain: most likely caused by constipation. Plan 1. LFTs are improving. Would follow to establish a baseline. Stiil, consider discontinuing meds that cause transaminase elevation: atorvastatin, mirapex, topiramax. 2. Hep B/C serology and JACK. 3. Laxatives. Miralax has been added since admission. Would continue this on discharge. 4. No further GI testing recommended at this time. ATTESTATION: I have performed a history and physical examination of this patient and reviewed the electronic record. Specifically on history abdominal pain has resolved and on physical examination there is no abdominal tenderness. I have discussed the case with JOCELYN Wood. The above note reflects my findings , conclusions, and recommendations. Jim Silva MD
--- NOTE | 2018-03-24 14:11 | Discharge Instructions ---
Discharge Instructions Date of Service Mar 24, 2018. Admission Reason for Admission: Abdominal Pain, Vomiting Discharge Discharge Diagnosis / Problem: Abdominal pain, constipation Discharge Goals Goal(s): Decrease discomfort, Diagnostic testing Activity Recommendations Activity Level: Assistance Required . Additional Information Patient informed of condition: Yes Advance Directives: Yes DNR: Yes Level of Care: Skilled Communicable Disease: No Prognosis: Stable Instructions / Follow-Up Instructions / Follow-Up The patient was admitted to the hospital with right upper quadrant abdominal pain, nausea and vomiting, as well as constipation. No obstruction was found. An MRCP was done which did not show anything remarkable. GI was consulted and abdominal pain thought to be likely due to constipation. No further GI testing/ intervention was recommended. The patient does have elevated liver function tests, but this is not a new finding. They are improved on day of discharge. The patient's abdominal pain did resolve after moving her bowels. She is now medically stable to return to [facility]. Medications: *No changes have been made to medications. *Recommend close monitoring of bowel movements and continue bowel regimen already in place. Follow up: *Follow up with primary care provider. *Recommend periodically following liver function tests monthly to follow their trend. No changes made to patient's medications and statin continued at this time as LFTs are improving and this is again a chronic issue. Please seek medical attention if patient experiences fevers, chills, sweats, dizziness/lightheadedness, loss of consciousness, chest pain, shortness of breath, nausea, vomiting, numbness or tingling. Current Hospital Diet Patient's current hospital diet: AHA Diet (Heart Healthy), Low Fat Diet Discharge Diet Recommended Diet: AHA Diet (Heart Healthy) Pending Studies Studies pending at discharge: no Physician Orders On Transfer Special Precautions: Fall precautions Vital Signs: Routine Medical Emergencies . Who to Call and When: Medical Emergencies: If at any time you feel your situation is an emergency, please call 911 immediately. . Non-Emergent Contact Non-Emergency issues call your: Primary Care Provider Call Non-Emergent contact if: you have a fever, your pain is not controlled, your pain is worsening, your pain is unusual for you, your pain is concerning you, you have any medication questions . . "Provider Documentation" section prepared by Ariadna Belcher. . Core Measure Problem Core Measures: None
[2018-03-24] MEDS ORDERED: PRAM1TAB52 PO (14:33)
[2018-03-24] MEDS ORDERED: RIBO1TAB4 PEG (14:33)
[2018-03-24] MEDS ORDERED: SENN-83 PO (14:33)
[2018-03-24] MEDS ORDERED: MRP1 PO (14:33)
[2018-03-24] MEDS ORDERED: RXC5 PO ×3 (14:33→15:31)
[2018-03-24 15:05] VITALS: BP 155/78; PULSE 64; TEMP 36.5; O2SAT 97
--- NOTE | 2018-03-24 15:08 | Discharge Summary ---
Discharge Summary Date of Service Mar 24, 2018. Discharge Summary Admission Date: Mar 23, 2018 at 17:09 Discharge Date: Mar 24, 2018 Discharge Disposition: longterm facility (bed hold at [facility]) Principal Diagnosis: Abdominal pain, constipation Problems/Secondary Diagnoses: Nausea, vomiting, elevated LFTs, MERCEDES, HTN, HLD, hypothyroidism, dementia, migraines, RLS, anxiety Immunizations: Have You Had Influenza Vaccine: Yes Influenza Vaccine Date: May 22, 2012 History of Tetanus Vaccine?: Yes Tetanus Immunization Date: Aug 31, 2004 History of Pneumococcal: Yes Pneumococcal Date: May 22, 2012 History of Hepatitis B Vaccine: No Procedures: ABDOMINAL ULTRASOUND, RIGHT UPPER QUADRANT HISTORY: Status post cholecystectomy. Right upper quadrant pain.. COMPARISON: Abdominal ultrasound 02/23/2017. FINDINGS: Pancreas: The pancreatic tail is obscured by overlying bowel gas. The remaining portions of the pancreas are within normal limits. Liver: Mild to moderate intra hepatic bile duct dilatation. Gallbladder: The gallbladder is surgically absent. CBD: The common bile duct measures up to 1 cm. Right kidney: No hydronephrosis. Moderate cortical renal thinning. IMPRESSION: 1. Cholecystectomy. 2. Mild to moderate intra and extra hepatic bile duct dilatation. This is nonspecific but could be due to the postcholecystectomy state. Recommend correlation with LFTs to exclude an obstructive process. CHEST ONE VIEW PORTABLE, KUB HISTORY: 82 years-old Female RUQ pain, s/p choloe acute right upper quadrant abdominal pain with recent cholecystectomy COMPARISON: Right upper quadrant abdominal ultrasound of same day, chest radiograph 03/01/2017 TECHNIQUE: Portable AP view of the chest with KUB radiograph FINDINGS: CHEST: Cardiac silhouette is enlarged. Calcification of the aorta. Chronic appearing interstitial coarsening. Calcified granulomata about the right midlung. Subsegmental bibasilar opacities. Medial right lung apex is secured by the patient's chin. No pneumothorax, pleural effusion or overt pulmonary edema. Degenerative changes of the shoulders and spine. KUB: Moderate formed stool throughout the colon. Surgical clips of the abdominal right upper quadrant suggest prior cholecystectomy. No gross pneumoperitoneum or pneumatosis. Bowel gas pattern is nonobstructive. No definite urolith. Demineralized appearance of the bones. Degenerative changes of the lumbar spine and right hip. Left hip total joint arthroplasty. Calcified granulomata about the gluteal tissues bilaterally. IMPRESSION: 1. Nonobstructive bowel gas pattern. 2. Suggested constipation. 3. Subsegmental bibasilar opacities suggest atelectasis with pneumonitis thought to be less likely. 4. Cardiomegaly. MRCP CLINICAL HISTORY: Right upper quadrant abdominal pain. Abnormal liver function studies. COMPARISON STUDY: Abdominal CT dated 05/28/2013. Abdominal ultrasound and KUB dated 03/23/2018. Abdominal ultrasound dated 02/23/2017. TECHNIQUE: Abdominal MRCP is performed utilizing various T2-weighted sequences in the axial and coronal planes. IV contrast was not administered for this examination. The examination is compromised by motion artifact. FINDINGS: The gallbladder is surgically absent. There is mild intrahepatic biliary ductal dilatation. The common bile duct measures up to 10 mm diameter. There are no filling defects identified to indicate choledocholithiasis. The pancreatic duct is normal in appearance. The hepatic parenchyma is normal as visualized. The spleen, adrenal glands, and pancreas are grossly unremarkable. The kidneys demonstrate cortical atrophy and are without hydronephrosis. There is no abdominal ascites. No lymphadenopathy is seen in the upper abdomen. There is no evidence of bowel obstruction. Atherosclerotic plaque is noted in the abdominal aorta. The heart is enlarged. There is no large pleural effusion. The imaged bony structures appear intact. IMPRESSION: 1. Motion compromised examination. 2. The gallbladder is surgically absent. 3. There is no evidence of choledocholithiasis. 4. Intra and extrahepatic biliary ductal dilatation is nonspecific and likely related to previous cholecystectomy. Consultations: Gastroenterology Medication Reconciliation Continued Medications: Acetaminophen (Tylenol) 325 Mg Tab 325 MG PO Q4 PRN for Pain or Fever Atorvastatin (Lipitor) 20 Mg Tab 20 MG PO DAILY Bisacodyl (Dulcolax) 10 Mg Sup 1 SUPP AL UD PRN for Constipation Citalopram Hydrobromide (Celexa) 20 Mg Tab 1 TAB PO DAILY for 30 Days, #90 TAB 3 Refills Fluticasone Propionate (Nasal) (Flonase Allergy Relief) 50 Mcg/Act Spr 2 SPRAYS MERCEDES DAILY PRN for allergies Levothyroxine Sodium (Synthroid) 25 Mcg Tab 37.5 MCG PO DAILYBB for 30 Days, TAB Lisinopril (Zestril) 10 Mg Tab 10 MG PO BID for 30 Days, #60 TAB Loratadine (Claritin) 10 Mg Tab 10 MG PO DAILY Magnesium Hydroxide (Milk of Magnesia) 30 Ml Susp 30 ML PO DAILY PRN for Constipation Magnesium Oxide (Mag-Ox) 400 Mg Tab 400 MG PO BIDM Mirtazapine (Remeron) 30 Mg Tab 1 TAB PO HS for 30 Days, #30 TAB 1 Refill Nadolol (Nadolol) 40 Mg Tab 40 MG PO QAM Ondansetron Hcl (Zofran) 4 Mg Tab 4 MG PO Q6 PRN for Nausea or Vomiting Oxycodone HCl (Oxycodone HCl) 5 Mg Tab 5 MG PO Q4H PRN for Pain Oxycodone HCl (Oxycodone HCl) 5 Mg Tab 5 MG PO DAILY@0500 Pramipexole Dihydrochloride (Mirapex) 1 Mg Tab 1 MG PO HS Take 1 tablet 2 hours before bedtime Pramipexole Dihydrochloride (Mirapex) 0.25 Mg Tab 0.25 MG PO DAILY PRN for RLS and/or insomnia for 90 Days, #90 TAB 1 Refill Riboflavin (Riboflavin) 400 Mg Tab 400 MG PEG DAILY Sennosides-Docusate Sodium (Senexon-S) 1 Tab Tab 1 TAB PO DAILY PRN for Constipation Sodium Phosphates (Fleet Enema Six Pack) 1 Kelley Kelley 1 DOSE AL UD PRN for Constipation Topiramate (Topamax) 100 Mg Tab 1 TAB PO BID for 30 Days, #60 TAB 1 Refill Zolpidem Tartrate (Ambien) 5 Mg Tab 5 MG PO HS WITHIN 1 HOUR OF BEDTIME AND ONLY GIVEN IF PT HAS WITNESSED INSOMNIA Discharge Exam Patient reports feeling well and is anxious to return to [place]. She states she moved her bowels this morning and her abdominal pain is now resolved. She denies any nausea or vomiting. The patient denies fevers, chills , sweats, chest pain, palpitations, claudication, cough, wheezing, shortness of breath, nausea, vomiting, abdominal pain, dysuria, hematuria, urinary retention , paralysis, weakness, numbness and tingling. Constitutional: No fever, No chills, No sweats Eyes: No worsening of vision, No eye pain, No diplopia ENT: No hearing loss, No nasal symptoms, No trouble swallowing Respiratory: No cough, No wheezing, No shortness of breath Cardiovascular: No chest pain, No claudication, No palpitations Abdomen: No pain, No nausea, No vomiting Musculoskeletal: No joint pain, No muscle pain, No swelling Genitourinary - Female: No dysuria, No urinary retention, No hematuria Neurologic: No paralysis, No weakness, No numbness/tingling Integumentary: No rash, No itch, No color change General appearance: Well-developed, well-nourished, no apparent distress Head: Normocephalic, atraumatic Eyes: Normal inspection, PERRL, EOMI ENT: Normal ENT inspection, hearing grossly normal, pharynx normal Neck: Supple, no JVD, trachea midline Respiratory/Chest: Lungs clear to auscultation, normal breath sounds, no respiratory distress Cardiovascular: +Systolic murmur. Regular rate & rhythm, no gallop Abdomen/GI: Normal bowel sounds, non-tender, soft Extremities/Musculoskeletal: Normal inspection, no calf tenderness, no pedal edema Neurological/Psych: +Disoriented to time. Alert, normal mood/affect, oriented x 2 Skin: Normal color, warm/dry, no rash Hospital Course 82 y/o female with a history of HTN, HLD, hypothyroidism, dementia, migraines, RLS, and anxiety who presented to the ED on 03/23 with right upper quadrant pain. Pt febrile, VSS on arrival. RUQ ultrasound shows prior cholecystectomy and mild to moderate hepatic bile duct dilation. CXR and KUB negative for obstruction but constipation suggested, and subsegmental bibasilar opacities suggestive of atelectasis seen. Creatinine elevated above baseline at 1.69. LFTs elevated, but this is chronic. RUQ pain, nausea, vomiting--resolved -Admit to med/surg for obs -GI consulted, appreciate recs: Bile duct dilatation only borderline for pt of this age s/p cholecystectomy. LFTs could be related to medications, consider discontinuing these. Recommend following to establish baseline. Abdominal pain likely caused by constipation, continue laxatives. No further GI testing recommended at this time. -MRCP shows intra and extrahepatic biliary duct dilation which is nonspecific and likely due to prior cholecystectomy. No choledocholithiasis. 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 Transaminases had been even more elevated 2016 -ALT 275, down from 399 -Alk phos 257, down from 307 -Bilirubin WNL -Continue to monitor periodically as outpatient -Pt has h/o possible stroke, so would continue Lipitor for now if possible, unless GI strongly recommends against it -Hep B/C serology, JACK screen to be obtained at skilled nursing, can be followed up on as outpatient HTN, HLD--stable -Continue lisinopril, Lipitor Hypothyroidism -Continue Synthroid Dementia -Pt no longer on Aricept per [place] records Migraines -Continue Topamax RLS -Continue Mirapex Anxiety -Continue Celexa DVT prophylaxis -Heparin 5000 units SC q12h -GERDA Baker Code Status -Level V, DO NOT RESUSCITATE Total Time Spent: Greater than 30 minutes This includes examination of the patient, discharge planning, medication reconciliation, and communication with other providers. Discharge Instructions Please refer to the electronic Patient Visit Report (Discharge Instructions) for additional information. Follow-Up PCP GI Additional Copies To Lg Recio M.D.; Kim Sanabria M.D.
[2018-03-24] MEDS ORDERED: OXYC1CAP5 PO (15:31)
== END 2018-03-24 15:45 ==
LOC: EDBD 12:37 → C.EDA 12:41 → C.MSW 17:09 → ENRESERV 18:23
PROVIDERS: ADMIT Hospitalist; ATTEND Hospitalist
DX: R10.11 Right upper quadrant pain (principal); R11.2 Nausea with vomiting, unspecified; N17.9 Acute kidney failure, unspecified; N18.2 Chronic kidney disease, stage 2 (mild); I12.9 Hypertensive chronic kidney disease with stage 1 through stage 4 chronic kidney disease, or unspecified chronic kidney disease; R74.8 Abnormal levels of other serum enzymes; E78.5 Hyperlipidemia, unspecified; E03.9 Hypothyroidism, unspecified; F03.90 Unspecified dementia, unspecified severity, without behavioral disturbance, psychotic disturbance, mood disturbance, and anxiety; G25.81 Restless legs syndrome; F41.9 Anxiety disorder, unspecified; Z88.5 Allergy status to narcotic agent; Z88.8 Allergy status to other drugs, medicaments and biological substances; Z86.19 Personal history of other infectious and parasitic diseases

== ENCOUNTER 2018-12-20 11:02 | Inpatient (IN) ==
[2018-12-20] MEDS ORDERED: SODIUM CHLORIDE 0.9% 1000ML 1,000 ML IV ONE (11:38)
[2018-12-20 11:51] LABS: Hematocrit (blood only) 32.8 % (37-47); Hemoglobin 10.6 g/dL (12.0-16.0); Mean Corpuscular Hgb Conc 32.3 g/dL (32-36); Mean Corpuscular Volume 93.7 fL (80-100); Mean Platelet Volume 9.7 fL (7.4-10.4); Platelet Count 233 K/uL (130-400); RDW Coefficient of Variation 14.7 % (11.5-14.5); RDW Standard Deviation 50.2 fL (36.4-46.3); White Blood Count 14.44 K/uL (4.8-10.8)
[2018-12-20 12:10] LABS: INR 1.1 (0.9-1.1); Partial Thromboplastin Ratio 1.1; Partial Thromboplastin Time 28.8 Seconds (21.0-31.0)
[2018-12-20 12:11] LABS: Basophils # (auto) 0.02 K/uL (0-0.2); Basophils % (auto) 0.1 %; Eosinophils # (auto) 0.01 K/uL (0-0.5); Eosinophils % (auto) 0.1 %; Immature Granulocytes # (auto) 0.04 K/uL (0.00-0.02); Immature Granulocytes % (auto) 0.3 %; Lymphocytes # (auto) 1.07 K/uL (1.2-3.4); Lymphocytes % (auto) 7.4 %; Monocytes # (auto) 0.97 K/uL (0.11-0.59); Monocytes % (auto) 6.7 %; Neutrophils # (auto) 12.33 K/uL (1.4-6.5); Neutrophils % (auto) 85.4 %
[2018-12-20 12:13] LABS: Alanine Aminotransferase 82 U/L (12-78); Albumin Level 3.2 gm/dl (3.4-5.0); Aspartate Aminotransferase 101 U/L (15-37); BUN Creatinine Ratio 23.3 (10-20); Blood Urea Nitrogen 32 mg/dl (7-18); Calcium 8.7 mg/dl (8.5-10.1); Carbon Dioxide 17 mmol/L (21-32); Chloride 111 mmol/L (98-107); Creatinine Clr Calc Pharmacy 27.9 ml/min; Est GFR (African American) 40.3; Est GFR (Non-African American) 34.8; Glucose 123 mg/dl (70-99); Magnesium 2.2 mg/dl (1.8-2.4); Potassium 3.8 mmol/L (3.5-5.1); Sodium 136 mmol/L (136-145)
[2018-12-20] MEDS ORDERED: ACETAMINOPHEN 500 MG TAB PO STA (12:14)
[2018-12-20 12:19] LABS: Base Excess VBG -6.1 mEq/L; Oxygen Saturation VBG 61.8 %; pH VBG 7.4 (7.36-7.41)
[2018-12-20 12:20] LABS: Albumin Globulin Ratio 0.7 (0.9-2); Alkaline Phosphatase 215 U/L (45-117); Bilirubin,Total 0.4 mg/dl (0.2-1); Globulin 4.7 gm/dl (2.5-4.0); Total Protein 7.9 gm/dl (6.4-8.2); Troponin I < 0.015 ng/ml (0-0.045)
--- NOTE | 2018-12-20 12:32 | XRay Report ---
XR chest 1V portable HISTORY: Sepsis COMPARISON: Chest 10/25/2018. FINDINGS: The heart remains borderline enlarged. No pneumothorax. Calcified granulomas within the rig ht lung. Progressive interstitial and vascular thickening suggesting mild congestive change. There is a hazy appearance to the left lung base. IMPRESSION: 1. Progressive interstitial and vascular thickening suggestive of mild congestive change. 2. Hazy appearance to the left lung base which could be due to overlapping soft tissue or a developin g airspace opacity. Electronically signed by: Jose Bennett M.D. 12/20/2018 12:30 PM
[2018-12-20] MEDS ORDERED: cefTRIAXone SODIUM 1,000 MG/50 ML BAG IV STA (14:33)
[2018-12-20 14:35] LABS: Appearance Urine Clear (Clear); Color Urine Yellow; Protein Urine Negative (Negative); Specific Gravity Urine 1.015 (1.000-1.030)
[2018-12-20 14:36] LABS: Bilirubin Urine Negative (Negative); Blood Urine Negative (Negative); Glucose Urine UA Negative (Negative); Ketones Urine Negative (Negative); Leukocyte Esterase Urine Negative (Negative); Nitrite Urine Negative (Negative); Urobilinogen Urine Negative (Negative)
[2018-12-20] MEDS ORDERED: MoRPHine SULFATE 2 MG/ML CARP IV STA (14:36)
[2018-12-20] MEDS ORDERED: ONDANSETRON INJ 2 MG/ML 2 ML VIAL IV STA (14:36)
[2018-12-20] MEDS ORDERED: SODIUM CHLORIDE 0.9% 1000ML 500 ML IV ONE (14:36)
--- NOTE | 2018-12-20 14:58 | Emergency Department Note ---
Entered by Destiny Winn acting as a scribe for Jim Stone DO History of Present Illness General Chief complaint: Fever Stated complaint: HIGH FEVER,SLEPT A LOT YESTERDAY Source: patient and family () History of Present Illness Provider complaint: fever Onset (ago): hour(s) (this morning) Location: left and right Quality: + other (fever) Associated symptoms: + confusion, + cough and + shortness of breath; no chest pain and no nausea/vomiting The patient is an 83 year old female who presents to the Emergency Department with complaints of a fever this morning. Her states that the patient was febrile at 104 this morning. Her states that the patient was also confused this morning. Per , the patient did not have nausea or vomiting but has had a cough as she has a lung infection and is on an antibiotic. Per , the patient seems short of breath but has not complained of chest pain. Her states that the patient was started on Lyrica 3 days ago but reports that it is too strong for the patient as he was unable to wake her up last night. Her states that he spoke to a nurse at the patient's doctor's office and was referred here. The patient reports a history of a cholecystectomy. Home Medications Home Medications Medication Instructions Recorded Confirmed Type atorvastatin [Lipitor] 20 mg PO HS 06/03/18 12/20/18 History fluticasone propionate [Flonase 2 spray INTRANASAL DAILY PRN 06/03/18 12/20/18 History Allergy Relief] loratadine 10 mg PO DAILY 06/03/18 12/20/18 History nadolol 40 mg PO DAILY 06/03/18 12/20/18 History pramipexole 1 mg PO HS 06/03/18 12/20/18 History Emgality Pen 120 mg SUBCUT MONTHLY 10/25/18 12/20/18 History zrfomemdkw-uqjxrafwyqlua-nwvd 1 cap PO BID PRN 10/25/18 12/20/18 History furosemide 40 mg PO DAILY 10/25/18 12/20/18 History levothyroxine 37.5 mcg PO DAILY 10/25/18 12/20/18 History losartan 50 mg PO DAILY 10/25/18 12/20/18 History mirtazapine 30 mg PO HS 10/25/18 12/20/18 History potassium chloride 10 meq PO DAILY 10/25/18 12/20/18 History topiramate 100 mg PO QAM 10/25/18 12/20/18 History zolpidem 5 mg PO HS PRN 10/25/18 12/20/18 History amoxicillin-pot clavulanate 1 tab PO BID 10 Days #20 tab 12/19/18 12/20/18 Rx cefadroxil 500 mg PO BID 12/19/18 12/20/18 History ciprofloxacin HCl [Cipro] 500 mg PO BID 12/19/18 12/20/18 History famotidine 20 mg PO BID 12/19/18 12/20/18 History ondansetron 4 mg PO Q6 PRN 12/19/18 12/20/18 History riboflavin (vitamin B2) [Vitamin 400 mg PO DAILY 12/19/18 12/20/18 History B-2] sennosides-docusate sodium 1 tab PO DIRECTED PRN 12/19/18 12/20/18 History [Senexon-S] topiramate 200 mg PO QPM 12/19/18 12/20/18 History trazodone 25 - 50 mg PO HS PRN 12/19/18 12/20/18 History Allergies Allergy/AdvReac Type Severity Reaction Status Date / Time codeine Allergy Mild ?REACTION Verified 12/19/18 21:27 aripiprazole Allergy Unknown unknown Verified 12/19/18 21:27 aspartame AdvReac Intermediate MIGRAINE Verified 12/19/18 21:27 Past Med/Surg History Medical History Migraine Restless leg syndrome C. difficile colitis (Acute) Dementia (Acute) Acute cholecystitis due to biliary calculus Bronchitis (Acute) Clostridium difficile diarrhea HCAP (healthcare-associated pneumonia) Memory loss History of seizure Hypertension (Chronic) Hyperlipemia (Chronic) Surgical History H/O carotid endarterectomy Social History Preferred Language: Maori Communication Ability: Effective Communication Ability Comment: [place] Visual Impairment: No Limitations Hearing Ability: Normal Medical Technician Assistant Required: No Beliefs That Will Affect Care: Religion Religion Beliefs: Christians marital status: Current Living Situation: Spouse Current Living Situation Comment: h/o 1 yr stay at [facility] current occupational status: retired Feels Safe at Home: Yes Safety Concerns: Feels Safe At This Time Smoking Status: Never smoker Do You Dip or Chew Tobacco: No Second Hand Exposure: No Hx Alcohol Use: No Hx Substance Use: No Review of Systems See HPI for pertinent positives & negatives. and A total of 10 systems reviewed and were otherwise negative Physical Exam Vital Signs Vital Signs - 24 hr 12/20/18 11:06 12/20/18 11:33 12/20/18 11:35 Temperature 38.6 C H Temperature Source Oral Sepsis Recent Fever Within 48 Hours Yes Sepsis New/Unexplained Change in Mental Status Yes Sepsis Action Taken by Nursing No Action Required Pulse Rate 87 82 83 Pulse Rate [Radial] Pulse Rate from SpO2 Sensor 83 Respiratory Rate 20 22 27 H Respiratory Effort / Characteristics Respiratory Depth Respiratory Pattern Blood Pressure 129/61 119/62 Blood Pressure [Left Arm] Blood Pressure Mean 83 81 Blood Pressure Mean [Left Arm] Blood Pressure Position [Left Arm] Pulse Oximetry 95 94 Oxygen Delivery Method Room Air 12/20/18 11:39 12/20/18 11:40 12/20/18 11:50 Temperature Temperature Source Sepsis Recent Fever Within 48 Hours Sepsis New/Unexplained Change in Mental Status Sepsis Action Taken by Nursing Pulse Rate 82 81 Pulse Rate [Radial] Pulse Rate from SpO2 Sensor 82 81 Respiratory Rate 26 H 25 H Respiratory Effort / Characteristics Respiratory Depth Respiratory Pattern Blood Pressure Blood Pressure [Left Arm] Blood Pressure Mean Blood Pressure Mean [Left Arm] Blood Pressure Position [Left Arm] Pulse Oximetry 94 94 96 Oxygen Delivery Method Room Air 12/20/18 12:00 12/20/18 12:01 12/20/18 12:10 Temperature Temperature Source Sepsis Recent Fever Within 48 Hours Sepsis New/Unexplained Change in Mental Status Sepsis Action Taken by Nursing Pulse Rate 82 83 80 Pulse Rate [Radial] Pulse Rate from SpO2 Sensor 82 80 80 Respiratory Rate 26 H 30 H 24 Respiratory Effort / Characteristics Respiratory Depth Respiratory Pattern Blood Pressure 129/57 L Blood Pressure [Left Arm] Blood Pressure Mean 81 Blood Pressure Mean [Left Arm] Blood Pressure Position [Left Arm] Pulse Oximetry 94 96 94 Oxygen Delivery Method 12/20/18 12:20 12/20/18 12:30 12/20/18 12:31 Temperature Temperature Source Sepsis Recent Fever Within 48 Hours Sepsis New/Unexplained Change in Mental Status Sepsis Action Taken by Nursing Pulse Rate 79 79 76 Pulse Rate [Radial] Pulse Rate from SpO2 Sensor 79 76 77 Respiratory Rate 24 27 H 28 H Respiratory Effort / Characteristics Respiratory Depth Respiratory Pattern Blood Pressure 109/52 L Blood Pressure [Left Arm] Blood Pressure Mean 71 Blood Pressure Mean [Left Arm] Blood Pressure Position [Left Arm] Pulse Oximetry 96 99 97 Oxygen Delivery Method 12/20/18 12:40 12/20/18 12:50 12/20/18 13:00 Temperature Temperature Source Sepsis Recent Fever Within 48 Hours Sepsis New/Unexplained Change in Mental Status Sepsis Action Taken by Nursing Pulse Rate 76 74 74 Pulse Rate [Radial] Pulse Rate from SpO2 Sensor 76 79 74 Respiratory Rate 27 H 26 H 22 Respiratory Effort / Characteristics Respiratory Depth Respiratory Pattern Blood Pressure Blood Pressure [Left Arm] Blood Pressure Mean Blood Pressure Mean [Left Arm] Blood Pressure Position [Left Arm] Pulse Oximetry 97 82 L 94 Oxygen Delivery Method 12/20/18 13:01 12/20/18 13:02 12/20/18 13:10 Temperature 37.3 C Temperature Source Sepsis Recent Fever Within 48 Hours Sepsis New/Unexplained Change in Mental Status Sepsis Action Taken by Nursing Pulse Rate 74 76 74 Pulse Rate [Radial] Pulse Rate from SpO2 Sensor 74 Respiratory Rate 25 H 19 24 Respiratory Effort / Characteristics Respiratory Depth Respiratory Pattern Blood Pressure 110/51 L Blood Pressure [Left Arm] Blood Pressure Mean 70 Blood Pressure Mean [Left Arm] Blood Pressure Position [Left Arm] Pulse Oximetry 94 Oxygen Delivery Method 12/20/18 13:20 12/20/18 13:30 12/20/18 13:31 Temperature Temperature Source Sepsis Recent Fever Within 48 Hours Sepsis New/Unexplained Change in Mental Status Sepsis Action Taken by Nursing Pulse Rate 75 76 75 Pulse Rate [Radial] Pulse Rate from SpO2 Sensor Respiratory Rate 24 22 20 Respiratory Effort / Characteristics Respiratory Depth Respiratory Pattern Blood Pressure 111/56 L Blood Pressure [Left Arm] Blood Pressure Mean 74 Blood Pressure Mean [Left Arm] Blood Pressure Position [Left Arm] Pulse Oximetry Oxygen Delivery Method 12/20/18 13:40 12/20/18 13:50 12/20/18 14:01 Temperature Temperature Source Sepsis Recent Fever Within 48 Hours Sepsis New/Unexplained Change in Mental Status Sepsis Action Taken by Nursing Pulse Rate 73 79 69 Pulse Rate [Radial] Pulse Rate from SpO2 Sensor Respiratory Rate 17 23 22 Respiratory Effort / Characteristics Respiratory Depth Respiratory Pattern Blood Pressure 102/56 L Blood Pressure [Left Arm] Blood Pressure Mean 71 Blood Pressure Mean [Left Arm] Blood Pressure Position [Left Arm] Pulse Oximetry Oxygen Delivery Method 12/20/18 14:31 12/20/18 15:01 12/20/18 15:31 Temperature Temperature Source Sepsis Recent Fever Within 48 Hours Sepsis New/Unexplained Change in Mental Status Sepsis Action Taken by Nursing Pulse Rate 69 67 69 Pulse Rate [Radial] Pulse Rate from SpO2 Sensor Respiratory Rate 17 18 21 Respiratory Effort / Characteristics Respiratory Depth Respiratory Pattern Blood Pressure 91/47 L 95/30 L 105/54 L Blood Pressure [Left Arm] Blood Pressure Mean 61 51 71 Blood Pressure Mean [Left Arm] Blood Pressure Position [Left Arm] Pulse Oximetry Oxygen Delivery Method 12/20/18 15:39 12/20/18 16:36 12/20/18 18:51 Temperature 36.5 C 36.6 C Temperature Source Oral Oral Sepsis Recent Fever Within 48 Hours Sepsis New/Unexplained Change in Mental Status Sepsis Action Taken by Nursing Pulse Rate 74 Pulse Rate [Radial] 70 Pulse Rate from SpO2 Sensor Respiratory Rate 18 16 Respiratory Effort / Characteristics Non-Labored Spontaneous Spontaneous Short of Breath SOB on Exertion Respiratory Depth Normal Shallow Respiratory Pattern Regular Regular Blood Pressure Blood Pressure [Left Arm] 131/74 101/62 Blood Pressure Mean Blood Pressure Mean [Left Arm] 93 75 Blood Pressure Position [Left Arm] Sitting Lying Pulse Oximetry 93 99 Oxygen Delivery Method Room Air Room Air Room Air 12/20/18 23:25 12/21/18 00:00 12/21/18 04:00 Temperature 37.2 C 36.7 C Temperature Source Oral Oral Sepsis Recent Fever Within 48 Hours Sepsis New/Unexplained Change in Mental Status Sepsis Action Taken by Nursing Pulse Rate Pulse Rate [Radial] 73 74 Pulse Rate from SpO2 Sensor Respiratory Rate 17 18 Respiratory Effort / Characteristics Spontaneous SOB on Exertion Respiratory Depth Normal Respiratory Pattern Regular Blood Pressure Blood Pressure [Left Arm] 118/56 L 118/69 Blood Pressure Mean Blood Pressure Mean [Left Arm] 76 85 Blood Pressure Position [Left Arm] Lying Lying Pulse Oximetry 93 93 Oxygen Delivery Method Room Air Room Air Room Air 12/21/18 07:11 Temperature 37.1 C Temperature Source Oral Sepsis Recent Fever Within 48 Hours Sepsis New/Unexplained Change in Mental Status Sepsis Action Taken by Nursing Pulse Rate Pulse Rate [Radial] 78 Pulse Rate from SpO2 Sensor Respiratory Rate 18 Respiratory Effort / Characteristics Respiratory Depth Respiratory Pattern Blood Pressure Blood Pressure [Left Arm] 135/62 Blood Pressure Mean Blood Pressure Mean [Left Arm] 86 Blood Pressure Position [Left Arm] Lying Pulse Oximetry 92 Oxygen Delivery Method Room Air GENERAL: Patient is awake, alert, and in no acute distress.Patient is resting comfortably and showing no signs of anxiety EYES: The conjunctivae are clear. The pupils are round and reactive. EARS, NOSE, MOUTH AND THROAT: The nose is without any evidence of any deformity. Mucous membranes are dry. Tongue is midline NECK: The neck is nontender and supple. RESPIRATORY: Diminished at the left base. No tachypnea or conversational dyspnea. CARDIOVASCULAR: Regular rate and rhythm noted. There no murmurs rubs or gallops normal S1 normal S2 GASTROINTESTINAL: The abdomen is soft. Bowel sounds are present in all quadrants. Abdomen is nontender. MUSCULOSKELETAL/EXTREMITIES: There is no evidence of gross deformity. Full range of motion is noted in the hips and shoulders. SKIN: There is no obvious evidence of any rash. There are no petechiae, pallor or cyanosis noted. NEUROLOGIC: Patient is awake alert and oriented x3. Course 1133: The patient was evaluated in room B10. A history and physical were performed. 1434: I updated the patient on her results. She verbalized agreement and understanding of the treatment plan. 1452: I discussed the patient's case with Dr. Mina Ding who will evaluate the patient for further management. Consultations Consultation #1: Dr. Mina Ding Time: 14:52 Administered Medications Famotidine (Pepcid) 20 mg PO BID JENNY Stop: 01/19/19 20:59 Last Admin: 12/20/18 20:19 Dose: 20 mg Documented by: [id number] Heparin Sodium (Porcine) (Heparin Sodium (Porcine)) 5,000 units SQ Q8 JENNY Stop: 01/19/19 21:59 Last Admin: 12/21/18 06:40 Dose: 5,000 units Documented by: [id number] Cosigned by: [id number] Admin: 12/20/18 22:16 Dose: 5,000 units Documented by: [id number] Cosigned by: [id number] Potassium Chloride/Sodium Chloride (Normal Saline W/20 Meq Kcl) 20 meq in 1,000 mls @ 100 mls/hr IV .Q10H JENNY Stop: 01/19/19 16:59 Last Admin: 12/21/18 04:08 Dose: 100 mls/hr Documented by: [id number] Infusion: 12/21/18 04:02 Dose: 100 mls/hr Documented by: [id number] Admin: 12/20/18 18:02 Dose: 100 mls/hr Documented by: [id number] Piperacillin Sod/Tazobactam (Sod 3.375 gm/ Dextrose) 115 mls @ 28.75 mls/hr IV Q8H JENNY; Protocol Stop: 12/27/18 21:59 Last Admin: 12/21/18 06:40 Dose: 28.8 mls/hr Documented by: [id number] Infusion: 12/21/18 02:20 Dose: 0 mls/hr Documented by: [id number] Admin: 12/20/18 22:19 Dose: 28.8 mls/hr Documented by: [id number] Miscellaneous (Order Awaiting Action) 1 ea N/A QS JENNY Stop: 01/20/19 00:00 Last Admin: 12/21/18 01:45 Dose: Not Given Documented by: [id number] Pramipexole Dihydrochloride (Mirapex) 1 mg PO HS JENNY Stop: 01/19/19 20:59 Last Admin: 12/20/18 20:19 Dose: 1 mg Documented by: [id number] Topiramate (Topamax) 200 mg PO QPM JENNY Stop: 01/19/19 20:59 Last Admin: 12/20/18 20:18 Dose: 200 mg Documented by: [id number] Discontinued Medications Acetaminophen (Tylenol) 1,000 mg PO NOW STA Stop: 12/20/18 12:15 Last Admin: 12/20/18 12:25 Dose: 1,000 mg Documented by: [id number] Sodium Chloride (Nss 1000ml) 1,000 mls @ 999 mls/hr IV .Q1H1M ONE Stop: 12/20/18 12:38 Last Infusion: 12/20/18 14:05 Dose: 0 mls/hr Documented by: [id number] Admin: 12/20/18 12:00 Dose: 999 mls/hr Documented by: [id number] Ceftriaxone Sodium (Rocephin) 1,000 mg in 50 mls @ 100 mls/hr IV NOW STA Stop: 12/20/18 15:02 Last Infusion: 12/20/18 16:02 Dose: 0 mls/hr Documented by: [id number] Admin: 12/20/18 14:54 Dose: 100 mls/hr Documented by: [id number] Sodium Chloride (Nss 1000ml) 500 mls @ 999 mls/hr IV .Q31M ONE Stop: 12/20/18 15:06 Last Infusion: 12/20/18 16:02 Dose: 0 mls/hr Documented by: [id number] Admin: 12/20/18 14:54 Dose: 999 mls/hr Documented by: [id number] Piperacillin Sod/Tazobactam (Sod 3.375 gm/ Dextrose) 115 mls @ 230 mls/hr IV TODAY@1730 JENNY; Protocol Stop: 12/20/18 17:59 Last Infusion: 12/20/18 18:52 Dose: 0 mls/hr Documented by: [id number] Admin: 12/20/18 18:02 Dose: 230 mls/hr Documented by: [id number] Vancomycin HCl 1,500 mg/ (Sodium Chloride) 530 mls @ 200 mls/hr IV TODAY@1730 JENNY; Protocol Stop: 12/20/18 20:08 Last Infusion: 12/20/18 20:58 Dose: 0 mls/hr Documented by: [id number] Admin: 12/20/18 18:02 Dose: 200 mls/hr Documented by: [id number] Acetaminophen (Ofirmev) 1,000 mg in 100 mls @ 400 mls/hr IV NOW STA Stop: 12/20/18 19:27 Last Admin: 12/21/18 01:45 Dose: Not Given Documented by: [id number] Morphine Sulfate (Morphine Sulfate) 2 mg IV NOW STA Stop: 12/20/18 14:37 Last Admin: 12/20/18 14:54 Dose: 2 mg Documented by: [id number] Ondansetron HCl (Zofran) 4 mg IV NOW STA Stop: 12/20/18 14:37 Last Admin: 12/20/18 14:54 Dose: 4 mg Documented by: [id number] Sumatriptan Succinate (Imitrex) 6 mg SQ NOW STA Stop: 12/20/18 16:40 Last Admin: 12/20/18 16:42 Dose: Not Given Documented by: [id number] Sumatriptan Succinate (Imitrex) Confirm Administered Dose 6 mg .ROUTE .STK-MED ONE Stop: 12/20/18 16:05 Last Admin: 12/20/18 16:08 Dose: 6 mg Documented by: [id number] Medical Decision Making Differential Diagnosis Differential diagnosis: Etiologies such as viral syndrome, otitis, pharyngitis, pneumonia, influenza, meningitis, urinary tract infection, septic arthritis, soft tissue infectious pr ocess, intra-abdominal process, sepsis, bacteremia, as well as others were entertained. Medical Records Attestation: I reviewed the patient's medical records. Home Medications Current Medication List: was personally reviewed by me Laboratory Data Attestation: I reviewed the patient's lab results. Result diagrams: 12/20/18 11:28 12/20/18 11:28 Lab Results 12/20/18 12/20/18 12/20/18 Range/Units 11:28 11:28 11:28 WBC 14.44 H (4.8-10.8) K/uL RBC 3.50 L (4.2-5.4) M/uL Hgb 10.6 L (12.0-16.0) g/dL Hct 32.8 L (37-47) % MCV 93.7 (80-100) fL MCH 30.3 (25-34) pg MCHC 32.3 (32-36) g/dL RDW Std Deviation 50.2 H (36.4-46.3) fL RDW Coeff of Caio 14.7 H (11.5-14.5) % Plt Count 233 (130-400) K/uL MPV 9.7 (7.4-10.4) fL Immature Gran % (Auto) 0.3 % Neut % (Auto) 85.4 % Lymph % (Auto) 7.4 % [place] % (Auto) 6.7 % Eos % (Auto) 0.1 % Baso % (Auto) 0.1 % Immature Gran # (Auto) 0.04 H (0.00-0.02) K/uL Neut # (Auto) 12.33 H (1.4-6.5) K/uL Lymph # (Auto) 1.07 L (1.2-3.4) K/uL [place] # (Auto) 0.97 H (0.11-0.59) K/uL Eos # (Auto) 0.01 (0-0.5) K/uL Baso # (Auto) 0.02 (0-0.2) K/uL ESR 68 H (0-21) mm/hr PT (9.0-12.0) Seconds INR (0.9-1.1) APTT (21.0-31.0) Seconds PTT Ratio VBG pH (7.36-7.41) VBG pCO2 (38-50) mmHg VBG pO2 mmHg VBG HCO3 mmol/L VBG O2 Saturation % VBG Base Excess mEq/L Barometric Pressure mm/Hg Sodium (136-145) mmol/L Potassium (3.5-5.1) mmol/L Chloride (98-107) mmol/L Carbon Dioxide (21-32) mmol/L Anion Gap (3-11) BUN (7-18) mg/dl Creatinine (0.6-1.2) mg/dl Est Cr Clr Drug Dosing ml/min Est GFR ( Amer) Est GFR (Non-Af Amer) BUN/Creatinine Ratio (10-20) Glucose (70-99) mg/dl Lactate (0.4-2.0) mmol/L Calcium (8.5-10.1) mg/dl Magnesium (1.8-2.4) mg/dl Total Bilirubin (0.2-1) mg/dl AST (15-37) U/L ALT (12-78) U/L Alkaline Phosphatase (45-117) U/L Troponin I (0-0.045) ng/ml C-Reactive Protein (0-0.29) mg/dl Total Protein (6.4-8.2) gm/dl Albumin (3.4-5.0) gm/dl Globulin (2.5-4.0) gm/dl Albumin/Globulin Ratio (0.9-2) Procalcitonin 1.55 H (0-0.5) ng/ml Urine Color Urine Appearance (Clear) Urine pH (4.5-7.5) Ur Specific [place] (1.000-1.030) Urine Protein (Negative) Urine Glucose (UA) (Negative) Urine Ketones (Negative) Urine Blood (Negative) Urine Nitrite (Negative) Urine Bilirubin (Negative) Urine Urobilinogen (Negative) Ur Leukocyte Esterase (Negative) Nasal Screen MRSA (PCR) (Negative) 12/20/18 12/20/18 12/20/18 Range/Units 11:28 11:28 12:00 WBC (4.8-10.8) K/uL RBC (4.2-5.4) M/uL Hgb (12.0-16.0) g/dL Hct (37-47) % MCV (80-100) fL MCH (25-34) pg MCHC (32-36) g/dL RDW Std Deviation (36.4-46.3) fL RDW Coeff of Caio (11.5-14.5) % Plt Count (130-400) K/uL MPV (7.4-10.4) fL Immature Gran % (Auto) % Neut % (Auto) % Lymph % (Auto) % [place] % (Auto) % Eos % (Auto) % Baso % (Auto) % Immature Gran # (Auto) (0.00-0.02) K/uL Neut # (Auto) (1.4-6.5) K/uL Lymph # (Auto) (1.2-3.4) K/uL [place] # (Auto) (0.11-0.59) K/uL Eos # (Auto) (0-0.5) K/uL Baso # (Auto) (0-0.2) K/uL ESR (0-21) mm/hr PT 11.0 (9.0-12.0) Seconds INR 1.1 (0.9-1.1) APTT 28.8 (21.0-31.0) Seconds PTT Ratio 1.1 VBG pH (7.36-7.41) VBG pCO2 (38-50) mmHg VBG pO2 mmHg VBG HCO3 mmol/L VBG O2 Saturation % VBG Base Excess mEq/L Barometric Pressure mm/Hg Sodium 136 (136-145) mmol/L Potassium 3.8 (3.5-5.1) mmol/L Chloride 111 H (98-107) mmol/L Carbon Dioxide 17 L (21-32) mmol/L Anion Gap 8.0 (3-11) BUN 32 H (7-18) mg/dl Creatinine 1.38 H (0.6-1.2) mg/dl Est Cr Clr Drug Dosing 27.9 ml/min Est GFR ( Amer) 40.3 Est GFR (Non-Af Amer) 34.8 BUN/Creatinine Ratio 23.3 H (10-20) Glucose 123 H (70-99) mg/dl Lactate 0.9 (0.4-2.0) mmol/L Calcium 8.7 (8.5-10.1) mg/dl Magnesium 2.2 (1.8-2.4) mg/dl Total Bilirubin 0.4 (0.2-1) mg/dl AST 101 H (15-37) U/L ALT 82 H (12-78) U/L Alkaline Phosphatase 215 H (45-117) U/L Troponin I < 0.015 (0-0.045) ng/ml C-Reactive Protein 17.60 H (0-0.29) mg/dl Total Protein 7.9 (6.4-8.2) gm/dl Albumin 3.2 L (3.4-5.0) gm/dl Globulin 4.7 H (2.5-4.0) gm/dl Albumin/Globulin Ratio 0.7 L (0.9-2) Procalcitonin (0-0.5) ng/ml Urine Color Urine Appearance (Clear) Urine pH (4.5-7.5) Ur Specific [place] (1.000-1.030) Urine Protein (Negative) Urine Glucose (UA) (Negative) Urine Ketones (Negative) Urine Blood (Negative) Urine Nitrite (Negative) Urine Bilirubin (Negative) Urine Urobilinogen (Negative) Ur Leukocyte Esterase (Negative) Nasal Screen MRSA (PCR) (Negative) 12/20/18 12/20/18 12/20/18 Range/Units 12:00 14:02 18:30 WBC (4.8-10.8) K/uL RBC (4.2-5.4) M/uL Hgb (12.0-16.0) g/dL Hct (37-47) % MCV (80-100) fL MCH (25-34) pg MCHC (32-36) g/dL RDW Std Deviation (36.4-46.3) fL RDW Coeff of Caio (11.5-14.5) % Plt Count (130-400) K/uL MPV (7.4-10.4) fL Immature Gran % (Auto) % Neut % (Auto) % Lymph % (Auto) % [place] % (Auto) % Eos % (Auto) % Baso % (Auto) % Immature Gran # (Auto) (0.00-0.02) K/uL Neut # (Auto) (1.4-6.5) K/uL Lymph # (Auto) (1.2-3.4) K/uL [place] # (Auto) (0.11-0.59) K/uL Eos # (Auto) (0-0.5) K/uL Baso # (Auto) (0-0.2) K/uL ESR (0-21) mm/hr PT (9.0-12.0) Seconds INR (0.9-1.1) APTT (21.0-31.0) Seconds PTT Ratio VBG pH 7.40 (7.36-7.41) VBG pCO2 29 L (38-50) mmHg VBG pO2 30 mmHg VBG HCO3 18 mmol/L VBG O2 Saturation 61.8 % VBG Base Excess -6.1 mEq/L Barometric Pressure 738.6 mm/Hg Sodium (136-145) mmol/L Potassium (3.5-5.1) mmol/L Chloride (98-107) mmol/L Carbon Dioxide (21-32) mmol/L Anion Gap (3-11) BUN (7-18) mg/dl Creatinine (0.6-1.2) mg/dl Est Cr Clr Drug Dosing ml/min Est GFR ( Amer) Est GFR (Non-Af Amer) BUN/Creatinine Ratio (10-20) Glucose (70-99) mg/dl Lactate (0.4-2.0) mmol/L Calcium (8.5-10.1) mg/dl Magnesium (1.8-2.4) mg/dl Total Bilirubin (0.2-1) mg/dl AST (15-37) U/L ALT (12-78) U/L Alkaline Phosphatase (45-117) U/L Troponin I (0-0.045) ng/ml C-Reactive Protein (0-0.29) mg/dl Total Protein (6.4-8.2) gm/dl Albumin (3.4-5.0) gm/dl Globulin (2.5-4.0) gm/dl Albumin/Globulin Ratio (0.9-2) Procalcitonin (0-0.5) ng/ml Urine Color Yellow Urine Appearance Clear (Clear) Urine pH 5.0 (4.5-7.5) Ur Specific [place] 1.015 (1.000-1.030) Urine Protein Negative (Negative) Urine Glucose (UA) Negative (Negative) Urine Ketones Negative (Negative) Urine Blood Negative (Negative) Urine Nitrite Negative (Negative) Urine Bilirubin Negative (Negative) Urine Urobilinogen Negative (Negative) Ur Leukocyte Esterase Negative (Negative) Nasal Screen MRSA (PCR) Negative (Negative) Imaging Data Radiologist's Impression: Radiology results as stated below per my review and the radiologist's interpretation: XR chest 1V portable HISTORY: Sepsis COMPARISON: Chest 10/25/2018. FINDINGS: The heart remains borderline enlarged. No pneumothorax. Calcified granulomas within the right lung. Progressive interstitial and vascular thickening suggesting mild congestive change. There is a hazy appearance to the left lung base. IMPRESSION: 1. Progressive interstitial and vascular thickening suggestive of mild congestive change. 2. Hazy appearance to the left lung base which could be due to overlapping soft tissue or a developing airspace opacity. Electronically signed by: Jose Bennett M.D. 12/20/2018 12:30 PM ECG Data Attestation: I personally reviewed and interpreted this ECG as follows: Indication: weakness Rate (beats per minute): 85 Rhythm: normal sinus Findings: no PAC, no PVC, no ST depression, no ST elevation, no acute ischemic change and no ectopy Comparison ECG Date: from (12/19/18) Change: no significant change Blood Pressure Blood Pressure Findings: Low blood pressure Blood Pressure Disposition: further management by hospitalist JAS Narrative The patient is an 83-year-old female who presented to the emergency department for an evaluation of fever. The patient was seen last evening and was diagnosed with dehydration. She is currently taking an antibiotic for presumed lung infection but she is been on this antibiotic for many weeks. She was seen last night and diagnosed with headache and sinusitis as well. She was to be starting a new antibiotic but her family doctor told her not to start this antibiotic because she was already taking an antibiotic. She returns today because of the fever with family members. She is somewhat listless. She was treated with an antibiotic in the emergency department. She was also treated with IV fluids. I discussed the patient's laboratory and radiographic studies with her. She had fluctuations in her blood pressure and I was concerned this could represent a larger infection. For this reason I discussed her case with the on-call [facility] hospitalist. They have agreed to evaluate the patient in the emergency department for further management and disposition. Impression & Plan Sinusitis, Headache, Fever, Hypotension Discharge Plan Visit Data *Final* Discharge Date/Time: 12/20/18 16:18 Chief Complaint: Fever Stated Complaint: HIGH FEVER,SLEPT A LOT YESTERDAY ED Provider: Jim Stone Discharge Problem: Sinusitis, Headache, Fever, Hypotension Patient Disposition: Admitted As Inpatient Discharge Instructions Interventions: ED Discharge Assessment Last Done: 12/20/18 16:18 Discharge Problem: Sinusitis Qualifiers: Sinusitis location: unspecified location Headache Qualifiers: Headache type: unspecified Headache chronicity pattern: unspecified pattern Fever Qualifiers: Fever type: unspecified Qualified Code(s): R50.9 - Fever, unspecified Hypotension Qualifiers: Hypotension type: unspecified hypotension type Qualified Code(s): I95.9 - Hypotension, unspecified The scribe's documentation has been prepared under my direction and personally reviewed by me in its entirety. I confirm that the note above accurately reflects all work, treatment, procedures, and medical decision making performed by me.
--- NOTE | 2018-12-20 15:54 | History & Physical Report ---
Date of Service December 20, 2018 Assessment & Plan (1) Sepsis: likely due to pneumonia but also has diarrhea will treat with Vanco and Zosyn IV fluids blood cultures drawn in the ED (2) HCAP (healthcare-associated pneumonia): patient has been following with Dr. Nelson and Dr. Yang had bronchoscopy on 11/30 for 4 months of URI and cough bronchial lavage grew out MSSA and Pseudomonas placed on Cefadroxil and Cipro by Dr. Yang, saw in office on 12/11 now with fever, still with cough but no sputum has increased lethargy and poor oral intake, did take Lyrica recently has leukocytosis at 14k and mild MERCEDES CXR has left lower lobe infiltrate will place on Zosyn and Vanco IV for time being consult Dr. Yang for further recommendations (3) MERCEDES (acute kidney injury): Cr up at 1.3, was actually higher at 1.6 yesterday gentle IV fluids, hold nephrotoxins follow UO (4) C. difficile colitis: h/o C diff colitis, now with diarrhea and on chronic antibiotics will check for C diff, could be the reason for the fever and sepsis presentation (5) Hypotension: transient, improving with IV fluids will continue fluids at 100cc/hr can give fluid bolus as needed (6) Migraine: has headache every day per will give Imitrex 6mg SC as morphine does not help takes Topamax BID, will continue on Emgality pen once a month (7) Dementia: mild at baseline, lives at home (8) Fever: could be due to pneumonia or diarrhea follow for improvement with treatment (9) Altered level of consciousness: per , she was started on Lyrica 3 days ago for insomnia had a strong reaction, could not wake up all day yesterday will hold Lyrica as well as other sleep aides as she is awake but a little fatigued in the ED (10) Transaminitis: mild elevation in AST and ALT, likely due to acute illness repeat tomorrow History of Present Illness Chief Complaint: I had a fever Primary Care Provider: Kim Sanabria MD 83 yo female with history of dementia, recurrent respiratory infections/pneumonia, C diff colitis, HTN, migraine headaches and insomnia, presents to the ED with her family due to lethargy and fevers at home. Most of the history obtained from her and daughter in law at the bedside. She has been dealing with a chronic cough and pneumonia for the past 4 months. She was on several rounds of antibiotics without improvement. She had a CT of her abdomen/pelvis for other reasons but the bases of the lungs demonstrated bronchiolitis. She was seen by Dr. Nelson in the pulmonary clinic and bronchoscopy was recommended. She had a bronchoscopy on 11/30 and lavage cultures grew MSSA and Pseudomonas. She was referred to Dr. Yang for antibiotic recommendations, treated with Cipro and Cefadroxil. She has been feeling well until a few days ago. She was coughing less, no recent fevers or night sweats. Her appetite was good. She still had some dyspnea on exertion. Three days ago she was started on Lyrica for insomnia. She had a bad reaction to the medication, caused significant lethargy and drowsiness, could not get her to wake up all day. Two days ago she started to have some loose stools and they became more frequent. She had a more productive cough and more dyspnea as well. She had a fever today. She has not been eating or drinking well for three days. Compliant with her medications. She came to the ED. She was slightly hypotensive, responded to IV fluid bolus. WBC up at 14k. ESR and CRP both elevated. Cr higher than baseline at 1.38. Electrolytes stable. Mild elevation in transaminases. CXR showed left lower lobe infiltrate, which is chronic change. Allergies Allergy/AdvReac Type Severity Reaction Status Date / Time codeine Allergy Mild ?REACTION Verified 12/19/18 21:27 aripiprazole Allergy Unknown unknown Verified 12/19/18 21:27 aspartame AdvReac Intermediate MIGRAINE Verified 12/19/18 21:27 Home Medications Home Medications Medication Instructions Recorded Confirmed Type atorvastatin [Lipitor] 20 mg PO HS 06/03/18 12/20/18 History fluticasone propionate [Flonase 2 spray INTRANASAL DAILY PRN 06/03/18 12/20/18 History Allergy Relief] loratadine 10 mg PO DAILY 06/03/18 12/20/18 History nadolol 40 mg PO DAILY 06/03/18 12/20/18 History pramipexole 1 mg PO HS 06/03/18 12/20/18 History Emgality Pen 120 mg SUBCUT MONTHLY 10/25/18 12/20/18 History inysitoryy-ewonnkntmjtto-uvqt 1 cap PO BID PRN 10/25/18 12/20/18 History furosemide 40 mg PO DAILY 10/25/18 12/20/18 History levothyroxine 37.5 mcg PO DAILY 10/25/18 12/20/18 History losartan 50 mg PO DAILY 10/25/18 12/20/18 History mirtazapine 30 mg PO HS 10/25/18 12/20/18 History potassium chloride 10 meq PO DAILY 10/25/18 12/20/18 History topiramate 100 mg PO QAM 10/25/18 12/20/18 History zolpidem 5 mg PO HS PRN 10/25/18 12/20/18 History amoxicillin-pot clavulanate 1 tab PO BID 10 Days #20 tab 12/19/18 12/20/18 Rx cefadroxil 500 mg PO BID 12/19/18 12/20/18 History ciprofloxacin HCl [Cipro] 500 mg PO BID 12/19/18 12/20/18 History famotidine 20 mg PO BID 12/19/18 12/20/18 History ondansetron 4 mg PO Q6 PRN 12/19/18 12/20/18 History riboflavin (vitamin B2) [Vitamin 400 mg PO DAILY 12/19/18 12/20/18 History B-2] sennosides-docusate sodium 1 tab PO DIRECTED PRN 12/19/18 12/20/18 History [Senexon-S] topiramate 200 mg PO QPM 12/19/18 12/20/18 History trazodone 25 - 50 mg PO HS PRN 12/19/18 12/20/18 History Past Med/Surg History Medical History Migraine Restless leg syndrome C. difficile colitis (Acute) Dementia (Acute) Acute cholecystitis due to biliary calculus Bronchitis (Acute) Clostridium difficile diarrhea HCAP (healthcare-associated pneumonia) Memory loss History of seizure Hypertension (Chronic) Hyperlipemia (Chronic) Surgical History H/O carotid endarterectomy Social History Preferred Language: Romansh Communication Ability: Effective Communication Ability Comment: [place] Visual Impairment: No Limitations Hearing Ability: Normal Residential Counselor Required: No Beliefs That Will Affect Care: Sikh Sikh Beliefs: Christians marital status: Current Living Situation: Spouse Current Living Situation Comment: h/o 1 yr stay at [facility] current occupational status: retired Feels Safe at Home: Yes Safety Concerns: Feels Safe At This Time Smoking Status: Never smoker Do You Dip or Chew Tobacco: No Second Hand Exposure: No Hx Alcohol Use: No Hx Substance Use: No Review of Systems Review of Systems: All systems reviewed & are unremarkable except as noted in HPI & below Constitutional: + fever, + chills, + sweats, + fatigue, + weakness and + daytime sleepiness Respiratory: + cough, + dyspnea and + dyspnea on exertion; no pain on inspiration, no pain with cough and no wheezing Cardiovascular: + dyspnea; no chest pain, no palpitations, no syncope and no edema Gastrointestinal: + diarrhea/loose stools; no abdominal pain, no nausea, no vomiting, no constipation, no blood in stools and no melena Genitourinary: no dysuria, no difficulty urinating, no urinary frequency, no urinary hesitancy and no urinary urgency Musculoskeletal: no back pain and no neck pain Integumentary: no rash Neurologic: + headache(s) and + confusion; no syncope Psychiatric: + confusion Physical Exam Constitutional: WD/WN, vitals as above well developed, well nourished and + ill appearing; + not appropriately hydrated (appears dry) Eyes: PERRL, conjunctivae normal, anicteric sclerae ENMT: external ear and nose normal, oropharynx normal Neck: trachea midline, no thyromegaly Respiratory: normal respiratory effort and + cough; no respiratory distress Auscultation: + diminished lung sounds (left base) and + crackles (left base) Cardiovascular: RRR, no murmur, no edema Gastrointestinal (Abdomen): normal bowel sounds, soft, nontender, no hepatosplenomegaly Musculoskeletal: no cyanosis or clubbing, extremities motor strength 5/5 Skin: no rashes, warm and dry Neurologic: patellar DTR's 2+ bilat, sensation intact and PERRL, EOMI, accommodation nl, no face palsy, no dysarthria Psychiatric: Orientation: alert and oriented x 3 Lymphatic: no cervical or axillary lymphadenopathy Results & Data Vital Signs (Past 12 Hours) Vital Signs Temp Pulse Resp BP Pulse Ox 05/01/19 15:31 69 21 105/54 L 12/20/18 15:01 67 18 95/30 L 12/20/18 14:31 69 17 91/47 L 12/20/18 14:01 69 22 102/56 L 12/20/18 13:50 79 23 12/20/18 13:40 73 17 12/20/18 13:31 75 20 111/56 L 12/20/18 13:30 76 22 12/20/18 13:20 75 24 12/20/18 13:10 74 24 12/20/18 13:02 76 19 12/20/18 13:01 37.3 C 74 25 H 110/51 L 94 12/20/18 13:00 74 22 94 12/20/18 12:50 74 26 H 82 L 12/20/18 12:40 76 27 H 97 12/20/18 12:31 76 28 H 109/52 L 97 12/20/18 12:30 79 27 H 99 12/20/18 12:20 79 24 96 12/20/18 12:10 80 24 94 12/20/18 12:01 83 30 H 129/57 L 96 12/20/18 12:00 82 26 H 94 12/20/18 11:50 81 25 H 96 12/20/18 11:40 82 26 H 94 12/20/18 11:39 94 12/20/18 11:35 83 27 H 119/62 94 12/20/18 11:33 82 22 12/20/18 11:06 38.6 C H 87 20 129/61 95 Laboratory Results Laboratory Results - last 24 hr 12/20/18 12/20/18 12/20/18 11:28 11:28 11:28 WBC 14.44 H RBC 3.50 L Hgb 10.6 L Hct 32.8 L MCV 93.7 MCH 30.3 MCHC 32.3 RDW Std Deviation 50.2 H RDW Coeff of Caio 14.7 H Plt Count 233 MPV 9.7 Immature Gran % (Auto) 0.3 Neut % (Auto) 85.4 Lymph % (Auto) 7.4 [place] % (Auto) 6.7 Eos % (Auto) 0.1 Baso % (Auto) 0.1 Immature Gran # (Auto) 0.04 H Neut # (Auto) 12.33 H Lymph # (Auto) 1.07 L [place] # (Auto) 0.97 H Eos # (Auto) 0.01 Baso # (Auto) 0.02 ESR 68 H PT INR APTT PTT Ratio VBG pH VBG pCO2 VBG pO2 VBG HCO3 VBG O2 Saturation VBG Base Excess Barometric Pressure Sodium Potassium Chloride Carbon Dioxide Anion Gap BUN Creatinine Est Cr Clr Drug Dosing Est GFR ( Amer) Est GFR (Non-Af Amer) BUN/Creatinine Ratio Glucose Lactate Calcium Magnesium Total Bilirubin AST ALT Alkaline Phosphatase Troponin I C-Reactive Protein Total Protein Albumin Globulin Albumin/Globulin Ratio Procalcitonin 1.55 H Urine Color Urine Appearance Urine pH Ur Specific [place] Urine Protein Urine Glucose (UA) Urine Ketones Urine Blood Urine Nitrite Urine Bilirubin Urine Urobilinogen Ur Leukocyte Esterase 12/20/18 12/20/18 12/20/18 11:28 11:28 12:00 WBC RBC Hgb Hct MCV MCH MCHC RDW Std Deviation RDW Coeff of Caio Plt Count MPV Immature Gran % (Auto) Neut % (Auto) Lymph % (Auto) [place] % (Auto) Eos % (Auto) Baso % (Auto) Immature Gran # (Auto) Neut # (Auto) Lymph # (Auto) [place] # (Auto) Eos # (Auto) Baso # (Auto) ESR PT 11.0 INR 1.1 APTT 28.8 PTT Ratio 1.1 VBG pH VBG pCO2 VBG pO2 VBG HCO3 VBG O2 Saturation VBG Base Excess Barometric Pressure Sodium 136 Potassium 3.8 Chloride 111 H Carbon Dioxide 17 L Anion Gap 8.0 BUN 32 H Creatinine 1.38 H Est Cr Clr Drug Dosing 27.9 Est GFR ( Amer) 40.3 Est GFR (Non-Af Amer) 34.8 BUN/Creatinine Ratio 23.3 H Glucose 123 H Lactate 0.9 Calcium 8.7 Magnesium 2.2 Total Bilirubin 0.4 AST 101 H ALT 82 H Alkaline Phosphatase 215 H Troponin I < 0.015 C-Reactive Protein 17.60 H Total Protein 7.9 Albumin 3.2 L Globulin 4.7 H Albumin/Globulin Ratio 0.7 L Procalcitonin Urine Color Urine Appearance Urine pH Ur Specific [place] Urine Protein Urine Glucose (UA) Urine Ketones Urine Blood Urine Nitrite Urine Bilirubin Urine Urobilinogen Ur Leukocyte Esterase 12/20/18 12/20/18 12:00 14:02 WBC RBC Hgb Hct MCV MCH MCHC RDW Std Deviation RDW Coeff of Caio Plt Count MPV Immature Gran % (Auto) Neut % (Auto) Lymph % (Auto) [place] % (Auto) Eos % (Auto) Baso % (Auto) Immature Gran # (Auto) Neut # (Auto) Lymph # (Auto) [place] # (Auto) Eos # (Auto) Baso # (Auto) ESR PT INR APTT PTT Ratio VBG pH 7.40 VBG pCO2 29 L VBG pO2 30 VBG HCO3 18 VBG O2 Saturation 61.8 VBG Base Excess -6.1 Barometric Pressure 738.6 Sodium Potassium Chloride Carbon Dioxide Anion Gap BUN Creatinine Est Cr Clr Drug Dosing Est GFR ( Amer) Est GFR (Non-Af Amer) BUN/Creatinine Ratio Glucose Lactate Calcium Magnesium Total Bilirubin AST ALT Alkaline Phosphatase Troponin I C-Reactive Protein Total Protein Albumin Globulin Albumin/Globulin Ratio Procalcitonin Urine Color Yellow Urine Appearance Clear Urine pH 5.0 Ur Specific [place] 1.015 Urine Protein Negative Urine Glucose (UA) Negative Urine Ketones Negative Urine Blood Negative Urine Nitrite Negative Urine Bilirubin Negative Urine Urobilinogen Negative Ur Leukocyte Esterase Negative Diagnostic Findings XR chest 1V portable HISTORY: Sepsis COMPARISON: Chest 10/25/2018. FINDINGS: The heart remains borderline enlarged. No pneumothorax. Calcified granulomas within the right lung. Progressive interstitial and vascular thickening suggesting mild congestive change. There is a hazy appearance to the left lung base. IMPRESSION: 1. Progressive interstitial and vascular thickening suggestive of mild congestive change. 2. Hazy appearance to the left lung base which could be due to overlapping soft tissue or a developing airspace opacity. Code Status & VTE Plan Code Status DNR VTE Prophylaxis Plan VTE Prophylaxis will be ordered: Yes (1) Fever Fever type: unspecified Qualified Code(s): R50.9 - Fever, unspecified (2) Hypotension Hypotension type: unspecified hypotension type Qualified Code(s): I95.9 - Hypotension, unspecified
[2018-12-20] MEDS ORDERED: SUMAtriptan succinate 6 MG/0.5 ML VIAL ONE (16:04)
[2018-12-20] MEDS ORDERED: ACETAMINOPHEN 325 MG TAB PO PRN (16:36)
[2018-12-20] MEDS ORDERED: VANCOMYCIN CONSULT ACTIVE PRN (16:36)
[2018-12-20] MEDS ORDERED: ONDANSETRON INJ 2 MG/ML 2 ML VIAL IV PRN (16:36)
[2018-12-20] MEDS ORDERED: PIPERACILL/TAZOBAC CONSULT ACTIVE PRN (16:36)
[2018-12-20] MEDS ORDERED: SUMAtriptan succinate 6 MG/0.5 ML VIAL SQ STA (16:39)
[2018-12-20] MEDS ORDERED: PIPERACILLIN/TAZOBACTAM 3.375 GM in DEXTROSE 5% 100 ML IV SCH (17:30)
[2018-12-20] MEDS ORDERED: VANCOMYCIN HCL 1,500 MG in SODIUM CHLORIDE 0.9% 500 ML IV SCH (17:30)
[2018-12-20] MEDS: NSS + 20MEQ KCL 20 MEQ/1,000 ML BAG IV SCH (18:02)
[2018-12-20] MEDS ORDERED: ACETAMINOPHEN 1,000 MG/100 ML VIAL IV STA (19:13)
[2018-12-20] MEDS: TOPIRAMATE 100 MG TAB PO SCH (20:18)
[2018-12-20] MEDS: PRAMIPEXOLE DIHYDROCHLO 0.5 MG TAB PO SCH (20:19)
[2018-12-20] MEDS: FAMOTIDINE 20 MG TAB PO SCH (20:19)
[2018-12-20] MEDS: HEPARIN SOD 5,000 UNIT/0.5 ML VIAL SQ SCH (22:16)
[2018-12-20] MEDS: PIPERACILLIN/TAZOBACTAM 3.375 GM in DEXTROSE 5% 100 ML IV SCH (22:19)
[2018-12-21] MEDS: NSS + 20MEQ KCL 20 MEQ/1,000 ML BAG IV SCH ×2 (04:08→15:59)
[2018-12-21] MEDS: PIPERACILLIN/TAZOBACTAM 3.375 GM in DEXTROSE 5% 100 ML IV SCH ×3 (06:40→21:03)
[2018-12-21] MEDS: HEPARIN SOD 5,000 UNIT/0.5 ML VIAL SQ SCH ×3 (06:40→21:03)
[2018-12-21] MEDS: LEVOTHYROXINE SODIUM 75 MCG TABLET PO SCH (07:29)
[2018-12-21 07:48] LABS: Basophils # (auto) 0.02 K/uL (0-0.2); Basophils % (auto) 0.3 %; Eosinophils # (auto) 0.12 K/uL (0-0.5); Eosinophils % (auto) 1.7 %; Hematocrit (blood only) 29.2 % (37-47); Hemoglobin 9.4 g/dL (12.0-16.0); Immature Granulocytes # (auto) 0.01 K/uL (0.00-0.02); Immature Granulocytes % (auto) 0.1 %; Lymphocytes # (auto) 1.15 K/uL (1.2-3.4); Lymphocytes % (auto) 16.4 %; Mean Corpuscular Hgb Conc 32.2 g/dL (32-36); Mean Corpuscular Volume 94.8 fL (80-100); Mean Platelet Volume 9.5 fL (7.4-10.4); Monocytes # (auto) 0.76 K/uL (0.11-0.59); Monocytes % (auto) 10.8 %; Neutrophils # (auto) 4.95 K/uL (1.4-6.5); Neutrophils % (auto) 70.7 %; Platelet Count 176 K/uL (130-400); RDW Standard Deviation 51.8 fL (36.4-46.3); Red Blood Count 3.08 M/uL (4.2-5.4); White Blood Count 7.01 K/uL (4.8-10.8)
[2018-12-21 08:30] LABS: Albumin Level 2.5 gm/dl (3.4-5.0); BUN Creatinine Ratio 21.1 (10-20); Bilirubin Direct 0.3 mg/dl (0-0.2); Bilirubin,Total 0.5 mg/dl (0.2-1); Calcium 8.7 mg/dl (8.5-10.1); Creatinine Clr Calc Pharmacy 32.4 ml/min; Est GFR (African American) 48.2; Est GFR (Non-African American) 41.6; Potassium 4.3 mmol/L (3.5-5.1); Total Protein 6.6 gm/dl (6.4-8.2)
[2018-12-21] MEDS: TOPIRAMATE 100 MG TAB PO SCH ×2 (08:50→20:05)
[2018-12-21] MEDS: LORATADINE 10 MG TAB PO SCH (08:50)
[2018-12-21] MEDS: FAMOTIDINE 20 MG TAB PO SCH ×2 (08:50→20:06)
--- NOTE | 2018-12-21 10:07 | Infectious Disease Consult ---
Date of Consultation December 21, 2018 Assessment & Plan (1) Pneumonia involving left [age]-year-old female with dementia with chronic respiratory tract infection with recent cultures positive for MSSA and Pseudomonas, being treated with oral antibiotics, now with worsening weakness and diarrhea. Chest x-ray possibly suggestive of new infiltrate. Agree with need to evaluate for possible C. difficile colitis, and study is pending. Would continue on vancomycin and Zosyn for now pending further culture results. Will follow. (2) C. difficile colitis: History of Present Illness Reason for Consultation: Chronic lung infection Attending Physician: Ed Dial DO History of Present Illness History obtained from medical records and medical staff as patient unable to provide adequate history. 83-year-old female known to me from outpatient infectious disease consultation, with history of hypertension, hyperlipidemia, dementia, previous C. difficile infection, who has been suffering from recurrent and persistent pulmonary symptoms since winter with cough and shortness of breath with occasional low- grade fevers. She was found to have abnormal CT scan and underwent bronchoscopy last month, and found to have mucopurulent secretions with positive culture for methicillin sensitive staph aureus and pseudomonas aeruginosa she was started on December 11 on ciprofloxacin and cefadroxil. She apparently has developed somewhat increase in cough over the past several days, along with increasing weakness and diarrhea. She was brought to the emergency department, chest x-ray obtained which shows possibility of left lower lobe infiltrate developing. Has been started on vancomycin and Zosyn. Cultures are pending. C. difficile assay pending. Allergies Allergy/AdvReac Type Severity Reaction Status Date / Time codeine Allergy Mild ?REACTION Verified 12/19/18 21:27 aripiprazole Allergy Unknown unknown Verified 12/19/18 21:27 aspartame AdvReac Intermediate MIGRAINE Verified 12/19/18 21:27 Home Medications Home Medications Medication Instructions Recorded Confirmed Type atorvastatin [Lipitor] 20 mg PO HS 06/03/18 12/20/18 History fluticasone propionate [Flonase 2 spray INTRANASAL DAILY PRN 06/03/18 12/20/18 History Allergy Relief] loratadine 10 mg PO DAILY 06/03/18 12/20/18 History nadolol 40 mg PO DAILY 06/03/18 12/20/18 History pramipexole 1 mg PO HS 06/03/18 12/20/18 History Emgality Pen 120 mg SUBCUT MONTHLY 10/25/18 12/20/18 History unlhqbkpmw-yskycmqasmojj-htke 1 cap PO BID PRN 10/25/18 12/20/18 History furosemide 40 mg PO DAILY 10/25/18 12/20/18 History levothyroxine 37.5 mcg PO DAILY 10/25/18 12/20/18 History losartan 50 mg PO DAILY 10/25/18 12/20/18 History mirtazapine 30 mg PO HS 10/25/18 12/20/18 History potassium chloride 10 meq PO DAILY 10/25/18 12/20/18 History topiramate 100 mg PO QAM 10/25/18 12/20/18 History zolpidem 5 mg PO HS PRN 10/25/18 12/20/18 History amoxicillin-pot clavulanate 1 tab PO BID 10 Days #20 tab 12/19/18 12/20/18 Rx cefadroxil 500 mg PO BID 12/19/18 12/20/18 History ciprofloxacin HCl [Cipro] 500 mg PO BID 12/19/18 12/20/18 History famotidine 20 mg PO BID 12/19/18 12/20/18 History ondansetron 4 mg PO Q6 PRN 12/19/18 12/20/18 History riboflavin (vitamin B2) [Vitamin 400 mg PO DAILY 12/19/18 12/20/18 History B-2] sennosides-docusate sodium 1 tab PO DIRECTED PRN 12/19/18 12/20/18 History [Senexon-S] topiramate 200 mg PO QPM 12/19/18 12/20/18 History trazodone 25 - 50 mg PO HS PRN 12/19/18 12/20/18 History Patient History Medical History Migraine Restless leg syndrome C. difficile colitis (Acute) Dementia (Acute) Acute cholecystitis due to biliary calculus Bronchitis (Acute) Clostridium difficile diarrhea HCAP (healthcare-associated pneumonia) Memory loss History of seizure Hypertension (Chronic) Hyperlipemia (Chronic) Surgical History H/O carotid endarterectomy Family History Other History of cholecystectomy Social History Preferred Language: Lithuanian Communication Ability: Effective Communication Ability Comment: slighlty [place] Visual Impairment: No Limitations Hearing Ability: Normal Health Promotion Specialist Required: No Beliefs That Will Affect Care: Religion Religion Beliefs: Christians marital status: Current Living Situation: Spouse Current Living Situation Comment: h/o 1 yr stay at [facility] current occupational status: retired Feels Safe at Home: Yes Safety Concerns: Feels Safe At This Time Smoking Status: Never smoker Do You Dip or Chew Tobacco: No Second Hand Exposure: No Hx Alcohol Use: No Hx Substance Use: No Review of Systems Review of Systems: Unobtainable due to cognitive status Physical Exam Constitutional: WD/WN, vitals as above well developed (Somewhat chronically ill-appearing) and comfortable; no acute distress Eyes: PERRL, conjunctivae normal, anicteric sclerae ENMT: external ear and nose normal, oropharynx normal Neck: trachea midline, no thyromegaly neck nontender Respiratory: normal respiratory effort and normal percussion; does not use accessory muscles Auscultation: + rales (Left base) Cardiovascular: Rate/Rhythm: regular rate and regular rhythm Heart Sounds: normal S1 and normal S2; no gallop, no murmur and no cardiac rub Vessels: normal peripheral pulses; no JVD Gastrointestinal (Abdomen): normal bowel sounds, soft, nontender, no hepatosplenomegaly Musculoskeletal: no cyanosis or clubbing, extremities motor strength 5/5 Spine: thoracic spine normal to inspection and lumbar spine normal to inspection; no cervical spinal tenderness Skin: no rashes, warm and dry normal turgor; no lesions Neurologic: moves all extremities and awake; no focal motor deficits Psychiatric: Orientation: alert, oriented to person and cooperative Lymphatic: no cervical or axillary lymphadenopathy no inguinal lymphadenopathy Results & Data Vital Signs (Past 12 Hours) Vital Signs Temp Pulse Resp BP Pulse Ox 12/21/18 07:11 37.1 C 78 18 135/62 92 12/21/18 04:00 36.7 C 74 18 118/69 93 12/20/18 23:25 37.2 C 73 17 118/56 L 93 Laboratory Results Short CBC 12/20/18 12/21/18 Range/Units 11:28 07:33 WBC 14.44 H 7.01 (4.8-10.8) K/uL Hgb 10.6 L 9.4 L (12.0-16.0) g/dL Hct 32.8 L 29.2 L (37-47) % Plt Count 233 176 (130-400) K/uL BMP 12/20/18 12/21/18 11:28 07:33 Sodium 136 143 D Potassium 3.8 4.3 Chloride 111 H 118 H Carbon Dioxide 17 L 16 L BUN 32 H 25 H Creatinine 1.38 H 1.19 Glucose 123 H 106 H Calcium 8.7 8.7 Cardiac Enzymes 12/20/18 Range/Units 11:28 Troponin I < 0.015 (0-0.045) ng/ml Liver Function 12/20/18 12/21/18 Range/Units 11:28 07:33 Total Bilirubin 0.4 0.5 (0.2-1) mg/dl Direct Bilirubin 0.3 H (0-0.2) mg/dl AST 101 H 128 H (15-37) U/L ALT 82 H 138 H (12-78) U/L Alkaline Phosphatase 215 H 231 H (45-117) U/L Albumin 3.2 L 2.5 L (3.4-5.0) gm/dl Urine 12/20/18 Range/Units 14:02 Urine Color Yellow Urine Appearance Clear (Clear) Urine pH 5.0 (4.5-7.5) Ur Specific [place] 1.015 (1.000-1.030) Urine Protein Negative (Negative) Urine Glucose (UA) Negative (Negative) Diagnostic Findings XR chest 1V portable HISTORY: Sepsis COMPARISON: Chest 10/25/2018. FINDINGS: The heart remains borderline enlarged. No pneumothorax. Calcified granulomas within the right lung. Progressive interstitial and vascular thickening suggesting mild congestive change. There is a hazy appearance to the left lung base. IMPRESSION: 1. Progressive interstitial and vascular thickening suggestive of mild congestive change. 2. Hazy appearance to the left lung base which could be due to overlapping soft tissue or a developing airspace opacity.
--- NOTE | 2018-12-21 10:49 | Pharmacy Report ---
Pharmacy Abx Initial Consult - Date of Service December 21, 2018 - Pharmacy Dosing Scope Date of Consult: 12/20 Consultation requested by: Dr. Dial Pharmacy is consulted to initiate vancomycin/zosyn dosing therapy, order appropriate labs and adjust drug dose/frequency. - Subjective The patient is a 83 year old F admitted on 12/20/18 15:31. - Objective Height: 5 ft 6 in Weight: 62.2 kg Vital Signs (Past 12hrs): Vital Signs Temp Pulse Resp BP Pulse Ox 12/21/18 07:11 37.1 C 78 18 135/62 92 12/21/18 04:00 36.7 C 74 18 118/69 93 12/20/18 23:25 37.2 C 73 17 118/56 L 93 Lab Results (24hrs): Laboratory Tests (24 Hours) 12/21/18 12/21/18 12/20/18 07:33 07:33 11:28 WBC 7.01 Neut # (Auto) 4.95 ESR Creatinine 1.19 1.38 H Est Cr Clr Drug Dosing 32.4 27.9 C-Reactive Protein 17.60 H Procalcitonin 12/20/18 12/20/18 12/20/18 11:28 11:28 11:28 WBC 14.44 H Neut # (Auto) 12.33 H ESR 68 H Creatinine Est Cr Clr Drug Dosing C-Reactive Protein Procalcitonin 1.55 H Micro Results: 12/20/18 11:39 Blood Culture - Pending Blood 12/20/18 12:00 Blood Culture - Pending Blood - Risk Factors for Resistance * Antimicrobial use within the last 90 days - Assessment & Plan Assessment/Plan: Patient started on vancomycin and zosyn for possible healthcare associated pneumonia. ID consulted to follow patient. Most recent cx's positive for MSSA and pseudomonas (11/30/18). ID also follows patient outpatient and recently receiving cefadroxil and cipro. Blood cultures x 2 are pending. MRSA nasal swab came back negative. Vancomycin: * Patient received loading dose of vancomycin 1500 mg x 1 last evening * Started on maintenance dose of vancomycin 1000 mg IV q24 hrs (~16 mg/kg) * Estimated kinetics: t1/2~24 hrs, ke~0.028 hr-1, Crcl~32 ml/min - appears to be around baseline for SCR (baseline 1.1 mg/dL) * Will continue with current vancomycin regimen for now - if vancomycin is to be continued will consider checking trough in next 2-3 days or sooner if renal function changes. Zosyn: * 3.375 gm iv q 8 hrs (appropriate for CrCl >20 ml/min - no change) Pharmacy will continue to follow and will adjust dose/frequency as necessary. Thank you.
--- NOTE | 2018-12-21 11:00 | Hospitalist Progress Note ---
Date of Service December 21, 2018 Assessment & Plan (1) Sepsis: likely due to pneumonia but also has diarrhea continue Vanco and Zosyn for today stop IV fluids as her Cr is down to baseline, eating and drinking better blood cultures drawn in the ED, no results at this time (2) HCAP (healthcare-associated pneumonia): patient has been following with Dr. Nelson and Dr. Yang had bronchoscopy on 11/30 for 4 months of URI and cough bronchial lavage grew out MSSA and Pseudomonas placed on Cefadroxil and Cipro by Dr. Yang, saw in office on 12/11 presented with fever, still with cough but no sputum had increased lethargy and poor oral intake, did take Lyrica recently had leukocytosis at 14k and mild MERCEDES WBC down to normal, MERCEDES resolved CXR has left lower lobe infiltrate will continue Zosyn and Vanco IV for time being Dr. Yang following (3) MERCEDES (acute kidney injury): Cr up at 1.3, was actually higher at 1.6 on 12/19 gentle IV fluids, hold nephrotoxins Cr improved to 1.1, will stop fluids (4) C. difficile colitis: h/o C diff colitis, now with diarrhea and on chronic antibiotics will check for C diff - no stool sample given lack of diarrhea would argue against C diff, will send sample if possible (5) Hypotension: transient, resolved with IV fluids stop fluids today (6) Migraine: takes Topamax BID, will continue on Emgality pen once a month will use Fioricet today for headache in the afternoon (7) Dementia: mild at baseline, lives at home (8) Fever: could be due to pneumonia or diarrhea follow for improvement with treatment (9) Altered level of consciousness: per , she was started on Lyrica 3 days ago for insomnia had a strong reaction, could not wake up all day yesterday will hold Lyrica as well as other sleep aides as she is awake but a little fatigued in the ED (10) Transaminitis: mild elevation in AST and ALT, likely due to acute illness up very slightly today repeat tomorrow, if still up will consider RUQ US Subjective patient doing really well today, more alert she ate her breakfast this morning no dyspnea, little cough no fevers or chills or sweats moved her bowels updated her at the bedside reviewed labs, WBC normal at 7k, Cr improved to 1.19 mild acidosis with bicarb at 16 d/w RN, will transfer to medical floor d/w Dr. Yang, appreciate his recommendations Review of Systems Review of Systems: All systems reviewed & are unremarkable except as noted in HPI & below Constitutional: no fever, no chills and no sweats Respiratory: + cough; no chest congestion, no dyspnea and no sputum production Cardiovascular: no chest pain Neurologic: + confusion Physical Exam Constitutional: WD/WN, vitals as above well developed, well nourished and + ill appearing; + not appropriately hydrated (appears dry) Eyes: PERRL, conjunctivae normal, anicteric sclerae ENMT: external ear and nose normal, oropharynx normal Neck: trachea midline, no thyromegaly Respiratory: normal respiratory effort and + cough; no respiratory distress Auscultation: + diminished lung sounds (left base) Cardiovascular: RRR, no murmur, no edema Gastrointestinal (Abdomen): normal bowel sounds, soft, nontender, no hepatosplenomegaly Musculoskeletal: no cyanosis or clubbing, extremities motor strength 5/5 Skin: no rashes, warm and dry Neurologic: patellar DTR's 2+ bilat, sensation intact and PERRL, EOMI, accommodation nl, no face palsy, no dysarthria Psychiatric: Orientation: alert and oriented x 3 Lymphatic: no cervical or axillary lymphadenopathy Results & Data Vital Signs (Past 12 Hours) Vital Signs Temp Pulse Pulse Resp BP Pulse Ox 12/21/18 08:00 82 12/21/18 07:11 37.1 C 78 18 135/62 92 12/21/18 04:00 36.7 C 74 18 118/69 93 12/20/18 23:25 37.2 C 73 17 118/56 L 93 Laboratory Results Laboratory Results - last 24 hr 12/20/18 12/20/18 12/20/18 11:28 11:28 11:28 WBC 14.44 H RBC 3.50 L Hgb 10.6 L Hct 32.8 L MCV 93.7 MCH 30.3 MCHC 32.3 RDW Std Deviation 50.2 H RDW Coeff of Caio 14.7 H Plt Count 233 MPV 9.7 Immature Gran % (Auto) 0.3 Neut % (Auto) 85.4 Lymph % (Auto) 7.4 Leslie % (Auto) 6.7 Eos % (Auto) 0.1 Baso % (Auto) 0.1 Immature Gran # (Auto) 0.04 H Neut # (Auto) 12.33 H Lymph # (Auto) 1.07 L Leslie # (Auto) 0.97 H Eos # (Auto) 0.01 Baso # (Auto) 0.02 ESR 68 H PT INR APTT PTT Ratio VBG pH VBG pCO2 VBG pO2 VBG HCO3 VBG O2 Saturation VBG Base Excess Barometric Pressure Sodium Potassium Chloride Carbon Dioxide Anion Gap BUN Creatinine Est Cr Clr Drug Dosing Est GFR ( Amer) Est GFR (Non-Af Amer) BUN/Creatinine Ratio Glucose Lactate Calcium Magnesium Total Bilirubin Direct Bilirubin AST ALT Alkaline Phosphatase Troponin I C-Reactive Protein Total Protein Albumin Globulin Albumin/Globulin Ratio Procalcitonin 1.55 H Urine Color Urine Appearance Urine pH Ur Specific Sidney Urine Protein Urine Glucose (UA) Urine Ketones Urine Blood Urine Nitrite Urine Bilirubin Urine Urobilinogen Ur Leukocyte Esterase Nasal Screen MRSA (PCR) 12/20/18 12/20/18 12/20/18 11:28 11:28 12:00 WBC RBC Hgb Hct MCV MCH MCHC RDW Std Deviation RDW Coeff of Caio Plt Count MPV Immature Gran % (Auto) Neut % (Auto) Lymph % (Auto) Leslie % (Auto) Eos % (Auto) Baso % (Auto) Immature Gran # (Auto) Neut # (Auto) Lymph # (Auto) Leslie # (Auto) Eos # (Auto) Baso # (Auto) ESR PT 11.0 INR 1.1 APTT 28.8 PTT Ratio 1.1 VBG pH VBG pCO2 VBG pO2 VBG HCO3 VBG O2 Saturation VBG Base Excess Barometric Pressure Sodium 136 Potassium 3.8 Chloride 111 H Carbon Dioxide 17 L Anion Gap 8.0 BUN 32 H Creatinine 1.38 H Est Cr Clr Drug Dosing 27.9 Est GFR ( Amer) 40.3 Est GFR (Non-Af Amer) 34.8 BUN/Creatinine Ratio 23.3 H Glucose 123 H Lactate 0.9 Calcium 8.7 Magnesium 2.2 Total Bilirubin 0.4 Direct Bilirubin AST 101 H ALT 82 H Alkaline Phosphatase 215 H Troponin I < 0.015 C-Reactive Protein 17.60 H Total Protein 7.9 Albumin 3.2 L Globulin 4.7 H Albumin/Globulin Ratio 0.7 L Procalcitonin Urine Color Urine Appearance Urine pH Ur Specific Sidney Urine Protein Urine Glucose (UA) Urine Ketones Urine Blood Urine Nitrite Urine Bilirubin Urine Urobilinogen Ur Leukocyte Esterase Nasal Screen MRSA (PCR) 12/20/18 12/20/18 12/20/18 12:00 14:02 18:30 WBC RBC Hgb Hct MCV MCH MCHC RDW Std Deviation RDW Coeff of Caio Plt Count MPV Immature Gran % (Auto) Neut % (Auto) Lymph % (Auto) Leslie % (Auto) Eos % (Auto) Baso % (Auto) Immature Gran # (Auto) Neut # (Auto) Lymph # (Auto) Leslie # (Auto) Eos # (Auto) Baso # (Auto) ESR PT INR APTT PTT Ratio VBG pH 7.40 VBG pCO2 29 L VBG pO2 30 VBG HCO3 18 VBG O2 Saturation 61.8 VBG Base Excess -6.1 Barometric Pressure 738.6 Sodium Potassium Chloride Carbon Dioxide Anion Gap BUN Creatinine Est Cr Clr Drug Dosing Est GFR ( Amer) Est GFR (Non-Af Amer) BUN/Creatinine Ratio Glucose Lactate Calcium Magnesium Total Bilirubin Direct Bilirubin AST ALT Alkaline Phosphatase Troponin I C-Reactive Protein Total Protein Albumin Globulin Albumin/Globulin Ratio Procalcitonin Urine Color Yellow Urine Appearance Clear Urine pH 5.0 Ur Specific Sidney 1.015 Urine Protein Negative Urine Glucose (UA) Negative Urine Ketones Negative Urine Blood Negative Urine Nitrite Negative Urine Bilirubin Negative Urine Urobilinogen Negative Ur Leukocyte Esterase Negative Nasal Screen MRSA (PCR) Negative 12/21/18 12/21/18 07:33 07:33 WBC 7.01 RBC 3.08 L Hgb 9.4 L Hct 29.2 L MCV 94.8 MCH 30.5 MCHC 32.2 RDW Std Deviation 51.8 H RDW Coeff of Caio 15.0 H Plt Count 176 MPV 9.5 Immature Gran % (Auto) 0.1 Neut % (Auto) 70.7 Lymph % (Auto) 16.4 Leslie % (Auto) 10.8 Eos % (Auto) 1.7 Baso % (Auto) 0.3 Immature Gran # (Auto) 0.01 Neut # (Auto) 4.95 Lymph # (Auto) 1.15 L Leslie # (Auto) 0.76 H Eos # (Auto) 0.12 Baso # (Auto) 0.02 ESR PT INR APTT PTT Ratio VBG pH VBG pCO2 VBG pO2 VBG HCO3 VBG O2 Saturation VBG Base Excess Barometric Pressure Sodium 143 D Potassium 4.3 Chloride 118 H Carbon Dioxide 16 L Anion Gap 9.0 BUN 25 H Creatinine 1.19 Est Cr Clr Drug Dosing 32.4 Est GFR ( Amer) 48.2 Est GFR (Non-Af Amer) 41.6 BUN/Creatinine Ratio 21.1 H Glucose 106 H Lactate Calcium 8.7 Magnesium Total Bilirubin 0.5 Direct Bilirubin 0.3 H AST 128 H ALT 138 H Alkaline Phosphatase 231 H Troponin I C-Reactive Protein Total Protein 6.6 Albumin 2.5 L Globulin Albumin/Globulin Ratio Procalcitonin Urine Color Urine Appearance Urine pH Ur Specific Sidney Urine Protein Urine Glucose (UA) Urine Ketones Urine Blood Urine Nitrite Urine Bilirubin Urine Urobilinogen Ur Leukocyte Esterase Nasal Screen MRSA (PCR) Medications Administered Current Inpatient Medications Acetaminophen (Tylenol) 650 mg PO Q4H PRN PRN Reason: Pain or Fever Stop: 01/19/19 16:35 Famotidine (Pepcid) 20 mg PO BID [facility] Stop: 01/19/19 20:59 Last Admin: 12/21/18 08:50 Dose: 20 mg Documented by: Heparin Sodium (Porcine) (Heparin Sodium (Porcine)) 5,000 units SQ Q8 [facility] Stop: 01/19/19 21:59 Last Admin: 12/21/18 06:40 Dose: 5,000 units Documented by: Potassium Chloride/Sodium Chloride (Normal Saline W/20 Meq Kcl) 20 meq in 1,000 mls @ 100 mls/hr IV .Q10H [facility] Stop: 01/19/19 16:59 Last Admin: 12/21/18 04:08 Dose: 100 mls/hr Documented by: Piperacillin Sod/Tazobactam (Sod 3.375 gm/ Dextrose) 115 mls @ 28.75 mls/hr IV Q8H [facility]; Protocol Stop: 12/27/18 21:59 Last Infusion: 12/21/18 10:37 Dose: Infused Documented by: Vancomycin HCl 1,000 mg/ (Sodium Chloride) 270 mls @ 125 mls/hr IV Q24H [facility]; Protocol Stop: 12/28/18 13:59 Levothyroxine Sodium (Synthroid) 37.5 mcg PO DAILYBB [facility] Stop: 06/01/19 06:29 Last Admin: 12/21/18 07:29 Dose: 37.5 mcg Documented by: Loratadine (Claritin) 10 mg PO DAILY [facility] Stop: 01/20/19 08:59 Last Admin: 12/21/18 08:50 Dose: 10 mg Documented by: Miscellaneous (Order Awaiting Action) 1 ea N/A QS [facility]ENNY Stop: 01/20/19 00:00 Last Admin: 12/21/18 08:49 Dose: Not Given Documented by: Miscellaneous Information (Consult) 1 ea N/A UD PRN PRN Reason: Consult Stop: 01/19/19 16:35 Miscellaneous Information (Consult) 1 ea N/A UD PRN PRN Reason: Consult Stop: 01/19/19 16:35 Ondansetron HCl (Zofran) 4 mg IV Q6H PRN PRN Reason: Nausea Stop: 01/19/19 16:35 Pramipexole Dihydrochloride (Mirapex) 1 mg PO HS [facility] Stop: 01/19/19 20:59 Last Admin: 12/20/18 20:19 Dose: 1 mg Documented by: Topiramate (Topamax) 100 mg PO QAM [facility] Stop: 01/20/19 08:59 Last Admin: 12/21/18 08:50 Dose: 100 mg Documented by: Topiramate (Topamax) 200 mg PO QPM [facility] Stop: 01/19/19 20:59 Last Admin: 12/20/18 20:18 Dose: 200 mg Documented by: (1) Fever Fever type: unspecified Qualified Code(s): R50.9 - Fever, unspecified (2) Hypotension Hypotension type: unspecified hypotension type Qualified Code(s): I95.9 - Hypotension, unspecified
[2018-12-21] MEDS ORDERED: PRAMIPEXOLE DIHYDROCHLO 0.5 MG TAB PO STA (15:50)
[2018-12-21] MEDS ORDERED: BUTALBITAL/ACETAMIN/CAFFEINE TAB PO PRN (16:13)
[2018-12-21] MEDS ORDERED: BUTALBITAL/ACETAMIN/CAFFEINE TAB PO STA (16:18)
[2018-12-21] MEDS: VANCOMYCIN HCL 1,000 MG in SODIUM CHLORIDE 0.9% 250 ML IV SCH (16:51)
[2018-12-21] MEDS: PRAMIPEXOLE DIHYDROCHLO 0.5 MG TAB PO SCH (20:05)
[2018-12-22 05:51] LABS: Hematocrit (blood only) 28.9 % (37-47); Hemoglobin 9.5 g/dL (12.0-16.0); Mean Corpuscular Hgb Conc 32.9 g/dL (32-36); Mean Corpuscular Volume 93.2 fL (80-100); Mean Platelet Volume 9.8 fL (7.4-10.4); Platelet Count 211 K/uL (130-400); RDW Coefficient of Variation 14.7 % (11.5-14.5); RDW Standard Deviation 50.3 fL (36.4-46.3); White Blood Count 8.03 K/uL (4.8-10.8)
[2018-12-22 06:18] LABS: Albumin Level 2.7 gm/dl (3.4-5.0); Bilirubin Direct 0.2 mg/dl (0-0.2); Est GFR (Non-African American) 45.7; Potassium 3.8 mmol/L (3.5-5.1)
[2018-12-22 06:20] LABS: Basophils # (auto) 0.02 K/uL (0-0.2); Basophils % (auto) 0.2 %; Eosinophils # (auto) 0.17 K/uL (0-0.5); Eosinophils % (auto) 2.1 %; Immature Granulocytes # (auto) 0.02 K/uL (0.00-0.02); Immature Granulocytes % (auto) 0.2 %; Lymphocytes # (auto) 0.96 K/uL (1.2-3.4); Monocytes # (auto) 0.81 K/uL (0.11-0.59); Monocytes % (auto) 10.1 %; Neutrophils # (auto) 6.05 K/uL (1.4-6.5); Neutrophils % (auto) 75.4 %
[2018-12-22 06:21] LABS: Bilirubin,Total 0.6 mg/dl (0.2-1)
[2018-12-22] MEDS: PIPERACILLIN/TAZOBACTAM 3.375 GM in DEXTROSE 5% 100 ML IV SCH ×3 (06:25→22:05)
[2018-12-22] MEDS: LEVOTHYROXINE SODIUM 75 MCG TABLET PO SCH (06:25)
[2018-12-22] MEDS: HEPARIN SOD 5,000 UNIT/0.5 ML VIAL SQ SCH ×3 (06:30→22:05)
[2018-12-22] MEDS: ALBUT/IPRATROP 3MG/0.5MG NEB 3 ML VIAL NEB SCH ×5 (07:31→23:33)
[2018-12-22] MEDS ORDERED: methylPREDNISolone 40 MG in SYRINGE 0 ML IV STA (09:19)
[2018-12-22] MEDS: LORATADINE 10 MG TAB PO SCH (09:37)
[2018-12-22] MEDS: FAMOTIDINE 20 MG TAB PO SCH ×2 (09:37→20:22)
[2018-12-22] MEDS: TOPIRAMATE 100 MG TAB PO SCH ×2 (09:37→20:22)
--- NOTE | 2018-12-22 09:54 | XRay Report ---
XR chest 1V portable CLINICAL HISTORY: Dyspnea, possible aspiration dyspnea COMPARISON STUDY: 12/20/2018 FINDINGS: Interval development of congestive failure versus bibasilar parenchymal infiltrates. Small bilateral pleural effusions. Mild cardiomegaly. IMPRESSION: Congestive heart failure versus bibasilar parenchymal infiltrative change. The above report was generated using voice recognition software. It may contain grammatical, syntax or spelling errors. Electronically signed by: Andrew Ugarte M.D. 12/22/2018 9:53 AM
[2018-12-22] MEDS ORDERED: FUROSEMIDE 40 MG in SYRINGE 0 ML IV ONE (09:57)
--- NOTE | 2018-12-22 13:24 | Fluoroscopy Report ---
FL video swallow HISTORY: Abnormal chest x-ray. Possible aspiration pneumonia. TECHNIQUE: Video fluoroscopic evaluation of swallowing was performed in the AP and lateral projection s by the speech pathology staff. The patient is fed nectar-thick and thin liquid barium, a barium coa carol wafer, and barium pudding. FLUOROSCOPY TIME: 2 minutes 40 seconds. NUMBER OF FLUOROSCOPY IMAGES: 0 COMPARISON STUDY: 03/01/2017 FINDINGS: The patient swallowed thin liquid barium and nectar thick liquid without difficulty. There is no aspiration or penetration. There is no aspiration or penetration when swallowing pudding or line assembler aircraft cker with paste. There was mild vallecular residue. There is mild disordered esophageal motility. IMPRESSION: 1. No aspiration identified. 2. Please see the speech pathologist report for detailed findings and recommendations. Electronically signed by: Shamar Arboleda M.D. 12/22/2018 1:23 PM
[2018-12-22] MEDS ORDERED: SUMAtriptan succinate 6 MG/0.5 ML VIAL SQ STA (13:26)
[2018-12-22] MEDS: VANCOMYCIN HCL 1,000 MG in SODIUM CHLORIDE 0.9% 250 ML IV SCH (16:06)
--- NOTE | 2018-12-22 16:23 | Hospitalist Progress Note ---
Date of Service December 22, 2018 Assessment & Plan (1) Sepsis: likely due to pneumonia but also had diarrhea continue Vanco and Zosyn no growth on blood cultures in the ED stop Vancomycin today taper antibiotics further tomorrow (2) HCAP (healthcare-associated pneumonia): patient has been following with Dr. Nelson and Dr. Yang had bronchoscopy on 11/30 for 4 months of URI and cough bronchial lavage grew out MSSA and Pseudomonas placed on Cefadroxil and Cipro by Dr. Yang, saw in office on 12/11 presented with fever, still with cough but no sputum had increased lethargy and poor oral intake, did take Lyrica recently had leukocytosis at 14k and mild MERCEDES WBC down to normal, MERCEDES resolved CXR has left lower lobe infiltrate will continue Zosyn, stop Vanco Dr. Yang following, discuss outpatient abx with him prior to discharge (3) Acute pulmonary edema: occurred in the morning on 12/22 due to give IV fluids and holding Lasix on admission due to MERCEDES and dehydration treated the pulmonary edema with Lasix 40mg IV x 1 dose excellent response lungs clear in the afternoon (4) Acute hypoxemic respiratory failure: due to pulmonary edema resolved with diuresis on 12/22 (5) MERCEDES (acute kidney injury): Cr up at 1.3, was actually higher at 1.6 on 12/19 gentle IV fluids, hold nephrotoxins Cr improved to 1.1, stop fluids on 12/21 (6) C. difficile colitis: h/o C diff colitis, now with diarrhea and on chronic antibiotics will check for C diff - no stool sample given lack of diarrhea would argue against C diff, will send sample if possible (7) Hypotension: transient, resolved with IV fluids stop fluids 12/21 (8) Migraine: takes Topamax BID, will continue on Emgality pen once a month gave a dose of Imitrex today, provided relief (9) Dementia: mild at baseline, lives at home (10) Fever: could be due to pneumonia or diarrhea follow for improvement with treatment (11) Altered level of consciousness: per , she was started on Lyrica 3 days ago for insomnia had a strong reaction, could not wake up all day yesterday will hold Lyrica as well as other sleep aides as she is awake but a little fatigued in the ED (12) Transaminitis: AST and ALT trending up slightly h/o cholecystectomy attempt MRCP once breathing improved Subjective patient with increased dyspnea early this morning aide was feeding breakfast for about an hour, taking it slow some concerns for aspiration per RN, some choking/coughing CXR with pulmonary edema, gave a dose of Lasix IV and she diuresed well, breathing improved video swallow did not show aspiration updated at the bedside no fever WBC normal no growth on cultures AST and ALT trending up, wanted to get MRCP but had to cancel due to her breathing difficulties this morning Review of Systems Review of Systems: All systems reviewed & are unremarkable except as noted in HPI & below Constitutional: + fatigue and + weakness; no fever Respiratory: + cough, + dyspnea and + dyspnea on exertion Neurologic: + headache(s) Physical Exam Constitutional: WD/WN, vitals as above well developed, well nourished and + ill appearing; + not appropriately hydrated (appears dry) Eyes: PERRL, conjunctivae normal, anicteric sclerae ENMT: external ear and nose normal, oropharynx normal Neck: trachea midline, no thyromegaly Respiratory: + labored breathing, + uses accessory muscles and + cough Auscultation: + diminished lung sounds (left base) and + rales (bases) Cardiovascular: RRR, no murmur, no edema Gastrointestinal (Abdomen): normal bowel sounds, soft, nontender, no hepatosplenomegaly Musculoskeletal: no cyanosis or clubbing, extremities motor strength 5/5 Skin: no rashes, warm and dry Neurologic: patellar DTR's 2+ bilat, sensation intact and PERRL, EOMI, accommodation nl, no face palsy, no dysarthria Psychiatric: Orientation: alert and oriented x 3 Lymphatic: no cervical or axillary lymphadenopathy Results & Data Vital Signs (Past 12 Hours) Vital Signs Temp Pulse Resp BP Pulse Ox 12/22/18 15:33 36.5 C 74 18 148/76 H 93 12/22/18 15:31 71 20 94 12/22/18 11:47 80 18 91 12/22/18 10:33 83 169/85 H 12/22/18 09:00 93 12/22/18 07:38 36.7 C 87 22 155/84 H 95 12/22/18 07:32 81 22 90 Laboratory Results Laboratory Results - last 24 hr 12/22/18 12/22/18 12/22/18 05:29 05:29 08:10 WBC 8.03 RBC 3.10 L Hgb 9.5 L Hct 28.9 L MCV 93.2 MCH 30.6 MCHC 32.9 RDW Std Deviation 50.3 H RDW Coeff of Caio 14.7 H Plt Count 211 MPV 9.8 Immature Gran % (Auto) 0.2 Neut % (Auto) 75.4 Lymph % (Auto) 12.0 [place] % (Auto) 10.1 Eos % (Auto) 2.1 Baso % (Auto) 0.2 Immature Gran # (Auto) 0.02 Neut # (Auto) 6.05 Lymph # (Auto) 0.96 L [place] # (Auto) 0.81 H Eos # (Auto) 0.17 Baso # (Auto) 0.02 Sodium 140 Potassium 3.8 Chloride 116 H Carbon Dioxide 19 L Anion Gap 5.0 BUN 18 Creatinine 1.10 Est Cr Clr Drug Dosing 35.0 Est GFR ( Amer) 53.0 Est GFR (Non-Af Amer) 45.7 BUN/Creatinine Ratio 16.0 Glucose 108 H Calcium 9.0 Total Bilirubin 0.6 Direct Bilirubin 0.2 AST 119 H ALT 158 H Alkaline Phosphatase 303 H Total Protein 7.0 Albumin 2.7 L Stl C. diff Tox B Gene Negative Cdiff Gene Diagnostic Findings XR chest 1V portable CLINICAL HISTORY: Dyspnea, possible aspiration dyspnea COMPARISON STUDY: 12/20/2018 FINDINGS: Interval development of congestive failure versus bibasilar parenchymal infiltrates. Small bilateral pleural effusions. Mild cardiomegaly. IMPRESSION: Congestive heart failure versus bibasilar parenchymal infiltrative change. FL video swallow FINDINGS: The patient swallowed thin liquid barium and nectar thick liquid without difficulty. There is no aspiration or penetration. There is no aspiration or penetration when swallowing pudding or cracker with paste. There was mild vallecular residue. There is mild disordered esophageal motility. IMPRESSION: 1. No aspiration identified. 2. Please see the speech pathologist report for detailed findings and recommendations. Medications Administered Current Inpatient Medications Acetaminophen (Tylenol) 650 mg PO Q4H PRN PRN Reason: Pain or Fever Stop: 01/19/19 16:35 Last Admin: 12/21/18 20:05 Dose: 650 mg Documented by: Acetaminophen/Butalbital/Caffeine (Fioricet) 1 tab PO Q4H PRN PRN Reason: Headache Stop: 01/20/19 16:17 Albuterol (Duoneb) 3 ml NEB Q4R [facility] Stop: 01/21/19 06:54 Last Admin: 12/22/18 15:31 Dose: 3 ml Documented by: Famotidine (Pepcid) 20 mg PO BID [facility] Stop: 01/19/19 20:59 Last Admin: 12/22/18 09:37 Dose: 20 mg Documented by: Heparin Sodium (Porcine) (Heparin Sodium (Porcine)) 5,000 units SQ Q8 [facility] Stop: 01/19/19 21:59 Last Admin: 12/22/18 14:05 Dose: 5,000 units Documented by: Piperacillin Sod/Tazobactam (Sod 3.375 gm/ Dextrose) 115 mls @ 28.75 mls/hr IV Q8H [facility]; Protocol Stop: 12/27/18 21:59 Last Admin: 12/22/18 14:05 Dose: 29 mls/hr Documented by: Vancomycin HCl 1,000 mg/ (Sodium Chloride) 270 mls @ 125 mls/hr IV Q24H [facility]; Protocol Stop: 12/28/18 13:59 Last Admin: 12/22/18 16:06 Dose: 125 mls/hr Documented by: Levothyroxine Sodium (Synthroid) 37.5 mcg PO DAILYBB [facility] Stop: 01/20/19 06:29 Last Admin: 12/22/18 06:25 Dose: 37.5 mcg Documented by: Loratadine (Claritin) 10 mg PO DAILY [facility] Stop: 01/20/19 08:59 Last Admin: 12/22/18 09:37 Dose: 10 mg Documented by: Miscellaneous Information (Consult) 1 ea N/A UD PRN PRN Reason: Consult Stop: 01/19/19 16:35 Miscellaneous Information (Consult) 1 ea N/A UD PRN PRN Reason: Consult Stop: 01/19/19 16:35 Ondansetron HCl (Zofran) 4 mg IV Q6H PRN PRN Reason: Nausea Stop: 01/19/19 16:35 Pramipexole Dihydrochloride (Mirapex) 1 mg PO HS [facility] Stop: 01/19/19 20:59 Last Admin: 12/21/18 20:05 Dose: 1 mg Documented by: Topiramate (Topamax) 100 mg PO QAM [facility] Stop: 01/20/19 08:59 Last Admin: 12/22/18 09:37 Dose: 100 mg Documented by: Topiramate (Topamax) 200 mg PO QPM [facility] Stop: 01/19/19 20:59 Last Admin: 12/21/18 20:05 Dose: 200 mg Documented by: (1) Fever Fever type: unspecified Qualified Code(s): R50.9 - Fever, unspecified (2) Hypotension Hypotension type: unspecified hypotension type Qualified Code(s): I95.9 - Hypotension, unspecified
[2018-12-22] MEDS: PRAMIPEXOLE DIHYDROCHLO 0.5 MG TAB PO SCH (20:22)
[2018-12-23] MEDS: ALBUT/IPRATROP 3MG/0.5MG NEB 3 ML VIAL NEB SCH ×6 (03:40→23:16)
[2018-12-23] MEDS: PIPERACILLIN/TAZOBACTAM 3.375 GM in DEXTROSE 5% 100 ML IV SCH ×3 (06:15→21:49)
[2018-12-23] MEDS: HEPARIN SOD 5,000 UNIT/0.5 ML VIAL SQ SCH ×3 (06:16→21:49)
[2018-12-23] MEDS: LEVOTHYROXINE SODIUM 75 MCG TABLET PO SCH (06:16)
[2018-12-23 06:36] LABS: Creatinine Clr Calc Pharmacy 36.3 ml/min; Est GFR (African American) 55.4; Est GFR (Non-African American) 47.8
[2018-12-23] MEDS: FAMOTIDINE 20 MG TAB PO SCH ×2 (08:21→20:22)
[2018-12-23] MEDS: LORATADINE 10 MG TAB PO SCH (08:21)
[2018-12-23] MEDS: TOPIRAMATE 100 MG TAB PO SCH ×2 (08:21→20:21)
[2018-12-23] MEDS: FUROSEMIDE 40 MG TAB PO SCH (11:35)
[2018-12-23 13:03] LABS: Basophils # (auto) 0.02 K/uL (0-0.2); Basophils % (auto) 0.3 %; Eosinophils # (auto) 0.25 K/uL (0-0.5); Eosinophils % (auto) 3.4 %; Hematocrit (blood only) 29.8 % (37-47); Hemoglobin 9.7 g/dL (12.0-16.0); Immature Granulocytes # (auto) 0.01 K/uL (0.00-0.02); Immature Granulocytes % (auto) 0.1 %; Lymphocytes # (auto) 1.27 K/uL (1.2-3.4); Lymphocytes % (auto) 17.2 %; Mean Corpuscular Hgb Conc 32.6 g/dL (32-36); Mean Corpuscular Volume 92.3 fL (80-100); Mean Platelet Volume 9.8 fL (7.4-10.4); Monocytes # (auto) 0.56 K/uL (0.11-0.59); Monocytes % (auto) 7.6 %; Neutrophils # (auto) 5.27 K/uL (1.4-6.5); Neutrophils % (auto) 71.4 %; Platelet Count 234 K/uL (130-400); RDW Coefficient of Variation 14.3 % (11.5-14.5); RDW Standard Deviation 48.7 fL (36.4-46.3); Red Blood Count 3.23 M/uL (4.2-5.4); White Blood Count 7.38 K/uL (4.8-10.8)
[2018-12-23 13:39] LABS: Albumin Level 2.7 gm/dl (3.4-5.0); Creatinine Clr Calc Pharmacy 36.7 ml/min; Est GFR (African American) 56.1; Est GFR (Non-African American) 48.4; Potassium 3.8 mmol/L (3.5-5.1)
[2018-12-23 13:42] LABS: Albumin Globulin Ratio 0.6 (0.9-2); Bilirubin,Total 0.3 mg/dl (0.2-1); Globulin 4.8 gm/dl (2.5-4.0); Total Protein 7.5 gm/dl (6.4-8.2)
[2018-12-23] MEDS ORDERED: VANCOMYCIN TROUGH ONE (15:30)
--- NOTE | 2018-12-23 16:22 | Hospitalist Progress Note ---
Date of Service December 23, 2018 Assessment & Plan (1) Sepsis: likely due to pneumonia but also had diarrhea considering that it could be biliary given mild elevated in AST and ALT, trending up continue on Zosyn, Vanco stopped no growth on blood cultures in the ED get MRCP on Tuesday to rule out gall stones in ducts, has h/o cholecystectomy if MRCP normal then can go home on prior antibiotics until seen by Dr. Yang was taking Cipro and Cefadroxil for MSSA and Pseudomonas bronchiolitis follow up with Dr. Yang in a few weeks (2) HCAP (healthcare-associated pneumonia): patient has been following with Dr. Nelson and Dr. Yang had bronchoscopy on 11/30 for 4 months of URI and cough bronchial lavage grew out MSSA and Pseudomonas placed on Cefadroxil and Cipro by Dr. Yang, saw in office on 12/11 presented with fever, still with cough but no sputum had increased lethargy and poor oral intake, did take Lyrica recently had leukocytosis at 14k and mild MERCEDES WBC down to normal, MERCEDES resolved CXR has left lower lobe infiltrate will continue Zosyn, stop Vanco Dr. Yang following, recommends to d/c on the Cefadroxil and Cipro (3) Acute pulmonary edema: occurred in the morning on 12/22 due to give IV fluids and holding Lasix on admission due to MERCEDES and dehydration treated the pulmonary edema with Lasix 40mg IV x 1 dose excellent response lungs clear in the afternoon (4) Acute hypoxemic respiratory failure: due to pulmonary edema resolved with diuresis on 12/22 breathing well on 12/23, no distress at all (5) MERCEDES (acute kidney injury): Cr up at 1.3, was actually higher at 1.6 on 12/19 gentle IV fluids, hold nephrotoxins Cr improved to 1.1, stopped fluids on 12/21 (6) Transaminitis: AST and ALT trending up slightly, alk phos up to 319, bili normal h/o cholecystectomy attempt MRCP on Tuesday, would have done on 12/22 but she was in respiratory distress (7) C. difficile colitis: h/o C diff colitis, now with diarrhea and on chronic antibiotics will check for C diff - no stool sample given lack of diarrhea would argue against C diff, will send sample if possible (8) Hypotension: transient, resolved with IV fluids stop fluids 5/2 (9) Migraine: takes Topamax BID, will continue on Emgality pen once a month gave a dose of Imitrex today, provided relief (10) Dementia: mild at baseline, lives at home (11) Fever: could be due to pneumonia or diarrhea follow for improvement with treatment (12) Altered level of consciousness: per , she was started on Lyrica 3 days ago for insomnia had a strong reaction, could not wake up all day yesterday will hold Lyrica as well as other sleep aides as she is awake but a little fatigued in the ED Plan: get MRCP on , continue Zosyn for now if MRCP normal then return to prior antibiotics patient's would like her to go to [facility] for rehab she is accepted, can likely go Tuesday if MRCP normal Subjective patient very pleasant today, smiling a lot and cheerful, joking around no difficulty breathing, no distress denies any headache eating well, no difficulty swallowing, no choking no fever or chills d/w at the bedside, planning on [facility] for rehab on dischare discussed the mild elevated AST and ALT, would like to get MRCP to rule out gall stones can wait until Tuesday Review of Systems Review of Systems: Unobtainable due to cognitive status Physical Exam Constitutional: WD/WN, vitals as above well developed, well nourished and + ill appearing; + not appropriately hydrated (appears dry) Eyes: PERRL, conjunctivae normal, anicteric sclerae ENMT: external ear and nose normal, oropharynx normal Neck: trachea midline, no thyromegaly Respiratory: normal respiratory effort, lungs clear to auscultation Auscultation: + diminished lung sounds (left base) Cardiovascular: RRR, no murmur, no edema Gastrointestinal (Abdomen): normal bowel sounds, soft, nontender, no hepatosplenomegaly Musculoskeletal: no cyanosis or clubbing, extremities motor strength 5/5 Skin: no rashes, warm and dry Neurologic: patellar DTR's 2+ bilat, sensation intact and PERRL, EOMI, accommodation nl, no face palsy, no dysarthria Psychiatric: Orientation: alert and oriented x 3 Lymphatic: no cervical or axillary lymphadenopathy Results & Data Vital Signs (Past 12 Hours) Vital Signs Temp Pulse Pulse Resp BP BP Pulse Ox 12/23/18 15:31 36.4 C L 72 18 138/78 98 12/23/18 15:12 77 100 12/23/18 11:35 71 144/73 H 12/23/18 11:06 70 18 98 12/23/18 07:37 36.7 C 67 16 157/78 H 99 12/23/18 07:18 69 12 98 Laboratory Results Laboratory Results - last 24 hr 12/23/18 12/23/18 12/23/18 05:30 12:53 12:53 WBC 7.38 RBC 3.23 L Hgb 9.7 L Hct 29.8 L MCV 92.3 MCH 30.0 MCHC 32.6 RDW Std Deviation 48.7 H RDW Coeff of Caio 14.3 Plt Count 234 MPV 9.8 Immature Gran % (Auto) 0.1 Neut % (Auto) 71.4 Lymph % (Auto) 17.2 Owsley % (Auto) 7.6 Eos % (Auto) 3.4 Baso % (Auto) 0.3 Immature Gran # (Auto) 0.01 Neut # (Auto) 5.27 Lymph # (Auto) 1.27 Owsley # (Auto) 0.56 Eos # (Auto) 0.25 Baso # (Auto) 0.02 Sodium 142 Potassium 3.8 Chloride 115 H Carbon Dioxide 23 Anion Gap 4.0 BUN 17 Creatinine 1.06 1.05 Est Cr Clr Drug Dosing 36.3 36.7 Est GFR ( Amer) 55.4 56.1 Est GFR (Non-Af Amer) 47.8 48.4 BUN/Creatinine Ratio 16.0 Glucose 126 H Calcium 9.0 Total Bilirubin 0.3 AST 48 H ALT 114 H Alkaline Phosphatase 319 H Total Protein 7.5 Albumin 2.7 L Globulin 4.8 H Albumin/Globulin Ratio 0.6 L Medications Administered Current Inpatient Medications Acetaminophen (Tylenol) 650 mg PO Q4H PRN PRN Reason: Pain or Fever Stop: 01/19/19 16:35 Last Admin: 12/21/18 20:05 Dose: 650 mg Documented by: Acetaminophen/Butalbital/Caffeine (Fioricet) 1 tab PO Q4H PRN PRN Reason: Headache Stop: 01/20/19 16:17 Albuterol (Duoneb) 3 ml NEB Q4R JENNY Stop: 01/21/19 06:54 Last Admin: 12/23/18 15:11 Dose: 3 ml Documented by: Famotidine (Pepcid) 20 mg PO BID [facility] Stop: 01/19/19 20:59 Last Admin: 12/23/18 08:21 Dose: 20 mg Documented by: Furosemide (Lasix) 40 mg PO QAM [facility] Stop: 01/22/19 10:59 Last Admin: 12/23/18 11:35 Dose: 40 mg Documented by: Heparin Sodium (Porcine) (Heparin Sodium (Porcine)) 5,000 units SQ Q8 [facility] Stop: 01/19/19 21:59 Last Admin: 12/23/18 14:07 Dose: 5,000 units Documented by: Piperacillin Sod/Tazobactam (Sod 3.375 gm/ Dextrose) 115 mls @ 28.75 mls/hr IV Q8H [facility]; Protocol Stop: 12/27/18 21:59 Last Admin: 12/23/18 14:06 Dose: 28.8 mls/hr Documented by: Levothyroxine Sodium (Synthroid) 37.5 mcg PO DAILYBB [facility] Stop: 01/20/19 06:29 Last Admin: 12/23/18 06:16 Dose: 37.5 mcg Documented by: Loratadine (Claritin) 10 mg PO DAILY [facility] Stop: 01/20/19 08:59 Last Admin: 12/23/18 08:21 Dose: 10 mg Documented by: Miscellaneous Information (Consult) 1 ea N/A UD PRN PRN Reason: Consult Stop: 01/19/19 16:35 Ondansetron HCl (Zofran) 4 mg IV Q6H PRN PRN Reason: Nausea Stop: 01/19/19 16:35 Pramipexole Dihydrochloride (Mirapex) 1 mg PO HS [facility] Stop: 01/19/19 20:59 Last Admin: 12/22/18 20:22 Dose: 1 mg Documented by: Topiramate (Topamax) 100 mg PO QAM [facility] Stop: 01/20/19 08:59 Last Admin: 12/23/18 08:21 Dose: 100 mg Documented by: Topiramate (Topamax) 200 mg PO QPM [facility] Stop: 01/19/19 20:59 Last Admin: 12/22/18 20:22 Dose: 200 mg Documented by: (1) Fever Fever type: unspecified Qualified Code(s): R50.9 - Fever, unspecified (2) Hypotension Hypotension type: unspecified hypotension type Qualified Code(s): I95.9 - Hypotension, unspecified
[2018-12-23] MEDS: PRAMIPEXOLE DIHYDROCHLO 0.5 MG TAB PO SCH (20:22)
[2018-12-24] MEDS: ALBUT/IPRATROP 3MG/0.5MG NEB 3 ML VIAL NEB SCH ×2 (03:19→07:03)
[2018-12-24] MEDS: LEVOTHYROXINE SODIUM 75 MCG TABLET PO SCH (05:42)
[2018-12-24] MEDS: PIPERACILLIN/TAZOBACTAM 3.375 GM in DEXTROSE 5% 100 ML IV SCH ×3 (05:44→21:57)
[2018-12-24] MEDS: HEPARIN SOD 5,000 UNIT/0.5 ML VIAL SQ SCH ×3 (05:45→20:42)
[2018-12-24 06:42] LABS: Albumin Level 2.6 gm/dl (3.4-5.0); BUN Creatinine Ratio 15.5 (10-20); Bilirubin Direct 0.2 mg/dl (0-0.2); Bilirubin,Total 0.4 mg/dl (0.2-1); Calcium 8.7 mg/dl (8.5-10.1); Creatinine Clr Calc Pharmacy 38.9 ml/min; Est GFR (African American) 60.2; Total Protein 7.1 gm/dl (6.4-8.2)
[2018-12-24] MEDS: FUROSEMIDE 40 MG TAB PO SCH (07:53)
[2018-12-24] MEDS: LORATADINE 10 MG TAB PO SCH (07:53)
[2018-12-24] MEDS: TOPIRAMATE 100 MG TAB PO SCH ×2 (07:53→20:43)
[2018-12-24] MEDS: FAMOTIDINE 20 MG TAB PO SCH ×2 (08:13→20:43)
[2018-12-24] MEDS ORDERED: ALBUT/IPRATROP 3MG/0.5MG NEB 3 ML VIAL NEB PRN (08:22)
--- NOTE | 2018-12-24 15:00 | Hospitalist Progress Note ---
Date of Service December 24, 2018 Assessment & Plan (1) Sepsis: likely due to pneumonia but also had diarrhea considering that it could be biliary given mild elevated in AST and ALT, trending up continue on Zosyn, Vanco stopped no growth on blood cultures in the ED get MRCP on Tuesday to rule out gall stones in ducts, has h/o cholecystectomy if MRCP normal then can go home on prior antibiotics until seen by Dr. Yang was taking Cipro and Cefadroxil for MSSA and Pseudomonas bronchiolitis follow up with Dr. Yang in a few weeks (2) HCAP (healthcare-associated pneumonia): patient has been following with Dr. Nelson and Dr. Yang had bronchoscopy on 11/30 for 4 months of URI and cough bronchial lavage grew out MSSA and Pseudomonas placed on Cefadroxil and Cipro by Dr. Yang, saw in office on 12/11 presented with fever, still with cough but no sputum had increased lethargy and poor oral intake, did take Lyrica recently had leukocytosis at 14k and mild MERCEDES WBC down to normal, MERCEDES resolved CXR has left lower lobe infiltrate will continue Zosyn, stop Vanco Dr. Yang following, recommends to d/c on the Cefadroxil and Cipro (3) Acute pulmonary edema: occurred in the morning on 12/22 due to give IV fluids and holding Lasix on admission due to MERCEDES and dehydration treated the pulmonary edema with Lasix 40mg IV x 1 dose excellent response lungs cleared later that day (4) Acute hypoxemic respiratory failure: due to pulmonary edema resolved with diuresis on 12/22 breathing well on 12/23, no distress at all (5) MERCEDES (acute kidney injury): Cr up at 1.3, was actually higher at 1.6 on 12/19 gentle IV fluids, hold nephrotoxins Cr improved to 1.1, stopped fluids on 12/21 (6) Transaminitis: AST and ALT improving h/o cholecystectomy attempt MRCP on Tuesday, would have done on 12/22 but she was in respiratory distress (7) C. difficile colitis: h/o C diff colitis, now with diarrhea and on chronic antibiotics will check for C diff - no stool sample given lack of diarrhea would argue against C diff, will send sample if possible (8) Hypotension: transient, resolved with IV fluids stop fluids 12/21 (9) Migraine: takes Topamax BID, will continue on Emgality pen once a month gave a dose of Imitrex today, provided relief (10) Dementia: mild at baseline, lives at home (11) Fever: could be due to pneumonia or diarrhea follow for improvement with treatment (12) Altered level of consciousness: per , she was started on Lyrica [facility] ago for insomnia had a strong reaction, could not be aroused Holding Lyrica as well as other sleep aides for now Plan: get MRCP on [place], continue Zosyn for now if MRCP normal then return to prior antibiotics patient's would like her to go to [place] for rehab she is accepted, can likely go Tuesday if MRCP normal Subjective at bedside feeing pt lunch. He answers questions for her. States she is having ongoing cough that is no better or worse since [facility]. She has been tolerating PO, but her appetite is low. Pt denies fever, SOB, chest pain, abd pain, n/v/c/d, LE pain or swelling. He does feel that she is still wheezing some, but better than prior. Review of Systems Review of Systems: Pertinent positives and negatives reviewed in HPI--all others negative Physical Exam Constitutional: WD/WN, vitals as above Eyes: normal visual loza by confrontation and + anicteric sclerae Neck: normal visual inspection and trachea midline Respiratory: normal respiratory effort, lungs clear to auscultation Cardiovascular: Rate/Rhythm: regular rate and regular rhythm Gastrointestinal (Abdomen): Inspection/Auscultation: abdomen not distended Percussion/Palpation: abdomen soft; abdomen nontender Musculoskeletal: Head/Neck/Chest: normocephalic and head atraumatic negative for edema, peripheral pulses intact Skin: no rashes, warm and dry Neurologic: awake; not confused Speech / Cognition: normal speech Psychiatric: Orientation: alert and oriented to person Smiles, does not answer or attempt to answer questions Results & Data Vital Signs (Past 12 Hours) Vital Signs Temp Pulse Resp BP Pulse Ox 12/24/18 12:44 79 18 97 12/24/18 08:15 36.6 C 80 20 175/88 H 94 12/24/18 07:03 76 18 94 (1) Hypotension Hypotension type: unspecified hypotension type Qualified Code(s): I95.9 - Hypotension, unspecified (2) Fever Fever type: unspecified Qualified Code(s): R50.9 - Fever, unspecified
[2018-12-24] MEDS: BUTALBITAL/ACETAMIN/CAFFEINE TAB PO PRN (16:05)
[2018-12-24] MEDS ORDERED: POTASSIUM CHLORIDE 10 MEQ / 100ML WTR IV STA (18:19)
[2018-12-24] MEDS ORDERED: LORazepam 0.5 MG/1 ML VIAL IV PRN (18:19)
[2018-12-24] MEDS ORDERED: HydrALAZINE HCL 20 MG/ML VIAL IV PRN (18:19)
[2018-12-24] MEDS: POTASSIUM CHLORIDE / WTR 10 MEQ/100 ML PLCT IV SCH ×3 (18:59→21:16)
[2018-12-24] MEDS: PRAMIPEXOLE DIHYDROCHLO 0.5 MG TAB PO SCH (20:44)
[2018-12-25] MEDS: PIPERACILLIN/TAZOBACTAM 3.375 GM in DEXTROSE 5% 100 ML IV SCH ×3 (05:50→21:46)
[2018-12-25] MEDS: LEVOTHYROXINE SODIUM 75 MCG TABLET PO SCH ×2 (05:50→05:52)
[2018-12-25] MEDS: HEPARIN SOD 5,000 UNIT/0.5 ML VIAL SQ SCH ×3 (05:56→21:47)
[2018-12-25 07:33] LABS: Albumin Level 2.4 gm/dl (3.4-5.0); BUN Creatinine Ratio 11.8 (10-20); Bilirubin Direct 0.1 mg/dl (0-0.2); Creatinine Clr Calc Pharmacy 41.4 ml/min; Potassium 3.1 mmol/L (3.5-5.1)
[2018-12-25 07:36] LABS: Bilirubin,Total 0.3 mg/dl (0.2-1); Total Protein 6.7 gm/dl (6.4-8.2)
[2018-12-25] MEDS ORDERED: POTASSIUM ACETATE 20 MEQ in 0.9 % SODIUM CHLORIDE 100 ML IV SCH (09:15)
--- NOTE | 2018-12-25 13:27 | Magnetic Resonance Report ---
MRCP CLINICAL HISTORY: Sepsis, mild elevated LFTs, h/o cholecystectomy COMPARISON STUDY: MRCP and right upper quadrant ultrasound March 23, 2018. CT of the abdomen and pel vis October 25, 2018. TECHNIQUE: Utilizing a 1.5 Gavi magnet and dedicated coil, multiplanar, multiecho imaging of the abd omen was performed without intravenous contrast. FINDINGS: There is mild dilatation of the common bile status post cholecystectomy. The common bile du ct measures 8 mm in caliber. This is slightly diminished when compared to MRCP of March 23, 2018. No common bile duct calculi are identified although this exam is mildly compromised by motion artifact. The course and caliber of the main pancreatic duct is normal. There is no peripancreatic infiltration or fluid. Liver morphology is normal. No hepatic lesions are identified on this unenhanced exam. The re are small bilateral pleural effusions. No abdominal lymphadenopathy is present. There is moderate atherosclerotic plaque of the abdominal aorta. Caliber of visualized small and large bowel are normal . The heart is moderately enlarged. IMPRESSION: 1. Minimal biliary ductal dilatation which is likely related to previous cholecystectomy. No common b ile duct calculi identified. 2. Small bilateral pleural effusions. Electronically signed by: Casper Hammer M.D. 12/25/2018 1:26 PM
[2018-12-25] MEDS: FAMOTIDINE 20 MG TAB PO SCH ×2 (14:12→20:40)
[2018-12-25] MEDS: FUROSEMIDE 40 MG TAB PO SCH (14:12)
[2018-12-25] MEDS: TOPIRAMATE 100 MG TAB PO SCH ×2 (14:12→20:39)
[2018-12-25] MEDS: LORATADINE 10 MG TAB PO SCH (14:12)
[2018-12-25] MEDS: POTASSIUM ACETATE 20 MEQ in SODIUM CHLORIDE 0.9% 250 ML IV SCH ×2 (14:17→16:19)
--- NOTE | 2018-12-25 17:15 | Hospitalist Progress Note ---
Date of Service December 25, 2018 Assessment & Plan (1) Sepsis: likely due to pneumonia but also had diarrhea Pt with mild elevation in AST and ALT, however MRCP was WNL today continue on Zosyn, Vanco stopped no growth on blood cultures in the ED Will d/c on prior antibiotics until seen by Dr. Yang was taking Cipro and Cefadroxil for MSSA and Pseudomonas bronchiolitis follow up with Dr. Yang in a few weeks (2) HCAP (healthcare-associated pneumonia): patient has been following with Dr. Nelson and Dr. Yang had bronchoscopy on 11/30 for 4 months of URI and cough bronchial lavage grew out MSSA and Pseudomonas placed on Cefadroxil and Cipro by Dr. Yang, saw in office on 12/11 Cough improved with chloraseptic spray presented with fever, still with cough but no sputum had increased lethargy and poor oral intake, did take Lyrica recently had leukocytosis at 14k and mild MERCEDES WBC down to normal, MERCEDES resolved CXR has left lower lobe infiltrate will continue Zosyn, stop Vanco Dr. Yang following, recommends to d/c on the Cefadroxil and Cipro (3) Acute pulmonary edema: occurred in the morning on 12/22 due to give IV fluids and holding Lasix on admission due to MERCEDES and dehydration treated the pulmonary edema with Lasix 40mg IV x 1 dose excellent response lungs cleared later that day and no return of fluid (4) Acute hypoxemic respiratory failure: due to pulmonary edema resolved with diuresis on 12/22 breathing well on 12/23, no distress at all (5) MERCEDES (acute kidney injury): Cr up at 1.3, was actually higher at 1.6 on 12/19 gentle IV fluids, hold nephrotoxins Cr improved to 1.1, stopped fluids on 12/21 (6) Transaminitis: AST and ALT improving h/o cholecystectomy MRCP WNL (7) C. difficile colitis: h/o C diff colitis, now with diarrhea and on chronic antibiotics will check for C diff - no stool sample given lack of diarrhea would argue against C diff, will send sample if possible (8) Hypotension: transient, resolved with IV fluids stop fluids 12/21 (9) Migraine: takes Topamax BID, will continue on Emgality pen once a month gave a dose of Imitrex today, provided relief (10) Dementia: mild at baseline, lives at home (11) Fever: could be due to pneumonia or diarrhea follow for improvement with treatment (12) Altered level of consciousness: per , she was started on Lyrica [employer] ago for insomnia had a strong reaction, could not be aroused Holding Lyrica as well as other sleep aides for now Plan: patient's would like her to go to [place] for rehab she is accepted and a bed will be available on 12/26 Subjective Pt has been much more interactive and cooperative today per nursing and . She ate more. Issues with her IV site today. I did not see at bedside today as he had left for an ortho appt, however I did discuss pt care with him via phone. Pt's cough is better today with the chloraseptic spray. Pt had diarrhea yesterday per nursing, but this has not been an issue today. Pt denies fever, SOB, chest pain, abd pain, n/v, LE pain or swelling. Review of Systems Review of Systems: Pertinent positives and negatives reviewed in HPI--all others negative Physical Exam Constitutional: WD/WN, vitals as above Eyes: normal visual loza by confrontation and + anicteric sclerae Neck: normal visual inspection and trachea midline Respiratory: normal respiratory effort, lungs clear to auscultation Cardiovascular: Rate/Rhythm: regular rate and regular rhythm Gastrointestinal (Abdomen): Inspection/Auscultation: abdomen not distended Percussion/Palpation: abdomen soft; abdomen nontender Musculoskeletal: Head/Neck/Chest: normocephalic and head atraumatic Skin: no rashes, warm and dry Neurologic: awake and + confused (more interactive than yesterday) Psychiatric: Orientation: alert and oriented to person Results & Data Vital Signs (Past 12 Hours) Vital Signs Temp Pulse Resp BP Pulse Ox 12/25/18 15:25 36.1 C L 96 H 24 146/73 H 99 12/25/18 07:26 37.1 C 75 20 141/74 H 94 (1) Hypotension Hypotension type: unspecified hypotension type Qualified Code(s): I95.9 - Hypotension, unspecified (2) Fever Fever type: unspecified Qualified Code(s): R50.9 - Fever, unspecified
--- NOTE | 2018-12-25 19:11 | Infectious Disease Progress Nt ---
Date of Service December 25, 2018 Assessment & Plan (1) Pneumonia involving left [age]-year-old female with dementia with chronic respiratory tract infection with recent cultures positive for MSSA and Pseudomonas, being treated with oral antibiotics, admitted with possible new infiltrate and diarrhea. C. difficile studies suggestive of colonization only. Patient to be treated with oral antibiotics as outlined, will follow-up as outpatient. Subjective Patient seen in follow-up for chronic respiratory tract infection. Appears better today, no increase in shortness of breath or cough. Remains afebrile. Review of Systems Review of Systems: All systems reviewed & are unremarkable except as noted in HPI & below Physical Exam Constitutional: WD/WN, vitals as above well developed (Somewhat chronically ill-appearing) and comfortable; no acute distress Eyes: PERRL, conjunctivae normal, anicteric sclerae ENMT: external ear and nose normal, oropharynx normal Neck: trachea midline, no thyromegaly neck nontender Respiratory: normal respiratory effort and normal percussion; does not use accessory muscles Auscultation: + rales (Left base) Cardiovascular: Rate/Rhythm: regular rate and regular rhythm Heart Sounds: normal S1 and normal S2; no gallop, no murmur and no cardiac rub Vessels: normal peripheral pulses; no JVD Gastrointestinal (Abdomen): normal bowel sounds, soft, nontender, no hepatosplenomegaly Musculoskeletal: no cyanosis or clubbing, extremities motor strength 5/5 Spine: thoracic spine normal to inspection and lumbar spine normal to inspection; no cervical spinal tenderness Skin: no rashes, warm and dry normal turgor; no lesions Neurologic: moves all extremities and awake; no focal motor deficits Psychiatric: Orientation: alert, oriented to person and cooperative Lymphatic: no cervical or axillary lymphadenopathy no inguinal lymphadenopathy Results & Data Vital Signs (Past 12 Hours) Vital Signs Temp Pulse Resp BP Pulse Ox 12/25/18 15:25 36.1 C L 96 H 24 146/73 H 99 12/25/18 07:26 37.1 C 75 20 141/74 H 94 Laboratory Results [facility] 12/25/18 05:54 Sodium 143 Potassium 3.1 L Chloride 112 H Carbon Dioxide 21 BUN 11 Creatinine 0.93 Glucose 91 Calcium 9.0 Liver Function 12/25/18 Range/Units 05:54 Total Bilirubin 0.3 (0.2-1) mg/dl Direct Bilirubin 0.1 (0-0.2) mg/dl AST 15 (15-37) U/L ALT 59 (12-78) U/L Alkaline Phosphatase 240 H (45-117) U/L Albumin 2.4 L (3.4-5.0) gm/dl Diagnostic Findings Microbiology 12/20/18 11:39 Blood Blood Culture - Preliminary No growth to date. 12/20/18 12:00 Blood Blood Culture - Preliminary No growth to date. MRCP CLINICAL HISTORY: Sepsis, mild elevated LFTs, h/o cholecystectomy COMPARISON STUDY: MRCP and right upper quadrant ultrasound March 23, 2018. CT of the abdomen and pelvis October 25, 2018. TECHNIQUE: Utilizing a 1.5 Gavi magnet and dedicated coil, multiplanar, multiecho imaging of the abdomen was performed without intravenous contrast. FINDINGS: There is mild dilatation of the common bile status post cholecystectomy. The common bile duct measures 8 mm in caliber. This is slightly diminished when compared to MRCP of March 23, 2018. No common bile duct calculi are identified although this exam is mildly compromised by motion artifact. The course and caliber of the main pancreatic duct is normal. There is no peripancreatic infiltration or fluid. Liver morphology is normal. No hepatic lesions are identified on this unenhanced exam. There are small bilateral pleural effusions. No abdominal lymphadenopathy is present. There is moderate atherosclerotic plaque of the abdominal aorta. Caliber of visualized small and large bowel are normal. The heart is moderately enlarged. IMPRESSION: 1. Minimal biliary ductal dilatation which is likely related to previous cholecystectomy. No common bile duct calculi identified. 2. Small bilateral pleural effusions. Electronically signed by: Casper Hammer M.D. 12/25/2018 1:26 PM
[2018-12-25] MEDS: PRAMIPEXOLE DIHYDROCHLO 0.5 MG TAB PO SCH (20:40)
[2018-12-26] MEDS: HEPARIN SOD 5,000 UNIT/0.5 ML VIAL SQ SCH (05:53)
[2018-12-26] MEDS: LEVOTHYROXINE SODIUM 75 MCG TABLET PO SCH (05:54)
[2018-12-26] MEDS: PIPERACILLIN/TAZOBACTAM 3.375 GM in DEXTROSE 5% 100 ML IV SCH (05:54)
[2018-12-26] MEDS: FAMOTIDINE 20 MG TAB PO SCH (09:45)
[2018-12-26] MEDS: LORATADINE 10 MG TAB PO SCH (09:45)
[2018-12-26] MEDS: FUROSEMIDE 40 MG TAB PO SCH (09:45)
[2018-12-26] MEDS: TOPIRAMATE 100 MG TAB PO SCH (09:45)
[2018-12-26] MEDS: BUTALBITAL/ACETAMIN/CAFFEINE TAB PO PRN (10:11)
--- NOTE | 2018-12-26 11:22 | Discharge Summary ---
Date of Service December 26, 2018 Admission HPI Per Admitting Provider 83 yo female with history of dementia, recurrent respiratory infections/pneumonia, C diff colitis, HTN, migraine headaches and insomnia, presents to the ED with her family due to lethargy and fevers at home. Most of the history obtained from her and daughter in law at the bedside. She has been dealing with a chronic cough and pneumonia for the past 4 months. She was on several rounds of antibiotics without improvement. She had a CT of her abdomen/pelvis for other reasons but the bases of the lungs demonstrated bronchiolitis. She was seen by Dr. Nelson in the pulmonary clinic and bronchoscopy was recommended. She had a bronchoscopy on 11/30 and lavage cultures grew MSSA and Pseudomonas. She was referred to Dr. Yang for antibiotic recommendations, treated with Cipro and Cefadroxil. She has been feeling well until a few days ago. She was coughing less, no recent fevers or night sweats. Her appetite was good. She still had some dyspnea on exertion. Three days ago she was started on Lyrica for insomnia. She had a bad reaction to the medication, caused significant lethargy and drowsiness, could not get her to wake up all day. Two days ago she started to have some loose stools and they became more frequent. She had a more productive cough and more dyspnea as well. She had a fever today. She has not been eating or drinking well for three days. Compliant with her medications. She came to the ED. She was slightly hypotensive, responded to IV fluid bolus. WBC up at 14k. ESR and CRP both elevated. Cr higher than baseline at 1.38. Electrolytes stable. Mild elevation in transaminases. CXR showed left lower lobe infiltrate, which is chronic change. Principal Diagnosis Pt with ongoing confusion, but feels she is overall better. She refused lab draws today "no more sticks". She did eat breakfast and tells me she did well with that. agrees. He feels her cough is better with the chloraseptic spray. Pt denies fever, SOB, chest pain, abd pain, n/v/c/d, LE pain or swelling. She did have an episode of incontinence due to coughing and she is upset about this. Discharge Exam Constitutional WD/WN, vitals as above Eyes normal visual loza by confrontation and + anicteric sclerae Neck normal visual inspection and trachea midline Respiratory normal respiratory effort, lungs clear to auscultation Cardiovascular Rate/Rhythm: regular rate and regular rhythm Gastrointestinal (Abdomen) Inspection/Auscultation: abdomen not distended Percussion/Palpation: abdomen soft; abdomen nontender Musculoskeletal Head/Neck/Chest: normocephalic and head atraumatic Skin no rashes, warm and dry Neurologic awake and + confused (more interactive than yesterday) Speech / Cognition: normal speech Speaking to me in full sentences today. Making eye contact. Speech is clear. Psychiatric Orientation: alert and oriented to person Discharge Data Allergies Allergy/AdvReac Type Severity Reaction Status Date / Time codeine Allergy Mild ?REACTION Verified 12/19/18 21:27 aripiprazole Allergy Unknown unknown Verified 12/19/18 21:27 aspartame AdvReac Intermediate MIGRAINE Verified 12/19/18 21:27 Consultations 12/20/18 14:54 ED Decision to Admit Stat 12/20/18 16:36 Consult Case Management - Discharge Planning Routine Consult Infectious Diseases Routine Ordered Studies 12/22/18 12:30 FL video swallow Routine 12/25/18 07:00 MR MRCP Routine Hospital Course (1) Sepsis: likely due to pneumonia but also had diarrhea Pt with mild elevation in AST and ALT, however MRCP was WNL today treated with Zosyn, Vanco no growth on blood cultures in the ED Will d/c on prior antibiotics until seen by Dr. Yang was taking Cipro and Cefadroxil for MSSA and Pseudomonas bronchiolitis follow up with Dr. Yang in a few weeks (2) HCAP (healthcare-associated pneumonia): patient has been following with Dr. Nelson and Dr. Yang had bronchoscopy on 11/30 for 4 months of URI and cough bronchial lavage grew out MSSA and Pseudomonas placed on Cefadroxil and Cipro by Dr. Yang, saw in office on 12/11 Cough improved with chloraseptic spray, continue presented with fever, still with cough but no sputum had increased lethargy and poor oral intake, did take Lyrica recently had leukocytosis at 14k and mild MERCEDES WBC down to normal, MERCEDES resolved CXR has left lower lobe infiltrate Dr. Yang following, recommends to d/c on the Cefadroxil and Cipro given other negative work-up (3) Acute pulmonary edema: occurred in the morning on 12/22 due to give IV fluids and holding Lasix on admission due to MERCEDES and dehydration treated the pulmonary edema with Lasix 40mg IV x 1 dose excellent response lungs cleared later that day and no return of fluid (4) Acute hypoxemic respiratory failure: due to pulmonary edema resolved with diuresis on 12/22 breathing well on 12/23, no distress at all (5) MERCEDES (acute kidney injury): Cr up at 1.3, was actually higher at 1.6 on 12/19 gentle IV fluids, hold nephrotoxins Cr improved to 1.1, stopped fluids on 12/21 (6) Transaminitis: AST and ALT improving h/o cholecystectomy MRCP WNL (7) C. difficile colitis: h/o C diff colitis, now with diarrhea and on chronic antibiotics will check for C diff - no stool sample given lack of diarrhea would argue against C diff, will send sample if possible hypokalemia has been an issue during admission, replaced and monitored Pt refused lab draws this AM Increased home K dose to BID Recheck in AM (8) Hypotension: transient, resolved with IV fluids stop fluids 12/21 (9) Migraine: takes Topamax BID, will continue on Emgality pen once a month gave a dose of Imitrex today, provided relief (10) Dementia: mild at baseline, lives at home (11) Fever: could be due to pneumonia or diarrhea follow for improvement with treatment (12) Altered level of consciousness: per , she was started on Lyrica GYPSUM [employer]TER ago for insomnia had a strong reaction, could not be aroused Holding Lyrica as well as other sleep aides for now d/c to [facility] for rehab (13) Hypokalemia: Total Time Total Time Spent Total Time Spent (In Minutes): >30 minutes Discharge Plan Discharge Items Patient Disposition: Transfer Inpatient Rehab Fac Reason For Visit: PNEUMONIA,MERCEDES Discharge Diagnosis: PNA Discharge Goals: Decrease discomfort, Improve disease control and Improve function Activity: Resume your previous activity Non-emergency contact: Primary Care Provider Call non-emergency contact if: you have any medication questions, your pain is not controlled and your pain is concerning for you Follow-up/Referrals: Kim Sanabria MD [Primary Care Provider] - Diet: Regular Other Ambulatory Orders: Comprehensive Metabolic Panel (Routine) Timeframe: 1 Day Location: Determined by Patient Ordered By: Setphanie Martinez Provider Instructions: You should follow up with your PCP in 3 days You can use chloraseptic spray for your cough as needed Prescriptions: Continued trazodone 50 mg Tablet 25 - 50 mg PO HS PRN (Reason: Sleep) RF: 0 riboflavin (vitamin B2) [Vitamin B-2] 100 mg Tablet 400 mg PO DAILY RF: 0 sennosides-docusate sodium [Senexon-S] 8.6-50 mg Tablet 1 tab PO DIRECTED PRN (Reason: Constipation) RF: 0 ciprofloxacin HCl [Cipro] 500 mg Tablet 500 mg PO BID RF: 0 cefadroxil 500 mg Capsule 500 mg PO BID RF: 0 famotidine 20 mg Tablet 20 mg PO BID RF: 0 topiramate 100 mg Tablet 200 mg PO QPM RF: 0 ondansetron 4 mg tablet,disintegrating 4 mg PO Q6 PRN (Reason: nausea and vomiting) RF: 0 pramipexole 1 mg Tablet 1 mg PO HS RF: 0 atorvastatin [Lipitor] 20 mg Tablet 20 mg PO HS RF: 0 nadolol 40 mg Tablet 40 mg PO DAILY RF: 0 fluticasone propionate [Flonase Allergy Relief] 50 mcg/actuation [place],Suspension 2 spray INTRANASAL DAILY PRN (Reason: Allergic Symptoms) RF: 0 loratadine 10 mg Tablet 10 mg PO DAILY RF: 0 gwilhgrdol-tcbopsrjzlqrq-uqcq 50-325-40 mg Capsule 1 cap PO BID PRN (Reason: Headache) RF: 0 levothyroxine 25 mcg Tablet 37.5 mcg PO DAILY RF: 0 losartan 50 mg Tablet 50 mg PO DAILY RF: 0 furosemide 40 mg Tablet 40 mg PO DAILY RF: 0 mirtazapine 30 mg Tablet 30 mg PO HS RF: 0 zolpidem 5 mg Tablet 5 mg PO HS PRN (Reason: Sleep) RF: 0 topiramate 100 mg Tablet 100 mg PO QAM RF: 0 Emgality Pen 120 mg/mL Pen Injector 120 mg SUBCUT MONTHLY RF: 0 Changed potassium chloride 10 mEq Capsule, Extended Release 10 meq PO BID Qty: 0 RF: 0 Discontinued amoxicillin-pot clavulanate 250-125 mg tablet 1 tab PO BID 10 Days Qty: 20 RF: 0 Stand-Alone Forms: [facility] Discharge Orders: Discharge Order (Routine); Ordered 12/26/18 Ordered By: Stephanie Wei Skilled Items Patient informed of condition?: Yes DNR: Yes Discharge Level of Care: Acute rehab Communicable Disease: Yes Discharge Prognosis: Stable Admission Data Admit Date/Time: 12/20/18 15:31 Attending Provider: Stephanie Wei Admit Provider: Ed Dial Primary Care Provider: Kim Sanabria Other Providers: Jayro Childers ; Brett Yang ; Ed Dial Service: Medical Other Interventions: Discharge Summary Assessment (RN) Last Done: 12/26/18 11:53 Pending Studies at Discharge: No DC Date/Time DO NOT enter until pt leaves facility: 12/26/18 13:59
== END 2018-12-26 13:59 | DRG 871 ==
LOC: ED 11:02 → 2S 15:31 → SUATTDRO 15:31 → 2S 16:18 → 4E 12-21 13:00